=== PATIENT | female | born 1945 | race Caucasian/White ===

== ENCOUNTER → 2024-04-09 07:33 | Outpatient (REF) | payer OTHER, SELFPAY | LOC: PAVMRI 07:33 | PROVIDERS: ATTENDING PHYSICIAN Psychiatry & Neurology Neurology; FAMILY PHYSICIAN Family Medicine | DX: R20.9 Unspecified disturbances of skin sensation (principal); G51.8 Other disorders of facial nerve | CPT/HCPCS: 70553; A9575 ==

== ENCOUNTER → 2024-09-20 11:41 | Outpatient (REF) | payer OTHER, SELFPAY ==
[2024-09-20 13:01] LABS: % Basophils 0.2 % (0-2); % Eosinophils 2.1 % (0-6); % Immature Granulocytes 0.4 % (0-0.5); % Lymphocytes 22.8 % (20.5-51.1); % Monocytes 5.1 % (1.7-9.3); % Neutrophils 69.4 % (42.2-75.2); Absolute Eosinophils 0.1 10^3/uL (0-0.7); Absolute Lymphocytes 1.1 10^3/uL (1.2-3.4); Absolute Monocytes 0.2 10^3/uL (0.1-0.6); Absolute Neutrophils 3.3 10^3/uL (1.4-6.5); Hematocrit 29.9 % (37.0-47.0); Hemoglobin 10.3 g/dL (12.0-16.0); Mean Corp Hgb Conc. 34.4 g/dL (33.0-37.0); Mean Corpuscular Hgb 28.8 pg (27.0-31.0); Mean Corpuscular Volume 83.5 fL (81.0-99.0); Mean Platelet Volume 9.2 fL (7.4-10.4); Nucleated Red Blood Cells % 0 %; Platelet Count 224 10^3/uL (130-400); Red Blood Cell Count 3.58 10^6/uL (4.20-5.40); Red Cell Dist. Width 12.6 % (11.5-14.5); White Blood Cell Count 4.7 10^3/uL (4.8-10.8)
[2024-09-20 13:10] LABS: ALT (SGPT) < 10 U/L (0-35); AST (SGOT) 22 U/L (14-36); Albumin 3.5 g/dl (3.5-5.0); Alkaline Phosphatase 57 U/L (38-126); Blood Urea Nitrogen 23 mg/dl (7-17); Calcium 8.9 mg/dl (8.4-10.2); Carbon Dioxide 30 mmol/L (22-30); Chloride 102 mmol/L (98-107); Creatine Phosphokinase 52 U/L (30-135); Glucose 114 mg/dl (70-99); Potassium 3.7 mmol/L (3.5-5.1); Sodium 141 mmol/L (135-145); Total Bilirubin 0.4 mg/dl (0.2-1.3)
[2024-09-20 13:22] LABS: Erythrocyte Sed Rate 43 mm/hour (0-20)
[2024-09-20 13:26] LABS: Complement C3 154 mg/dl (88-165); IgA 309 mg/dl (70-400); IgG 909 mg/dl (700-1600); IgM 52 mg/dl (40-230)
[2024-09-20 13:33] LABS: Vitamin D, 25-OH*** 51.5 ng/mL (30-80)
[2024-09-20 19:14] LABS: Hepatitis B Surface Antigen Negative (Negative)
[2024-09-20 19:32] LABS: Hepatitis B Core Ab, Total Negative (Negative); Hepatitis B Surface Antibody Negative; Hepatitis C Antibody Negative (Negative)
[2024-09-22 10:31] LABS: Quantiferon Mitogen minus NIL 9.93 IU/mL; Quantiferon NIL 0.07 IU/mL; Quantiferon TB Gold Plus Negative (Negative)
[2024-09-23 06:35] LABS: Histone Antibody, IgG 0.2 Units (0.0-0.9)
[2024-09-23 08:14] LABS: ANA, IgG Reflex to HEp-2 None Detected (None Detected)
[2024-09-23 08:58] LABS: CCP Antibody IgG/IgA 3 Units (0-19)
[2024-09-23 09:16] LABS: Cardiolipin IgA Antibody <10 APL (<=11); Cardiolipin IgM Antibody <10 MPL (<=12); Cardiolipin Igg Antibody <10 GPL (<=14)
[2024-09-23 09:49] LABS: Vitamin D 1,25 Dihydroxy 64.9 pg/mL (19.9-79.3)
== END ==
LOC: REG 11:41
PROVIDERS: ATTENDING PHYSICIAN Student in an Organized Health Care Education/Training Program; FAMILY PHYSICIAN Psychiatry & Neurology Neurology; OTHER PHYSICIAN Family Medicine
DX: K13.79 Other lesions of oral mucosa (principal); R21 Rash and other nonspecific skin eruption; R25.1 Tremor, unspecified; R51.9 Headache, unspecified; R76.8 Other specified abnormal immunological findings in serum
CPT/HCPCS: 36415; 80053; 82164; 82306; 82550; 82595; 82652; 82784; 83516; 85025; 85610; 85613; 85652; 85730; 86038; 86140; 86146; 86147; 86160; 86162; 86200; 86480; 86704; 86706; 86803; 87340

== ENCOUNTER 2024-09-22 21:14 | Emergency (ER) | payer OTHER, SELFPAY ==
[2024-09-22 21:24] VITALS: BP 150/74
--- NOTE | 2024-09-23 01:10 | ED.GENMED ---
History of Present Illness
General
Chief Complaint: Facial Problem
Source: patient, spouse and other (Office notes from reimbursement auditor September 03; office notes from neurologist September 20. Recent laboratory studies September 20)
Exam Limitations: none
Time Seen by Provider: 09/23/24 00:41
Nursing documentation reviewed up to this point in time: agreed with
History of Present Illness
History of Present Illness:
This is an 79-year-old woman who has been suffering with trigeminal neuralgia which initially began 4 years ago after viral illness and initially the left side of her face. She has been following with neurology, Dr. Mark as well as following with
reimbursement auditor, Dr. Dumont due to positive CLAUDIA. Unremarkable MRI of the brain 2021 and again unremarkable January 2024. Apparently had been tried on Trileptal in the past without improvement. She is chronically maintained on Sinemet.
She complains of intermittent severe right sided facial pain that began a few weeks ago, worse over the past week. Right-sided facial pain is sharp, stabbing in nature accompanied with some burning sensation right buccal mucosa.
She was evaluated by Dr. Mark September 20. Extensive laboratory studies on September 20 shows minimally elevated sed rate of 43, mildly elevated CRP of 13.3. Complement factors negative. TB negative.
CBC showing very mild leukopenia at 4.7, hemoglobin 10.3.
Chemistries unremarkable. Vitamin D is normal. Immunoglobulins within normal limits.
Multiple other immunoglobulin studies are pending.
According to records, Dr. Mark plan was to increase Sinemet from twice daily dosing to 3 times daily dosing. Patient states due to facial pain she has been unable to eat, takes her medication with food, thus has not increased her dose as yet.
There is also note of potentially restarting Trileptal but patient states this has not been restarted and reports poor results with previous trial of Trileptal.
There is also consideration for initiating deutetrabenazine but not initiated as yet.
With last visit with reimbursement auditor September 03, and again yesterday she recommended trial of Magic mouthwash and prescription was to be sent to the pharmacy but patient states pharmacist did not receive the prescription.
She presents tonight with her with concerns for continuing severe intermittent right facial pain with inability to sleep.
She is hoping for some pain relief so she can sleep.
She has not been prescribed narcotics.
She is maintained on alprazolam 0.25 mg, once daily.
Past History
Past History
ED Past Medical History: HTN, Hypercholesterolemia, Psychiatric (Anxiety) and Other (Chronic trigeminal neuralgia Since 2019; Irritable bowel syndrome)
ED Past Surgical History: Cholecystectomy and Tonsilectomy
Social History
Tobacco: Non-smoker
Alcohol: None
Personal:
Living: with family
Employment: Retired
Family History
Family History: Other (Noncontributory)
Phy Exam
Physical Exam
Physical Exam:
GENERAL: 79-year-old woman appears her stated age. She is sitting upright on edge of stretcher, occasionally wincing in pain, guarding the right side of her face. is accompanying.
EYE: pupils equal and reactive. anicteric
NECK: Supple, nontender, no meningismus, no significant adenopathy.
ENT: posterior pharynx is clear, oral mucosa is moist. TM clear b/l, nares patent. No definitive palpable tenderness to the right side of the face but palpation of the right side of the face occasionally triggers neuropathic right facial pain.
There is no soft tissue swelling, no erythema, no rash.
CARDIAC: Regular rate and rhythm. no murmur.
LUNGS: Clear breath sounds bilaterally, no acute respiratory distress, no wheezes/rales/rhonchi
ABDOMEN: Soft, nondistended, without focal tenderness
NEUROLOGICAL: Alert and oriented x3, no focal neuro deficits. Gait is steady. No evidence of muscle spasm nor abnormal movements.
SKIN: Warm and dry, normal color, skin intact. No rash.
MUSCULOSKELETAL: No C/C/E. peripheral pulses are full and equal b/l. No palpable tenderness.
PSYCH: Mildly anxious. Easily communicative.
Course
Orders/Labs/Results
Orders:
Orders
09/23/24 01:09
Ketorolac [Toradol] 30 mg IM NOW STA
09/23/24 01:40
Mag&Al/Sim/Diphenhyd/Lidocaine [First-Mouthwash Blm Suspension] 5 ml PO NOW STA
Vital Signs
Initial and Last Documented VS:
Initial Vital Signs
Temp Pulse Resp BP Pulse Ox
98.5 F 67 19 150/74 98
09/22/24 21:24 09/22/24 21:24 09/22/24 21:24 09/22/24 21:24 09/22/24 21:24
Last Documented Vital Signs
Temp Pulse Resp BP Pulse Ox
98.5 F 65 18 151/58 98
09/22/24 21:24 09/23/24 01:20 09/23/24 01:20 09/23/24 01:20 09/23/24 01:20
MDM/Problems Addressed
Differential Diagnosis Includes:
Patient has history of chronic trigeminal neuralgia which initially began 4 years ago, left facial now more recently exacerbated and is right facial.
She has been following with neurology as well as rheumatology with recent visits this month in fact visit with neurologist just September 20.
Extensive laboratory panel thus far unremarkable save for minimally elevated sed rate and CRP. Reportedly positive CLAUDIA in the past, repeat immunologic studies are pending.
She presents with complaints of increasing pain and difficulty sleeping.
No evidence of infectious process and although reports difficulty eating has been drinking fluids well and overall appears euvolemic.
Unremarkable routine labs just 2 days ago.
Will trial an IM dose of Toradol as well as a dose of Magic mouthwash.
Due to advanced age, I am significantly hesitant to initiate opioid or any other significantly sedating medication.
Chronic conditions affecting care: HTN and Other (Chronic facial pain/trigeminal neuralgia)
Acute Exacerbation and/or Progression of Chronic Illness: Other (Trigeminal neuralgia)
*Pulse Oximetry
Patient hypoxic: no
*Critical Care Note
Total Time (mins, 75-104mins- exclusive of procedures): Not Applicable
Update Note
Update Note:
After an IM dose of Toradol and an oral dose of Magic mouthwash patient feeling improved and is eager to be discharged to home.
Recommend prompt follow-up with her neurologist as well as reimbursement auditor.
Discussed importance of remaining well-hydrated on a daily basis.
A prescription for Magic mouthwash has been provided to patient.
ED Attending Note
-
Portions of this chart may have been created with voice recognition software.� Occasional wrong word or��sound alike� substitutions may have occurred due to the inherent limitations of voice recognition software.
Discharge Plan
Departure
Patient Disposition: Home (Routine Discharge)
Date of Disposition: 09/23/24
Time of Disposition: 02:11
Patient with high blood pressure during this ER visit?: No
Condition: Good
Discharge Problem:
exacerbation of trigeminal neuralgia
Instructions: Trigeminal neuralgia
Referrals:
Nisreen Dumont DO [Active] - Keep scheduled appt
Moris Mark MD [Active] - Call in 1-3 days for appt
NONE,* [Family Provider] -
Interventions
Interventions:
*Risk Screen - Suicide Last Done: 09/22/24 21:24
*General Assessment Last Done: 09/23/24 01:17
*Neglect/Abuse Screening Last Done: 09/22/24 21:24
*ED COVID-19 Vaccine History Last Done: 09/23/24 01:20
ED- Neurological Assessment Last Done: 09/23/24 01:17
ED-Skin Assessment Last Done: 09/23/24 01:17
Discharge Date and Time
Print Language: LAO
[2024-09-23] MEDS: TORADOL 30 MG IM (01:14)
[2024-09-23 01:20] VITALS: BP 151/58; BMI 24.3
[2024-09-23] MEDS: FIRST-MOUTHWASH BLM SUSPENSION 5 ML PO (01:49)
== END 2024-09-23 02:24 | disposition home or self-care (01) ==
LOC: EMR 21:14
PROVIDERS: EMERGENCY PHYSICIAN Emergency Medicine
DX: G50.0 Trigeminal neuralgia (principal); E78.00 Pure hypercholesterolemia, unspecified; I10 Essential (primary) hypertension; Z90.49 Acquired absence of other specified parts of digestive tract; Z79.899 Other long term (current) drug therapy
CPT/HCPCS: 96372; 99284

== ENCOUNTER 2024-09-24 17:15 | Inpatient (IN) | payer OTHER, SELFPAY ==
[2024-09-24 13:32] VITALS: BP 140/59
--- NOTE | 2024-09-24 13:49 | ED.GENMED ---
History of Present Illness
General
Chief Complaint: Swelling
Source: patient
Exam Limitations: none
Time Seen by Provider: 09/24/24 13:46
Nursing documentation reviewed up to this point in time: agreed with
History of Present Illness
History of Present Illness:
79-year-old female with past medical history of anxiety, high blood pressure, trigeminal neuralgia presents to the emergency department today with concerns of right sided facial pain as well as swelling of the tongue. Patient states her tongue is
so swollen that she has a lot of difficulty swallowing. Patient denies any shortness of breath. Patient denies any chest pain. Patient denies any rashes. Patient does take losartan but does not take any CAS inhibitor's. She has been following
with Dr. Kelly for the facial symptoms as well as following with rheumatology. Today she feels the facial pain on the right side, describes it as a burning sensation. She also gets intermittent muscle spasms on that same side. Patient denies any
exposure to known allergens. Patient denies any new medications other than Toradol which she recieved last night as well as Magic mouthwash.
Past History
Past History
ED Past Medical History: HTN, Hypercholesterolemia, Psychiatric (Anxiety) and Other (Chronic trigeminal neuralgia Since 2019; Irritable bowel syndrome)
ED Past Surgical History: Cholecystectomy and Tonsilectomy
Social History
Tobacco: Non-smoker
Alcohol: None
Personal:
Living: with family
Employment: Retired
Family History
Family History: Other (Noncontributory)
Review of Systems
Review of Systems
All Other Systems: ROS reviewed and negative except as documented in HPI and ROS
Phy Exam
Physical Exam
Physical Exam:
General: Patient is well appearing and in no acute distress; non-toxic
Skin: Warm and dry, no rashes or lesions
Head: Normocephalic, atraumatic
Eyes: Sclera non-icteric. EOMs intact. PERRLA.
Mouth: Tongue swelling noted, no lip swelling, minimal visualization of posterior pharynx due to swelling
Cardiac: Regular rate and rhythm, no murmurs
Peripheral Vascular: No lower extremity swelling or edema
Pulm: Normal respiratory effort, no wheezes
Neuro: CN II-XII intact, no focal neurologic deficits. No reproduction of neurologic symptoms with palpation of right trigeminal nerve root.
Psychiatric: Appropriate mood and affect.
Scores
Heart Failure Risk
Heart Failure Risk Score: Not Applicable
Course
Orders/Labs/Results
Orders:
Orders
09/24/24 14:02
Diphenhydramine [Benadryl] 25 mg IV NOW STA
Famotidine [Pepcid] 20 mg IV NOW STA
09/24/24 14:09
Complete Blood Count/With Diff Urgent
Comprehensive Metabolic Panel Urgent
09/24/24 14:23
EPINEPHrine PF [Adrenalin] 0.3 mg IM NOW STA
Ketorolac [Toradol] 15 mg IV NOW STA
09/24/24 14:54
Ketorolac [Toradol] 15 mg .ROUTE .STK-MED ONE
09/24/24 14:59
Morphine Sulfate 2 mg IV NOW STA
09/24/24 16:25
diazePAM [Valium Injection] 2 mg IV NOW STA
09/24/24 16:59
Admit/Transfer Patient As Directed
Co-Sign Provider:
Level of Care: Inpatient admission
Assign to:: Telemetry
Physician / Group: Shiva
Diagnosis: Angioedema, HERLINDA
Reason for Telemetry: Arrhythmia
Date to Stop Telemetry: 09/27/24
Time to Stop Telemetry: 11:00
Reason for Hospitalization: IVFs
Expected length of stay greater than two midnights?: Yes
ELOS- Estimated Length of Stay in days: 3
I certify the patient meets the requirements for IP care: Yes
PRN Pain Medication Management As Directed
May give lesser potent ordered pain med per pt: Yes
preference::
Protocol:: Medication orders for pain may be administered in a
manner that supports deferring to patient preference
when the pt is:
- Requesting an ordered lesser potent pain medication.
Least to most potent pain medications are defined
as: acetaminophen < NSAID < tramadol < opioids
(morphine, oxycodone, hydromorphone).
- Requesting a lesser dose of the same medication IF
ORDERED.
- Requesting a less intrusive route of administration
if both routes are prescribed by the provider (PO <
IV).
09/24/24 17:00
Code Status As Directed
Resuscitation Status: Full Code
09/27/24 11:00
DC Protocol for Telemetry ONCE
Abnormal Lab Results
09/24/24
14:09
RBC 3.68 L 10^6/uL
(4.20-5.40)
Hgb 10.5 L g/dL
(12.0-16.0)
Hct 30.4 L %
(37.0-47.0)
Absolute Lymphs (auto) 1.0 L 10^3/uL
(1.2-3.4)
Neutrophils % 75.5 H %
(42.2-75.2)
Lymphocytes % 19.1 L %
(20.5-51.1)
BUN 33 H mg/dl
(7-17)
Creatinine 1.3 H mg/dL
(0.6-1.0)
Total Protein 6.0 L g/dl
(6.3-8.2)
09/24/24 14:09
09/24/24 14:09
Vital Signs
Initial and Last Documented VS:
Initial Vital Signs
Temp Pulse Resp BP Pulse Ox
98.1 F 81 18 140/59 98
09/24/24 13:32 09/24/24 13:32 09/24/24 13:32 09/24/24 13:32 09/24/24 13:32
Last Documented Vital Signs
Temp Pulse Resp BP Pulse Ox
98.1 F 80 18 122/50 98
09/24/24 13:32 09/24/24 16:22 09/24/24 16:22 09/24/24 16:22 09/24/24 16:22
MDM/Problems Addressed
Differential Diagnosis Includes:
Angioedema, anaphylaxis, cellulitis, trigeminal neuralgia, multiple sclerosis,
MDM/Problems Addressed:
79-year-old female with past medical history of trigeminal neuralgia, hypertension, anxiety presents to the emergency department today with concerns of acute angioedema. She has tongue swelling which muscles her voice and makes it difficult for
her to swallow. EMS was called and she was given Decadron and route to the emergency department. Here in the emergency department, she was given intramuscular epinephrine, and antihistamines through the IV. Her pain was treated with morphine.
CBC shows chronic anemia, CMP shows increased BUN to creatinine ratio, patient is receiving some fluids. Will reassess.
On reassessment, patient's speech has improved but she still does have tongue swelling. Her speech is still muffled. Patient states that she can now feel the back of her teeth but does not feel that she can comfortably swallow. This was noted
around 2 hours after receiving her medications and epinephrine. Although no airway involvement, considering patient still has noticeable swelling and is very symptomatic, will admit for observation. Due to patient's neurologic pain, she noted no
improvement with the morphine. Patient states that she is starting to feel anxious and claustrophobic in her hospital room, will give Valium to help with anxiety as well as possible muscle spasm. In terms of patient's ongoing nerve pain and
chronic neurologic symptoms, did advise follow-up with neurology and rheumatology as soon as possible. Patient stable for hospital admission.
Chronic conditions affecting care:
Hypertension on losartan, anxiety, trigeminal neuralgia
*Pulse Oximetry
Patient hypoxic: no
*Critical Care Note
Total Time (30-74mins, 75-104mins- exclusive of procedures): Not Applicable
Data Reviewed
Review of Other/Old Records Reveals: Records (Reviewed previous ER physician documentation from 09/23/2024 patient was seen for exacerbation of trigeminal neuralgia with her right sided facial pain, was given Toradol and Magic mouthwash) and
Discharge Summary (No discharge summary in [facility] to review)
Source: patient and records
Prescriptions/Medications Considered But Not Given:
n/a
Further Testing Considered But Not Given:
n/a
Patient Management
Discussion with other providers: [facility] [employer]
Escalation/DeEscalation of care consider admission/obs:
Patient referred for admission reviewed case with the ER attending
ED Attending Note
-
Portions of this chart may have been created with voice recognition software.� Occasional wrong word or��sound alike� substitutions may have occurred due to the inherent limitations of voice recognition software.
Discharge Plan
Departure
Patient Disposition: Admit
Date of Disposition: 09/24/24
Time of Disposition: 16:30
Admit to: Med/Surg
Presentation/result/management discussed w/ accepting MD/DO: Hospitalist
Patient with high blood pressure during this ER visit?: Yes
Condition: Fair
Discharge Problem:
Angioedema
Interventions
Interventions:
*Risk Screen - Suicide Last Done: 09/24/24 13:38
*General Assessment Last Done: 09/24/24 13:38
*Neglect/Abuse Screening Last Done: 09/24/24 13:38
ED- Fall Risk Assessment Last Done: 09/24/24 18:24
*ED COVID-19 Vaccine History Last Done: 09/24/24 13:38
*Nursing Disposition Last Done: 09/24/24 18:24
ED- Cardiac Assessment Last Done: 09/24/24 13:39
ED- Pulmonary Assessment Last Done: 09/24/24 13:39
ED-Skin Assessment Last Done: 09/24/24 13:39
[2024-09-24] MEDS: PEPCID 20 MG IV (14:11)
[2024-09-24] MEDS: BENADRYL 25 MG IV (14:11)
[2024-09-24 14:21] LABS: % Basophils 0.4 % (0-2); % Immature Granulocytes 0.4 % (0-0.5); % Lymphocytes 19.1 % (20.5-51.1); % Monocytes 3.6 % (1.7-9.3); % Neutrophils 75.5 % (42.2-75.2); Absolute Eosinophils 0.1 10^3/uL (0-0.7); Absolute Monocytes 0.2 10^3/uL (0.1-0.6); Hematocrit 30.4 % (37.0-47.0); Hemoglobin 10.5 g/dL (12.0-16.0); Mean Corp Hgb Conc. 34.5 g/dL (33.0-37.0); Mean Corpuscular Hgb 28.5 pg (27.0-31.0); Mean Corpuscular Volume 82.6 fL (81.0-99.0); Mean Platelet Volume 8.7 fL (7.4-10.4); Nucleated Red Blood Cells % 0 %; Platelet Count 252 10^3/uL (130-400); Red Blood Cell Count 3.68 10^6/uL (4.20-5.40); Red Cell Dist. Width 12.5 % (11.5-14.5); White Blood Cell Count 5.2 10^3/uL (4.8-10.8)
[2024-09-24 14:37] LABS: ALT (SGPT) 18 U/L (0-35); AST (SGOT) 24 U/L (14-36); Albumin 3.6 g/dl (3.5-5.0); Alkaline Phosphatase 59 U/L (38-126); Blood Urea Nitrogen 33 mg/dl (7-17); Calcium 8.5 mg/dl (8.4-10.2); Carbon Dioxide 25 mmol/L (22-30); Chloride 103 mmol/L (98-107); Glucose 87 mg/dl (70-99); Sodium 140 mmol/L (135-145); Total Bilirubin 0.5 mg/dl (0.2-1.3); eGFR 41.31
[2024-09-24] MEDS: ADRENALIN 0.3 MG IM (14:56)
[2024-09-24] MEDS: MORPHINE SULFATE 2 MG IV (15:05)
[2024-09-24 16:22] VITALS: BP 122/50
[2024-09-24] MEDS: VALIUM INJECTION 2 MG IV (16:34)
--- NOTE | 2024-09-24 17:03 | HPS.HSE ---
Family Physician
-
Family Physician: Chris Jackson
Chief Complaint
-
Right Facial Pain and Tongue Swelling
History of Present Illness
Patient is an 79 y/o female past medicla history of hypertension, anxiety and possible trigeminal neuralgia who presents with right sided facial pain and tongue swelling. Patient was seen here at the [facility] Emergency Department two
nights ago with severe right facial pain. During that visit she was given a dose of Toradol and started on Magic Mouthwash for the pain. She has been using Magic Mouthwash at home with last dose this morning. Initially upon presentation her
tongue was so swollen she was having difficulty swallowing. In the ED she was given epinephrine and benadryl with improvement in the tongue swelling. She notes tongue does not feel quite back to baseline, and she reports persistent right sided
facial pain.
Medical History
Past Medical History
Past Medical History: Reports Other
Additional Past Medical History:
Essential Hypertension
Hyperlipidemia
Trigeminal Neuralgia
Anxiety
Irritable Bowel Syndrome
Past Surgical History: Reports Other
Additional Past Surgical History:
Cholecystectomy
Tonsillectomy
Social History
Tobacco: Non-smoker
Alcohol: Occasional
Family History
Family History: Not pertinent
Allergies / Home Medications
Allergies reflects when Allergies were last updated in [facility].
Home Medications with original date entered in [facility]
Allergy/Medication List:
Allergies
Allergy/AdvReac Type Severity Reaction Status Date / Time
No Known Allergies Allergy Unverified 09/22/24 21:24
Home Medications
Magic Mouthwash 5 ml PO QIDPRN PRN mouth pain 09/24/24
alprazolam 0.25 mg tablet 0.25 mg PO HS 09/24/24
carbidopa 25 mg-levodopa 100 mg tablet 1 tab PO TID 09/24/24
cetirizine 10 mg tablet 10 mg PO DAILYPRN PRN allergies 09/24/24
ergocalciferol (vitamin D2) 1,250 mcg (50,000 unit) capsule 1,250 mcg PO HARRELL 09/24/24
escitalopram oxalate 10 mg tablet 10 mg PO DAILY 09/24/24
hydrochlorothiazide 25 mg tablet 25 mg PO DAILY 09/24/24
loperamide 2 mg capsule 2 mg PO BID 09/24/24
losartan 100 mg tablet 100 mg PO DAILY@1500 09/24/24
simvastatin 20 mg tablet 20 mg PO HS 09/24/24
Review of Systems
-
A 12 point ROS was completed and negative except as noted: Yes
Constitutional: Denies Fever or Chills
Respiratory: Denies Cough or Trouble Breathing
Cardiac: Denies Chest Pain or Palpitations
Abdomen/GI: Denies Abdominal Pain, Nausea, Vomiting or Diarrhea
Physical Exam
Vital Signs
Vital Signs
Temp Pulse Resp BP Pulse Ox
98.1 F 80 18 122/50 98
09/24/24 13:32 09/24/24 16:22 09/24/24 16:22 09/24/24 16:22 09/24/24 16:22
Physical Exam
General: Comfortable and Conversant
Respiratory: Clear and Non Labored Respirations
Cardiac: S1/S2 and Regular Rhythm
GI: Soft and Non Tender
Rectal: Deferred by Provider
Musculoskeletal: No Clubbing, No Cyanosis and No Edema
Skin: Warm and Dry
Neuro: Awake, Alert, Oriented and Nonfocal/grossly intact
Psych: Calm
Laboratory Results
-
09/24/24 14:09
09/24/24 14:09
Laboratory Results
Total Bilirubin 0.5 mg/dl (0.2-1.3) 09/24/24 14:09
AST 24 U/L (14-36) 09/24/24 14:09
ALT 18 U/L (0-35) 09/24/24 14:09
Alkaline Phosphatase 59 U/L (38-126) 09/24/24 14:09
Data Reviewed
-
Lab Data: Labs Reviewed by me
Old Records: Reviewed
Impression/Plan
-
Angioedema, possibly trigger by lidocaine in Magic Mouthwash vs Losartan
-Significant improvement following Epinephrine and Benadryl given in ED
-Start Decadron
-Continue Benadryl prn
Acute Kidney Injury, suspect related to NSAIDs given in ED two nights ago
-Hold HCTZ and Losartan
-Give IVFs overnight
-Repeat labs in AM
Right Facial Pain, possible exacerbation of Trigeminal Neuralgia
-Add Gabapentin 300mg HS
-Continue Dilaudid for severe pain
-Continue Sinemet as prior to admission (started by Neurology for facial muscle tremors per Daughter)
-Consider Neurology Consult
Essential Hypertension
-HCTZ and Losartan on hold in setting of HERLINDA
-Monitor BP closely
Hyperlipidemia
-Continue simvastatin
Anxiety
-Continue Lexapro, and alprazolam as prior to admission
DVT proph: SCDs
Code Status: Full Code
--- NOTE | 2024-09-24 18:27 | W.PN.UPDATE ---
Update Note
Progress Note Update
This is an addendum to the H&P written by Brittny Moise on 09/24/2024. Patient seen and examined independently with PA.
79-year-old female past medical history of hypertension, anxiety, possible trigeminal neuralgia presenting with right-sided facial pain and tongue swelling. She came 2 nights ago with severe right facial pain in the jaw for the past week was given
Toradol and Magic mouthwash. Magic mouthwash temporarily helps.
Patient with chronic history of possible trigeminal neuralgia with periodic right-sided facial tingling and right-sided eye droop. She was started on carbidopa-levodopa previously for spasms. She sees neurology. However at this time she has new
onset of tongue swelling likely allergic reaction from Magic mouthwash versus much less likely from losartan.
Labs show HERLINDA. Continue IV fluids. Hold nephrotoxic medications.
Benadryl, epinephrine, famotidine, ketorolac, morphine, diazepam given in ER. Continue Pepcid, as needed Benadryl, add dexamethasone to treat tongue swelling.
Her right-sided jaw pain appears to be secondary to trigeminal neuralgia versus rheumatologic condition. She is undergoing outpatient rheumatology workup. Gabapentin and Dilaudid as needed for pain. No evidence of parotitis.
[2024-09-24 19:04] VITALS: BP 140/58; BMI 23.6
[2024-09-24] MEDS: DILAUDID 0.25 MG IV (20:34)
[2024-09-24] MEDS: NSS 1000 IV (20:45)
[2024-09-24] MEDS: DECADRON 4 MG IV (20:46)
[2024-09-24] MEDS: IMODIUM PO (20:47)
[2024-09-24] MEDS: NEURONTIN 300 MG PO (21:26)
[2024-09-24] MEDS: XANAX 0.25 MG PO (22:58)
[2024-09-24] MEDS: SINEMET 25-100 PO ×2 (22:58→23:02)
[2024-09-24] MEDS: LIPITOR 10 MG PO (22:58)
[2024-09-24 23:15] VITALS: BP 119/46
[2024-09-25] MEDS: DILAUDID 0.25 MG IV ×4 (03:37→13:00)
[2024-09-25 03:53] VITALS: BP 127/50
[2024-09-25 07:11] LABS: Hemoglobin 10.1 g/dL (12.0-16.0); Mean Corp Hgb Conc. 34.8 g/dL (33.0-37.0); Mean Corpuscular Hgb 28.9 pg (27.0-31.0); Mean Corpuscular Volume 82.9 fL (81.0-99.0); Platelet Count 246 10^3/uL (130-400); Red Cell Dist. Width 12.5 % (11.5-14.5); White Blood Cell Count 5.9 10^3/uL (4.8-10.8)
[2024-09-25 07:20] VITALS: BP 137/53
[2024-09-25 07:48] LABS: Blood Urea Nitrogen 37 mg/dl (7-17); Calcium 8.4 mg/dl (8.4-10.2); Carbon Dioxide 24 mmol/L (22-30); Chloride 104 mmol/L (98-107); Estimated Creatinine Clearance 32 ml/min; Glucose 123 mg/dl (70-99); Potassium 4.6 mmol/L (3.5-5.1); Sodium 138 mmol/L (135-145); eGFR 50.48
[2024-09-25] MEDS: DECADRON 4 MG IV ×2 (08:32→20:54)
[2024-09-25] MEDS: NSS (PRESERVATIVE FREE) 8 ML IV (08:32)
[2024-09-25] MEDS: PEPCID 20 MG IV (08:32)
[2024-09-25] MEDS: LEXAPRO PO (08:34)
[2024-09-25] MEDS: IMODIUM PO ×2 (08:34→20:51)
[2024-09-25] MEDS: SINEMET 25-100 PO ×3 (08:34→20:51)
[2024-09-25] MEDS: ROXICODONE 5 MG PO ×2 (10:47→15:56)
[2024-09-25 11:45] VITALS: BP 127/48
--- NOTE | 2024-09-25 12:55 | W.PN.HOSP.TC ---
Today's Communication/Plan
-
Increase Neurontin.
Increase the dose of Dilaudid and add oxycodone as needed for moderate pain.
Consult neurology
Assessment / Plan
Assessment / Plan
Angioedema, possibly trigger by lidocaine in Magic Mouthwash vs Losartan. Doubt Losartan as this was started after going on mouth wash.
-Significant improvement following Epinephrine and Benadryl given in ED
- Continued improvement. Continue with Decadron for now. Switch to oral prednisone in a.m. if continued improvement
-Continue Benadryl prn
Acute Kidney Injury, suspect related to NSAIDs given in ED two nights ago
-Hold HCTZ and Losartan
-Improved Cr
- Cw IV fluids till oral intake is adequate
Right Facial Pain, possible exacerbation of Trigeminal Neuralgia
- Increase gabapentin to 600 mg
-Continue Dilaudid for severe pain
-Continue Sinemet as prior to admission (started by Neurology for facial muscle tremors per Daughter)
- Neurology Consult
Essential Hypertension
-Under goal-hold medications for today.
-HCTZ and Losartan on hold in setting of HERLINDA
-Monitor BP closely
Hyperlipidemia
-Continue simvastatin
Anxiety
-Continue Lexapro, and alprazolam as prior to admission
DVT proph: SCDs
Code Status: Full Code
total time spent on today's encounter was 52 minutes which included time spent in counseling the patient regarding diagnosis and treatment plan as listed above, goals of care, and symptom management. Case was discussed with nursing staff,
specialists . All labs and imaging personally reviewed by me. Remainder the time spent in detailed review of previous records, lab data, imaging, and other medical provider documentation.
Anticipated Discharge: > 48 hours
Subjective/Interval History
-
Date of Service: September 25, 2024
patient still with persistent right facial pain and difficult to talk due to pain. Most of communication was written with me today.
Her tongue swelling has improved much. She is able to swallow.
She is known to have right-sided trigeminal neuralgia and was following with [facility]. Prior to that she had left-sided pain couple of years ago which resolved.
Objective Data
-
Labs:
Laboratory Results
09/25/24
06:43
WBC 5.9
Hgb 10.1 L
Hct 29.0 L
Plt Count 246
Sodium 138
Potassium 4.6
Chloride 104
Carbon Dioxide 24
BUN 37 H
Creatinine 1.1 H
Glucose 123 H
Calcium 8.4
Vital Signs:
Vital Signs
Temp Pulse Resp BP Pulse Ox
97.6 F 60 17 127/48 98
09/25/24 11:45 09/25/24 11:45 09/25/24 11:45 09/25/24 11:45 09/25/24 11:45
I&O
09/24/24 09/25/24 09/26/24
06:59 06:59 05:59
Intake Total 700 / 700
Balance 700 / 700
Review of Systems
-
Constitutional: Denies Fever
Respiratory: Denies Trouble Breathing
Cardiac: Denies Chest Pain
Abdomen/GI: Denies Constipated
Neuro: Denies Dizzy
Physical Exam
-
General: Comfortable
HEENT: Other (Tongue back to normal. No TMJ joint tenderness on right on palpation)
Respiratory: Non Labored Respirations; Negative Accessory Resp Muscle Use
Cardiac: Regular Rhythm and S1/S2
GI: Soft
Neuro: AO x 3 and No Motor Deficits; Negative Slurred Speech or Facial Droop
Psych: Calm; Negative Confused
Data Reviewed
-
Labs: Labs Reviewed by me
--- NOTE | 2024-09-25 13:02 | CON.NEURO ---
Consultation
Order
Date of Consultation: 09/25/24
Requesting Provider: Dannie Caicedo MD
Reason for Consult: Intractable right proximal neuro
CC: facial pain
HPI: This is an 79-year-old woman who presented to [facility] on September with facial pain. According to the patient she has had intermittent right V3 distribution sharp paroxysmal pain over the last several years. The pain
worse with touch, chewing, speaking or brushing your teeth. Ms. Stallings reportedly started Magic mouthwash for symptomatic pain relief before she developed angioedema leading to ER visit on 09/22/2024. Prior therapy included Trileptal that was
reportedly ineffective.
Ms. Stallings was started on gabapentin in the hospital and is currently on 300 mg and reports minimal improvement of the pain. No reports of ear pain, tinnitus, dysphagia, diplopia, fever, ptosis, miosis, lacrimation, conjunctival injection,
rhinorrhea, nasal congestion, rash.
ER VS: unremarkable
PDMP:Alprazolam 0.25 Mg� 60 tabs filled in on 04/02/2024, 06/09/2024, 08/05/2024.
Labs: Sinemet 25-101 tablet 3 times daily
MAR: Hydromorphone 0.25 mg, morphine 2 mg, gabapentin 300 mg, dexamethasone 4 mg IV, diazepam 2 mg
PMH: Trigeminal neuralgia, parkinsonism, HTN, DLP, CKD, osteoporosis, vitamin D deficiency IBS, MDD, KENRICK, positive CLAUDIA
PSH: dental implants, tonsillectomy, cholecystectomy
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
FH: Both parents had stroke and there is 7
All:NKDA
ROS:Constitutional: Negative. Negative for chills, fever and unexpected weight change.
HENT: Negative for ear pain, hearing loss, tinnitus and trouble swallowing.
Eyes: Positive visual disturbance.
Respiratory: Negative for cough, choking and shortness of breath.
Cardiovascular: Negative for chest pain, palpitations and leg swelling.
Gastrointestinal: Negative for abdominal pain and vomiting.
Endocrine: Negative. Negative for cold intolerance.
Genitourinary: Negative for dysuria, flank pain and urgency.
Musculoskeletal: Negative for back pain, gait problem, neck pain and neck stiffness.
Skin: Negative for rash.
Allergic/Immunologic: Negative. Negative for immunocompromised state.
Neurological: Positive for facial pain, intermittent imbalance
Psychiatric/Behavioral: Negative for behavioral problems, confusion and hallucinations.
General: Well developed. In no acute distress.
Cardio: Regular rate and rhythm without murmur. Extremities are without cyanosis or edema.
Neuro:
Mental Status: Alert, oriented to person, place, and date. Normal attention and recall. Good fund of knowledge. Follows complex requests across the midline. Comprehension, naming, and repetition intact. Immediate and delayed recall 3/3.
Cranial Nerves: . Pupils are equally round and reactive to light. EOMs full. Visual schuster full to confrontation. No ptosis. No nystagmus. Allodynia in the right V3 distribution. Face symmetric. Normal hearing AU. The palate elevated well.
SCMs and traps 5/5. Tongue midline. No dysarthria.
Motor: Normal bulk and tone with augmentation. No pronator or arm drift. Strength 5/5 throughout. No clonus.
Reflexes: 2+ throughout the upper extremities and knees. Plantar responses flexor bilaterally.
Sensory: Normal vibration at the toes
Coordination: Resting head tremor. No dysmetria
Gait: deferred
Assessment and Plan:
I. Right V3 neurology
II. Parkinsonism
III. Angioedema, nearly resolved
-Titrate gabapentin to 600 mg twice daily as tolerated
-Start baclofen 5 mg twice daily. titrate cautiously to effect; do not exceed 50 mg/day
-MRI head wo kenrick to rule out neurovascular compression
-Continue Sinemet 25-100 mg 1 tab 3 times daily
-Will consider neurosurgical evaluation if conservative therapy fails to provide relief
I personally reviewed all radiology and labs along with past medical records pertinent to current medical problems. Total time spent in patient care is 60 minutes.
Thank you for allowing us to participate in the care of this patient. We will continue to follow. Please do not hesitate to contact us with any questions or concerns.
Subjective/Objective
Subjective Data
Date of Service: September 25, 2024
Objective Data
Vital Signs
Temp Pulse Resp BP Pulse Ox
36.4 C 60 17 127/48 98
09/25/24 11:45 09/25/24 11:45 09/25/24 11:45 09/25/24 11:45 09/25/24 11:45
Lab Results
09/25/24 06:43
09/25/24 06:43
Sodium 138 mmol/L (135-145) 09/25/24 06:43
Potassium 4.6 mmol/L (3.5-5.1) 09/25/24 06:43
BUN 37 mg/dl (7-17) H 09/25/24 06:43
Glucose 123 mg/dl (70-99) H 09/25/24 06:43
Calcium 8.4 mg/dl (8.4-10.2) 09/25/24 06:43
Patient Allergies
No Known Allergies Allergy (Unverified 09/22/24 21:24)
Medications
-
Active Medications
Generic Name Dose Route Start Last Admin
Trade Name Freq PRN Reason Stop Dose Admin
Acetaminophen 650 mg 09/24/24 18:50
Acetaminophen 325 Mg Tablet PO 10/22/24 18:49
Q4HPRN PRN
mild pain/ fever>100.5F
Alprazolam 0.25 mg 09/24/24 22:00 09/24/24 22:58
Alprazolam 0.25 Mg Tablet PO 10/22/24 21:59 0.25 mg
HS DAVID Administration
Atorvastatin Calcium 10 mg 09/24/24 22:00 09/24/24 22:58
Atorvastatin (Lipitor) 10 Mg Tablet PO 10/22/24 21:59 10 mg
HS DAVID Administration
Carbidopa/Levodopa 1 tablet 09/24/24 22:00 09/25/24 08:34
Carbidopa (25 Mg)/Levodopa (100 Mg) Regular Release Tablet PO 10/22/24 21:59 Not Given
TID DAVID
Dexamethasone Sodium Phosphate 4 mg 09/24/24 20:00 09/25/24 08:32
Dexamethasone 4 Mg/Ml 1 Ml Vial IV 10/22/24 19:59 4 mg
Q12H DAVID Administration
Diphenhydramine HCl 25 mg 09/24/24 18:50
Diphenhydramine 50 Mg/Ml 1 Ml Vial IV 10/22/24 18:49
Q4HPRN PRN
allergic reaction
Docusate Sodium 100 mg 09/25/24 20:00
Docusate Sodium 100 Mg Capsule PO 10/23/24 19:59
BID DAVID
Escitalopram Oxalate 10 mg 09/25/24 08:00 09/25/24 08:34
Escitalopram 10 Mg Tablet PO 10/23/24 07:59 Not Given
DAILY DAVID
Famotidine 20 mg 09/25/24 08:00 09/25/24 08:32
Famotidine 20 Mg/2 Ml Vial IV 10/23/24 07:59 20 mg
DAILY DAVID Administration
Gabapentin 200 mg 09/25/24 16:00
Gabapentin 100 Mg Capsule PO 10/23/24 15:59
TID DAVID
Hydromorphone HCl 0.5 mg 09/25/24 12:54
Hydromorphone 0.5 Mg/0.5 Ml Syringe IV 10/09/24 12:53
Q3HPRN PRN
severe pain
Dextrose/Sodium Chloride 1,000 mls @ 80 mls/hr 09/25/24 14:00
D5/0.45%Nacl IV
.[id number] DAVID
Loperamide HCl 2 mg 09/24/24 20:00 09/25/24 08:34
Loperamide 2 Mg Capsule PO 10/22/24 19:59 Not Given
BID DAVID
Oxycodone HCl 5 mg 09/25/24 10:17 09/25/24 10:47
Oxycodone 5 Mg Regular Release Tablet PO 10/09/24 10:16 5 mg
Q4HPRN PRN Administration
moderate pain
Polyethylene Glycol 17 grams 09/26/24 08:00
Polyethylene Glycol Powder 17 Grams Packet PO 10/24/24 07:59
DAILY DAVID
Sodium Chloride 0 flush 09/24/24 20:00
Sodium Chloride 0.9% (Flush) Syringe IV 10/22/24 19:59
PER PROTOCOL DAVID
Sodium Chloride 8 ml 09/25/24 08:00 09/25/24 08:32
Nss 8 Ml IV 10/23/24 07:59 8 ml
DAILY DAVID Administration
Home Medications
�Medication �Instructions �Recorded
Magic Mouthwash 5 ml PO QIDPRN PRN mouth pain 09/24/24
alprazolam 0.25 mg tablet 0.25 mg PO HS Mental Health/Anxiety 09/24/24
carbidopa 25 mg-levodopa 100 mg 1 tab PO TID PARKINSONS 09/24/24
tablet
cetirizine 10 mg tablet 10 mg PO DAILYPRN PRN allergies 09/24/24
ergocalciferol (vitamin D2) 1,250 1,250 mcg PO HARRELL Supplement 09/24/24
mcg (50,000 unit) capsule
escitalopram oxalate 10 mg tablet 10 mg PO DAILY Mental 09/24/24
Health/Anxiety
hydrochlorothiazide 25 mg tablet 25 mg PO DAILY Fluid 09/24/24
Retention/Swelling
loperamide 2 mg capsule 2 mg PO BID DIARRHEA 09/24/24
losartan 100 mg tablet 100 mg PO DAILY@1500 Blood Pressure 09/24/24
simvastatin 20 mg tablet 20 mg PO HS High Cholesterol 09/24/24
Vital Signs and Labs
-
Vital Signs and Labs:
Vital Signs
Temp Pulse Resp BP Pulse Ox
36.7 C 61 17 138/45 98
09/25/24 15:48 09/25/24 15:48 09/25/24 15:48 09/25/24 15:48 09/25/24 15:48
Lab Results
09/25/24 06:43
09/25/24 06:43
Sodium 138 mmol/L (135-145) 09/25/24 06:43
Potassium 4.6 mmol/L (3.5-5.1) 09/25/24 06:43
BUN 37 mg/dl (7-17) H 09/25/24 06:43
Glucose 123 mg/dl (70-99) H 09/25/24 06:43
Calcium 8.4 mg/dl (8.4-10.2) 09/25/24 06:43
Medications
-
Medications:
Generic Name Dose Route Start Last Admin
Trade Name Freq PRN Reason Stop Dose Admin
Acetaminophen 650 mg 09/24/24 18:50
Acetaminophen 325 Mg Tablet PO 10/22/24 18:49
Q4HPRN PRN
mild pain/ fever>100.5F
Alprazolam 0.25 mg 09/24/24 22:00 09/24/24 22:58
Alprazolam 0.25 Mg Tablet PO 10/22/24 21:59 0.25 mg
HS DAVID Administration
Atorvastatin Calcium 10 mg 09/24/24 22:00 09/24/24 22:58
Atorvastatin (Lipitor) 10 Mg Tablet PO 10/22/24 21:59 10 mg
HS DAVID Administration
Baclofen 5 mg 09/25/24 13:50 09/25/24 14:43
Baclofen 5 Mg Tablet PO 10/23/24 13:49 5 mg
BID DAVID Administration
Carbidopa/Levodopa 1 tablet 09/24/24 22:00 09/25/24 15:59
Carbidopa (25 Mg)/Levodopa (100 Mg) Regular Release Tablet PO 10/22/24 21:59 Not Given
TID ADVID
Dexamethasone Sodium Phosphate 4 mg 09/24/24 20:00 09/25/24 08:32
Dexamethasone 4 Mg/Ml 1 Ml Vial IV 10/22/24 19:59 4 mg
Q12H DAVID Administration
Diphenhydramine HCl 25 mg 09/24/24 18:50
Diphenhydramine 50 Mg/Ml 1 Ml Vial IV 10/22/24 18:49
Q4HPRN PRN
allergic reaction
Docusate Sodium 100 mg 09/25/24 20:00
Docusate Sodium 100 Mg Capsule PO 10/23/24 19:59
BID DAVID
Escitalopram Oxalate 10 mg 09/25/24 08:00 09/25/24 08:34
Escitalopram 10 Mg Tablet PO 10/23/24 07:59 Not Given
DAILY DAVID
Famotidine 20 mg 09/25/24 08:00 09/25/24 08:32
Famotidine 20 Mg/2 Ml Vial IV 10/23/24 07:59 20 mg
DAILY DAVID Administration
Gabapentin 200 mg 09/25/24 16:00 09/25/24 15:56
Gabapentin 100 Mg Capsule PO 10/23/24 15:59 200 mg
TID DAVID Administration
Hydromorphone HCl 0.5 mg 09/25/24 12:54
Hydromorphone 0.5 Mg/0.5 Ml Syringe IV 10/09/24 12:53
Q3HPRN PRN
severe pain
Dextrose/Sodium Chloride 1,000 mls @ 80 mls/hr 09/25/24 14:00 09/25/24 13:42
D5/0.45%Nacl IV 1,000 mls
.[id number] DAVID Administration
Loperamide HCl 2 mg 09/24/24 20:00 09/25/24 08:34
Loperamide 2 Mg Capsule PO 10/22/24 19:59 Not Given
BID DAVID
Oxycodone HCl 5 mg 09/25/24 10:17 09/25/24 15:56
Oxycodone 5 Mg Regular Release Tablet PO 10/09/24 10:16 5 mg
Q4HPRN PRN Administration
moderate pain
Polyethylene Glycol 17 grams 09/26/24 08:00
Polyethylene Glycol Powder 17 Grams Packet PO 10/24/24 07:59
DAILY DAVID
Sodium Chloride 0 flush 09/24/24 20:00
Sodium Chloride 0.9% (Flush) Syringe IV 10/22/24 19:59
PER PROTOCOL DAVID
Sodium Chloride 8 ml 09/25/24 08:00 09/25/24 08:32
Nss 8 Ml IV 10/23/24 07:59 8 ml
DAILY DAVID Administration
Home Medications
-
Home Medications
Magic Mouthwash 5 ml PO QIDPRN PRN mouth pain 09/24/24
alprazolam 0.25 mg tablet 0.25 mg PO HS Mental Health/Anxiety 09/24/24
carbidopa 25 mg-levodopa 100 mg tablet 1 tab PO TID PARKINSONS 09/24/24
cetirizine 10 mg tablet 10 mg PO DAILYPRN PRN allergies 09/24/24
ergocalciferol (vitamin D2) 1,250 mcg (50,000 unit) capsule 1,250 mcg PO HARRELL Supplement 09/24/24
escitalopram oxalate 10 mg tablet 10 mg PO DAILY Mental Health/Anxiety 09/24/24
hydrochlorothiazide 25 mg tablet 25 mg PO DAILY Fluid Retention/Swelling 09/24/24
loperamide 2 mg capsule 2 mg PO BID DIARRHEA 09/24/24
losartan 100 mg tablet 100 mg PO DAILY@1500 Blood Pressure 09/24/24
simvastatin 20 mg tablet 20 mg PO HS High Cholesterol 09/24/24
[2024-09-25] MEDS: D5/0.45%NACL 1000 IV (13:42)
[2024-09-25] MEDS: LIORESAL 5 MG PO ×2 (14:43→20:54)
--- NOTE | 2024-09-25 15:02 | PTCARENOTE ---
patient continues with persistent right face/right jaw area pain especially when trying to open mouth and engage in conversation. she wants to eat but reports it's 'too painful'. At 1005,notified Dr. Caicedo requesting dose increase and or
frequency change as pain level 8/10 after dose of Dilaudid was administered 0834. Roxicodone added to medication regimen and at 1248, patient reports pain 8/10. at 12:51, Dr. Caicedo ordering Dilaudid 0.25mgs IV now dose and increasing Dilaudid to
0.5mgs [id number] PRN severe pain. Currently, patient reports pain level 7/10. will continue to monitor.
--- NOTE | 2024-09-25 15:12 | PTCARENOTE ---
patient with pain level 6/10 at present, will continue to monitor.
[2024-09-25 15:48] VITALS: BP 138/45
[2024-09-25] MEDS: NEURONTIN 200 MG PO ×2 (15:56→21:59)
[2024-09-25] MEDS: DILAUDID 0.5 MG IV (18:50)
[2024-09-25 19:00] VITALS: BP 139/58
[2024-09-25] MEDS: COLACE 100 MG PO (20:54)
[2024-09-25] MEDS: XANAX 0.25 MG PO (21:59)
[2024-09-25] MEDS: LIPITOR 10 MG PO (21:59)
[2024-09-25 23:00] VITALS: BP 133/56
[2024-09-26] MEDS: D5/0.45%NACL 1000 IV (01:53)
[2024-09-26] MEDS: DILAUDID 0.5 MG IV ×3 (02:25→17:57)
[2024-09-26 03:00] VITALS: BP 131/58
[2024-09-26 07:10] VITALS: BP 114/60
[2024-09-26] MEDS: PEPCID 20 MG IV (08:06)
[2024-09-26] MEDS: SINEMET 25-100 1 TABLET PO ×2 (08:06→21:16)
[2024-09-26] MEDS: NEURONTIN 200 MG PO (08:06)
[2024-09-26] MEDS: NSS (PRESERVATIVE FREE) 8 ML IV (08:06)
[2024-09-26] MEDS: LEXAPRO 10 MG PO (08:06)
[2024-09-26] MEDS: LIORESAL 5 MG PO ×2 (08:06→19:55)
[2024-09-26] MEDS: DECADRON 4 MG IV (08:07)
[2024-09-26] MEDS: IMODIUM PO (08:15)
[2024-09-26] MEDS: COLACE PO (08:15)
[2024-09-26] MEDS: MIRALAX PO (08:16)
--- NOTE | 2024-09-26 10:03 | W.PN.NEURO.1 ---
Today's Communication / Plan
-
.
Subjective/Objective
Subjective Data
Date of Service: September 26, 2024
Neurology follow-up note
Ms. Stallings states that gabapentin has been beneficial for pain severity reduction as well as improvement in intervals in between the paroxysm. She continues to have difficulties with chewing.
No reports of new motor, visual or sensory deficits
MAR: Hydromorphone 0.5 mg at 5:33 AM today.
Head MRA is pending.
PMH: R V3 trigeminal neuralgia, parkinsonism, HTN, DLP, CKD, osteoporosis, vitamin D deficiency IBS, MDD, KENRICK, positive CLAUDIA
PSH: dental implants, tonsillectomy, cholecystectomy
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
FH: Both parents had stroke and there is 7
All:NKDA
ROS:Constitutional: Negative. Negative for chills, fever and unexpected weight change.
HENT: Negative for ear pain, hearing loss, tinnitus and trouble swallowing.
Eyes: Positive visual disturbance.
Respiratory: Negative for cough, choking and shortness of breath.
Cardiovascular: Negative for chest pain, palpitations and leg swelling.
Gastrointestinal: Negative for abdominal pain and vomiting.
Endocrine: Negative. Negative for cold intolerance.
Genitourinary: Negative for dysuria, flank pain and urgency.
Musculoskeletal: Negative for back pain, gait problem, neck pain and neck stiffness.
Skin: Negative for rash.
Allergic/Immunologic: Negative. Negative for immunocompromised state.
Neurological: Positive for facial pain, intermittent imbalance
Psychiatric/Behavioral: Negative for behavioral problems, confusion and hallucinations.
General: Well developed. In no acute distress.
Cardio: Regular rate and rhythm without murmur. Extremities are without cyanosis or edema.
Neuro:
Mental Status: Alert, oriented to person, place, and date. Normal attention and recall. Good fund of knowledge. Follows complex requests across the midline. Comprehension, naming, and repetition intact. Immediate and delayed recall 3/3.
Cranial Nerves: . Pupils are equally round and reactive to light. EOMs full. Visual schuster full to confrontation. No ptosis. No nystagmus. Allodynia in the right V3 distribution. Face symmetric. Normal hearing AU. The palate elevated well.
SCMs and traps 5/5. Tongue midline. No dysarthria.
Motor: Normal bulk and tone with augmentation. No pronator or arm drift. Strength 5/5 throughout. No clonus.
Reflexes: 2+ throughout the upper extremities and knees. Plantar responses flexor bilaterally.
Sensory: Normal vibration at the toes
Coordination: Resting head tremor. No dysmetria
Gait: deferred
Assessment and Plan:
I. Right V3 neuralgia
II. Parkinsonism
III. Angioedema, nearly resolved
-Titrate gabapentin to 600 mg twice daily(liquid formulation) as tolerated
-Start baclofen 5 mg twice daily. Titrate cautiously to effect; do not exceed 50 mg/day
-MRA head wo kenrick to rule out neurovascular compression
-Continue Sinemet 25-100 mg 1 tab 3 times daily
-Will consider neurosurgical evaluation if conservative therapy fails to provide relief
I personally reviewed all radiology and labs along with past medical records pertinent to current medical problems. Total time spent in patient care is 35 minutes.
Thank you for allowing us to participate in the care of this patient. We will continue to follow. Please do not hesitate to contact us with any questions or concerns.
Objective Data
Vital Signs
Temp Pulse Resp BP Pulse Ox
36.5 C 67 17 114/60 97
09/26/24 07:10 09/26/24 07:10 09/26/24 07:10 09/26/24 07:10 09/26/24 07:10
Lab Results
09/25/24 06:43
09/25/24 06:43
Sodium 138 mmol/L (135-145) 09/25/24 06:43
Potassium 4.6 mmol/L (3.5-5.1) 09/25/24 06:43
BUN 37 mg/dl (7-17) H 09/25/24 06:43
Glucose 123 mg/dl (70-99) H 09/25/24 06:43
Calcium 8.4 mg/dl (8.4-10.2) 09/25/24 06:43
Patient Allergies
No Known Allergies Allergy (Unverified 09/22/24 21:24)
Vital Signs and Labs
-
Vital Signs and Labs:
Vital Signs
Temp Pulse Resp BP Pulse Ox
36.5 C 67 17 114/60 97
09/26/24 07:10 09/26/24 07:10 09/26/24 07:10 09/26/24 07:10 09/26/24 07:10
Lab Results
09/25/24 06:43
09/25/24 06:43
Sodium 138 mmol/L (135-145) 09/25/24 06:43
Potassium 4.6 mmol/L (3.5-5.1) 09/25/24 06:43
BUN 37 mg/dl (7-17) H 09/25/24 06:43
Glucose 123 mg/dl (70-99) H 09/25/24 06:43
Calcium 8.4 mg/dl (8.4-10.2) 09/25/24 06:43
Medications
-
Medications:
Generic Name Dose Route Start Last Admin
Trade Name Freq PRN Reason Stop Dose Admin
Acetaminophen 650 mg 09/24/24 18:50
Acetaminophen 325 Mg Tablet PO 10/22/24 18:49
Q4HPRN PRN
mild pain/ fever>100.5F
Alprazolam 0.25 mg 09/24/24 22:00 09/25/24 21:59
Alprazolam 0.25 Mg Tablet PO 10/22/24 21:59 0.25 mg
HS DAVID Administration
Atorvastatin Calcium 10 mg 09/24/24 22:00 09/25/24 21:59
Atorvastatin (Lipitor) 10 Mg Tablet PO 10/22/24 21:59 10 mg
HS DAVID Administration
Baclofen 5 mg 09/25/24 13:50 09/26/24 08:06
Baclofen 5 Mg Tablet PO 10/23/24 13:49 5 mg
BID DAVID Administration
Carbidopa/Levodopa 1 tablet 09/24/24 22:00 09/26/24 08:06
Carbidopa (25 Mg)/Levodopa (100 Mg) Regular Release Tablet PO 10/22/24 21:59 1 tablet
TID DAVID Administration
Dexamethasone Sodium Phosphate 4 mg 09/24/24 20:00 09/26/24 08:07
Dexamethasone 4 Mg/Ml 1 Ml Vial IV 10/22/24 19:59 4 mg
Q12H DAVID Administration
Diphenhydramine HCl 25 mg 09/24/24 18:50
Diphenhydramine 50 Mg/Ml 1 Ml Vial IV 10/22/24 18:49
Q4HPRN PRN
allergic reaction
Docusate Sodium 100 mg 09/25/24 20:00 09/26/24 08:15
Docusate Sodium 100 Mg Capsule PO 10/23/24 19:59 Not Given
BID DAVID
Escitalopram Oxalate 10 mg 09/25/24 08:00 09/26/24 08:06
Escitalopram 10 Mg Tablet PO 10/23/24 07:59 10 mg
DAILY DAVID Administration
Famotidine 20 mg 09/25/24 08:00 09/26/24 08:06
Famotidine 20 Mg/2 Ml Vial IV 10/23/24 07:59 20 mg
DAILY DAVID Administration
Gabapentin 300 mg 09/26/24 16:00
Gabapentin 300 Mg Capsule PO 10/24/24 15:59
TID DAVID
Hydromorphone HCl 0.5 mg 09/25/24 12:54 09/26/24 05:33
Hydromorphone 0.5 Mg/0.5 Ml Syringe IV 10/09/24 12:53 0.5 mg
Q3HPRN PRN Administration
severe pain
Dextrose/Sodium Chloride 1,000 mls @ 80 mls/hr 09/25/24 14:00 09/26/24 01:53 EST
D5/0.45%Nacl IV 1,000 mls
.[id number] DAVID Administration
Loperamide HCl 2 mg 09/24/24 20:00 09/26/24 08:15
Loperamide 2 Mg Capsule PO 10/22/24 19:59 Not Given
BID DAVID
Oxycodone HCl 5 mg 09/25/24 10:17 09/25/24 15:56
Oxycodone 5 Mg Regular Release Tablet PO 10/09/24 10:16 5 mg
Q4HPRN PRN Administration
moderate pain
Polyethylene Glycol 17 grams 09/26/24 08:00 09/26/24 08:16
Polyethylene Glycol Powder 17 Grams Packet PO 10/24/24 07:59 Not Given
DAILY DAVID
Sodium Chloride 0 flush 09/24/24 20:00
Sodium Chloride 0.9% (Flush) Syringe IV 10/22/24 19:59
PER PROTOCOL DAVID
Sodium Chloride 8 ml 09/25/24 08:00 09/26/24 08:06
Nss 8 Ml IV 10/23/24 07:59 8 ml
DAILY DAVID Administration
Home Medications
-
Home Medications
Magic Mouthwash 5 ml PO QIDPRN PRN mouth pain 09/24/24
alprazolam 0.25 mg tablet 0.25 mg PO HS Mental Health/Anxiety 09/24/24
carbidopa 25 mg-levodopa 100 mg tablet 1 tab PO TID PARKINSONS 09/24/24
cetirizine 10 mg tablet 10 mg PO DAILYPRN PRN allergies 09/24/24
ergocalciferol (vitamin D2) 1,250 mcg (50,000 unit) capsule 1,250 mcg PO HARRELL Supplement 09/24/24
escitalopram oxalate 10 mg tablet 10 mg PO DAILY Mental Health/Anxiety 09/24/24
hydrochlorothiazide 25 mg tablet 25 mg PO DAILY Fluid Retention/Swelling 09/24/24
loperamide 2 mg capsule 2 mg PO BID DIARRHEA 09/24/24
losartan 100 mg tablet 100 mg PO DAILY@1500 Blood Pressure 09/24/24
simvastatin 20 mg tablet 20 mg PO HS High Cholesterol 09/24/24
[2024-09-26 11:00] VITALS: BP 132/51
[2024-09-26 11:04] VITALS: BMI 23.6
[2024-09-26] MEDS: ROXICODONE 5 MG PO ×2 (12:38→19:55)
[2024-09-26] MEDS: ATIVAN 0.5 MG PO (13:21)
--- NOTE | 2024-09-26 13:56 | W.PN.HOSP.TC ---
Today's Communication/Plan
-
Switch to oral pred
CW Gabapentin, Sinemet,Baclofen
MRA head pending
Assessment / Plan
Assessment / Plan
Angioedema, possibly trigger by lidocaine in Magic Mouthwash vs Losartan. Doubt Losartan as this was started after going on mouth wash.
-Significant improvement following Epinephrine and Benadryl given in ED
-Continued improvement.Tongue back to normal. Switch to oral prednisone .
Acute Kidney Injury, suspect related to NSAIDs given in ED two nights ago
-Hold HCTZ and Losartan; BP under goal
-Improved Cr
- DC further IV fluids
Right Facial Pain, possible exacerbation of Trigeminal Neuralgia
- Increase gabapentin per neuro
-Continue Dilaudid for severe pain
-Continue Sinemet as prior to admission (started by Neurology for facial muscle tremors per Daughter)
- Neurology input noted
- MRA of head to rule out compression of 5th CN
Essential Hypertension
-Under goal-hold medications for today.
-HCTZ and Losartan on hold in setting of HERLINDA
-Monitor BP closely
Hyperlipidemia
-Continue simvastatin
Anxiety
-Continue Lexapro, and alprazolam as prior to admission
DVT proph: SCDs
Code Status: Full Code
Anticipated Discharge: 24 - 48 hours
Subjective/Interval History
-
Date of Service: September 26, 2024
Persistent right facial pain. No new associated symptoms. Improved with tongue swelling. Able to swallow.
Objective Data
-
Vital Signs:
Vital Signs
Temp Pulse Resp BP Pulse Ox
97.8 F 56 16 132/51 96
09/26/24 11:00 09/26/24 11:00 09/26/24 11:00 09/26/24 11:00 09/26/24 11:00
I&O
09/25/24 09/26/24 09/27/24
07:59 06:59 06:59
Intake Total
Balance
Review of Systems
-
Constitutional: Denies Fever
Respiratory: Denies Trouble Breathing
Cardiac: Denies Chest Pain
Abdomen/GI: Denies Abdominal Pain, Nausea or Vomiting
Neuro: Denies Headache
Physical Exam
-
General: No Apparent Distress
HEENT: Moist Mucous Membranes and Other (resolved tongue swelling)
Respiratory: Clear to Auscultation
Cardiac: Regular Rhythm and S1/S2
Neuro: AO x 3 and No Motor Deficits
Psych: Calm
[2024-09-26 15:00] VITALS: BP 141/59
[2024-09-26] MEDS: DELTASONE 30 MG PO (15:06)
[2024-09-26] MEDS: NEURONTIN 300 MG PO ×2 (15:07→21:16)
[2024-09-26] MEDS: SINEMET 25-100 PO ×2 (15:08→15:13)
[2024-09-26] MEDS: COLACE 100 MG PO (19:55)
[2024-09-26] MEDS: IMODIUM 2 MG PO (19:55)
[2024-09-26] MEDS: XANAX 0.25 MG PO (21:16)
[2024-09-26] MEDS: LIPITOR 10 MG PO (21:17)
[2024-09-26 23:59] VITALS: BP 141/56
[2024-09-27 03:28] VITALS: BP 117/54
[2024-09-27] MEDS: ROXICODONE 5 MG PO ×2 (03:41→16:42)
[2024-09-27] MEDS: DILAUDID 0.5 MG IV ×2 (07:10→11:20)
--- NOTE | 2024-09-27 07:26 | W.PN.NEURO.1 ---
Addendum entered and electronically signed by Moris Mark MD 09/27/24 12:13:
Correction, patient was receiving 300 mg 3 times a day, increase to 600 mg 3 times a day.
Original Note:
Today's Communication / Plan
-
-Titrate gabapentin to 600 mg twice daily(liquid formulation) as tolerated
-Started baclofen 5 mg twice daily. Titrate cautiously to effect; do not exceed 50 mg/day
-MRA head wo lala to rule out neurovascular compression
-Continue Sinemet 25-100 mg 1 tab 3 times daily
Neuro Assessment/Plan
Assessment
Assessment and Plan:
I. Right V3 neuralgia
II. Parkinsonism
III. Angioedema, nearly resolved
Plan
-Titrate gabapentin to 600 mg twice daily(liquid formulation) as tolerated
-Started baclofen 5 mg twice daily. Titrate cautiously to effect; do not exceed 50 mg/day
-MRA head wo lala to rule out neurovascular compression
-Continue Sinemet 25-100 mg 1 tab 3 times daily
Will follow as outpatient
Subjective/Objective
Subjective Data
Date of Service: September 27, 2024
Objective Data
Vital Signs
Temp Pulse Resp BP Pulse Ox
36.6 C 55 18 117/54 96
09/27/24 03:28 09/27/24 03:28 09/27/24 03:28 09/27/24 03:28 09/27/24 03:28
Lab Results
09/25/24 06:43
Sodium 138 mmol/L (135-145) 09/25/24 06:43
Potassium 4.6 mmol/L (3.5-5.1) 09/25/24 06:43
BUN 37 mg/dl (7-17) H 09/25/24 06:43
Glucose 123 mg/dl (70-99) H 09/25/24 06:43
Calcium 8.4 mg/dl (8.4-10.2) 09/25/24 06:43
Patient Allergies
No Known Allergies Allergy (Unverified 09/22/24 21:24)
Data Reviewed
-
MRA Head: Report Reviewed
Reviewed with: Physician
Old Records: Summarized
Past History
Past History
ED Past Medical History: HTN, Hypercholesterolemia, Psychiatric (Anxiety) and Other (Chronic trigeminal neuralgia Since 2019; Irritable bowel syndrome)
ED Past Surgical History: Cholecystectomy and Tonsilectomy
Social History
Tobacco: Non-smoker
Alcohol: None
Personal:
Living: with family
Employment: Retired
Family History
Family History: Other (Reviewed and noncontributory)
Medications
-
Medications:
Generic Name Dose Route Start Last Admin
Trade Name Freq PRN Reason Stop Dose Admin
Acetaminophen 650 mg 09/24/24 18:50
Acetaminophen 325 Mg Tablet PO 10/22/24 18:49
Q4HPRN PRN
mild pain/ fever>100.5F
Alprazolam 0.25 mg 09/24/24 22:00 09/26/24 21:16
Alprazolam 0.25 Mg Tablet PO 10/22/24 21:59 0.25 mg
HS DAVID Administration
Atorvastatin Calcium 10 mg 09/24/24 22:00 09/26/24 21:17
Atorvastatin (Lipitor) 10 Mg Tablet PO 10/22/24 21:59 10 mg
HS DAVID Administration
Baclofen 5 mg 09/25/24 13:50 09/26/24 19:55
Baclofen 5 Mg Tablet PO 10/23/24 13:49 5 mg
BID DAVID Administration
Carbidopa/Levodopa 1 tablet 09/24/24 22:00 09/26/24 21:16
Carbidopa (25 Mg)/Levodopa (100 Mg) Regular Release Tablet PO 10/22/24 21:59 1 tablet
TID DAVID Administration
Diphenhydramine HCl 25 mg 09/24/24 18:50
Diphenhydramine 50 Mg/Ml 1 Ml Vial IV 10/22/24 18:49
Q4HPRN PRN
allergic reaction
Docusate Sodium 100 mg 09/25/24 20:00 09/26/24 19:55
Docusate Sodium 100 Mg Capsule PO 10/23/24 19:59 100 mg
BID DAVID Administration
Escitalopram Oxalate 10 mg 09/25/24 08:00 09/26/24 08:06
Escitalopram 10 Mg Tablet PO 10/23/24 07:59 10 mg
DAILY DAVID Administration
Famotidine 20 mg 09/25/24 08:00 09/26/24 08:06
Famotidine 20 Mg/2 Ml Vial IV 10/23/24 07:59 20 mg
DAILY DAVID Administration
Gabapentin 300 mg 09/26/24 22:00 09/26/24 21:16
Gabapentin 300 Mg Capsule PO 10/24/24 21:59 300 mg
TID DAVID Administration
Hydromorphone HCl 0.5 mg 09/25/24 12:54 09/27/24 07:10
Hydromorphone 0.5 Mg/0.5 Ml Syringe IV 10/09/24 12:53 0.5 mg
Q3HPRN PRN Administration
severe pain
Loperamide HCl 2 mg 09/24/24 20:00 09/26/24 19:55
Loperamide 2 Mg Capsule PO 10/22/24 19:59 2 mg
BID DAVID Administration
Oxycodone HCl 5 mg 09/25/24 10:17 09/27/24 03:41
Oxycodone 5 Mg Regular Release Tablet PO 10/09/24 10:16 5 mg
Q4HPRN PRN Administration
moderate pain
Polyethylene Glycol 17 grams 09/26/24 08:00 09/26/24 08:16
Polyethylene Glycol Powder 17 Grams Packet PO 10/24/24 07:59 Not Given
DAILY DAVID
Prednisone 30 mg 09/26/24 15:00 09/26/24 15:06
Prednisone 10 Mg Tablet PO 10/24/24 14:59 30 mg
DAILY DAVID Administration
Sodium Chloride 0 flush 09/24/24 20:00
Sodium Chloride 0.9% (Flush) Syringe IV 10/22/24 19:59
PER PROTOCOL DAVID
Sodium Chloride 8 ml 09/25/24 08:00 09/26/24 08:06
Nss 8 Ml IV 10/23/24 07:59 8 ml
DAILY DAVID Administration
[2024-09-27 07:36] VITALS: BP 148/48
[2024-09-27] MEDS: NSS (PRESERVATIVE FREE) 8 ML IV (07:45)
[2024-09-27] MEDS: NEURONTIN 300 MG PO ×2 (07:47→14:18)
[2024-09-27] MEDS: PEPCID 20 MG IV (07:47)
[2024-09-27] MEDS: LIORESAL 5 MG PO ×3 (07:47→22:06)
[2024-09-27] MEDS: LEXAPRO 10 MG PO (07:48)
[2024-09-27] MEDS: SINEMET 25-100 1 TABLET PO ×2 (07:48→15:46)
[2024-09-27] MEDS: DELTASONE 30 MG PO (07:49)
[2024-09-27] MEDS: COLACE PO ×2 (07:50→22:07)
[2024-09-27] MEDS: IMODIUM PO ×2 (07:50→22:07)
[2024-09-27] MEDS: MIRALAX PO (07:51)
[2024-09-27 10:46] LABS: Blood Urea Nitrogen 25 mg/dl (7-17); Calcium 8.2 mg/dl (8.4-10.2); Carbon Dioxide 28 mmol/L (22-30); Chloride 102 mmol/L (98-107); Estimated Creatinine Clearance 39 ml/min; Glucose 119 mg/dl (70-99); Potassium 4.4 mmol/L (3.5-5.1); Sodium 139 mmol/L (135-145); eGFR > 60.00
--- NOTE | 2024-09-27 10:46 | CM ---
Patient seen bedside.
IA completed.
Patient with sever facial pain and writing answer on paper.
Currently with difficulty talking and eating.
Patient lives with spouse and son in a 3 story home.
Independent prior to admission without assistive devices.
Patient drives.
Patient has not had VN, did go to skilled rehab after knee surgery but cant recall facility name, some where in [place].
Patient denies home care needs at this time.
will transport home.
PCP: Dr Jackson
Pharmacy: [facility] in [place]
Plan: home no needs anticipated.
[2024-09-27 11:07] VITALS: BP 153/55
--- NOTE | 2024-09-27 12:08 | W.PN.HOSP.TC ---
Today's Communication/Plan
-
monitor vitals
see plan
increase gabapentin
cw baclofen
monitor PO intake
Assessment / Plan
Assessment / Plan
Angioedema, possibly trigger by lidocaine in Magic Mouthwash vs Losartan. Doubt Losartan as this was started after going on mouth wash.
-Significant improvement following Epinephrine and Benadryl given in ED
-Continued improvement.Tongue back to normal. Switch to oral prednisone .
Acute Kidney Injury, suspect related to NSAIDs given in ED two nights ago
-Hold HCTZ and Losartan; BP under goal
-Improved Cr
- DC further IV fluids
Right Facial Pain, possible exacerbation of Trigeminal Neuralgia
- Increase gabapentin per neuro
-Continue Dilaudid for severe pain
-Continue Sinemet as prior to admission (started by Neurology for facial muscle tremors per Daughter)
- Neurology input noted
- MRA of head to rule out compression of 5th CN; no compression noted
cw gabapentin, baclofen. Patient will need neurology follow-up outpatient
Essential Hypertension
-Under goal-hold medications for today.
-HCTZ and Losartan on hold in setting of HERLINDA
-Monitor BP closely
Hyperlipidemia
-Continue simvastatin
Anxiety
-Continue Lexapro, and alprazolam as prior to admission
DVT proph: SCDs
Code Status: Full Code
General: No Apparent Distress
HEENT: Moist Mucous Membranes and Other (resolved tongue swelling)
Respiratory: Clear to Auscultation
Cardiac: Regular Rhythm and S1/S2
Neuro: AO x 3 and No Motor Deficits
Psych: Calm
Anticipated Discharge: Within 24 hours
Subjective/Interval History
-
Date of Service: September 27, 2024
still has pain
Objective Data
-
Labs:
Laboratory Results
09/27/24
09:29
Sodium 139
Potassium 4.4
Chloride 102
Carbon Dioxide 28
BUN 25 H
Creatinine 0.9
Glucose 119 H
Calcium 8.2 L
Vital Signs:
Vital Signs
Temp Pulse Resp BP Pulse Ox
97.7 F 52 14 153/55 99
09/27/24 11:07 09/27/24 11:07 09/27/24 11:07 09/27/24 11:07 09/27/24 11:07
I&O
09/26/24 09/27/24 09/28/24
06:59 06:59 06:59
Intake Total 960 / 960
Balance 960 / 960
[2024-09-27 15:20] VITALS: BP 167/68
[2024-09-27 19:25] VITALS: BP 157/57
[2024-09-27] MEDS: ZOFRAN 4 MG IV (20:25)
[2024-09-27] MEDS: NEURONTIN 600 MG PO (22:06)
[2024-09-27] MEDS: LIPITOR 10 MG PO (22:06)
[2024-09-27] MEDS: XANAX PO (22:07)
[2024-09-27] MEDS: SINEMET 25-100 PO (22:07)
[2024-09-27 23:12] VITALS: BP 169/67
--- NOTE | 2024-09-27 23:58 | PTCARENOTE ---
During 1999 med pass pt complained of severe nausea and refused her PO meds. PRN dose of zofran administered with no relief. Pt attempted to take 2200 meds: Gabapentin, Lipitor, and Baclofen (refused all others) and vomited shortly after taking her
meds. Pt continues to complain of nausea, but has stopped vomiting. Will continue to monitor and give zofran PRN.
[2024-09-28] VITALS (7 sets, daily range): BP systolic 114–186; BP diastolic 57–85
[2024-09-28] MEDS: DILAUDID 0.5 MG IV (03:55)
[2024-09-28 08:05] LABS: % Basophils 0.1 % (0-2); % Eosinophils 0.1 % (0-6); % Immature Granulocytes 1.1 % (0-0.5); % Lymphocytes 25.2 % (20.5-51.1); % Monocytes 7.8 % (1.7-9.3); % Neutrophils 65.7 % (42.2-75.2); Absolute Immature Granulocytes 0.1 10^3/uL (0-0.05); Absolute Lymphocytes 1.8 10^3/uL (1.2-3.4); Absolute Monocytes 0.6 10^3/uL (0.1-0.6); Absolute Neutrophils 4.7 10^3/uL (1.4-6.5); Hematocrit 29.5 % (37.0-47.0); Hemoglobin 10.2 g/dL (12.0-16.0); Mean Corp Hgb Conc. 34.6 g/dL (33.0-37.0); Mean Corpuscular Hgb 29.5 pg (27.0-31.0); Mean Corpuscular Volume 85.3 fL (81.0-99.0); Mean Platelet Volume 9.6 fL (7.4-10.4); Nucleated Red Blood Cells % 0 %; Platelet Count 224 10^3/uL (130-400); Red Blood Cell Count 3.46 10^6/uL (4.20-5.40); Red Cell Dist. Width 12.5 % (11.5-14.5); White Blood Cell Count 7.2 10^3/uL (4.8-10.8)
[2024-09-28 08:40] LABS: Blood Urea Nitrogen 26 mg/dl (7-17); Calcium 8.4 mg/dl (8.4-10.2); Carbon Dioxide 28 mmol/L (22-30); Chloride 103 mmol/L (98-107); Estimated Creatinine Clearance 35 ml/min; Glucose 81 mg/dl (70-99); Potassium 3.9 mmol/L (3.5-5.1); Sodium 138 mmol/L (135-145)
[2024-09-28] MEDS: NEURONTIN 600 MG PO (08:41)
[2024-09-28] MEDS: DELTASONE 30 MG PO (08:41)
[2024-09-28] MEDS: LIORESAL 5 MG PO (08:42)
[2024-09-28] MEDS: NSS (PRESERVATIVE FREE) 8 ML IV (08:42)
[2024-09-28] MEDS: PEPCID 20 MG IV (08:42)
[2024-09-28] MEDS: LEXAPRO 10 MG PO (08:42)
[2024-09-28] MEDS: MIRALAX PO (08:59)
[2024-09-28] MEDS: SINEMET 25-100 PO ×2 (08:59→17:46)
[2024-09-28] MEDS: IMODIUM PO (09:00)
[2024-09-28] MEDS: COLACE PO (09:00)
--- NOTE | 2024-09-28 10:37 | W.PN.HOSP.TC ---
Today's Communication/Plan
-
Monitor vital signs see plan
Advance diet to soft and bite-size
Continue with gabapentin, baclofen
Discharge planning
Assessment / Plan
Assessment / Plan
Angioedema, possibly trigger by lidocaine in Magic Mouthwash vs Losartan. Doubt Losartan as this was started after going on mouth wash.
-Significant improvement following Epinephrine and Benadryl given in ED
-Continued improvement.Tongue back to normal. Switch to oral prednisone .
Acute Kidney Injury, suspect related to NSAIDs given in ED two nights ago
-Hold HCTZ and Losartan; BP under goal
-Improved Cr
- DC further IV fluids
Right Facial Pain, possible exacerbation of Trigeminal Neuralgia
- Increase gabapentin per neuro
-Continue Dilaudid for severe pain
-Continue Sinemet as prior to admission (started by Neurology for facial muscle tremors per Daughter)
- Neurology input noted
- MRA of head to rule out compression of 5th CN; no compression noted
cw gabapentin, baclofen. Patient will need neurology follow-up outpatient
Essential Hypertension
-Under goal-hold medications for today.
-HCTZ and Losartan on hold in setting of HERLINDA
-Monitor BP closely
Hyperlipidemia
-Continue simvastatin
Anxiety
-Continue Lexapro, and alprazolam as prior to admission
DVT proph: SCDs
Code Status: Full Code
General: No Apparent Distress
HEENT: Moist Mucous Membranes and Other (resolved tongue swelling)
Respiratory: Clear to Auscultation
Cardiac: Regular Rhythm and S1/S2
Neuro: AO x 3 and No Motor Deficits
Psych: Calm
Anticipated Discharge: Within 24 hours
Subjective/Interval History
-
Date of Service: September 28, 2024
Feeling little better
Objective Data
-
Labs:
Laboratory Results
09/28/24
07:25
WBC 7.2
Hgb 10.2 L
Hct 29.5 L
Plt Count 224
Sodium 138
Potassium 3.9
Chloride 103
Carbon Dioxide 28
BUN 26 H
Creatinine 1.0
Glucose 81
Calcium 8.4
Vital Signs:
Vital Signs
Temp Pulse Resp BP Pulse Ox
98.3 F 57 16 139/62 98
09/28/24 07:00 09/28/24 07:00 09/28/24 07:00 09/28/24 07:00 09/28/24 07:00
I&O
09/27/24 09/28/24 09/29/24
06:59 06:59 06:59
Intake Total 960 / 960 660 / 660
Output Total 350 / 350
Balance 960 / 960 310 / 310
[2024-09-28] MEDS: ZOFRAN 4 MG IV ×4 (11:10→23:27)
--- NOTE | 2024-09-28 12:17 | W.PN.NEURO.1 ---
Today's Communication / Plan
-
Start Lamotrigine 25 mg twice a day, eventual titration upwards for trigeminal neuralgia
Switch Gabapentin to Pregabalin 100 mg TID due to incomplete control over pain
Use Ondansetron for nausea
Discontinue Prednisone
Continue baclofen 5 mg three times per day.
Neuro Assessment/Plan
Assessment
Assessment and Plan:
I. Right V3 neuralgia
II. Parkinsonism
III. Angioedema, resolved
Plan
Start Lamotrigine 25 mg twice a day, eventual titration upwards for trigeminal neuralgia
Switch Gabapentin to Pregabalin 100 mg TID due to incomplete control over pain
Use Ondansetron for nausea
Discontinue Prednisone
Continue baclofen 5 mg three times per day.
Continue Sinemet 25-100 mg 1 tab 3 times daily
Will follow as outpatient
Subjective/Objective
Subjective Data
Date of Service: September 28, 2024
Nausea. Pain in right jaw improved, no change to location. Intensity 4/10, brief, 100x.
Objective Data
Vital Signs
Temp Pulse Resp BP Pulse Ox
36.6 C 55 16 149/63 96
09/28/24 11:40 09/28/24 11:40 09/28/24 11:40 09/28/24 11:40 09/28/24 11:40
Lab Results
09/28/24 07:25
09/28/24 07:25
Sodium 138 mmol/L (135-145) 09/28/24 07:25
Potassium 3.9 mmol/L (3.5-5.1) 09/28/24 07:25
BUN 26 mg/dl (7-17) H 09/28/24 07:25
Glucose 81 mg/dl (70-99) 09/28/24 07:25
Calcium 8.4 mg/dl (8.4-10.2) 09/28/24 07:25
Patient Allergies
No Known Allergies Allergy (Unverified 09/22/24 21:24)
Review of Systems
-
History Source: Patient
All other systems: Reviewed and negative
EENT: Swallowing Difficulty; Negative Decreased Vision
Respiratory: Negative Trouble Breathing
Cardiac: Negative Chest Pain
Neuro: Headache; Negative Dizzy
Physical Exam
-
General: No Apparent Distress and Appears Stated Age
Eyes: Round OU, [place] Conjunctivae and No Ptosis
HEENT: Anicteric and Moist Mucous Membranes
Neck: Full Range of Motion
Respiratory: No Dyspnea
Cardiac: No JVD
GI: Non-distended
Skin: Unremarkable
Extremities: No Clubbing, No Cyanosis and No Edema
Psych: Intact Judgement/Insight
Extended Neurological Exam
Mood & Affect: Mood Unremarkable and Affect Unremarkable
Attention Span & Concentration: Awake, Alert and Interactive
Memory: Unremarkable
Tremor: Hand Tremor Absent and Head Tremor Absent
Speech: Quality Unremarkable and Quantity Unremarkable
Cranial Nerve II: Left Eye: Pupillary Size Unremarkable and Visual [place] Grossly Intact
Cranial Nerve II: Right Eye: Pupillary Size Unremarkable and Visual [place] Grossly Intact
Cranial Nerves III, IV, : Extraocular Movement: Grossly Intact
Cranial Nerve VII: Facial Symmetry: Normal Facial Symmetry
Cranial Nerve VIII: Hearing: Unremarkable Hearing to Normal Conversational Volume
Cranial Nerve XI: Shoulder Shrug: Unremarkable
Muscle Strength, Overall: Full in Upper Extremities
Muscle Bulk & Tone: Bulk Unremarkable and Tone Unremarkable
Pronator Drift: No Drift in Upper Extremities
Touch Sensation: Unremarkable
Coordination: Reaches for Objects without Difficulty
Data Reviewed
-
Labs: Report Reviewed
Reviewed with: Nurse Practioner and Patient
Old Records: Summarized
[2024-09-28] MEDS: LAMICTAL 25 MG PO (14:10)
[2024-09-28] MEDS: LYRICA PO ×2 (17:49→18:42)
[2024-09-28] MEDS: LIORESAL PO (17:50)
[2024-09-28] MEDS: BENADRYL 6.25 MG IV (23:28)
[2024-09-29] MEDS: LIORESAL 5 MG PO ×4 (00:43→21:18)
[2024-09-29] MEDS: LIPITOR 10 MG PO ×2 (00:44→21:18)
[2024-09-29] MEDS: LYRICA 100 MG PO (00:44)
[2024-09-29] MEDS: XANAX 0.25 MG PO ×2 (00:44→21:22)
[2024-09-29] MEDS: COLACE PO ×3 (00:44→19:27)
[2024-09-29] MEDS: LAMICTAL 25 MG PO ×2 (00:44→10:23)
[2024-09-29] MEDS: SINEMET 25-100 1 TABLET PO (00:44)
[2024-09-29] MEDS: IMODIUM PO ×2 (00:45→09:24)
--- NOTE | 2024-09-29 00:53 | PTCARENOTE ---
Pt meds delayed until 0045 due to nausea. Pt refused Colace and Imodium. Pt tolerated other PO meds and took them with applesauce.
[2024-09-29 03:15] VITALS: BP 176/67
[2024-09-29 06:41] LABS: % Basophils 0.1 % (0-2); % Eosinophils 0.6 % (0-6); % Immature Granulocytes 1.2 % (0-0.5); % Lymphocytes 25.7 % (20.5-51.1); % Monocytes 7.3 % (1.7-9.3); % Neutrophils 65.1 % (42.2-75.2); Absolute Immature Granulocytes 0.1 10^3/uL (0-0.05); Absolute Lymphocytes 1.8 10^3/uL (1.2-3.4); Absolute Monocytes 0.5 10^3/uL (0.1-0.6); Absolute Neutrophils 4.5 10^3/uL (1.4-6.5); Hematocrit 30.4 % (37.0-47.0); Hemoglobin 10.6 g/dL (12.0-16.0); Mean Corp Hgb Conc. 34.9 g/dL (33.0-37.0); Mean Corpuscular Hgb 29.4 pg (27.0-31.0); Mean Corpuscular Volume 84.2 fL (81.0-99.0); Mean Platelet Volume 9.5 fL (7.4-10.4); Nucleated Red Blood Cells % 0 %; Platelet Count 183 10^3/uL (130-400); Red Blood Cell Count 3.61 10^6/uL (4.20-5.40); Red Cell Dist. Width 12.4 % (11.5-14.5); White Blood Cell Count 6.8 10^3/uL (4.8-10.8)
[2024-09-29 07:16] LABS: Blood Urea Nitrogen 25 mg/dl (7-17); Calcium 8.3 mg/dl (8.4-10.2); Carbon Dioxide 30 mmol/L (22-30); Chloride 103 mmol/L (98-107); Estimated Creatinine Clearance 35 ml/min; Glucose 75 mg/dl (70-99); Potassium 3.7 mmol/L (3.5-5.1); Sodium 141 mmol/L (135-145)
[2024-09-29 07:36] VITALS: BP 152/59
[2024-09-29] MEDS: MIRALAX PO (09:25)
--- NOTE | 2024-09-29 09:29 | W.PN.NEURO.1 ---
Today's Communication / Plan
-
Increase Lamotrigine from 25 mg to 50 mg twice a day, eventual titration upwards for trigeminal neuralgia
Increase Pregabalin from 100 mg to 150 mg TID due to incomplete control over pain
Discontinue Carbidopa/Levodopa due to nausea
Continue baclofen 5 mg three times per day.
Rizatriptan 10 mg for headache
Neuro Assessment/Plan
Assessment
Assessment and Plan:
I. Right V3 neuralgia
II. Parkinsonism
III. Angioedema, resolved
Plan
Increase Lamotrigine from 25 mg to 50 mg twice a day, eventual titration upwards for trigeminal neuralgia
Increase Pregabalin from 100 mg to 150 mg TID due to incomplete control over pain
Discontinue Carbidopa/Levodopa due to nausea
Continue baclofen 5 mg three times per day.
Rizatriptan 10 mg for headache
Use Ondansetron for nausea
Discontinue Prednisone
Will follow peripherally
Subjective/Objective
Subjective Data
Date of Service: September 29, 2024
Intensity 7 out of 10
Objective Data
Vital Signs
Temp Pulse Resp BP Pulse Ox
36.6 C 54 16 152/59 96
09/29/24 07:36 09/29/24 07:36 09/29/24 07:36 09/29/24 07:36 09/29/24 07:36
Lab Results
09/29/24 06:21
09/29/24 06:21
Sodium 141 mmol/L (135-145) 09/29/24 06:21
Potassium 3.7 mmol/L (3.5-5.1) 09/29/24 06:21
BUN 25 mg/dl (7-17) H 09/29/24 06:21
Glucose 75 mg/dl (70-99) 09/29/24 06:21
Calcium 8.3 mg/dl (8.4-10.2) L 09/29/24 06:21
Patient Allergies
No Known Allergies Allergy (Unverified 09/22/24 21:24)
Physical Exam
-
General: Appears Stated Age; Negative Comfortable
Eyes: Round OU, [place] Conjunctivae and No Ptosis
HEENT: Anicteric and Moist Mucous Membranes
Neck: Full Range of Motion
Respiratory: No Dyspnea
Cardiac: No JVD
GI: Non-distended
Skin: Unremarkable
Extremities: No Clubbing, No Cyanosis and No Edema
Psych: Negative Intact Judgement/Insight
Extended Neurological Exam
Mood & Affect: Mood Unremarkable and Affect Unremarkable
Attention Span & Concentration: Awake, Alert and Interactive
Memory: Unremarkable
Tremor: Hand Tremor Absent and Head Tremor Absent
Speech: Quality Unremarkable and Mildly Reduced Output
Cranial Nerve II: Left Eye: Pupillary Size Unremarkable and Visual [place] Grossly Intact
Cranial Nerve II: Right Eye: Pupillary Size Unremarkable and Visual [place] Grossly Intact
Cranial Nerves III, IV, : Extraocular Movement: Grossly Intact
Cranial Nerve VII: Facial Symmetry: Normal Facial Symmetry
Cranial Nerve VIII: Hearing: Unremarkable Hearing to Normal Conversational Volume
Cranial Nerve XI: Shoulder Shrug: Unremarkable
Muscle Strength, Overall: Spontaneously Moves (All extremities)
Muscle Bulk & Tone: Bulk Unremarkable and Tone Unremarkable
Touch Sensation: Unremarkable
Coordination: Reaches for Objects without Difficulty
Data Reviewed
-
Labs: Report Reviewed
Reviewed with: Nurse Practioner and Patient
Old Records: Summarized
Past History
Past History
ED Past Medical History: HTN, Hypercholesterolemia, Psychiatric (Anxiety) and Other (Chronic trigeminal neuralgia Since 2019; Irritable bowel syndrome)
ED Past Surgical History: Cholecystectomy and Tonsilectomy
Social History
Tobacco: Non-smoker
Alcohol: None
Personal:
Living: with family
Employment: Retired
Family History
Family History: Other (Reviewed and noncontributory)
Medications
-
Medications:
Generic Name Dose Route Start Last Admin
Trade Name Freq PRN Reason Stop Dose Admin
Acetaminophen 650 mg 09/24/24 18:50
Acetaminophen 325 Mg Tablet PO 10/22/24 18:49
Q4HPRN PRN
mild pain/ fever>100.5F
Alprazolam 0.25 mg 09/24/24 22:00 09/29/24 00:44
Alprazolam 0.25 Mg Tablet PO 10/22/24 21:59 0.25 mg
HS DAVID Administration
Atorvastatin Calcium 10 mg 09/24/24 22:00 09/29/24 00:44
Atorvastatin (Lipitor) 10 Mg Tablet PO 10/22/24 21:59 10 mg
HS DAVID Administration
Baclofen 5 mg 09/27/24 16:00 09/29/24 00:43
Baclofen 5 Mg Tablet PO 10/25/24 15:59 5 mg
TID DAVID Administration
Carbidopa/Levodopa 1 tablet 09/24/24 22:00 09/29/24 09:33
Carbidopa (25 Mg)/Levodopa (100 Mg) Regular Release Tablet PO 10/22/24 21:59 Not Given
TID DAVID
Diphenhydramine HCl 25 mg 09/24/24 18:50
Diphenhydramine 50 Mg/Ml 1 Ml Vial IV 10/22/24 18:49
Q4HPRN PRN
allergic reaction
Docusate Sodium 100 mg 09/25/24 20:00 09/29/24 09:24
Docusate Sodium 100 Mg Capsule PO 10/23/24 19:59 Not Given
BID DAVID
Escitalopram Oxalate 10 mg 09/25/24 08:00 09/28/24 08:42
Escitalopram 10 Mg Tablet PO 10/23/24 07:59 10 mg
DAILY DAVID Administration
Famotidine 20 mg 09/29/24 08:00
Famotidine 20 Mg Tablet PO 10/27/24 07:59
DAILY DAVID
Lamotrigine 50 mg 09/29/24 20:00
Lamotrigine 25 Mg Chewable Tablet PO 10/27/24 19:59
BID DAVID
Loperamide HCl 2 mg 09/24/24 20:00 09/29/24 09:24
Loperamide 2 Mg Capsule PO 10/22/24 19:59 Not Given
BID DAVID
Ondansetron HCl 4 mg 09/27/24 14:31 09/29/24 09:30
Ondansetron 4 Mg/2 Ml Vial IV 10/25/24 14:30 4 mg
Q6HPRN PRN Administration
NAUSEA/VOMITING
Oxycodone HCl 5 mg 09/25/24 10:17 09/27/24 16:42
Oxycodone 5 Mg Regular Release Tablet PO 10/09/24 10:16 5 mg
Q4HPRN PRN Administration
moderate pain
Polyethylene Glycol 17 grams 09/26/24 08:00 09/29/24 09:25
Polyethylene Glycol Powder 17 Grams Packet PO 10/24/24 07:59 Not Given
DAILY DAVID
Pregabalin 150 mg 09/29/24 10:00
Pregabalin 50 Mg Capsule PO 10/26/24 09:59
TID DAVID
Sodium Chloride 0 flush 09/24/24 20:00
Sodium Chloride 0.9% (Flush) Syringe IV 10/22/24 19:59
PER PROTOCOL DAVID
[2024-09-29] MEDS: ZOFRAN 4 MG IV (09:30)
[2024-09-29] MEDS: SINEMET 25-100 PO (09:33)
[2024-09-29] MEDS: PEPCID 20 MG PO (10:18)
[2024-09-29] MEDS: LEXAPRO 10 MG PO (10:19)
[2024-09-29] MEDS: MAXALT MLT (ORALLY DISINTEGRATING) 10 MG PO (10:22)
[2024-09-29] MEDS: LYRICA 150 MG PO ×3 (10:23→21:22)
[2024-09-29] MEDS: LYRICA PO (10:34)
[2024-09-29] MEDS: IMODIUM 2 MG PO ×2 (11:38→21:17)
--- NOTE | 2024-09-29 11:51 | W.PN.HOSP.TC ---
Today's Communication/Plan
-
Monitor vital signs see plan
Still symptoms not controlled, neurology stopped Sinemet
Lamictal and Lyrica titrated
Assessment / Plan
Assessment / Plan
Angioedema, possibly trigger by lidocaine in Magic Mouthwash vs Losartan. Doubt Losartan as this was started after going on mouth wash.
-Significant improvement following Epinephrine and Benadryl given in ED
-Continued improvement.Tongue back to normal. Switch to oral prednisone .
Acute Kidney Injury, suspect related to NSAIDs given in ED two nights ago
-Hold HCTZ and Losartan; BP under goal
-Improved Cr
- DC further IV fluids
Right Facial Pain, possible exacerbation of Trigeminal Neuralgia
-Continue Dilaudid for severe pain
Sinemet now stopped due to nausea, patient is currently on Lamictal and Lyrica
- Neurology input noted
- MRA of head to rule out compression of 5th CN; no compression noted
cw gabapentin, baclofen. Patient will need neurology follow-up outpatient
Essential Hypertension
Blood pressure now starting to increase, restart losartan
-HCTZ on hold in setting of HERLINDA
Hyperlipidemia
-Continue simvastatin
Anxiety
-Continue Lexapro, and alprazolam as prior to admission
DVT proph: SCDs
Code Status: Full Code
General: No Apparent Distress
HEENT: Moist Mucous Membranes and Other (resolved tongue swelling)
Respiratory: Clear to Auscultation
Cardiac: Regular Rhythm and S1/S2
Neuro: AO x 3 and No Motor Deficits
Psych: Calm
Anticipated Discharge: 24 - 48 hours
Subjective/Interval History
-
Date of Service: September 29, 2024
has some nausea
Objective Data
-
Labs:
Laboratory Results
09/29/24
06:21
WBC 6.8
Hgb 10.6 L
Hct 30.4 L
Plt Count 183
Sodium 141
Potassium 3.7
Chloride 103
Carbon Dioxide 30
BUN 25 H
Creatinine 1.0
Glucose 75
Calcium 8.3 L
Vital Signs:
Vital Signs
Temp Pulse Resp BP Pulse Ox
97.8 F 54 16 152/59 96
09/29/24 07:36 09/29/24 07:36 09/29/24 07:36 09/29/24 07:36 09/29/24 07:36
I&O
09/28/24 09/29/24 09/30/24
06:59 06:59 06:59
Intake Total 660 / 660 240 / 480 240 / 240
Output Total 350 / 350
Balance 310 / 310 240 / 480 240 / 240
[2024-09-29] MEDS: COZAAR 100 MG PO (15:37)
[2024-09-29 15:39] VITALS: BP 159/59
[2024-09-29] MEDS: ROXICODONE 5 MG PO (19:21)
[2024-09-29] MEDS: LAMICTAL 50 MG PO (20:32)
[2024-09-29 23:40] VITALS: BP 108/53
[2024-09-30] MEDS: ROXICODONE 5 MG PO ×2 (02:32→07:54)
[2024-09-30 07:01] LABS: % Basophils 0.3 % (0-2); % Eosinophils 1.6 % (0-6); % Immature Granulocytes 1.5 % (0-0.5); % Lymphocytes 24.6 % (20.5-51.1); % Monocytes 7.6 % (1.7-9.3); % Neutrophils 64.4 % (42.2-75.2); Absolute Eosinophils 0.1 10^3/uL (0-0.7); Absolute Immature Granulocytes 0.1 10^3/uL (0-0.05); Absolute Monocytes 0.6 10^3/uL (0.1-0.6); Absolute Neutrophils 5.1 10^3/uL (1.4-6.5); Hematocrit 30.3 % (37.0-47.0); Hemoglobin 10.5 g/dL (12.0-16.0); Mean Corp Hgb Conc. 34.7 g/dL (33.0-37.0); Mean Corpuscular Hgb 29.7 pg (27.0-31.0); Mean Corpuscular Volume 85.6 fL (81.0-99.0); Mean Platelet Volume 9.7 fL (7.4-10.4); Nucleated Red Blood Cells % 0 %; Platelet Count 198 10^3/uL (130-400); Red Blood Cell Count 3.54 10^6/uL (4.20-5.40); Red Cell Dist. Width 12.7 % (11.5-14.5); White Blood Cell Count 7.9 10^3/uL (4.8-10.8)
[2024-09-30 07:27] VITALS: BP 104/49
[2024-09-30 07:29] LABS: Blood Urea Nitrogen 27 mg/dl (7-17); Calcium 8.2 mg/dl (8.4-10.2); Carbon Dioxide 31 mmol/L (22-30); Chloride 102 mmol/L (98-107); Estimated Creatinine Clearance 29 ml/min; Glucose 86 mg/dl (70-99); Potassium 3.7 mmol/L (3.5-5.1); Sodium 141 mmol/L (135-145); eGFR 45.48
[2024-09-30] MEDS: COLACE PO ×2 (07:41→19:58)
[2024-09-30] MEDS: MIRALAX PO (07:41)
[2024-09-30] MEDS: LYRICA 150 MG PO ×3 (07:41→21:37)
[2024-09-30] MEDS: LEXAPRO 10 MG PO (07:41)
[2024-09-30] MEDS: LAMICTAL 50 MG PO (07:41)
[2024-09-30] MEDS: IMODIUM 2 MG PO ×2 (07:41→19:58)
[2024-09-30] MEDS: PEPCID 20 MG PO (07:41)
[2024-09-30] MEDS: LIORESAL 5 MG PO ×2 (07:41→19:58)
--- NOTE | 2024-09-30 08:06 | W.PN.NEURO.1 ---
Today's Communication / Plan
-
Increase Lamotrigine from 50 mg to 75 mg twice a day, consider eventual titration upwards for trigeminal neuralgia
Decrease baclofen 5 mg from three times per day to BID
Rizatriptan 10 mg for headache PRN
Continue Pregabalin 150 mg TID
Neuro Assessment/Plan
Assessment
Assessment and Plan:
I. Right V3 neuralgia
II. Parkinsonism
III. Angioedema, resolved
Plan
Increase Lamotrigine from 50 mg to 75 mg twice a day, consider eventual titration upwards for trigeminal neuralgia
Decrease baclofen 5 mg from three times per day to BID
Rizatriptan 10 mg for headache PRN
Continue Pregabalin 150 mg TID
Discontinued Carbidopa/Levodopa due to nausea
Use Ondansetron for nausea
Discontinued Prednisone
Will follow as outpatient
Subjective/Objective
Subjective Data
Date of Service: September 30, 2024
Pain 09/02 today. Milder pain yesterday.
No nausea. Tremors in hands.
Objective Data
Vital Signs
Temp Pulse Resp BP Pulse Ox
36.9 C 58 17 104/49 94
09/30/24 07:27 09/30/24 07:27 09/30/24 07:27 09/30/24 07:27 09/30/24 07:27
Lab Results
09/30/24 06:47
09/30/24 06:47
Sodium 141 mmol/L (135-145) 09/30/24 06:47
Potassium 3.7 mmol/L (3.5-5.1) 09/30/24 06:47
BUN 27 mg/dl (7-17) H 09/30/24 06:47
Glucose 86 mg/dl (70-99) 09/30/24 06:47
Calcium 8.2 mg/dl (8.4-10.2) L 09/30/24 06:47
Patient Allergies
No Known Allergies Allergy (Unverified 09/22/24 21:24)
Review of Systems
-
History Source: Patient
All other systems: Reviewed and negative
Neuro: Negative Dizzy or Headache
Physical Exam
-
General: Appears Stated Age; Negative Comfortable
Eyes: Round OU, [place] Conjunctivae and No Ptosis
HEENT: Anicteric and Moist Mucous Membranes
Neck: Full Range of Motion
Respiratory: No Dyspnea
Cardiac: No JVD
GI: Non-distended
Skin: Unremarkable
Extremities: No Clubbing, No Cyanosis and No Edema
Psych: Negative Intact Judgement/Insight
Extended Neurological Exam
Mood & Affect: Mood Unremarkable and Affect Unremarkable
Attention Span & Concentration: Awake, Alert and Interactive
Memory: Unremarkable
Tremor: Hand Tremor Absent and Head Tremor Absent
Speech: Quality Unremarkable and Quantity Unremarkable
Cranial Nerve II: Left Eye: Pupillary Size Unremarkable and Visual [place] Grossly Intact
Cranial Nerve II: Right Eye: Pupillary Size Unremarkable and Visual [place] Grossly Intact
Cranial Nerves III, IV, : Extraocular Movement: Grossly Intact
Cranial Nerve VII: Facial Symmetry: Normal Facial Symmetry
Cranial Nerve VIII: Hearing: Unremarkable Hearing to Normal Conversational Volume
Cranial Nerve XI: Shoulder Shrug: Unremarkable
Muscle Strength, Overall: Spontaneously Moves (All extremities)
Muscle Bulk & Tone: Bulk Unremarkable and Tone Unremarkable
Touch Sensation: Unremarkable
Coordination: Reaches for Objects without Difficulty
Data Reviewed
-
Labs: Report Reviewed
Reviewed with: Nurse Practioner and Patient
Old Records: Summarized
Past History
Past History
ED Past Medical History: HTN, Hypercholesterolemia, Psychiatric (Anxiety) and Other (Chronic trigeminal neuralgia Since 2019; Irritable bowel syndrome)
ED Past Surgical History: Cholecystectomy and Tonsilectomy
Social History
Tobacco: Non-smoker
Alcohol: None
Personal:
Living: with family
Employment: Retired
Family History
Family History: Other (Reviewed and noncontributory)
Medications
-
Medications:
Generic Name Dose Route Start Last Admin
Trade Name Freq PRN Reason Stop Dose Admin
Acetaminophen 650 mg 09/24/24 18:50
Acetaminophen 325 Mg Tablet PO 10/22/24 18:49
Q4HPRN PRN
mild pain/ fever>100.5F
Alprazolam 0.25 mg 09/24/24 22:00 09/29/24 21:22
Alprazolam 0.25 Mg Tablet PO 10/22/24 21:59 0.25 mg
HS DAVID Administration
Atorvastatin Calcium 10 mg 09/24/24 22:00 09/29/24 21:18
Atorvastatin (Lipitor) 10 Mg Tablet PO 10/22/24 21:59 10 mg
HS DAVID Administration
Baclofen 5 mg 09/27/24 16:00 09/30/24 07:41
Baclofen 5 Mg Tablet PO 10/25/24 15:59 5 mg
TID DAVID Administration
Carbidopa/Levodopa 1 tablet 09/24/24 22:00 09/29/24 09:33
Carbidopa (25 Mg)/Levodopa (100 Mg) Regular Release Tablet PO 10/22/24 21:59 Not Given
TID DAVID
Diphenhydramine HCl 25 mg 09/24/24 18:50
Diphenhydramine 50 Mg/Ml 1 Ml Vial IV 10/22/24 18:49
Q4HPRN PRN
allergic reaction
Docusate Sodium 100 mg 09/25/24 20:00 09/30/24 07:41
Docusate Sodium 100 Mg Capsule PO 10/23/24 19:59 Not Given
BID DAVID
Escitalopram Oxalate 10 mg 09/25/24 08:00 09/30/24 07:41
Escitalopram 10 Mg Tablet PO 10/23/24 07:59 10 mg
DAILY DAVID Administration
Famotidine 20 mg 09/29/24 08:00 09/30/24 07:41
Famotidine 20 Mg Tablet PO 10/27/24 07:59 20 mg
DAILY DAVID Administration
Hydralazine HCl 5 mg 09/29/24 11:53
Hydralazine 20 Mg/Ml Vial IV 10/27/24 11:52
Q6HPRN PRN
SBP>160
Lamotrigine 50 mg 09/29/24 20:00 09/30/24 07:41
Lamotrigine 25 Mg Chewable Tablet PO 10/27/24 19:59 50 mg
BID DAVID Administration
Loperamide HCl 2 mg 09/24/24 20:00 09/30/24 07:41
Loperamide 2 Mg Capsule PO 10/22/24 19:59 2 mg
BID DAVID Administration
Losartan Potassium 100 mg 09/29/24 15:00 09/29/24 15:37
Losartan 100 Mg Tablet PO 10/27/24 14:59 100 mg
DAILY@1500 DAVID Administration
Ondansetron HCl 4 mg 09/27/24 14:31 09/29/24 09:30
Ondansetron 4 Mg/2 Ml Vial IV 10/25/24 14:30 4 mg
Q6HPRN PRN Administration
NAUSEA/VOMITING
Oxycodone HCl 5 mg 09/25/24 10:17 09/30/24 07:54
Oxycodone 5 Mg Regular Release Tablet PO 10/09/24 10:16 5 mg
Q4HPRN PRN Administration
moderate pain
Polyethylene Glycol 17 grams 09/26/24 08:00 09/30/24 07:41
Polyethylene Glycol Powder 17 Grams Packet PO 10/24/24 07:59 Not Given
DAILY DAVID
Pregabalin 150 mg 09/29/24 10:00 09/30/24 07:41
Pregabalin 50 Mg Capsule PO 10/26/24 09:59 150 mg
TID DAVID Administration
Sodium Chloride 0 flush 09/24/24 20:00
Sodium Chloride 0.9% (Flush) Syringe IV 10/22/24 19:59
PER PROTOCOL DAVID
--- NOTE | 2024-09-30 12:20 | PTCARENOTE ---
Patient experiencing shaking when attempting to move
--- NOTE | 2024-09-30 12:23 | W.PN.HOSP.TC ---
Today's Communication/Plan
-
Monitor vital signs
see plan
Continue with Lyrica, baclofen, lamotrigine
Assessment / Plan
Assessment / Plan
Angioedema, possibly trigger by lidocaine in Magic Mouthwash vs Losartan. Doubt Losartan as this was started after going on mouth wash.
-Significant improvement following Epinephrine and Benadryl given in ED
-Continued improvement.Tongue back to normal.prednisone stopped
Acute Kidney Injury, suspect related to NSAIDs given in ED two nights ago
-Hold HCTZ and Losartan; BP under goal
monitor
- DC further IV fluids
Right Facial Pain, possible exacerbation of Trigeminal Neuralgia
-Continue Dilaudid for severe pain
Sinemet now stopped due to nausea, patient is currently on Lamictal and Lyrica
- Neurology input noted
- MRA of head to rule out compression of 5th CN; no compression noted
cw baclofen. Patient will need neurology follow-up outpatient
Essential Hypertension
dc losartan
-HCTZ on hold in setting of HERLINDA
Hyperlipidemia
-Continue simvastatin
Anxiety
-Continue Lexapro, and alprazolam as prior to admission
DVT proph: SCDs
Code Status: Full Code
General: No Apparent Distress
HEENT: Moist Mucous Membranes and Other (resolved tongue swelling)
Respiratory: Clear to Auscultation
Cardiac: Regular Rhythm and S1/S2
Neuro: AO x 3 and No Motor Deficits
Psych: Calm
Anticipated Discharge: Within 24 hours
Subjective/Interval History
-
Date of Service: September 30, 2024
Denies nausea
Objective Data
-
Labs:
Laboratory Results
09/30/24
06:47
WBC 7.9
Hgb 10.5 L
Hct 30.3 L
Plt Count 198
Sodium 141
Potassium 3.7
Chloride 102
Carbon Dioxide 31 H
BUN 27 H
Creatinine 1.2 H
Glucose 86
Calcium 8.2 L
Vital Signs:
Vital Signs
Temp Pulse Resp BP Pulse Ox
98.5 F 58 17 104/49 94
09/30/24 07:27 09/30/24 07:27 09/30/24 07:27 09/30/24 07:27 09/30/24 07:27
I&O
09/29/24 09/30/24 10/01/24
06:59 06:59 06:59
Intake Total 240 / 480 660 / 660
Balance 240 / 480 660 / 660
[2024-09-30 15:37] VITALS: BP 120/58
[2024-09-30] MEDS: SYMMETREL 200 MG PO (19:57)
[2024-09-30] MEDS: LAMICTAL 75 MG PO (19:57)
[2024-09-30] MEDS: XANAX 0.25 MG PO (21:37)
[2024-09-30] MEDS: LIPITOR 10 MG PO (21:37)
[2024-09-30 23:10] VITALS: BP 119/54
[2024-10-01 06:39] LABS: % Basophils 0.2 % (0-2); % Eosinophils 1.2 % (0-6); % Immature Granulocytes 1.6 % (0-0.5); % Lymphocytes 9.7 % (20.5-51.1); % Monocytes 7.9 % (1.7-9.3); % Neutrophils 79.4 % (42.2-75.2); Absolute Eosinophils 0.1 10^3/uL (0-0.7); Absolute Immature Granulocytes 0.1 10^3/uL (0-0.05); Absolute Lymphocytes 0.6 10^3/uL (1.2-3.4); Absolute Monocytes 0.5 10^3/uL (0.1-0.6); Absolute Neutrophils 4.6 10^3/uL (1.4-6.5); Hematocrit 30.9 % (37.0-47.0); Hemoglobin 10.3 g/dL (12.0-16.0); Mean Corp Hgb Conc. 33.3 g/dL (33.0-37.0); Mean Corpuscular Hgb 29.1 pg (27.0-31.0); Mean Corpuscular Volume 87.3 fL (81.0-99.0); Mean Platelet Volume 10.1 fL (7.4-10.4); Nucleated Red Blood Cells % 0 %; Platelet Count 147 10^3/uL (130-400); Red Blood Cell Count 3.54 10^6/uL (4.20-5.40); Red Cell Dist. Width 13.2 % (11.5-14.5); White Blood Cell Count 5.8 10^3/uL (4.8-10.8)
[2024-10-01] MEDS: LEXAPRO 10 MG PO (07:13)
[2024-10-01] MEDS: LYRICA 150 MG PO (07:13)
[2024-10-01] MEDS: LAMICTAL 75 MG PO (07:13)
[2024-10-01] MEDS: IMODIUM 2 MG PO ×2 (07:13→19:44)
[2024-10-01] MEDS: LIORESAL 5 MG PO (07:13)
[2024-10-01] MEDS: PEPCID 20 MG PO (07:13)
[2024-10-01] MEDS: COLACE PO ×2 (07:13→19:44)
[2024-10-01] MEDS: MIRALAX PO (07:13)
[2024-10-01 07:24] VITALS: BP 103/59
[2024-10-01 07:30] LABS: Blood Urea Nitrogen 39 mg/dl (7-17); Calcium 7.8 mg/dl (8.4-10.2); Carbon Dioxide 28 mmol/L (22-30); Chloride 103 mmol/L (98-107); Estimated Creatinine Clearance 23 ml/min; Glucose 141 mg/dl (70-99); Potassium 3.8 mmol/L (3.5-5.1); Sodium 142 mmol/L (135-145); eGFR 34.79
--- NOTE | 2024-10-01 08:26 | W.PN.NEURO.1 ---
Today's Communication / Plan
-
Check LFTs and ammonia level due to the patient's irregular movements
Due to newly discovered asterixis, decrease lamotrigine from 75 mg to 50 mg twice a day
Discontinue baclofen 5 mg due to involuntary movements
Decrease pregabalin from 150 mg 3 times a day to dosing of 100 mg 3 times a day which may be producing the patient's irregular movements
Rizatriptan 10 mg for headache PRN
Discontinued Carbidopa/Levodopa due to nausea
Neuro Assessment/Plan
Assessment
Assessment and Plan:
I. Right V3 neuralgia
II. Parkinsonism
III. Angioedema, resolved
Involuntary movements of bilateral hands suggestive of asterixis
Plan
Check LFTs and ammonia level due to the patient's irregular movements
Due to newly discovered asterixis, decrease lamotrigine from 75 mg to 50 mg twice a day
Discontinue baclofen 5 mg due to involuntary movements
Decrease pregabalin from 150 mg 3 times a day to dosing of 100 mg 3 times a day which may be producing the patient's irregular movements
Rizatriptan 10 mg for headache PRN
Discontinued Carbidopa/Levodopa due to nausea
Use Ondansetron for nausea
Discontinued Prednisone
Will follow
Subjective/Objective
Subjective Data
Date of Service: October 01, 2024
Patient now experiencing no pain since yesterday morning. Is experiencing increasing irregular movements in the last 12 hours.
Objective Data
Vital Signs
Temp Pulse Resp BP Pulse Ox
36.8 C 89 16 103/59 95
10/01/24 07:24 10/01/24 07:24 10/01/24 07:24 10/01/24 07:24 10/01/24 07:24
Lab Results
10/01/24 06:18
10/01/24 06:18
Sodium 142 mmol/L (135-145) 10/01/24 06:18
Potassium 3.8 mmol/L (3.5-5.1) 10/01/24 06:18
BUN 39 mg/dl (7-17) H 10/01/24 06:18
Glucose 141 mg/dl (70-99) H 10/01/24 06:18
Calcium 7.8 mg/dl (8.4-10.2) L 10/01/24 06:18
Patient Allergies
No Known Allergies Allergy (Unverified 09/22/24 21:24)
Review of Systems
-
History Source: Patient
All other systems: Reviewed and negative
Neuro: Negative Dizzy or Headache
Physical Exam
-
General: Appears Stated Age; Negative Comfortable
Eyes: Round OU, [place] Conjunctivae and No Ptosis
HEENT: Anicteric and Moist Mucous Membranes
Neck: Full Range of Motion
Respiratory: No Dyspnea
Cardiac: No JVD
GI: Non-distended
Skin: Unremarkable
Extremities: No Clubbing, No Cyanosis and No Edema
Psych: Negative Intact Judgement/Insight
Extended Neurological Exam
Mood & Affect: Mood Unremarkable and Affect Unremarkable
Attention Span & Concentration: Awake, Alert and Interactive
Memory: Unremarkable
Tremor: Hand Tremor Absent and Head Tremor Absent
Involuntary Movement: Asterixis (Prominent in bilateral hands)
Speech: Quality Unremarkable and Quantity Unremarkable
Cranial Nerve II: Left Eye: Pupillary Size Unremarkable and Visual [place] Grossly Intact
Cranial Nerve II: Right Eye: Pupillary Size Unremarkable and Visual [place] Grossly Intact
Cranial Nerves III, IV, : Extraocular Movement: Extraocular Movement Full in all Directions
Cranial Nerve VII: Facial Symmetry: Normal Facial Symmetry
Cranial Nerve VIII: Hearing: Unremarkable Hearing to Normal Conversational Volume
Cranial Nerve XI: Shoulder Shrug: Unremarkable
Muscle Strength, Overall: Spontaneously Moves (All extremities)
Muscle Bulk & Tone: Bulk Unremarkable and Tone Unremarkable
Pronator Drift: No Drift in Upper Extremities
Touch Sensation: Unremarkable
Coordination: [id number] Testing Unremarkable
Data Reviewed
-
Labs: Ordered and Pending
Reviewed with: Nurse Practioner, Patient and Family (Via phone last evening)
Old Records: Summarized
Past History
Past History
ED Past Medical History: HTN, Hypercholesterolemia, Psychiatric (Anxiety) and Other (Chronic trigeminal neuralgia Since 2019; Irritable bowel syndrome)
ED Past Surgical History: Cholecystectomy and Tonsilectomy
Social History
Tobacco: Non-smoker
Alcohol: None
Personal:
Living: with family
Employment: Retired
Family History
Family History: Other (Reviewed and noncontributory)
Medications
-
Medications:
Generic Name Dose Route Start Last Admin
Trade Name Freq PRN Reason Stop Dose Admin
Acetaminophen 650 mg 09/24/24 18:50
Acetaminophen 325 Mg Tablet PO 10/22/24 18:49
Q4HPRN PRN
mild pain/ fever>100.5F
Alprazolam 0.25 mg 09/24/24 22:00 09/30/24 21:37
Alprazolam 0.25 Mg Tablet PO 10/22/24 21:59 0.25 mg
HS DAVID Administration
Amantadine HCl 100 mg 10/02/24 18:00
Amantadine 100 Mg Capsule PO 10/30/24 17:59
Q48H DAVID
Atorvastatin Calcium 10 mg 09/24/24 22:00 09/30/24 21:37
Atorvastatin (Lipitor) 10 Mg Tablet PO 10/22/24 21:59 10 mg
HS DAVID Administration
Baclofen 5 mg 09/30/24 20:00 10/01/24 07:13
Baclofen 5 Mg Tablet PO 10/28/24 19:59 5 mg
BID DAVID Administration
Carbidopa/Levodopa 1 tablet 09/24/24 22:00 09/29/24 09:33
Carbidopa (25 Mg)/Levodopa (100 Mg) Regular Release Tablet PO 10/22/24 21:59 Not Given
TID DAVID
Diphenhydramine HCl 25 mg 09/24/24 18:50
Diphenhydramine 50 Mg/Ml 1 Ml Vial IV 10/22/24 18:49
Q4HPRN PRN
allergic reaction
Docusate Sodium 100 mg 09/25/24 20:00 10/01/24 07:13
Docusate Sodium 100 Mg Capsule PO 10/23/24 19:59 Not Given
BID DAVID
Escitalopram Oxalate 10 mg 09/25/24 08:00 10/01/24 07:13
Escitalopram 10 Mg Tablet PO 10/23/24 07:59 10 mg
DAILY DAVID Administration
Famotidine 20 mg 09/29/24 08:00 10/01/24 07:13
Famotidine 20 Mg Tablet PO 10/27/24 07:59 20 mg
DAILY DAVID Administration
Hydralazine HCl 5 mg 09/29/24 11:53
Hydralazine 20 Mg/Ml Vial IV 10/27/24 11:52
Q6HPRN PRN
SBP>160
Lamotrigine 75 mg 09/30/24 20:00 10/01/24 07:13
Lamotrigine 25 Mg Chewable Tablet PO 10/27/24 19:59 75 mg
BID DAVID Administration
Loperamide HCl 2 mg 09/24/24 20:00 10/01/24 07:13
Loperamide 2 Mg Capsule PO 10/22/24 19:59 2 mg
BID DAVID Administration
Ondansetron HCl 4 mg 09/27/24 14:31 09/29/24 09:30
Ondansetron 4 Mg/2 Ml Vial IV 10/25/24 14:30 4 mg
Q6HPRN PRN Administration
NAUSEA/VOMITING
Oxycodone HCl 5 mg 09/25/24 10:17 09/30/24 07:54
Oxycodone 5 Mg Regular Release Tablet PO 10/09/24 10:16 5 mg
Q4HPRN PRN Administration
moderate pain
Polyethylene Glycol 17 grams 09/26/24 08:00 10/01/24 07:13
Polyethylene Glycol Powder 17 Grams Packet PO 10/24/24 07:59 Not Given
DAILY DAVID
Pregabalin 150 mg 09/29/24 10:00 10/01/24 07:13
Pregabalin 50 Mg Capsule PO 10/26/24 09:59 150 mg
TID DAVID Administration
Sodium Chloride 0 flush 09/24/24 20:00
Sodium Chloride 0.9% (Flush) Syringe IV 10/22/24 19:59
PER PROTOCOL DAVID
[2024-10-01 09:47] VITALS: BP 83/57; BP 84/44; PULSE 91; O2SAT 95
[2024-10-01 09:50] VITALS: BP 83/57; BP 84/49; PULSE 92
[2024-10-01 10:26] LABS: ALT (SGPT) 22 U/L (0-35); AST (SGOT) 19 U/L (14-36); Albumin 2.8 g/dl (3.5-5.0); Alkaline Phosphatase 42 U/L (38-126); Total Bilirubin 0.3 mg/dl (0.2-1.3)
[2024-10-01 10:30] LABS: Ammonia < 9 umol/L (9-30)
--- NOTE | 2024-10-01 12:43 | W.PN.HOSP.TC ---
Today's Communication/Plan
-
Monitor vital signs see plan
Check UA, urine lites
Check bladder scan
Consider titrating Lyrica and Lamictal
Assessment / Plan
Assessment / Plan
Angioedema, possibly trigger by lidocaine in Magic Mouthwash vs Losartan. Doubt Losartan as this was started after going on mouth wash.
-Significant improvement following Epinephrine and Benadryl given in ED
-Continued improvement.Tongue back to normal.prednisone stopped
Acute Kidney Injury, suspect related to NSAIDs given in ED two nights ago
-Hold HCTZ and Losartan; BP under goal
monitor
- DC further IV fluids
Right Facial Pain, possible exacerbation of Trigeminal Neuralgia
-Continue Dilaudid for severe pain
Sinemet now stopped due to nausea, patient is currently on Lamictal and Lyrica
- Neurology input noted
- MRA of head to rule out compression of 5th CN; no compression noted
cw baclofen. Patient will need neurology follow-up outpatient
jerky movements
could be medication related
On Lyrica Lamictal, neurology managing
HERLINDA
Check bladder scan
UA, urine lites
Essential Hypertension
dc losartan
-HCTZ on hold in setting of HERLINDA
Hyperlipidemia
-Continue simvastatin
Anxiety
-Continue Lexapro, and alprazolam as prior to admission
DVT proph: SCDs
Code Status: Full Code
General: No Apparent Distress
HEENT: Moist Mucous Membranes and Other (resolved tongue swelling)
Respiratory: Clear to Auscultation
Cardiac: Regular Rhythm and S1/S2
Neuro: AO x 3 and No Motor Deficits
Psych: Calm
I spent a total of 52 minutes with the patient or on the floor. More than 50% of this time involved counseling and coordination of care.
Anticipated Discharge: 24 - 48 hours
Subjective/Interval History
-
Date of Service: October 01, 2024
denies pain
Objective Data
-
Labs:
Laboratory Results
10/01/24 10/01/24
06:18 09:52
WBC 5.8
Hgb 10.3 L
Hct 30.9 L
Plt Count 147 D
Sodium 142 Cancelled
Potassium 3.8 Cancelled
Chloride 103 Cancelled
Carbon Dioxide 28 Cancelled
BUN 39 H Cancelled
Creatinine 1.5 H Cancelled
Glucose 141 H Cancelled
Calcium 7.8 L Cancelled
Total Bilirubin 0.3 Cancelled
AST 19 Cancelled
ALT 22 Cancelled
Alkaline Phosphatase 42 Cancelled
Vital Signs:
Vital Signs
Temp Pulse Resp BP Pulse Ox
98.2 F 89 16 103/59 95
10/01/24 07:24 10/01/24 07:24 10/01/24 07:24 10/01/24 07:24 10/01/24 07:24
I&O
09/30/24 10/01/24 10/02/24
06:59 06:59 06:59
Intake Total 660 / 660 240 / 240
Balance 660 / 660 240 / 240
--- NOTE | 2024-10-01 14:14 | CM ---
Addendum entered by PRESLEY Woodson 10/01/24 14:56:
Referrals sent to: [facility], [facility] and [facility].
Original Note:
Reviewed chart, met with patient to discuss discharge planning as patient is not near her reported baseline. Patient admitted that she has had difficulty with transferring and ambulation which is new since this admission. Patient was advised that
there is a possibility that if medically cleared for discharge she will not be able to go straight home. She stated that was hoping to be able to return home but admitted that no one would be able to support her at her current level of functioning.
Patient was agreeable to referrals being made, locally to [facility] in the event that she does not improve.
Will send referrals.
Spoke with PT and RN.
Plan: Case management will continue to follow and assist with discharge planning. SNF vrs. home. If home, her functional status will have to greatly improve.
[2024-10-01 15:45] VITALS: BP 107/51
[2024-10-01] MEDS: LYRICA 100 MG PO ×2 (17:08→21:29)
[2024-10-01] MEDS: LIPITOR 10 MG PO (19:45)
[2024-10-01] MEDS: LAMICTAL 50 MG PO (19:47)
[2024-10-01 21:01] LABS: Urine Albumin Trace (Neg - Trace); Urine Bilirubin Negative (Negative); Urine Character Slightly Cloudy (Clear); Urine Color Yellow; Urine Glucose Negative (Negative); Urine Ketone Negative (Negative); Urine Leukocyte 2+ (Negative); Urine Nitrite Negative (Negative); Urine Occult Blood Negative (Negative); Urine Urobilinogen Negative (Neg - 1+)
[2024-10-01 21:10] LABS: Urine Bacteria Moderate (Negative); Urine Red Blood Cell 0-2 /HPF (0-2); Urine White Cell 30-40 /HPF (0-5)
[2024-10-01 21:23] LABS: Urine Sodium 37 mmol/L (30-90)
[2024-10-01] MEDS: XANAX 0.25 MG PO (21:29)
[2024-10-01 21:49] LABS: Body Fluid for Eosinophils No Eosinophils seen
[2024-10-01 23:22] VITALS: BP 114/52
[2024-10-02 07:00] VITALS: BP 105/68
[2024-10-02 07:32] LABS: Blood Urea Nitrogen 31 mg/dl (7-17); Calcium 7.9 mg/dl (8.4-10.2); Carbon Dioxide 33 mmol/L (22-30); Chloride 102 mmol/L (98-107); Estimated Creatinine Clearance 32 ml/min; Glucose 98 mg/dl (70-99); Potassium 3.9 mmol/L (3.5-5.1); Sodium 141 mmol/L (135-145); eGFR 50.48
[2024-10-02 07:33] LABS: % Basophils 0.2 % (0-2); % Eosinophils 2.9 % (0-6); % Immature Granulocytes 1.3 % (0-0.5); % Lymphocytes 23.8 % (20.5-51.1); % Monocytes 14.3 % (1.7-9.3); % Neutrophils 57.5 % (42.2-75.2); Absolute Eosinophils 0.2 10^3/uL (0-0.7); Absolute Immature Granulocytes 0.1 10^3/uL (0-0.05); Absolute Lymphocytes 1.5 10^3/uL (1.2-3.4); Absolute Monocytes 0.9 10^3/uL (0.1-0.6); Absolute Neutrophils 3.6 10^3/uL (1.4-6.5); Hematocrit 29.2 % (37.0-47.0); Hemoglobin 9.8 g/dL (12.0-16.0); Mean Corp Hgb Conc. 33.6 g/dL (33.0-37.0); Mean Corpuscular Hgb 29.6 pg (27.0-31.0); Mean Corpuscular Volume 88.2 fL (81.0-99.0); Mean Platelet Volume 10.4 fL (7.4-10.4); Nucleated Red Blood Cells % 0 %; Platelet Count 132 10^3/uL (130-400); Red Blood Cell Count 3.31 10^6/uL (4.20-5.40); Red Cell Dist. Width 13.1 % (11.5-14.5); White Blood Cell Count 6.2 10^3/uL (4.8-10.8)
[2024-10-02] MEDS: COLACE PO ×2 (07:42→19:53)
[2024-10-02] MEDS: MIRALAX PO (07:42)
[2024-10-02] MEDS: PEPCID 20 MG PO (07:43)
[2024-10-02] MEDS: LYRICA 100 MG PO (07:43)
[2024-10-02] MEDS: LAMICTAL 50 MG PO ×2 (07:43→19:54)
[2024-10-02] MEDS: IMODIUM 2 MG PO ×2 (07:43→19:54)
[2024-10-02] MEDS: LEXAPRO 10 MG PO (07:43)
--- NOTE | 2024-10-02 09:01 | W.PN.NEURO.1 ---
Today's Communication / Plan
-
Continue lamotrigine 50 mg twice a day
Decrease pregabalin from 100 mg 3 times a day to dosing of 50 mg HS which may be producing the patient's irregular movements
Neuro Assessment/Plan
Assessment
Assessment and Plan:
I. Right V3 neuralgia
II. Parkinsonism
III. Angioedema, resolved
Involuntary movements of bilateral hands suggestive of asterixis
Plan
Continue lamotrigine 50 mg twice a day
Decrease pregabalin from 100 mg 3 times a day to dosing of 50 mg HS which may be producing the patient's irregular movements
Rizatriptan 10 mg for headache PRN
Discontinued Carbidopa/Levodopa due to nausea
Use Ondansetron for nausea
Discontinued Prednisone
Will follow
Subjective/Objective
Subjective Data
Date of Service: October 02, 2024
Continued involuntary movements. No facial pain. Visual change yesterday with difficulty with small sized objects.
Objective Data
Vital Signs
Temp Pulse Resp BP Pulse Ox
36.5 C 75 16 114/52 96
10/01/24 23:22 10/01/24 23:22 10/01/24 23:22 10/01/24 23:22 10/01/24 23:22
Lab Results
10/02/24 06:53
10/02/24 06:53
Sodium 141 mmol/L (135-145) 10/02/24 06:53
Potassium 3.9 mmol/L (3.5-5.1) 10/02/24 06:53
BUN 31 mg/dl (7-17) H 10/02/24 06:53
Glucose 98 mg/dl (70-99) 10/02/24 06:53
Calcium 7.9 mg/dl (8.4-10.2) L 10/02/24 06:53
Patient Allergies
No Known Allergies Allergy (Unverified 09/22/24 21:24)
Review of Systems
-
History Source: Patient
All other systems: Reviewed and negative
Neuro: Ataxia; Negative Dizzy or Headache
Physical Exam
-
General: No Apparent Distress and Appears Stated Age
Eyes: Round OU, [place] Conjunctivae and No Ptosis
HEENT: Anicteric and Moist Mucous Membranes
Neck: Full Range of Motion
Respiratory: No Dyspnea
Cardiac: No JVD
GI: Non-distended
Skin: Unremarkable
Extremities: No Clubbing, No Cyanosis and No Edema
Psych: Negative Intact Judgement/Insight
Extended Neurological Exam
Mood & Affect: Mood Unremarkable and Affect Unremarkable
Attention Span & Concentration: Awake, Alert and Interactive
Memory: Unremarkable
Tremor: Hand Tremor Absent and Head Tremor Absent
Involuntary Movement: Asterixis (Prominent in bilateral hands)
Speech: Quality Unremarkable and Quantity Unremarkable
Cranial Nerve II: Left Eye: Pupillary Size Unremarkable and Visual [place] Grossly Intact
Cranial Nerve II: Right Eye: Pupillary Size Unremarkable and Visual [place] Grossly Intact
Cranial Nerve VII: Facial Symmetry: Normal Facial Symmetry
Cranial Nerve VIII: Hearing: Unremarkable Hearing to Normal Conversational Volume
Cranial Nerve XI: Shoulder Shrug: Unremarkable
Muscle Strength, Overall: Spontaneously Moves (All extremities)
Muscle Bulk & Tone: Bulk Unremarkable and Tone Unremarkable
Pronator Drift: No Drift in Upper Extremities
Touch Sensation: Unremarkable
Coordination: Reaches for Objects without Difficulty
Past History
Past History
ED Past Medical History: HTN, Hypercholesterolemia, Psychiatric (Anxiety) and Other (Chronic trigeminal neuralgia Since 2019; Irritable bowel syndrome)
ED Past Surgical History: Cholecystectomy and Tonsilectomy
Social History
Tobacco: Non-smoker
Alcohol: None
Personal:
Living: with family
Employment: Retired
Family History
Family History: Other (Reviewed and noncontributory)
Medications
-
Medications:
Generic Name Dose Route Start Last Admin
Trade Name Freq PRN Reason Stop Dose Admin
Acetaminophen 650 mg 09/24/24 18:50
Acetaminophen 325 Mg Tablet PO 10/22/24 18:49
Q4HPRN PRN
mild pain/ fever>100.5F
Alprazolam 0.25 mg 09/24/24 22:00 10/01/24 21:29
Alprazolam 0.25 Mg Tablet PO 10/22/24 21:59 0.25 mg
HS DAVID Administration
Atorvastatin Calcium 10 mg 09/24/24 22:00 10/01/24 19:45
Atorvastatin (Lipitor) 10 Mg Tablet PO 10/22/24 21:59 10 mg
HS DAVID Administration
Carbidopa/Levodopa 1 tablet 09/24/24 22:00 09/29/24 09:33
Carbidopa (25 Mg)/Levodopa (100 Mg) Regular Release Tablet PO 10/22/24 21:59 Not Given
TID DAVID
Ceftriaxone Sodium 1,000 mg 10/02/24 10:00
Ceftriaxone 1000 Mg / 10 Ml Vial IV
Q24H DAVID
Diphenhydramine HCl 25 mg 09/24/24 18:50
Diphenhydramine 50 Mg/Ml 1 Ml Vial IV 10/22/24 18:49
Q4HPRN PRN
allergic reaction
Docusate Sodium 100 mg 09/25/24 20:00 10/02/24 07:42
Docusate Sodium 100 Mg Capsule PO 10/23/24 19:59 Not Given
BID DAVID
Escitalopram Oxalate 10 mg 09/25/24 08:00 10/02/24 07:43
Escitalopram 10 Mg Tablet PO 10/23/24 07:59 10 mg
DAILY DAVID Administration
Famotidine 20 mg 09/29/24 08:00 10/02/24 07:43
Famotidine 20 Mg Tablet PO 10/27/24 07:59 20 mg
DAILY DAVID Administration
Hydralazine HCl 5 mg 09/29/24 11:53
Hydralazine 20 Mg/Ml Vial IV 10/27/24 11:52
Q6HPRN PRN
SBP>160
Lamotrigine 50 mg 10/01/24 20:00 10/02/24 07:43
Lamotrigine 25 Mg Chewable Tablet PO 10/27/24 19:59 50 mg
BID DAVID Administration
Loperamide HCl 2 mg 09/24/24 20:00 10/02/24 07:43
Loperamide 2 Mg Capsule PO 10/22/24 19:59 2 mg
BID DAVID Administration
Ondansetron HCl 4 mg 09/27/24 14:31 09/29/24 09:30
Ondansetron 4 Mg/2 Ml Vial IV 10/25/24 14:30 4 mg
Q6HPRN PRN Administration
NAUSEA/VOMITING
Oxycodone HCl 5 mg 09/25/24 10:17 09/30/24 07:54
Oxycodone 5 Mg Regular Release Tablet PO 10/09/24 10:16 5 mg
Q4HPRN PRN Administration
moderate pain
Polyethylene Glycol 17 grams 09/26/24 08:00 10/02/24 07:42
Polyethylene Glycol Powder 17 Grams Packet PO 10/24/24 07:59 Not Given
DAILY DAVID
Pregabalin 50 mg 10/02/24 09:00
Pregabalin 100 Mg Capsule PO 10/29/24 15:59
TID DAVID
Sodium Chloride 0 flush 09/24/24 20:00
Sodium Chloride 0.9% (Flush) Syringe IV 10/22/24 19:59
PER PROTOCOL DAVID
Sterile Water 10 ml 10/02/24 10:00
Sterile Water For Injection 10 Ml Vial IV 10/30/24 09:59
Q24H DAVID
[2024-10-02] MEDS: ROCEPHIN 1000 MG IV (09:31)
[2024-10-02] MEDS: STERILE WATER FOR INJECTION 10 ML IV (09:31)
[2024-10-02] MEDS: FLUSH (NSS) 2 FLUSH IV (09:38)
--- NOTE | 2024-10-02 10:32 | W.PN.HOSP.TC ---
Today's Communication/Plan
-
Monitor vital signs see plan
On Lyrica, Lamictal
Start ceftriaxone
PT/OT
Monitor creatinine
Assessment / Plan
Assessment / Plan
Angioedema, possibly trigger by lidocaine in Magic Mouthwash vs Losartan. Doubt Losartan as this was started after going on mouth wash.
-Significant improvement following Epinephrine and Benadryl given in ED
-Continued improvement.Tongue back to normal.prednisone stopped
Acute Kidney Injury, suspect related to NSAIDs given in ED two nights ago
-Hold HCTZ and Losartan; BP under goal
monitor
Right Facial Pain, possible exacerbation of Trigeminal Neuralgia
-Continue Dilaudid for severe pain; pain now has improved
Sinemet now stopped due to nausea, patient is currently on Lamictal and Lyrica
- Neurology input noted
- MRA of head to rule out compression of 5th CN; no compression noted
Patient will need neurology follow-up outpatient
jerky movements
could be medication related
On Lyrica Lamictal, neurology managing; reduced lamicatal and lyrica
HERLINDA
bladder scan
UTI; started ceftriaxone, follow urine culture
Essential Hypertension
dc losartan
-HCTZ on hold in setting of HERLINDA
Hyperlipidemia
-Continue simvastatin
Anxiety
-Continue Lexapro, and alprazolam as prior to admission
DVT proph: SCDs
Code Status: Full Code
PT/OT now rec SNF
General: No Apparent Distress
HEENT: Moist Mucous Membranes,PEERLA
Respiratory: Clear to Auscultation
Cardiac: Regular Rhythm and S1/S2
Neuro: AO x 3 and No Motor Deficits
EXT: b/l UE tremors
Psych: Calm
Anticipated Discharge: 24 - 48 hours
Subjective/Interval History
-
Date of Service: October 02, 2024
denies pain
Objective Data
-
Labs:
Laboratory Results
10/02/24
06:53
WBC 6.2
Hgb 9.8 L
Hct 29.2 L
Plt Count 132
Sodium 141
Potassium 3.9
Chloride 102
Carbon Dioxide 33 H
BUN 31 H
Creatinine 1.1 H
Glucose 98
Calcium 7.9 L
Vital Signs:
Vital Signs
Temp Pulse Resp BP Pulse Ox
98.4 F 73 16 105/68 97
10/02/24 07:00 10/02/24 07:00 10/01/24 23:22 10/02/24 07:00 10/02/24 07:00
I&O
10/01/24 10/02/24 10/03/24
06:59 06:59 06:59
Intake Total 240 / 240 240 / 240
Output Total 50 / 50
Balance 240 / 240 190 / 190
[2024-10-02 15:24] VITALS: BP 122/58
[2024-10-02] MEDS: LIPITOR 10 MG PO (21:09)
[2024-10-02] MEDS: XANAX 0.25 MG PO (21:09)
[2024-10-02] MEDS: LYRICA 50 MG PO (21:09)
[2024-10-02 23:00] VITALS: BP 114/50
[2024-10-03 06:34] LABS: % Basophils 0.4 % (0-2); % Eosinophils 2.1 % (0-6); % Immature Granulocytes 2.3 % (0-0.5); % Lymphocytes 20.7 % (20.5-51.1); % Monocytes 12.4 % (1.7-9.3); % Neutrophils 62.1 % (42.2-75.2); Absolute Eosinophils 0.2 10^3/uL (0-0.7); Absolute Immature Granulocytes 0.2 10^3/uL (0-0.05); Absolute Lymphocytes 1.6 10^3/uL (1.2-3.4); Absolute Monocytes 0.9 10^3/uL (0.1-0.6); Absolute Neutrophils 4.7 10^3/uL (1.4-6.5); Hematocrit 29.3 % (37.0-47.0); Hemoglobin 9.7 g/dL (12.0-16.0); Mean Corp Hgb Conc. 33.1 g/dL (33.0-37.0); Mean Corpuscular Hgb 29.2 pg (27.0-31.0); Mean Corpuscular Volume 88.3 fL (81.0-99.0); Mean Platelet Volume 10.7 fL (7.4-10.4); Nucleated Red Blood Cells % 0 %; Platelet Count 123 10^3/uL (130-400); Red Blood Cell Count 3.32 10^6/uL (4.20-5.40); Red Cell Dist. Width 13.1 % (11.5-14.5); White Blood Cell Count 7.5 10^3/uL (4.8-10.8)
[2024-10-03 06:44] LABS: Blood Urea Nitrogen 24 mg/dl (7-17); Calcium 7.9 mg/dl (8.4-10.2); Carbon Dioxide 33 mmol/L (22-30); Chloride 102 mmol/L (98-107); Estimated Creatinine Clearance 35 ml/min; Glucose 102 mg/dl (70-99); Potassium 4.1 mmol/L (3.5-5.1); Sodium 142 mmol/L (135-145)
[2024-10-03 07:00] VITALS: BP 114/86
[2024-10-03] MEDS: LAMICTAL 50 MG PO ×2 (08:54→20:14)
[2024-10-03] MEDS: IMODIUM 2 MG PO ×2 (08:54→20:14)
[2024-10-03] MEDS: LEXAPRO 10 MG PO (08:55)
[2024-10-03] MEDS: PEPCID 20 MG PO (08:55)
[2024-10-03] MEDS: MIRALAX 17 GRAMS PO (08:55)
[2024-10-03] MEDS: COLACE 100 MG PO (08:56)
[2024-10-03] MEDS: ROCEPHIN 1000 MG IV (10:09)
[2024-10-03] MEDS: STERILE WATER FOR INJECTION 10 ML IV (10:09)
[2024-10-03] MEDS: LYRICA 50 MG PO ×2 (10:40→20:14)
--- NOTE | 2024-10-03 10:48 | W.PN.HOSP.TC ---
Addendum entered and electronically signed by Paul Segal MD 10/03/24 15:07:
Spoke with patient's daughter and patient again. Patient does not feel comfortable getting discharged today especially since still titrating her meds. Will see how this current regimen controls her pain and then potentially discharge tomorrow if
does well with physical therapy.
Original Note:
Today's Communication/Plan
-
Monitor vital signs see plan
PT/OT to reevaluate
Continue with Lamictal, Lyrica
Tremors now appear to be improving
Spoke with microbiology lab and appears urine culture with mixed bebe, transition to p.o. antibiotics
Can potentially be discharged today if does well with PT/OT
Assessment / Plan
Assessment / Plan
Angioedema, possibly trigger by lidocaine in Magic Mouthwash vs Losartan. Doubt Losartan as this was started after going on mouth wash.
-Significant improvement following Epinephrine and Benadryl given in ED
-Continued improvement.Tongue back to normal.prednisone stopped
Acute Kidney Injury, suspect related to NSAIDs given in ED two nights ago
-Hold HCTZ and Losartan; BP under goal
monitor
Right Facial Pain, possible exacerbation of Trigeminal Neuralgia
-Continue Dilaudid for severe pain; pain now has improved
Sinemet now stopped due to nausea, patient is currently on Lamictal and Lyrica. seems to be improving her pain
- Neurology input noted
- MRA of head to rule out compression of 5th CN; no compression noted
Patient will need neurology follow-up outpatient
jerky movements
could be medication related; now improving
On Lyrica Lamictal, neurology managing; reduced lamicatal and lyrica
HERLINDA
resolved
bladder scan
UTI; started ceftriaxone, follow urine culture pending, spoke with micro lab and it appears mixed bebe. Will transition to p.o. cefdinir to complete course
Essential Hypertension
dc losartan
-HCTZ on hold in setting of HERLINDA; doesnt appear she would need HCTZ on discharge given her BP readings
Hyperlipidemia
-Continue simvastatin
Anxiety
-Continue Lexapro, and alprazolam as prior to admission
DVT proph: SCDs
Code Status: Full Code
PT/OT now rec SNF
General: No Apparent Distress
HEENT: Moist Mucous Membranes,PEERLA
Respiratory: Clear to Auscultation
Cardiac: Regular Rhythm and S1/S2
Neuro: AO x 3 and No Motor Deficits
EXT: b/l UE tremors (improved)
Psych: Calm
Anticipated Discharge: Today
Subjective/Interval History
-
Date of Service: October 03, 2024
still has some pain
Objective Data
-
Labs:
Laboratory Results
10/03/24
05:55
WBC 7.5
Hgb 9.7 L
Hct 29.3 L
Plt Count 123 L
Sodium 142
Potassium 4.1
Chloride 102
Carbon Dioxide 33 H
BUN 24 H
Creatinine 1.0
Glucose 102 H
Calcium 7.9 L
Vital Signs:
Vital Signs
Temp Pulse Resp BP Pulse Ox
99.6 F 68 14 114/86 98
10/03/24 07:00 10/03/24 07:00 10/03/24 07:00 10/03/24 07:00 10/03/24 07:00
I&O
10/02/24 10/03/24 10/04/24
06:59 06:59 06:59
Intake Total 240 / 240 300 / 300 120 / 120
Output Total 50 / 50
Balance 190 / 190 300 / 300 120 / 120
[2024-10-03 14:41] VITALS: BP 112/32
[2024-10-03 15:09] VITALS: BP 106/41
[2024-10-03 15:15] VITALS: BP 106/41; PULSE 70; O2SAT 96
[2024-10-03] MEDS: COLACE PO (20:14)
[2024-10-03] MEDS: XANAX 0.25 MG PO (21:17)
[2024-10-03] MEDS: LIPITOR 10 MG PO (21:17)
[2024-10-03 23:00] VITALS: BP 121/53
[2024-10-04 07:26] VITALS: BP 145/72
[2024-10-04 07:47] LABS: % Basophils 0.5 % (0-2); % Eosinophils 1.9 % (0-6); % Immature Granulocytes 0.7 % (0-0.5); % Monocytes 10.7 % (1.7-9.3); % Neutrophils 66.2 % (42.2-75.2); Absolute Eosinophils 0.2 10^3/uL (0-0.7); Absolute Immature Granulocytes 0.1 10^3/uL (0-0.05); Absolute Lymphocytes 1.6 10^3/uL (1.2-3.4); Absolute Monocytes 0.9 10^3/uL (0.1-0.6); Absolute Neutrophils 5.4 10^3/uL (1.4-6.5); Hematocrit 28.5 % (37.0-47.0); Hemoglobin 9.3 g/dL (12.0-16.0); Mean Corp Hgb Conc. 32.6 g/dL (33.0-37.0); Mean Corpuscular Hgb 29.3 pg (27.0-31.0); Mean Corpuscular Volume 89.9 fL (81.0-99.0); Mean Platelet Volume 10.8 fL (7.4-10.4); Nucleated Red Blood Cells % 0 %; Platelet Count 130 10^3/uL (130-400); Red Blood Cell Count 3.17 10^6/uL (4.20-5.40); White Blood Cell Count 8.1 10^3/uL (4.8-10.8)
[2024-10-04 08:28] LABS: Blood Urea Nitrogen 21 mg/dl (7-17); Calcium 7.5 mg/dl (8.4-10.2); Carbon Dioxide 32 mmol/L (22-30); Chloride 102 mmol/L (98-107); Estimated Creatinine Clearance 35 ml/min; Glucose 84 mg/dl (70-99); Sodium 142 mmol/L (135-145)
[2024-10-04] MEDS: OMNICEF 300 MG PO (08:56)
[2024-10-04] MEDS: LYRICA 50 MG PO ×2 (08:56→10:09)
[2024-10-04] MEDS: LAMICTAL 50 MG PO (08:56)
--- NOTE | 2024-10-04 08:56 | W.PN.NEURO.1 ---
Addendum entered and electronically signed by Moris Mark MD 10/04/24 10:40:
Studies reviewed.
I have personally examined the patient. I reviewed and agree with the PRINTS AND DRAWINGS CURATOR's Note.
My addenda:
Awake, alert, interactive. No acute distress.
Speech intact.
Follows 2-step requests w/o difficulty. No tremor.
Extra-ocular movements grossly intact.
Facial movements full and symmetric. Hearing intact to normal conversational volume.
Normal UE movements bilaterally.
Neck: full ROM.
Chest: no dyspnea
Heart: no JVD
Ext: (-) Clubbing, (-) Cyanosis, (-) Edema
IMPRESSIONS/RECOMMENDATIONS:
Abrupt worsening of trigeminal neuralgia
Adjust pregabalin from dosing of 50 mg twice a day to dosing of 50 mg twice a day and 100 mg at bedtime; provide additional 50 mg this morning due to breakthrough pain
Increase lamotrigine from 50 mg to 75 mg twice daily
D/W patient / family / nursing
All questions answered.
Will continue to follow as outpatient.
Original Note:
Today's Communication / Plan
-
.
Neuro Assessment/Plan
Assessment
Assessment and Plan:
I. Right V3 neuralgia
II. Parkinsonism, head tremor
III. Angioedema, resolved
IV. Involuntary movements of bilateral hands suggestive of asterixis, now resolved.
Plan
-Increase lamotrigine from 50 mg to 75mg twice a day.
-Increase pregabalin from 50mg BID to 50mg AM, 50mg PM, and 100mg HS due to recurrent pain
-Rizatriptan 10 mg for headache PRN
-Discontinued Carbidopa/Levodopa due to nausea. Outpatient UMER scan.
-Bowel regimen.
-Discontinued Prednisone.
-Reviewed plan of care with patient and her daughter. Follow-up outpatient Neurology in about 3 weeks, may see the PRINTS AND DRAWINGS CURATOR or Dr. Mark.
Subjective/Objective
Subjective Data
Date of Service: October 04, 2024
No acute events overnight. Reports a sore throat this morning, improved with throat lozenges. She reports still having intermittent facial pains, about 6 episodes yesterday lasting a few seconds each. The pain is more frequent in the morning. She
rates the pain a 7/10. This morning she has had two instances of pain. Her head tremor has returned but the tremors have resolved in her hands/legs. She denies any headache, dizziness, vision changes, speech/swallow difficulty, numbness, and
weakness.
Objective Data
Vital Signs
Temp Pulse Resp BP Pulse Ox
99.1 F 88 18 145/72 96
10/04/24 07:26 10/04/24 07:26 10/04/24 07:26 10/04/24 07:26 10/04/24 07:26
Lab Results
10/04/24 06:06
10/04/24 06:06
Sodium 142 mmol/L (135-145) 10/04/24 06:06
Potassium 4.0 mmol/L (3.5-5.1) 10/04/24 06:06
BUN 21 mg/dl (7-17) H 10/04/24 06:06
Glucose 84 mg/dl (70-99) 10/04/24 06:06
Calcium 7.5 mg/dl (8.4-10.2) L 10/04/24 06:06
Patient Allergies
No Known Allergies Allergy (Unverified 09/22/24 21:24)
Review of Systems
-
History Source: Patient
EENT: Negative Blurry Vision, Decreased Vision or Swallowing Difficulty
Respiratory: Negative Cough or Trouble Breathing
Cardiac: Negative Chest Pain or Palpitations
Abdomen/GI: Constipated; Negative Nausea
Neuro: Tremors; Negative Dizzy, Headache, Weakness, Numbness, Ataxia or Speech Problem
Physical Exam
-
General: No Apparent Distress
Eyes: No Ptosis and PERRLA
HEENT: Normocephalic and Atraumatic
Neck: Full Range of Motion
Respiratory: No Dyspnea
GI: Non-distended
Extremities: No Clubbing, No Cyanosis and No Edema
Psych: Unremarkable
Extended Neurological Exam
Mood & Affect: Mood Unremarkable and Affect Unremarkable
Attention Span & Concentration: Awake, Alert and Interactive
Memory: Unremarkable (AAOx3) and Able to Recall
Tremor: Hand Tremor Absent and Variable; Negative Head Tremor Absent
Speech: Quality Unremarkable, Quantity Unremarkable and Rate of Production Unremarkable
Cranial Nerve VII: Facial Symmetry: Normal Facial Symmetry
Cranial Nerve VIII: Hearing: Unremarkable Hearing to Normal Conversational Volume
Muscle Strength, Overall: Full Throughout
Pronator Drift: No Drift in Upper Extremities and No Drift in Lower Extremities
Data Reviewed
-
MRA Head: Report Reviewed and Image Reviewed
Labs: Report Reviewed
Reviewed with: Physician, Patient and Family
Medications
-
Active Medications
Generic Name Dose Route Start Last Admin
Trade Name Freq PRN Reason Stop Dose Admin
Acetaminophen 650 mg 09/24/24 18:50
Acetaminophen 325 Mg Tablet PO 10/22/24 18:49
Q4HPRN PRN
mild pain/ fever>100.5F
Alprazolam 0.25 mg 09/24/24 22:00 10/03/24 21:17
Alprazolam 0.25 Mg Tablet PO 10/22/24 21:59 0.25 mg
HS DAVID Administration
Atorvastatin Calcium 10 mg 09/24/24 22:00 10/03/24 21:17
Atorvastatin (Lipitor) 10 Mg Tablet PO 10/22/24 21:59 10 mg
HS DAVID Administration
Benzocaine/Menthol 1 lozenge 10/04/24 09:29
Benzocaine/Menthol Lozenge PO 11/01/24 09:28
Q4HPRN PRN
sore throat
Cefdinir 300 mg 10/04/24 08:00 10/04/24 08:56
Cefdinir 300 Mg Capsule PO 10/04/24 20:01 300 mg
Q12 DAVID Administration
Diphenhydramine HCl 25 mg 09/24/24 18:50
Diphenhydramine 50 Mg/Ml 1 Ml Vial IV 10/22/24 18:49
Q4HPRN PRN
allergic reaction
Docusate Sodium 100 mg 09/25/24 20:00 10/04/24 09:11
Docusate Sodium 100 Mg Capsule PO 10/23/24 19:59 Not Given
BID DAVID
Escitalopram Oxalate 10 mg 09/25/24 08:00 10/04/24 08:57
Escitalopram 10 Mg Tablet PO 10/23/24 07:59 10 mg
DAILY DAVID Administration
Famotidine 20 mg 09/29/24 08:00 10/04/24 08:57
Famotidine 20 Mg Tablet PO 10/27/24 07:59 20 mg
DAILY DAVID Administration
Hydralazine HCl 5 mg 09/29/24 11:53
Hydralazine 20 Mg/Ml Vial IV 10/27/24 11:52
Q6HPRN PRN
SBP>160
Lamotrigine 75 mg 10/04/24 20:00
Lamotrigine 25 Mg Chewable Tablet PO 10/27/24 19:59
BID DAVID
Loperamide HCl 2 mg 09/24/24 20:00 10/04/24 09:09
Loperamide 2 Mg Capsule PO 10/22/24 19:59 Not Given
BID DAVID
Ondansetron HCl 4 mg 09/27/24 14:31 09/29/24 09:30
Ondansetron 4 Mg/2 Ml Vial IV 10/25/24 14:30 4 mg
Q6HPRN PRN Administration
NAUSEA/VOMITING
Oxycodone HCl 5 mg 09/25/24 10:17 09/30/24 07:54
Oxycodone 5 Mg Regular Release Tablet PO 10/09/24 10:16 5 mg
Q4HPRN PRN Administration
moderate pain
Polyethylene Glycol 17 grams 09/26/24 08:00 10/04/24 09:11
Polyethylene Glycol Powder 17 Grams Packet PO 10/24/24 07:59 Not Given
DAILY DAVID
Pregabalin 50 mg 10/04/24 16:00
Pregabalin 50 Mg Capsule PO 11/01/24 15:59
0700,1600 DAVID
Pregabalin 100 mg 10/04/24 22:00
Pregabalin 50 Mg Capsule PO 11/01/24 21:59
HS DAVID
Pregabalin 50 mg 10/04/24 10:00
Pregabalin 50 Mg Capsule PO 10/04/24 10:01
NOW ONE
Sodium Chloride 0 flush 09/24/24 20:00 10/02/24 09:38
Sodium Chloride 0.9% (Flush) Syringe IV 10/22/24 19:59 2 flush
PER PROTOCOL DAVID Administration
Home Medications
�Medication �Instructions �Recorded
Magic Mouthwash 5 ml PO QIDPRN PRN mouth pain 09/24/24
alprazolam 0.25 mg tablet 0.25 mg PO HS Mental Health/Anxiety 09/24/24
carbidopa 25 mg-levodopa 100 mg 1 tab PO TID PARKINSONS 09/24/24
tablet
cetirizine 10 mg tablet 10 mg PO DAILYPRN PRN allergies 09/24/24
ergocalciferol (vitamin D2) 1,250 1,250 mcg PO HARRELL Supplement 09/24/24
mcg (50,000 unit) capsule
escitalopram oxalate 10 mg tablet 10 mg PO DAILY Mental 09/24/24
Health/Anxiety
hydrochlorothiazide 25 mg tablet 25 mg PO DAILY Fluid 09/24/24
Retention/Swelling
loperamide 2 mg capsule 2 mg PO BID DIARRHEA 09/24/24
losartan 100 mg tablet 100 mg PO DAILY@1500 Blood Pressure 09/24/24
simvastatin 20 mg tablet 20 mg PO HS High Cholesterol 09/24/24
[2024-10-04] MEDS: LEXAPRO 10 MG PO (08:57)
[2024-10-04] MEDS: PEPCID 20 MG PO (08:57)
[2024-10-04] MEDS: IMODIUM PO (09:09)
[2024-10-04] MEDS: COLACE PO (09:11)
[2024-10-04] MEDS: MIRALAX PO (09:11)
[2024-10-04 09:27] VITALS: BP 135/59; BP 139/64; PULSE 72; O2SAT 96
--- NOTE | 2024-10-04 09:40 | PTCARENOTE ---
Pt found sitting on bathroom floor on buttocks by PCT. Pt stated, 'I felt wobbly so I sat down'. VSS. Skin assessed, intact. MD, nursing lead burner supervisor, floor charge nurse and housecleaner floor made aware. No complaints of pain. Bed alarm placed and plugged
in. Fall risk band placed. Pt informed to ring call rudolph for assistance when OOB. Pt verbalized understanding of call rudolph. Call rudolph within close reach. Will continue to monitor.
--- NOTE | 2024-10-04 09:40 | PTCARENOTE ---
Pt found sitting on bathroom floor on buttocks by PCT. Pt stated, 'I felt wobbly so I sat down'. VSS. Skin assessed, intact. MD, nursing maintenance supervisor mechanical and flooring sales manager made aware.
[2024-10-04 09:44] VITALS: BP 156/63
[2024-10-04] MEDS: ANESTHETIC LOZENGE 1 LOZENGE PO (10:09)
[2024-10-04 11:00] VITALS: BP 156/63
--- NOTE | 2024-10-04 11:08 | W.PN.HOSP.TC ---
Today's Communication/Plan
-
Discharge
Assessment / Plan
Assessment / Plan
Gen-AAOx3, NAD
HEENT-NC, AT, anicteric, clear oral mm
Neck-supple
CV-reg, no M, +S1/S2
Lungs-clear B/L
Abd-soft, NT, ND
Ext-no edema
Musculoskeletal-no cyanosis, clubbing
Skin-warm and dry
Neuro-grossly non-focal
Psych-calm, cooperative
Angioedema, possibly trigger by lidocaine in Magic Mouthwash vs Losartan. Doubt Losartan as this was started after going on mouth wash.
-Significant improvement following Epinephrine and Benadryl given in ED
-Continued improvement.Tongue back to normal.prednisone stopped
Acute Kidney Injury, suspect related to NSAIDs given in ED two nights ago
-Hold HCTZ and Losartan; BP under goal
monitor
Right Facial Pain, possible exacerbation of Trigeminal Neuralgia
-Continue Dilaudid for severe pain; pain now has improved
Sinemet now stopped due to nausea, patient is currently on Lamictal and Lyrica. seems to be improving her pain
- Neurology input noted
- MRA of head to rule out compression of 5th CN; no compression noted
Patient will need neurology follow-up outpatient
jerky movements
could be medication related; now improving
On Lyrica Lamictal, neurology managing; reduced lamicatal and lyrica
HERLINDA
resolved
bladder scan
UTI; started ceftriaxone, follow urine culture pending, spoke with micro lab and it appears mixed bebe. Last day of oral antibiotics today.
Essential Hypertension
dc losartan
-HCTZ on hold in setting of HERLINDA; doesnt appear she would need HCTZ on discharge given her BP readings
Hyperlipidemia
-Continue simvastatin
Anxiety
-Continue Lexapro, and alprazolam as prior to admission
DVT proph: SCDs
Code Status: Full Code
Dispo -medically stable for discharge home today. Outpatient follow-up.
32 minutes spent in discharge process.
Anticipated Discharge: Today
Subjective/Interval History
-
Date of Service: October 04, 2024
Patient seen and examined. Feeling better. No complaints.
Objective Data
-
Labs:
Laboratory Results
10/04/24
06:06
WBC 8.1
Hgb 9.3 L
Hct 28.5 L
Plt Count 130
Sodium 142
Potassium 4.0
Chloride 102
Carbon Dioxide 32 H
BUN 21 H
Creatinine 1.0
Glucose 84
Calcium 7.5 L
Vital Signs:
Vital Signs
Temp Pulse Resp BP Pulse Ox
98.4 F 74 18 156/63 98
10/04/24 09:44 10/04/24 09:44 10/04/24 09:44 10/04/24 09:44 10/04/24 09:44
I&O
10/03/24 10/04/24 10/05/24
06:59 06:59 06:59
Intake Total 300 / 300 840 / 840
Balance 300 / 300 840 / 840
Review of Systems
-
History Source: Patient
All other systems: Reviewed and negative
--- NOTE | 2024-10-04 11:14 | W.DS.TRANS ---
DC Summary - Instructor Product Inspection
-
Discharge Instructions:
Discharge Diagnosis/Procedures Angioedema
Acute kidney injury
Exacerbation of trigeminal neuralgia
Diet As tolerated
Activity As tolerated
Driving Restrictions As prior to admission
Bathing Restrictions None
Instructions:
Stand-Alone Forms:
Changes to Home Medications: No
Discharge Medications:
DC Medications w/original date entered in [facility]
alprazolam 0.25 mg tablet 0.25 mg PO HS Mental Health/Anxiety 09/24/24
carbidopa 25 mg-levodopa 100 mg tablet 1 tab PO TID PARKINSONS 09/24/24
cetirizine 10 mg tablet 10 mg PO DAILYPRN PRN allergies 09/24/24
ergocalciferol (vitamin D2) 1,250 mcg (50,000 unit) capsule 1,250 mcg PO HARRELL Supplement 09/24/24
escitalopram oxalate 10 mg tablet 10 mg PO DAILY Mental Health/Anxiety 09/24/24
hydrochlorothiazide 25 mg tablet 25 mg PO DAILY Fluid Retention/Swelling 09/24/24
loperamide 2 mg capsule 2 mg PO BID DIARRHEA 09/24/24
simvastatin 20 mg tablet 20 mg PO HS High Cholesterol 09/24/24
cefdinir 300 mg capsule 300 mg PO Q12 #1 cap 10/04/24
famotidine 20 mg tablet 20 mg PO DAILY #30 tabs 10/04/24
lamotrigine 25 mg chewable dispersible tablet 75 mg (3 x 25 mg) PO BID #60 ea 10/04/24
pregabalin 100 mg capsule 100 mg PO HS #30 caps 10/04/24
pregabalin 50 mg capsule 50 mg PO 0700,1600 #60 caps 10/04/24
Home Medication Changes
Pending Results: No
--- NOTE | 2024-10-04 12:35 | CM ---
Reviewed chart, placed a call to patient's daughter as patient was in the bathroom. Indication from PT/OT is home as she has vastly improved. Daughter requested VN, she was agreeable to . Referral made. Daughter stated that she will be in at 1:30
to transport patient home. RN updated. IMM reviewed with daughter on phone.
Plan: Case management will continue to follow and assist with discharge planning. Home.
--- NOTE | 2024-10-04 12:46 | VNURNOTE ---
Home Health Liaison spoke with patient to discuss [facility] nurse/therapy, visits, schedule and homebound status. Patient is agreeable and understands that visits at home will be 2-3 x per week to assess and teach medical management. Patient is aware
that [facility] will contact them for start of care in 1-2 days after discharge from .
[facility] referral completed in [facility].
== END 2024-10-04 14:25 | disposition home health service (06) | DRG 74 ==
LOC: 3 WEST ACU 17:15
PROVIDERS: Internal Medicine; Physician Assistant; Physician Assistant Medical; Psychiatry & Neurology Neurology; ADMITTING PHYSICIAN Hospitalist; ATTENDING PHYSICIAN Hospitalist; CONSULT PHYSICIAN Psychiatry & Neurology Neurology; EMERGENCY PHYSICIAN Emergency Medicine; FAMILY PHYSICIAN Family Medicine
DX: G50.0 Trigeminal neuralgia (principal); N17.9 Acute kidney failure, unspecified; T78.3XXA Angioneurotic edema, initial encounter; T50.915A Adverse effect of multiple unspecified drugs, medicaments and biological substances, initial encounter; I10 Essential (primary) hypertension; F41.9 Anxiety disorder, unspecified; K58.9 Irritable bowel syndrome, unspecified; E78.00 Pure hypercholesterolemia, unspecified; T41.3X5A Adverse effect of local anesthetics, initial encounter; G25.1 Drug-induced tremor; Z79.899 Other long term (current) drug therapy
CPT/HCPCS: 70544; 80048; 80053; 81003; 81015; 81099; 82140; 82570; 84300; 85025; 85027; 87086; 93005; 96372; 96374; 96375; 97116; 97163; 97167; 97530; 97535; 99284

== ENCOUNTER → 2024-10-27 11:30 | Outpatient (REF) | payer OTHER, SELFPAY | LOC: CLAB 11:30 | PROVIDERS: ATTENDING PHYSICIAN Family Medicine | DX: R30.0 Dysuria (principal) | CPT/HCPCS: 87086 ==

== ENCOUNTER → 2024-12-22 07:57 | Outpatient (REF) | payer OTHER, SELFPAY ==
[2024-12-22 09:51] LABS: Urine Albumin 1+ (Neg - Trace); Urine Bilirubin Negative (Negative); Urine Character Clear (Clear); Urine Color Yellow; Urine Glucose Negative (Negative); Urine Ketone Negative (Negative); Urine Leukocyte 3+ (Negative); Urine Nitrite Negative (Negative); Urine Occult Blood Negative (Negative); Urine Specific Gravity 1.015 (<1.030); Urine Urobilinogen Negative (Neg - 1+)
[2024-12-22 09:57] LABS: % Basophils 0.8 % (0-2); % Immature Granulocytes 0.2 % (0-0.5); % Lymphocytes 32.6 % (20.5-51.1); % Monocytes 6.4 % (1.7-9.3); Absolute Lymphocytes 1.6 10^3/uL (1.2-3.4); Absolute Monocytes 0.3 10^3/uL (0.1-0.6); Absolute Neutrophils 2.9 10^3/uL (1.4-6.5); Hematocrit 34.5 % (37.0-47.0); Hemoglobin 10.9 g/dL (12.0-16.0); Mean Corp Hgb Conc. 31.6 g/dL (33.0-37.0); Mean Corpuscular Hgb 28.1 pg (27.0-31.0); Mean Corpuscular Volume 88.9 fL (81.0-99.0); Mean Platelet Volume 9.6 fL (7.4-10.4); Nucleated Red Blood Cells % 0 %; Platelet Count 234 10^3/uL (130-400); Red Blood Cell Count 3.88 10^6/uL (4.20-5.40); Red Cell Dist. Width 13.1 % (11.5-14.5); White Blood Cell Count 4.8 10^3/uL (4.8-10.8)
[2024-12-22 10:02] LABS: Urine Red Blood Cell 0-2 /HPF (0-2)
[2024-12-22 10:04] LABS: Urine Bacteria Few (Negative)
[2024-12-22 10:26] LABS: ALT (SGPT) < 10 U/L (0-35); AST (SGOT) 22 U/L (14-36); Albumin 3.6 g/dl (3.5-5.0); Alkaline Phosphatase 66 U/L (38-126); Blood Urea Nitrogen 25 mg/dl (7-17); Calcium 8.6 mg/dl (8.4-10.2); Carbon Dioxide 38 mmol/L (22-30); Chloride 98 mmol/L (98-107); Glucose 81 mg/dl (70-99); Sodium 141 mmol/L (135-145); Total Bilirubin 0.2 mg/dl (0.2-1.3); Total Protein 6.4 g/dl (6.3-8.2); eGFR 50.48
[2024-12-22 10:32] LABS: Erythrocyte Sed Rate 24 mm/hour (0-20)
[2024-12-22 14:19] LABS: Creatine Phosphokinase 48 U/L (30-135)
[2024-12-22 16:26] LABS: CKMB 0.5 ng/ml (0.0-3.4)
[2024-12-23 00:13] LABS: Complement C3 130 mg/dl (88-165); IgA 349 mg/dl (70-400); IgG 947 mg/dl (700-1600); IgM 63 mg/dl (40-230)
[2024-12-23 21:34] LABS: Lamotrigine (Lamictal) 6.8 ug/mL (3.0-15.0)
[2024-12-23 22:20] LABS: ANA, IgG Reflex to HEp-2 None Detected (None Detected)
[2024-12-24 00:14] LABS: ds-DNA Ab, IgG Reflex To Titer 2 IU (0-24)
[2024-12-25 01:41] LABS: SSA 52 (Ro)(ENA) Ab, IgG 1 AU/mL (0-40); SSA 60 (Ro)(ENA) Ab, IgG 0 AU/mL (0-40); SSB (La)(ENA) Ab, IgG 0 AU/mL (0-40)
== END ==
LOC: HWLAB 07:57
PROVIDERS: ATTENDING PHYSICIAN Student in an Organized Health Care Education/Training Program; FAMILY PHYSICIAN Family Medicine; REFERRING PHYSICIAN Nurse Practitioner Adult Health
DX: K13.79 Other lesions of oral mucosa (principal); M85.89 Other specified disorders of bone density and structure, multiple sites; R21 Rash and other nonspecific skin eruption; R25.1 Tremor, unspecified; R51.9 Headache, unspecified; R63.4 Abnormal weight loss; R76.8 Other specified abnormal immunological findings in serum; R20.9 Unspecified disturbances of skin sensation; G51.8 Other disorders of facial nerve
CPT/HCPCS: 36415; 80053; 80175; 81003; 81015; 82550; 82553; 82784; 84155; 84165; 85025; 85652; 86038; 86140; 86160; 86225; 86235

== ENCOUNTER → 2024-12-24 08:30 | Outpatient (REF) | payer OTHER, SELFPAY ==
[2024-12-26 21:44] LABS: 24 Hour Urine Total Volume Random mL; Urine Collection Length Random hr; Urine Free Kappa Light Chains 5.98 mg/L (0.00-32.90); Urine Free Lambda Light Chains <0.74 mg/L (0.00-3.79)
== END ==
LOC: HWLAB 08:30
PROVIDERS: ATTENDING PHYSICIAN Student in an Organized Health Care Education/Training Program; FAMILY PHYSICIAN Family Medicine; REFERRING PHYSICIAN Psychiatry & Neurology Neurology
DX: K13.79 Other lesions of oral mucosa (principal); M85.89 Other specified disorders of bone density and structure, multiple sites; R21 Rash and other nonspecific skin eruption; R25.1 Tremor, unspecified; R51.9 Headache, unspecified; R63.4 Abnormal weight loss; R76.8 Other specified abnormal immunological findings in serum
CPT/HCPCS: 83521; 84156; 86335

== ENCOUNTER 2025-03-07 11:51 | Inpatient (IN) | payer OTHER, SELFPAY ==
[2025-03-06] VITALS (14 sets, daily range): BP systolic 122–192; BP diastolic 63–87; BMI 26.8; BMI 26.4
--- NOTE | 2025-03-06 03:07 | ED.GENMED ---
History of Present Illness
<Jf Gilliland MD, Resident - Last Filed: 03/06/25 05:49>
General
Chief Complaint: Facial Problem
Time Seen by Provider: 03/06/25 02:32
History of Present Illness
History of Present Illness:
This is an 79-year-old female with history of trigeminal neuralgia who presents to the ED complaining of right facial pain. Patient was recently diagnosed with trigeminal neuralgia with previous hospitalization September of this year for
exacerbation, follows neurology Dr. Mark as an outpatient. Patient reports facial pain is chronic due to her trigeminal neuralgia diagnosis. Symptom worsened 2 weeks ago although she does not know what triggered this. She is maintained on
oxcarbazepine, lamotrigine, pregabalin and Xanax, although her daughter states neurologist has been titrating down on her Lyrica dosage. She denies any recent use of Magic mouthwash, which is thought to have been related to sx of angioedema at the
last hospitalization. She has had no fever, no chills. She is prescribed oxycodone 5 mg for pain control, although states medication does not work. Patient states she has not had increased pain and difficulty swallowing. Denies any choking
episode, denies cough. In addition she reports numbness of her tongue due to the pain, and feels her tongue is swollen.
Past History
<Jf Gilliland MD, Resident - Last Filed: 03/06/25 05:49>
Past History
ED Past Medical History: HTN, Hypercholesterolemia, Psychiatric (Anxiety) and Other (Chronic trigeminal neuralgia Since 2019; Irritable bowel syndrome)
ED Past Surgical History: Cholecystectomy and Tonsilectomy
Social History
Tobacco: Non-smoker
Alcohol: None
Personal:
Living: with family
Employment: Retired
Family History
Family History: Other (Reviewed and noncontributory)
Phy Exam
<Jf Gilliland MD, Resident - Last Filed: 03/06/25 05:49>
General Physical Exam
General Presentation: moderate distress
ENT Exam
ENT Exam: pharynx normal and other (Tenderness to palpation of right side of face, tongue edema,)
Eye Exam
Eye Exam: PERRL
Course
<Jf Gilliland MD, Resident - Last Filed: 03/06/25 05:49>
Orders/Labs/Results
Orders:
Orders
03/06/25 02:56
HYDROmorphone [Dilaudid] 0.25 mg IV NOW STA
Lorazepam [Ativan] 0.5 mg IV NOW STA
03/06/25 03:05
0.9% Sodium Chloride 250 ml [Nss] 250 ml IV BOLUS
03/06/25 03:20
Dexamethasone Sod Phosphate [Decadron] 10 mg IV NOW STA
Diphenhydramine [Benadryl] 25 mg IV NOW STA
Famotidine [Pepcid] 20 mg IV NOW STA
03/06/25 03:28
0.9% Sodium Chloride 500 ml [Nss] 500 ml IV BOLUS
03/06/25 03:44
Complete Blood Count/With Diff Urgent
Comprehensive Metabolic Panel Urgent
Abnormal Lab Results
03/06/25
03:44
Absolute Neuts (auto) 7.0 H 10^3/uL
(1.4-6.5)
Neutrophils % 77.7 H %
(42.2-75.2)
Lymphocytes % 16.0 L %
(20.5-51.1)
BUN 29 H mg/dl
(7-17)
03/06/25 03:44
03/06/25 03:44
Vital Signs
Initial and Last Documented VS:
Initial Vital Signs
Pulse Resp BP Pulse Ox
86 22 192/86 97
03/06/25 02:25 03/06/25 02:25 03/06/25 02:25 03/06/25 02:25
Last Documented Vital Signs
Pulse Resp BP Pulse Ox
69 12 160/69 100
03/06/25 05:15 03/06/25 05:15 03/06/25 05:00 03/06/25 05:15
<Alicja Wilder, DO - Last Filed: 03/06/25 05:46>
Orders/Labs/Results
Orders:
Orders
03/06/25 02:56
HYDROmorphone [Dilaudid] 0.25 mg IV NOW STA
Lorazepam [Ativan] 0.5 mg IV NOW STA
03/06/25 03:05
0.9% Sodium Chloride 250 ml [Nss] 250 ml IV BOLUS
03/06/25 03:20
Dexamethasone Sod Phosphate [Decadron] 10 mg IV NOW STA
Diphenhydramine [Benadryl] 25 mg IV NOW STA
Famotidine [Pepcid] 20 mg IV NOW STA
03/06/25 03:28
0.9% Sodium Chloride 500 ml [Nss] 500 ml IV BOLUS
03/06/25 03:44
Complete Blood Count/With Diff Urgent
Comprehensive Metabolic Panel Urgent
Abnormal Lab Results
03/06/25
03:44
Absolute Neuts (auto) 7.0 H 10^3/uL
(1.4-6.5)
Neutrophils % 77.7 H %
(42.2-75.2)
Lymphocytes % 16.0 L %
(20.5-51.1)
BUN 29 H mg/dl
(7-17)
03/06/25 03:44
03/06/25 03:44
Vital Signs
Initial and Last Documented VS:
Initial Vital Signs
Pulse Resp BP Pulse Ox
86 22 192/86 97
04/13/25 02:25 03/06/25 02:25 03/06/25 02:25 03/06/25 02:25
Last Documented Vital Signs
Pulse Resp BP Pulse Ox
69 12 160/69 100
03/06/25 05:15 03/06/25 05:15 03/06/25 05:00 03/06/25 05:15
<Jf Gilliland MD, Resident - Last Filed: 03/06/25 05:49>
MDM/Problems Addressed
MDM/Problems Addressed:
79-year-old female with history of trigeminal neuralgia presents with right-sided facial pain and difficulty swallowing. Patient moderately distressed. No choking episode, no cough. Lungs clear to auscultation. Tongue is swollen. Will start on
a Dilaudid for pain control. Decadron, Pepcid, Benadryl given episode of tongue swelling. Started on IV fluids as patient has had poor oral intake due to pain.
<Jf Gilliland MD, Resident - Last Filed: 03/06/25 05:49>
*Critical Care Note
Total Time (30-74mins, 75-104mins- exclusive of procedures): Not Applicable
ED Attending Note
<Jf Gilliland MD, Resident - Last Filed: 03/06/25 05:49>
-
Portions of this chart may have been created with voice recognition software.� Occasional wrong word or��sound alike� substitutions may have occurred due to the inherent limitations of voice recognition software.
<Alicja Wilder DO - Last Filed: 03/06/25 05:46>
ED Attending Note
Patient seen and examined by attending physician: Yes
I performed a history and physical exam of patient and discussed management with resident, I reviewed resident's note and agree with documented findings and plan of care.: Yes
ED Attending Note:
79-year-old woman with longstanding history of trigeminal neuralgia, follows with Dr. Mark and more recently has been following with a neurologist at [facility]. Previous hospitalization September of this year for exacerbation of
trigeminal neuralgia accompanied with acute angioedema/swelling of her tongue. Angioedema thought to be related to Magic mouthwash versus IV Toradol.
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
Since doing so patient complains of at least 1-1/2-week history of increased right facial pain and since yesterday feels that her tongue is swollen. She has had increased pain and difficulty swallowing but denies choking, no coughing or shortness
of breath.
She is prescribed oxycodone 5 mg on rare occasions and takes this very rarely. She has had 3 doses throughout the day today without improvement in pain.
79-year-old woman appears her stated age, awake and alert, appears moderately uncomfortable, mildly garbled speech related to moderate global tongue edema but handling her secretions well. Posterior pharynx is clear.
Concern for acute exacerbation of trigeminal neuralgia, concern for recurrent angioedema.
Will medicate for pain as well is given IV dose of Benadryl, Decadron, Pepcid for tongue swelling.
Due to poor oral intake over the past few days concern for dehydration, electrolyte abnormality. Will check labs. Will initiate IV fluids as well.
05:43
Patient resting comfortably after IV pain medication.
Mild improvement in tongue swelling but continues with moderate global tongue fullness.
Due to angioedema of tongue, poor oral intake, exacerbation of trigeminal neuralgia with intractable pain, patient will require acute hospitalization for continued pain control, adjustment of medications and continued treatment of angioedema of
tongue.
Discharge Plan
Departure
Prescriptions:
No Action
loperamide 2 mg capsule
2 mg PO BID
cetirizine 10 mg tablet
10 mg PO DAILYPRN PRN (Reason: allergies)
alprazolam 0.25 mg tablet
0.25 mg PO HS
Patient Comments:
09/24/2024: last filled 08/05/24, 60 tabs for 30 days from [facility]
simvastatin 20 mg tablet
20 mg PO HS
ergocalciferol (vitamin D2) 1,250 mcg (50,000 unit) capsule
1,250 mcg PO HARRELL
carbidopa-levodopa 25-100 mg tablet
1 tab PO TID
escitalopram oxalate 10 mg tablet
10 mg PO DAILY
lamotrigine 25 mg Tablet, Chewable Dispersible
75 mg PO BID Qty: 60 0RF
famotidine 20 mg Tablet
20 mg PO DAILY Qty: 30 0RF
cefdinir 300 mg Capsule
300 mg PO Q12 Qty: 1 0RF
pregabalin 50 mg Capsule
50 mg PO 0700,1600 Qty: 60 0RF
pregabalin 100 mg capsule
100 mg PO HS Qty: 30 0RF
hydrochlorothiazide 25 mg tablet
25 mg PO DAILY Qty: 30 0RF
Referrals:
Chris Jackson, [Family Provider] -
Interventions
Interventions:
*Risk Screen - Suicide Last Done: 03/06/25 03:10
*General Assessment Last Done: 03/06/25 03:59
*Neglect/Abuse Screening Last Done: 03/06/25 03:10
ED- Neurological Assessment Last Done: 03/06/25 02:57
ED-Skin Assessment Last Done: 03/06/25 02:57
Discharge Date and Time
Print Language: ANGUILLAN
[2025-03-06] MEDS: ATIVAN 0.5 MG IV (03:09)
[2025-03-06] MEDS: NSS 250 IV (03:16)
[2025-03-06] MEDS: DILAUDID 0.25 MG IV (03:17)
[2025-03-06] MEDS: BENADRYL 25 MG IV ×4 (03:31→21:23)
[2025-03-06] MEDS: PEPCID 20 MG IV (03:33)
[2025-03-06] MEDS: DECADRON 10 MG IV (03:35)
[2025-03-06] MEDS: NSS 500 IV (03:39)
[2025-03-06 03:54] LABS: % Basophils 0.3 % (0-2); % Eosinophils 0.4 % (0-6); % Immature Granulocytes 0.3 % (0-0.5); % Monocytes 5.3 % (1.7-9.3); % Neutrophils 77.7 % (42.2-75.2); Absolute Lymphocytes 1.4 10^3/uL (1.2-3.4); Absolute Monocytes 0.5 10^3/uL (0.1-0.6); Hematocrit 37.8 % (37.0-47.0); Hemoglobin 12.8 g/dL (12.0-16.0); Mean Corp Hgb Conc. 33.9 g/dL (33.0-37.0); Mean Corpuscular Volume 82.7 fL (81.0-99.0); Mean Platelet Volume 8.7 fL (7.4-10.4); Nucleated Red Blood Cells % 0 %; Platelet Count 271 10^3/uL (130-400); Red Blood Cell Count 4.57 10^6/uL (4.20-5.40); Red Cell Dist. Width 13.4 % (11.5-14.5)
[2025-03-06 04:05] LABS: ALT (SGPT) 14 U/L (0-35); AST (SGOT) 27 U/L (14-36); Albumin 4.2 g/dl (3.5-5.0); Alkaline Phosphatase 82 U/L (38-126); Blood Urea Nitrogen 29 mg/dl (7-17); Calcium 9.7 mg/dl (8.4-10.2); Carbon Dioxide 28 mmol/L (22-30); Chloride 105 mmol/L (98-107); Estimated Creatinine Clearance 39 ml/min; Glucose 86 mg/dl (70-99); Potassium 3.9 mmol/L (3.5-5.1); Sodium 144 mmol/L (135-145); Total Bilirubin 0.7 mg/dl (0.2-1.3); Total Protein 6.9 g/dl (6.3-8.2)
--- NOTE | 2025-03-06 06:02 | HPS.HSE ---
Family Physician
-
Family Physician: Chris Jackson
Chief Complaint
-
Facial pain and tongue swelling
History of Present Illness
This is an 79-year-old female with past medical history of trigeminal neuralgia, anxiety, hypertension and hyperlipidemia who presents to the emergency department after 5 days of right-sided facial pain consistent with exacerbation of her trigeminal
neuralgia in the setting of weaning and titration of neuropathic medications and association with some tongue swelling.
Patient was originally diagnosed with trigeminal neuralgia in September when she came to the hospital with right-sided facial pain. At that time she had taken some Magic mouthwash and developed tongue and lip swelling thought to be angioedema which
was treated with epinephrine, Benadryl and steroids. She was titrated up on Lyrica, lamotrigine and left neurological workup and evaluation was ultimately discharged on these medications with good control of pain. According to the daughter the
patient has been pain-free with regards to the trigeminal neuralgia for around 5 weeks. Due to the side effects of the pregabalin and the plan was to titrate it off. She was titrated down to 50 mg 3 times a day about 2 weeks ago. About 10 days
ago she started having recurrent right-sided facial pain. It went from once a day to 2 times a day to 3 times a day and now she is having it almost constantly throughout the day. She had to use breakthrough oxycodone at home and it did not provide
much benefit so she came to the emergency department today.
In the emergency department she was afebrile, blood pressure was 160/70 with a pulse of 69 she was satting 100% on room air. CBC was unremarkable stop electrolytes BUN/creatinine were all normal.
Patient also has symptoms swelling, in the ED she was given Decadron and Benadryl. She was given a dose of Dilaudid. By the time I saw the patient she was pain-free for the first time in several days.
Medical History
Past Medical History
Past Medical History: Reports Other
Additional Past Medical History:
Essential Hypertension
Hyperlipidemia
Trigeminal Neuralgia
Anxiety
Irritable Bowel Syndrome
Past Surgical History: Reports Other
Additional Past Surgical History:
Cholecystectomy
Tonsillectomy
Social History
Tobacco: Non-smoker
Alcohol: Occasional
Family History
Family History: Not pertinent
Allergies / Home Medications
Allergies reflects when Allergies were last updated in [employer].
Home Medications with original date entered in [employer]
Allergy/Medication List:
Allergies
Allergy/AdvReac Type Severity Reaction Status Date / Time
No Known Allergies Allergy Unverified 09/22/24 21:24
Home Medications
alprazolam 0.25 mg tablet 0.25 mg PO HS Mental Health/Anxiety 09/24/24
escitalopram oxalate 10 mg tablet 10 mg PO DAILY Mental Health/Anxiety 09/24/24
simvastatin 20 mg tablet 20 mg PO HS High Cholesterol 09/24/24
hydrochlorothiazide 25 mg tablet 25 mg PO DAILY Fluid Retention/Swelling #30 tabs 10/04/24
pregabalin 50 mg capsule 50 mg PO 0700,1600 #60 caps 10/04/24
lamotrigine 100 mg PO DAILY 03/06/25
lamotrigine 100 mg PO HS 03/06/25
oxcarbazepine 150 mg PO DAILY 03/06/25
oxcarbazepine 300 mg PO HS 03/06/25
pregabalin 100 mg capsule 50 mg PO HS 03/06/25
Review of Systems
-
History Source: Patient and Family
Constitutional: Reports No Symptoms
EENT: Reports Other (tongue swelling)
Respiratory: Reports No Symptoms
Cardiac: Reports No Symptoms
Abdomen/GI: Reports No Symptoms
: Reports No Symptoms
Musculoskeletal: Reports No Symptoms
Skin: Reports No Symptoms
Neurological: Reports Headache (Right sided facial pain)
Endocrine: Reports No Symptoms
Hematologic/Lymphatic: Reports No Symptoms
Psych: Reports No Symptoms
Physical Exam
Vital Signs
Vital Signs
Pulse Resp BP Pulse Ox
69 12 160/69 100
03/06/25 05:15 03/06/25 05:15 03/06/25 05:00 03/06/25 05:15
Physical Exam
General: Well Developed, Well Nourished and Comfortable
HEENT: NormoCephalic, Anicteric, Moist mucous membranes, Atraumatic, PERRLA, Ears Appear Normal, Oxygen and Other (mild glossal edema ); No Pharyngeal Erythema or Neck Nontender
Respiratory: Clear
Cardiac: S1/S2 and Regular Rhythm
Breast: Deferred by me
GI: Soft, Non Tender, Non Distended and Normal Bowel Sounds
Rectal: Deferred by Provider
Genito-urinary: Deferred by me
Musculoskeletal: No Clubbing, No Cyanosis and No Edema
Skin: Warm
Neuro: AO x 3 and Nonfocal/grossly intact
Hematologic/Lymphatic: No Lymphadenopathy
Psych: Calm
Laboratory Results
-
03/06/25 03:44
03/06/25 03:44
Laboratory Results
Total Bilirubin 0.7 mg/dl (0.2-1.3) 03/06/25 03:44
AST 27 U/L (14-36) 03/06/25 03:44
ALT 14 U/L (0-35) 03/06/25 03:44
Alkaline Phosphatase 82 U/L (38-126) 03/06/25 03:44
Data Reviewed
-
Lab Data: Labs Reviewed by me
Old Records: Reviewed
Impression/Plan
-
IMPRESSION:
79 y.o female coming in with breakthrough facial pain from her trigeminal neuralgia. The symptom began during weaning of lyrica due to side-effects and has been on going for about 10 days. Improved with dilaudid in ED similar to prior
presentation. She had done well on lyrica with respect to the trigeminal neuralgia prior to down-titration. She currently is resting comfortably and has no focal neurological deficits. There is mild tongue swelling on exam as noticed by the
crowding of the tongue in the mouth with slightly muffled speech. She stated she had trouble swallowing earlier but has improved. During her last admission the tongue swelling was worse and thought possible secondary to lidocaine exposure in magic
mouthwash. She has not recieved any such this time. Given benadryl and decadron in ED.
PLAN:
Trigeminal neuralgia - flare/breakthrough headache
- admit to med/surg observation
- continue pregabalin 50 tid per home regimen for now
- continue oxcarbazepine 150 and 300
- lamotrigine 100 bid
- diludid for breakthrough pain
- neurology consult
Tongue swelling - No obvious new exposure. Angio edema? Improving.
- continue benadryl RTC with hold parameters for sedation
- serial examinations
DVT PPX - lovenox sq
Code status - Full code
[2025-03-06] MEDS: DILAUDID 0.5 MG IV ×3 (08:40→21:50)
[2025-03-06] MEDS: LEXAPRO 10 MG PO (09:39)
[2025-03-06] MEDS: LYRICA 50 MG PO ×2 (09:39→16:04)
[2025-03-06] MEDS: ORETIC 25 MG PO (09:39)
[2025-03-06] MEDS: TRILEPTAL 150 MG PO (09:39)
[2025-03-06] MEDS: LAMICTAL 100 MG PO ×2 (09:39→22:40)
--- NOTE | 2025-03-06 10:41 | PTCARENOTE ---
Rec'd pt from ER with daughter at bedside. Pt with complaint of right jaw pain, pharmacy was called to verify Dilaudid so pt could receive it. Pt with difficulty swallowing pills, crushed meds in water. Daughter was able to get pt to eat some
scrambled eggs after she rec'd her pain medication. Pt was unsteady when walking from stretcher to bed so bed alarm was placed on bed. Pt given call rudolph and was instructed on how to use it.
--- NOTE | 2025-03-06 12:18 | W.PN.UPDATE ---
Update Note
Progress Note Update
Patient seen and examined at bedside. Nonbillable note.
79-year-old female with past medical history of anxiety, hypertension, hyperlipidemia, trigeminal neuralgia being managed by neurology outpatient came to the hospital with trigeminal neuralgia flareup. Spoke with daughter at bedside. Her
outpatient neurology has been weaning patient off pregabalin and increasing oxcarbazepine. Neurology to see today. Continue Dilaudid as needed. Benadryl for possibility of tongue swelling. Denies any shortness of breath. Add Decadron 4 every
8hrs
General: Well Developed, Well Nourished and Comfortable
HEENT: NormoCephalic, Anicteric, Moist mucous membranes, Atraumatic,Oxygen and Other (mild glossal edema )
Respiratory: Clear
Cardiac: S1/S2 and Regular Rhythm
Breast: Deferred by me
GI: Soft, Non Tender, Non Distended and Normal Bowel Sounds
Musculoskeletal:No Edema
Neuro: AO x 3 and Nonfocal/grossly intact
Psych: Calm
[2025-03-06] MEDS: DECADRON 4 MG IV (13:06)
--- NOTE | 2025-03-06 15:23 | CM ---
Initial assessment completed with pt at bedside.
Pt is an 79yr old female admitted with Trigeminal neuralgia. It is painful for her to speak and does have a note pad she prefers to communicate with.
At baseline, pt lives with her and son in a 3 story home that is [address] Her bedroom is on the main floor.
Pt is indep at home and drives.
Pt has used [facility] in the past and has no recent hx of SNF placement.
Pt has a RW and shower chair, but does not actively use them.
PCP; Chris Jackson
Pharm; [facility]
PLAN; TBD, but anticipates home with no needs
--- NOTE | 2025-03-06 16:48 | CON.NEURO ---
Neuro Assessment/Plan
Assessment
Trigeminal neuralgia, did well ~5 weeks but with recurring pain causing trouble eating in the setting of tapering down from Lyrica 100 TID
Parkinsonism - didn't tolerate Sinemet (nausea)
Plan
increase Lyrica back to previous dose 50/50/100
Increase Trileptal 300 BID
continue Lamictal 100 BID
check Lamictal level in am
I will perform trigeminal nerve block this evening
Consultation
Order
Date of Consultation: 03/06/25
Requesting Provider: Paul Segal
Reason for Consult: trigeminal neuralgia
Subjective/Objective
Subjective Data
Date of Service: March 06, 2025
from h&p:
This is an 79-year-old female with past medical history of trigeminal neuralgia, anxiety, hypertension and hyperlipidemia who presents to the emergency department after 5 days of right-sided facial pain consistent with exacerbation of her trigeminal
neuralgia in the setting of weaning and titration of neuropathic medications and association with some tongue swelling.
Patient was originally diagnosed with trigeminal neuralgia in September when she came to the hospital with right-sided facial pain. At that time she had taken some Magic mouthwash and developed tongue and lip swelling thought to be angioedema which
was treated with epinephrine, Benadryl and steroids. She was titrated up on Lyrica, lamotrigine and left neurological workup and evaluation was ultimately discharged on these medications with good control of pain. According to the daughter the
patient has been pain-free with regards to the trigeminal neuralgia for around 5 weeks. Due to the side effects of the pregabalin and the plan was to titrate it off. She was titrated down to 50 mg 3 times a day about 2 weeks ago. About 10 days
ago she started having recurrent right-sided facial pain. It went from once a day to 2 times a day to 3 times a day and now she is having it almost constantly throughout the day. She had to use breakthrough oxycodone at home and it did not provide
much benefit so she came to the emergency department today.
seen this afternoon, patient reports pain 5/10, intolerable
Objective Data
Vital Signs
Temp Pulse Resp BP Pulse Ox
36.6 C 70 18 168/69 98
03/06/25 15:00 03/06/25 15:00 03/06/25 15:00 03/06/25 15:00 03/06/25 15:00
Lab Results
03/06/25 03:44
03/06/25 03:44
Sodium 144 mmol/L (135-145) 03/06/25 03:44
Potassium 3.9 mmol/L (3.5-5.1) 03/06/25 03:44
BUN 29 mg/dl (7-17) H 03/06/25 03:44
Glucose 86 mg/dl (70-99) 03/06/25 03:44
Calcium 9.7 mg/dl (8.4-10.2) 03/06/25 03:44
Patient Allergies
No Known Allergies Allergy (Unverified 09/22/24 21:24)
Physical Exam
-
Elderly, frail
AAOx3, speech clear
grossly full strength
Medications
-
Active Medications
Generic Name Dose Route Start Last Admin
Trade Name Freq PRN Reason Stop Dose Admin
Acetaminophen 650 mg 03/06/25 07:48
Acetaminophen 325 Mg Tablet PO 04/03/25 07:47
Q4HPRN PRN
mild pain/ECHAVARRIA/temp> 100.4F
Alprazolam 0.25 mg 03/06/25 22:00
Alprazolam 0.25 Mg Tablet PO 04/03/25 21:59
HS DAVID
Atorvastatin Calcium 10 mg 03/06/25 18:00
Atorvastatin (Lipitor) 10 Mg Tablet PO 04/03/25 17:59
QPM DAVID
Bisacodyl 10 mg 03/06/25 07:48
Bisacodyl 10 Mg Rectal Suppository RECTAL 04/03/25 07:47
[id number] PRN
constipation
Bupivacaine HCl 30 ml 03/06/25 16:44
Bupivacaine 0.5% (Pf) 30 Ml Single Dose Vial INJ 03/06/25 16:45
OR ONE
Dexamethasone Sodium Phosphate 4 mg 03/06/25 14:00 03/06/25 13:06
Dexamethasone 4 Mg/Ml 1 Ml Vial IV 04/03/25 13:59 4 mg
Q8H DAVID Administration
Diphenhydramine HCl 25 mg 03/06/25 10:00 03/06/25 16:04
Diphenhydramine 50 Mg/Ml 1 Ml Vial IV 03/07/25 04:01 25 mg
Q6H DAVID Administration
Enoxaparin Sodium 40 mg 03/06/25 18:00
Enoxaparin Sodium 40 Mg/0.4 Ml Syringe SC 04/03/25 17:59
QPM DAVID
Escitalopram Oxalate 10 mg 03/06/25 08:00 03/06/25 09:39
Escitalopram 10 Mg Tablet PO 04/03/25 07:59 10 mg
DAILY DAVID Administration
Hydrochlorothiazide 25 mg 03/06/25 08:00 03/06/25 09:39
Hydrochlorothiazide 25 Mg Tablet PO 04/03/25 07:59 25 mg
DAILY DAVID Administration
Hydromorphone HCl 0.5 mg 03/06/25 07:48 03/06/25 13:06
Hydromorphone 0.5 Mg/0.5 Ml Syringe IV 03/20/25 07:47 0.5 mg
Q4HPRN PRN Administration
severe pain
Lamotrigine 100 mg 03/06/25 22:00
Lamotrigine 100 Mg Tablet PO 04/03/25 21:59
HS DAVID
Lamotrigine 100 mg 03/06/25 10:00 03/06/25 09:39
Lamotrigine 100 Mg Tablet PO 04/03/25 09:59 100 mg
DAILY DAVID Administration
Ondansetron HCl 4 mg 03/06/25 07:48
Ondansetron 4 Mg/2 Ml Vial IV 04/03/25 07:47
Q6HPRN PRN
nausea and vomiting
Oxcarbazepine 150 mg 03/06/25 10:00 03/06/25 09:39
Oxcarbazepine 150 Mg Tablet PO 04/03/25 09:59 150 mg
DAILY DAVID Administration
Oxcarbazepine 300 mg 03/06/25 22:00
Oxcarbazepine 150 Mg Tablet PO 04/03/25 21:59
HS DAVID
Polyethylene Glycol 17 grams 03/06/25 07:48
Polyethylene Glycol Powder 17 Grams Packet PO 04/03/25 07:47
DAILYPRN PRN
constipation
Pregabalin 50 mg 03/06/25 10:00 03/06/25 16:04
Pregabalin 50 Mg Capsule PO 04/03/25 09:59 50 mg
DAILY@0700,1600 DAVID Administration
Senna/Docusate Sodium 1 tablet 03/06/25 07:48
Docusate W/Senna (Izabella-Colace) Tablet PO 04/03/25 07:47
BIDPRN PRN
constipation
Sodium Chloride 0 flush 03/06/25 09:00
Sodium Chloride 0.9% (Flush) Syringe IV 04/03/25 08:59
PER PROTOCOL DAVID
Triamcinolone Acetonide 40 mg 03/06/25 16:46
Triamcinolone 40 Mg/Ml (Kenalog-40) 1 Ml Vial IM 03/06/25 16:47
NOW ONE
Home Medications
�Medication �Instructions �Recorded
alprazolam 0.25 mg tablet 0.25 mg PO HS Mental Health/Anxiety 09/24/24
escitalopram oxalate 10 mg tablet 10 mg PO DAILY Mental 09/24/24
Health/Anxiety
simvastatin 20 mg tablet 20 mg PO HS High Cholesterol 09/24/24
hydrochlorothiazide 25 mg tablet 25 mg PO DAILY Fluid 10/04/24
Retention/Swelling #30 tabs
pregabalin 50 mg capsule 50 mg PO 0700,1600 #60 caps 10/04/24
lamotrigine 100 mg PO DAILY 03/06/25
lamotrigine 100 mg PO HS 03/06/25
oxcarbazepine 150 mg PO DAILY 03/06/25
oxcarbazepine 300 mg PO HS 03/06/25
pregabalin 100 mg capsule 50 mg PO HS 03/06/25
[2025-03-06] MEDS: SENSORCAINE 0.5% SINGLE DOSE 30 ML INJ (17:23)
[2025-03-06] MEDS: KENALOG-40 40 MG IM (17:25)
[2025-03-06] MEDS: LIPITOR PO (17:39)
[2025-03-06] MEDS: LOVENOX 40 MG SC (17:39)
--- NOTE | 2025-03-06 18:02 | W.PN.UPDATE ---
Update Note
Progress Note Update
procedure: 68090 right trigeminal nerve block
diagnosis: G50.0 right trigeminal neuralgia
10 cc syringe, 23g x 1 inch needle, 4 cc bupivacaine 0.5%, 40 mg of Kenalog-40
trigeminal nerve block percutaneous through TMJ entire contents injected
[2025-03-06] MEDS: LAMICTAL PO ×2 (21:23→21:47)
[2025-03-06] MEDS: XANAX PO ×2 (21:23→21:47)
[2025-03-06] MEDS: TRILEPTAL PO ×2 (21:23→21:47)
[2025-03-06] MEDS: LYRICA PO ×2 (21:23→21:47)
[2025-03-06] MEDS: TRILEPTAL 300 MG PO (22:40)
[2025-03-06] MEDS: LYRICA 100 MG PO (22:40)
[2025-03-06] MEDS: XANAX 0.25 MG PO (22:41)
[2025-03-07] MEDS: BENADRYL 25 MG IV (03:23)
[2025-03-07] MEDS: DILAUDID 0.5 MG IV ×4 (03:50→21:31)
[2025-03-07 06:00] VITALS: BMI 26.1
[2025-03-07 06:47] LABS: Hematocrit 36.6 % (37.0-47.0); Hemoglobin 12.6 g/dL (12.0-16.0); Mean Corp Hgb Conc. 34.4 g/dL (33.0-37.0); Mean Corpuscular Hgb 28.8 pg (27.0-31.0); Mean Corpuscular Volume 83.8 fL (81.0-99.0); Mean Platelet Volume 8.5 fL (7.4-10.4); Platelet Count 295 10^3/uL (130-400); Red Blood Cell Count 4.37 10^6/uL (4.20-5.40); Red Cell Dist. Width 13.6 % (11.5-14.5); White Blood Cell Count 8.6 10^3/uL (4.8-10.8)
[2025-03-07 07:21] LABS: Blood Urea Nitrogen 36 mg/dl (7-17); Calcium 9.3 mg/dl (8.4-10.2); Carbon Dioxide 27 mmol/L (22-30); Chloride 103 mmol/L (98-107); Estimated Creatinine Clearance 32 ml/min; Glucose 95 mg/dl (70-99); Potassium 3.9 mmol/L (3.5-5.1); Sodium 145 mmol/L (135-145); eGFR 50.48
[2025-03-07 07:30] VITALS: BP 157/73
[2025-03-07] MEDS: LYRICA 50 MG PO ×2 (08:14→15:36)
[2025-03-07] MEDS: TRILEPTAL 300 MG PO ×2 (08:14→22:23)
[2025-03-07] MEDS: ORETIC 25 MG PO (08:14)
[2025-03-07] MEDS: LEXAPRO 10 MG PO (08:14)
[2025-03-07] MEDS: LAMICTAL 100 MG PO ×2 (08:15→22:23)
[2025-03-07] MEDS: LIORESAL 5 MG PO ×3 (13:17→22:23)
--- NOTE | 2025-03-07 13:57 | W.PN.HOSP.TC ---
Today's Communication/Plan
-
increase iv dilauid freq
added baclofen
await neuro re-eval
Assessment / Plan
Assessment / Plan
Trigeminal neuralgia - flare/breakthrough headache
-Patient underwent right trigeminal nerve block with bupivacaine/Kenalog by neurology on 03/06
-Dose of Lyrica/Trileptal has been increased. Continue home dose of Lamictal 100 mg twice daily
-Patient getting IV Dilaudid for pain control
-Continue to have pain in the right side which is tolerable although still persist and comes with bouts of significant discomfort at times. Increasing Dilaudid to half a milligram every 2 hr for pain control
-Discussed with neurology who recommended baclofen 5mg TID
-Speech evaluation ordered
Tongue swelling
-No obvious new exposure. Angio edema? Improving.
-continue benadryl RTC with hold parameters for sedation
-serial examinations
DVT PPX - lovenox sq
Code status - Full code
Patient at increased risk of sedation with multiple medication requiring for trigeminal neuralgia. As needed Narcan ordered.
Total time spent : 52 mins
Anticipated Discharge: 24 - 48 hours
Subjective/Interval History
-
Date of Service: March 07, 2025
Patient continued to have pain on the right side of the face
Speech is altered due to nerve block
Objective Data
-
Labs:
Laboratory Results
03/07/25
06:07
WBC 8.6
Hgb 12.6
Hct 36.6 L
Plt Count 295
Sodium 145
Potassium 3.9
Chloride 103
Carbon Dioxide 27
BUN 36 H
Creatinine 1.1 H
Glucose 95
Calcium 9.3
Vital Signs:
Vital Signs
Temp Pulse Resp BP Pulse Ox
97.5 F 76 20 157/73 94
03/07/25 07:30 03/07/25 07:30 03/07/25 07:30 03/07/25 07:30 03/07/25 08:00
I&O
03/06/25 03/07/25 03/08/25
06:59 06:59 06:59
Intake Total 540 / 540
Balance 540 / 540
Review of Systems
-
Respiratory: Reports No Symptoms
Cardiac: Reports No Symptoms
Abdomen/GI: Reports No Symptoms
Physical Exam
-
General: Negative Appears in Distress
HEENT: Negative Oxygen
Neuro: Awake and Alert
[2025-03-07 15:30] VITALS: BP 134/50
--- NOTE | 2025-03-07 15:32 | PTOTSP ---
Speech Therapy Evaluation:
Pt presents with oral dysphagia secondary to trigeminal neuralgia, characterized by prolonged mastication 2/2 ongoing facial pain, specifically on R. Level of pain has also resulted in decreased oral intake. During evaluation, pt did not demonstrate
any overt s/sx of aspiration, however intake limited secondary to pain. Pt was able to independently implement compensatory strategies including tilting head to the L, placing straw on L, and masticating on the L. Swallowing impairment appears
consistent with the sensory and motor impact of trigeminal neuralgia and improvement is anticipated with ongoing medical management. Pt declined diet downgrade at this time and daughter agreed to assist with softer selections to support intake and
minimize discomfort.
Recommend:
1. Continue IDDSI Level 7 (regular) solids and thin liquids with softer selections
2. Medications crushed in room temperature puree versus crushed in water and administered via syringe
3. Strategies: Upright all oral intake; small bites/sips; place straw/bolus on L; masticate on L; softer selections of foods
4. close assistance and supervision with all PO intake
5. COMPONENT ASSEMBLER SUPERVISOR to follow to monitor tolerance of diet, provide education, and make further recommendations as appropriate.
[2025-03-07] MEDS: LOVENOX 40 MG SC (17:10)
[2025-03-07] MEDS: LIPITOR 10 MG PO (17:10)
[2025-03-07] MEDS: LYRICA 100 MG PO (22:23)
[2025-03-07] MEDS: XANAX 0.25 MG PO (22:23)
[2025-03-07 23:36] VITALS: BP 142/65
[2025-03-08] MEDS: LYRICA 50 MG PO ×2 (06:11→15:36)
[2025-03-08] MEDS: DILAUDID 0.5 MG IV ×2 (06:12→08:45)
[2025-03-08 07:46] VITALS: BP 124/53
[2025-03-08] MEDS: TRILEPTAL 300 MG PO ×2 (08:37→21:58)
[2025-03-08] MEDS: ORETIC 25 MG PO (08:37)
[2025-03-08] MEDS: LAMICTAL 100 MG PO (08:37)
[2025-03-08] MEDS: LEXAPRO 10 MG PO (08:37)
[2025-03-08] MEDS: LIORESAL 5 MG PO (08:37)
[2025-03-08] MEDS: ROXICODONE 5 MG PO ×3 (11:17→21:57)
--- NOTE | 2025-03-08 12:14 | W.PN.NEURO.1 ---
Today's Communication / Plan
-
.
Neuro Assessment/Plan
Assessment
Trigeminal neuralgia, did well ~5 weeks but with recurring pain causing trouble eating in the setting of tapering down from Lyrica 100 TID
Parkinsonism - didn't tolerate Sinemet (nausea)
Plan
increase Lyrica back to previous dose 50/50/100
Increase Trileptal 300 BID
continue Lamictal 100 BID
check Lamictal level in am
I will perform trigeminal nerve block this evening
Subjective/Objective
Subjective Data
Date of Service: March 08, 2025
Neurology follow-up note.
HPI: This is an 79-year-old woman who presented to [facility] on March 06, 2024 with right lower facial pain.
According to patient's daughter Danya's facial pain worsened about 2 weeks ago, coinciding with a reduction in her pregabalin dose to from 200 mg to 150 mg/day.
On Friday, the patient received R trigeminal nerve block which did improve her symptoms temporarily. She started baclofen yesterday, which she has tolerated well and her daughter believes it has been beneficial. Recently, she was also started on
Percocet after gabapentin proved ineffective for pain management. The patient reports difficulty swallowing and pain, as well as some difficulty opening and closing her hands. She mentions that she shuffles a little bit when walking.
The patient's symptoms have significantly impacted her daily functioning. She has not been driving since September due to her imbalance, although she does not use a cane.
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
PSH: Trigeminal nerve block () dental implants, tonsillectomy, cholecystectomy
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
FH: Both parents had stroke and there is 7
All: Sinemet�nausea, Neurontin�ineffective, higher doses of Lyrica�imbalance, myoclonus
ROS: Positive for facial pain, confusion, negative for neck pain, chest pain, dysphagia, vertigo, change in vision
General: Well developed. In no acute distress.
Cardio: Regular rate and rhythm without murmur. Extremities are without cyanosis or edema.
Neuro:
Mental Status: Somnolent, oriented to self, place, person. Impaired attention. Follows simple requests. No hemineglect.
Cranial Nerves: Pupils are equally round and reactive to light. EOMs full. Visual schuster full to confrontation. No ptosis. No nystagmus. Allodynia in the right V3 distribution. Face symmetric. Normal hearing AU. The palate elevated well.
SCMs and traps 5/5. Tongue midline. No dysarthria. Moderate dysphonia
Motor: Normal bulk and tone with augmentation. No pronator or arm drift. Strength 5/5 throughout. No clonus.
Coordination: Resting head tremor. No dysmetria
Reflexes: Bilateral grasp
Gait: deferred
Assessment and Plan:
I. Refractory right V3 trigeminal neuralgia.
II. Parkinsonism
III. Encephalopathy (toxic, neurodegenerative?)
- Wean off opioids
- Continue Trileptal 300 mg twice daily
- Increase Lamictal to 150 mg twice daily. Follow-up Lamictal level
- Increase baclofen to 10 mg BID
- Neurosurgery follow-up for, medical therapy
I personally reviewed all radiology and labs along with past medical records pertinent to current medical problems. Total time spent in patient care is 35 minutes.
Thank you for allowing us to participate in the care of this patient. We will continue to follow. Please do not hesitate to contact us with any questions or concerns.
Objective Data
Vital Signs
Temp Pulse Resp BP Pulse Ox
36.7 C 66 18 124/53 93
03/08/25 07:46 03/08/25 07:46 03/08/25 07:46 03/08/25 07:46 03/08/25 08:00
Lab Results
03/07/25 06:07
03/07/25 06:07
Sodium 145 mmol/L (135-145) 03/07/25 06:07
Potassium 3.9 mmol/L (3.5-5.1) 03/07/25 06:07
BUN 36 mg/dl (7-17) H 03/07/25 06:07
Glucose 95 mg/dl (70-99) 03/07/25 06:07
Calcium 9.3 mg/dl (8.4-10.2) 03/07/25 06:07
Patient Allergies
No Known Allergies Allergy (Unverified 09/22/24 21:24)
--- NOTE | 2025-03-08 13:17 | CM ---
Addendum entered by Ailyn Rincon 03/08/25 13:19:
Patient switched to inpatient, IMM provided to patient at 1pm, 03/08/25
Original Note:
Chart reviewed and patient to return to home when stable with spouse no needs, patient declined the need for visiting nurses.
Plan; Home when stable, no needs.
--- NOTE | 2025-03-08 14:12 | W.PN.HOSP.TC ---
Today's Communication/Plan
-
adjust regimen as per note
f/u response
encourage oral intake
short prednisone course
Assessment / Plan
Assessment / Plan
Trigeminal neuralgia - flare/breakthrough headache
-Patient underwent right trigeminal nerve block with bupivacaine/Kenalog by neurology on 03/06
-Patient getting IV Dilaudid for pain control
-Dose of Trileptal/Lyrica was increased on Friday.
-Neurology reevaluated patient today -dose of Lamictal has increased to 150 mg twice daily, adding oxycodone 5 mg every 6 hours with as needed Dilaudid for breakthrough.
-Monitor for any signs of sedation/side effects
Tongue swelling
-No obvious new exposure. Angio edema? Improving.
-Got Benadryl
-Adding prednisone 20 mg daily 3 doses
DVT PPX - lovenox sq
Code status - Full code
Patient at increased risk of sedation with multiple medication requiring for trigeminal neuralgia. As needed Narcan ordered.
Patient daughter at bedside and care plan discussed
Case discussed with neurology
Total time spent : 51 mins
Anticipated Discharge: Within 24 hours
Subjective/Interval History
-
Date of Service: March 08, 2025
Continues to have pain discomfort on the right side of the face
Speech has been improved
Objective Data
-
Vital Signs:
Vital Signs
Temp Pulse Resp BP Pulse Ox
98.1 F 66 18 124/53 93
03/08/25 07:46 03/08/25 07:46 03/08/25 07:46 03/08/25 07:46 03/08/25 08:00
I&O
03/07/25 03/08/25 03/09/25
06:59 06:59 06:59
Intake Total 540 / 540 720 / 720
Balance 540 / 540 720 / 720
Review of Systems
-
Respiratory: Reports No Symptoms
Cardiac: Reports No Symptoms
Abdomen/GI: Reports No Symptoms
Physical Exam
-
General: Comfortable
HEENT: Negative Oxygen
Neuro: Awake, Alert, Oriented, No Motor Deficits and Slurred Speech
[2025-03-08 14:51] VITALS: BP 108/75
[2025-03-08] MEDS: DELTASONE 20 MG PO (15:36)
[2025-03-08] MEDS: LIPITOR 10 MG PO (17:04)
[2025-03-08] MEDS: LOVENOX 40 MG SC (17:04)
[2025-03-08] MEDS: LAMICTAL 150 MG PO (19:31)
[2025-03-08] MEDS: LIORESAL 10 MG PO (19:32)
[2025-03-08 20:17] LABS: Lamotrigine (Lamictal) 3.3 ug/mL (3.0-15.0)
[2025-03-08] MEDS: XANAX 0.25 MG PO (21:57)
[2025-03-08] MEDS: LYRICA 100 MG PO (21:57)
[2025-03-08 23:27] VITALS: BP 146/53
[2025-03-09] MEDS: ROXICODONE 5 MG PO (04:14)
[2025-03-09] MEDS: LYRICA 50 MG PO (06:06)
[2025-03-09 07:00] VITALS: BP 116/72
[2025-03-09] MEDS: LEXAPRO 10 MG PO (08:18)
[2025-03-09] MEDS: ORETIC 25 MG PO (08:18)
[2025-03-09] MEDS: LAMICTAL 150 MG PO ×2 (08:18→20:45)
[2025-03-09] MEDS: TRILEPTAL 300 MG PO ×2 (08:20→20:45)
[2025-03-09] MEDS: LIORESAL 10 MG PO (08:20)
[2025-03-09] MEDS: DELTASONE 20 MG PO (08:20)
--- NOTE | 2025-03-09 09:19 | W.PN.HOSP.TC ---
Today's Communication/Plan
-
see note
Assessment / Plan
Assessment / Plan
Trigeminal neuralgia - flare/breakthrough headache
-Patient underwent right trigeminal nerve block with bupivacaine/Kenalog by neurology on 03/06
-Medications have adjusted for last 3 days, finally feeling improved today
-Need to continue on increased dose of Lamictal/oxcarbazepine.
-Did not require IV Dilaudid overnight, getting oral oxycodone only, maintain short script at discharge
-Patient will need to f/u with neurology post discharge
Tongue swelling - Improved
-No obvious new exposure. Angio edema? Improving.
-Got Benadryl
-Finish short course of prednisone 30mg/d
Acute TME
-some confusion from need of multiple medications
-unfortunately at risk of worsening pain symptoms if rapidly weaned off
-oxycodone prescribed PRN and should be cut back first
-baclofen should be taken off next
DVT PPX - lovenox sq
Code status - Full code
More than 30 minutes spent in discharge including
Final examination of the patient
Summarizing hospital stay
Instructions for continuing care to all relevant caregivers
Preparation of discharge records, prescriptions, and referral forms
Total time spent (in minutes): 38 mins
Anticipated Discharge: Today
Subjective/Interval History
-
Date of Service: March 09, 2025
patient feeling better, pain is improved
speech is improved
remains minimally disoriented
feeling tremor/shaky, not anxious
Objective Data
-
Vital Signs:
Vital Signs
Temp Pulse Resp BP Pulse Ox
98.0 F 77 18 116/72 93
03/09/25 07:00 03/09/25 08:18 03/09/25 07:00 03/09/25 08:18 03/09/25 07:00
I&O
03/08/25 03/09/2525
06:59 06:59 06:59
Intake Total 720 / 720 1360 / 1360
Balance 720 / 720 1360 / 1360
Review of Systems
-
Respiratory: Reports No Symptoms
Cardiac: Reports No Symptoms
Abdomen/GI: Reports No Symptoms
Physical Exam
-
General: Comfortable
HEENT: Negative Oxygen
Neuro: Awake, Alert, Oriented and No Motor Deficits; Negative Slurred Speech
--- NOTE | 2025-03-09 10:02 | CM ---
Addendum entered by Ailyn Rincon 03/09/25 10:51:
Patient's daughter came in to pick patient up and is requesting PT evaluation and is also requesting home care, lead case manager reached out to physician who ordered home care for patient, per patient's daughter patient had [facility] in past and would like
them again.
Plan; Home with [facility]
Original Note:
Chart reviewed and patient has been cleared for discharge today, home no needs. IMM given
Plan; Home today.
[2025-03-09 11:16] VITALS: BP 142/116
[2025-03-09] MEDS: ROXICODONE PO ×2 (11:32→16:51)
--- NOTE | 2025-03-09 12:31 | VNURNOTE ---
Home Health Liaison met with patient and daughter Sebastian at bedside to discuss [facility] nurse/therapy, visits, schedule and homebound status. Both are agreeable and understand that visits at home will be 2-3 x per week to assess and teach medical
management. Both are aware that [facility] will contact them for start of care in 1-2 days after discharge from .
[facility] referral completed in [facility].
--- NOTE | 2025-03-09 14:03 | W.PN.NEURO.1 ---
Today's Communication / Plan
-
.
Neuro Assessment/Plan
Assessment
Trigeminal neuralgia, did well ~5 weeks but with recurring pain causing trouble eating in the setting of tapering down from Lyrica 100 TID
Parkinsonism - didn't tolerate Sinemet (nausea)
Plan
increase Lyrica back to previous dose 50/50/100
Increase Trileptal 300 BID
continue Lamictal 100 BID
check Lamictal level in am
I will perform trigeminal nerve block this evening
Subjective/Objective
Subjective Data
Date of Service: March 09, 2025
Neurology follow-up note.
[place] states that her facial pain is no longer present. She was able to eat breakfast and did not perform oral hygiene with no pain.
According to patient's daughter the patient has noted to be more confused.
The patient was started on prednisone 20 mg yesterday
She has been normotensive and afebrile.
Labs: Normal WBCs, platelets, sodium�145, GFR 39-32, normal Lamictal level.
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
PSH: Trigeminal nerve block () dental implants, tonsillectomy, cholecystectomy
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
FH: Both parents had stroke and there is 7
All: Sinemet�nausea, Neurontin�ineffective, higher doses of Lyrica�imbalance, myoclonus
ROS: Positive for facial pain, confusion, negative for neck pain, chest pain, dysphagia, vertigo, change in vision
General: Well developed. In no acute distress.
Cardio: Regular rate and rhythm without murmur. Extremities are without cyanosis or edema.
Neuro:
Mental Status: Somnolent, oriented to self, place, person. Impaired attention. Intermittent perseverations. Follows simple requests. No hemineglect.
Cranial Nerves: Pupils are equally round and reactive to light. EOMs full. Visual schuster full to confrontation. No ptosis. No nystagmus. Allodynia in the right V3 distribution. Face symmetric. Normal hearing AU. The palate elevated well.
SCMs and traps 5/5. Tongue midline. No dysarthria. Moderate dysphonia
Motor: Normal bulk and tone with augmentation. No pronator or arm drift. Strength 5/5 throughout. No clonus.
Coordination: Intermittent generalized myoclonus.
Reflexes: Bilateral grasp
Gait: deferred
Assessment and Plan:
I. Refractory right V3 trigeminal neuralgia, clinically improved
II. Generalized myoclonus, likely metabolic.
III. Encephalopathy (toxic, neurodegenerative?)
- Wean off opioids
- Continue Trileptal 300 mg twice daily
-Continue Lamictal to 150 mg twice daily.
-Please hold baclofen
-No indications for prednisone from neurology perspective
-Reduce Lyrica to 75 mg twice daily based on GFR
- May consider brain MRI if encephalopathy continues
I personally reviewed all radiology and labs along with past medical records pertinent to current medical problems. Total time spent in patient care is 35 minutes.
Thank you for allowing us to participate in the care of this patient. We will continue to follow. Please do not hesitate to contact us with any questions or concerns.
Objective Data
Vital Signs
Temp Pulse Resp BP Pulse Ox
36.7 C 77 18 116/72 93
03/09/25 07:00 03/09/25 08:18 03/09/25 07:00 03/09/25 08:18 03/09/25 07:00
Lab Results
03/07/25 06:07
03/07/25 06:07
Sodium 145 mmol/L (135-145) 03/07/25 06:07
Potassium 3.9 mmol/L (3.5-5.1) 03/07/25 06:07
BUN 36 mg/dl (7-17) H 03/07/25 06:07
Glucose 95 mg/dl (70-99) 03/07/25 06:07
Calcium 9.3 mg/dl (8.4-10.2) 03/07/25 06:07
Patient Allergies
No Known Allergies Allergy (Unverified 09/22/24 21:24)
Vital Signs and Labs
-
Vital Signs and Labs:
Vital Signs
Temp Pulse Resp BP Pulse Ox
36.7 C 77 18 116/72 93
03/09/25 07:00 03/09/25 08:18 03/09/25 07:00 03/09/25 08:18 03/09/25 07:00
Lab Results
03/07/25 06:07
03/07/25 06:07
Sodium 145 mmol/L (135-145) 03/07/25 06:07
Potassium 3.9 mmol/L (3.5-5.1) 03/07/25 06:07
BUN 36 mg/dl (7-17) H 03/07/25 06:07
Glucose 95 mg/dl (70-99) 03/07/25 06:07
Calcium 9.3 mg/dl (8.4-10.2) 03/07/25 06:07
Medications
-
Medications:
Generic Name Dose Route Start Last Admin
Trade Name Freq PRN Reason Stop Dose Admin
Acetaminophen 650 mg 03/06/25 07:48
Acetaminophen 325 Mg Tablet PO 04/03/25 07:47
Q4HPRN PRN
mild pain/ECHAVARRIA/temp> 100.4F
Alprazolam 0.25 mg 03/06/25 22:00 03/08/25 21:57
Alprazolam 0.25 Mg Tablet PO 04/03/25 21:59 0.25 mg
HS DAVID Administration
Atorvastatin Calcium 10 mg 03/06/25 18:00 03/08/25 17:04
Atorvastatin (Lipitor) 10 Mg Tablet PO 04/03/25 17:59 10 mg
QPM DAVID Administration
Bisacodyl 10 mg 03/06/25 07:48
Bisacodyl 10 Mg Rectal Suppository RECTAL 04/03/25 07:47
U03IGMG PRN
constipation
Enoxaparin Sodium 40 mg 03/06/25 18:00 03/08/25 17:04
Enoxaparin Sodium 40 Mg/0.4 Ml Syringe SC 04/03/25 17:59 40 mg
QPM DAVID Administration
Escitalopram Oxalate 10 mg 03/06/25 08:00 03/09/25 08:18
Escitalopram 10 Mg Tablet PO 04/03/25 07:59 10 mg
DAILY DAVID Administration
Hydrochlorothiazide 25 mg 03/06/25 08:00 03/09/25 08:18
Hydrochlorothiazide 25 Mg Tablet PO 04/03/25 07:59 25 mg
DAILY DAVID Administration
Hydromorphone HCl 0.5 mg 03/07/25 12:00 03/08/25 08:45
Hydromorphone 0.5 Mg/0.5 Ml Syringe IV 03/21/25 11:59 0.5 mg
Q2HPRN PRN Administration
severe pain
Lamotrigine 150 mg 03/08/25 20:00 03/09/25 08:18
Lamotrigine 100 Mg Tablet PO 04/05/25 19:59 150 mg
BID DAVID Administration
Naloxone HCl 0.04 mg 03/07/25 14:02
Naloxone (0.4 Mg/Ml) 1 Ml Injection IV 04/04/25 14:01
Q2MPRN PRN
for RR < 6 or unarousable
Ondansetron HCl 4 mg 03/06/25 07:48
Ondansetron 4 Mg/2 Ml Vial IV 04/03/25 07:47
Q6HPRN PRN
nausea and vomiting
Oxcarbazepine 300 mg 03/06/25 22:00 03/08/25 21:58
Oxcarbazepine 150 Mg Tablet PO 04/03/25 21:59 300 mg
HS DAVID Administration
Oxcarbazepine 300 mg 03/07/25 08:00 03/09/25 08:20
Oxcarbazepine 150 Mg Tablet PO 04/04/25 07:59 300 mg
DAILY DAVID Administration
Oxycodone HCl 5 mg 03/08/25 10:30 03/09/25 11:32
Oxycodone 10 Mg Regular Release Tablet PO 03/22/25 10:29 Not Given
Q6H DAVID
Polyethylene Glycol 17 grams 03/06/25 07:48
Polyethylene Glycol Powder 17 Grams Packet PO 04/03/25 07:47
DAILYPRN PRN
constipation
Prednisone 20 mg 03/08/25 15:00 03/09/25 08:20
Prednisone 20 Mg Tablet PO 03/10/25 08:01 20 mg
DAILY DAVID Administration
Pregabalin 75 mg 03/09/25 20:00
Pregabalin 75 Mg Capsule PO 04/06/25 19:59
BID DAVID
Senna/Docusate Sodium 1 tablet 03/06/25 07:48
Docusate W/Senna (Izabella-Colace) Tablet PO 04/03/25 07:47
BIDPRN PRN
constipation
Sodium Chloride 0 flush 03/06/25 09:00
Sodium Chloride 0.9% (Flush) Syringe IV 04/03/25 08:59
PER PROTOCOL DAVID
Home Medications
-
Home Medications
alprazolam 0.25 mg tablet 0.25 mg PO HS Mental Health/Anxiety 09/24/24
escitalopram oxalate 10 mg tablet 10 mg PO DAILY Mental Health/Anxiety 09/24/24
simvastatin 20 mg tablet 20 mg PO HS High Cholesterol 09/24/24
hydrochlorothiazide 25 mg tablet 25 mg PO DAILY Fluid Retention/Swelling #30 tabs 10/04/24
pregabalin 50 mg capsule 50 mg PO 0700,1600 #60 caps 10/04/24
oxcarbazepine 300 mg PO HS Antiseizure Agent 03/06/25
pregabalin 100 mg capsule 50 mg PO HS Neurological Condition 03/06/25
baclofen 10 mg tablet 10 mg PO BID #60 tabs 03/09/25
lamotrigine 100 mg tablet 150 mg (1.5 x 100 mg) PO BID #6 tabs 03/09/25
oxcarbazepine 300 mg tablet 300 mg PO DAILY #30 tabs 03/09/25
oxycodone 5 mg tablet 5 mg PO Q8H PRN Mod sev pain #15 tabs 03/09/25
prednisone 20 mg tablet 20 mg PO DAILY #3 tabs 03/09/25
[2025-03-09 15:00] VITALS: BP 178/75
[2025-03-09] MEDS: LIPITOR 10 MG PO (17:28)
[2025-03-09] MEDS: LOVENOX 40 MG SC (17:28)
[2025-03-09 18:30] VITALS: BP 158/70
[2025-03-09] MEDS: LYRICA 75 MG PO (20:46)
[2025-03-09] MEDS: XANAX 0.25 MG PO (20:46)
--- NOTE | 2025-03-09 22:22 | PTCARENOTE ---
bed alarm in place- pt weak and unsteady while ambulating with walker
[2025-03-09 22:55] VITALS: BP 174/68
[2025-03-10 03:48] VITALS: BP 138/62
[2025-03-10 07:32] VITALS: BP 176/88
[2025-03-10 08:09] LABS: Hematocrit 33.4 % (37.0-47.0); Hemoglobin 11.5 g/dL (12.0-16.0); Mean Corp Hgb Conc. 34.4 g/dL (33.0-37.0); Mean Corpuscular Hgb 28.1 pg (27.0-31.0); Mean Corpuscular Volume 81.7 fL (81.0-99.0); Mean Platelet Volume 9.2 fL (7.4-10.4); Platelet Count 196 10^3/uL (130-400); Red Blood Cell Count 4.09 10^6/uL (4.20-5.40); Red Cell Dist. Width 13.2 % (11.5-14.5); White Blood Cell Count 7.3 10^3/uL (4.8-10.8)
[2025-03-10] MEDS: COZAAR 25 MG PO (08:12)
[2025-03-10] MEDS: ORETIC 25 MG PO (08:13)
[2025-03-10] MEDS: DELTASONE 20 MG PO (08:13)
[2025-03-10] MEDS: LYRICA 75 MG PO (08:13)
[2025-03-10] MEDS: LAMICTAL 150 MG PO (08:13)
[2025-03-10] MEDS: LEXAPRO 10 MG PO (08:13)
[2025-03-10] MEDS: TRILEPTAL 300 MG PO (08:16)
[2025-03-10] MEDS: TYLENOL 650 MG PO (08:26)
[2025-03-10 08:40] LABS: Blood Urea Nitrogen 22 mg/dl (7-17); Calcium 8.8 mg/dl (8.4-10.2); Carbon Dioxide 32 mmol/L (22-30); Chloride 100 mmol/L (98-107); Estimated Creatinine Clearance 44 ml/min; Glucose 102 mg/dl (70-99); Potassium 3.8 mmol/L (3.5-5.1); Sodium 138 mmol/L (135-145); eGFR > 60.00
--- NOTE | 2025-03-10 10:18 | W.PN.NEURO.1 ---
Today's Communication / Plan
-
.
Subjective/Objective
Subjective Data
Date of Service: March 10, 2025
Neurology follow-up note.
24-hour events: Hypertensive in the morning. Afebrile. Off opioids
Labs: Normal sodium, WBCs, GFR�32-44
Ms. Stallings endorses a mild left V3 distribution pain. She was able to have breakfast with no limitations.
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
PSH: Trigeminal nerve block () dental implants, tonsillectomy, cholecystectomy
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
FH: Both parents had stroke and there is 7
All: Sinemet�nausea, Neurontin�ineffective, higher doses of Lyrica�imbalance, myoclonus
ROS: Positive for facial pain, negative for confusion, chest pain, shortness of breath or change in vision
General: Well developed. In no acute distress.
Cardio: Regular rate and rhythm without murmur. Extremities are without cyanosis or edema.
Neuro:
Mental Status: Awake, fully oriented, normal attention and comprehension. Follows complex requests. No aphasia or neglect
Cranial Nerves: Pupils are equally round and reactive to light. EOMs full. Visual schuster full to confrontation. No ptosis. No nystagmus. Allodynia in the right V3 distribution. Face symmetric. Normal hearing AU. The palate elevated well.
SCMs and traps 5/5. Tongue midline. No dysarthria. Minimal dysphonia.
Motor: Normal bulk and tone with augmentation. No pronator or arm drift. Strength 5/5 throughout. No clonus.
Coordination: Resting chin tremor, mild action hand tremor. No dysmetria or myoclonus.
Reflexes: Bilateral grasp
Gait: deferred
Assessment and Plan:
I. Refractory right V3 trigeminal neuralgia, clinically improved
II. Generalized myoclonus, likely metabolic.
III. Encephalopathy (toxic, neurodegenerative?)
- Continue Trileptal 300 mg twice daily
- Continue Lamictal to 150 mg twice daily.
- DC baclofen
- Continue Lyrica to 75 mg twice daily
- Outpatient neurology follow-up
I personally reviewed all radiology and labs along with past medical records pertinent to current medical problems. Total time spent in patient care is 35 minutes.
Thank you for allowing us to participate in the care of this patient. Please do not hesitate to contact us with any questions or concerns.
Objective Data
Vital Signs
Temp Pulse Resp BP Pulse Ox
36.5 C 63 18 176/88 95
03/10/25 07:32 03/10/25 08:12 03/10/25 07:32 03/10/25 08:12 03/10/25 07:32
Lab Results
03/10/25 07:35
03/10/25 07:35
Sodium 138 mmol/L (135-145) 03/10/25 07:35
Potassium 3.8 mmol/L (3.5-5.1) 03/10/25 07:35
BUN 22 mg/dl (7-17) H 03/10/25 07:35
Glucose 102 mg/dl (70-99) H 03/10/25 07:35
Calcium 8.8 mg/dl (8.4-10.2) 03/10/25 07:35
Patient Allergies
No Known Allergies Allergy (Unverified 09/22/24 21:24)
--- NOTE | 2025-03-10 11:38 | CM ---
Chart reviewed and patient was seen again by physical therapy and patient did well, and plan is to home with [facility] and physical therapy they have issued a walker to patient.
Plan; Home with [facility].
--- NOTE | 2025-03-10 15:14 | W.PN.HOSP.TC ---
Today's Communication/Plan
-
d/c home
Assessment / Plan
Assessment / Plan
Trigeminal neuralgia - flare/breakthrough headache
-Patient underwent right trigeminal nerve block with bupivacaine/Kenalog by neurology on 03/06
-Medications have adjusted for last 3 days, finally feeling improved in last 2 days
-Need to continue on increased dose of Lamictal/oxcarbazepine.
-Patient will need to f/u with neurology post discharge
Tongue swelling - Improved
-No obvious new exposure. Angio edema? Improving.
-Got Benadryl
-Finish short course of prednisone 30mg/d
Acute TME - Improved
-some confusion from need of multiple medications
-unfortunately at risk of worsening pain symptoms if rapidly weaned off
-oxycodone prescribed PRN and should be cut back first
-baclofen should be taken off next
DVT PPX - lovenox sq
Code status - Full code
More than 30 minutes spent in discharge including
Final examination of the patient
Summarizing hospital stay
Instructions for continuing care to all relevant caregivers
Preparation of discharge records, prescriptions, and referral forms
Total time spent (in minutes): 39mins
Anticipated Discharge: Today
Subjective/Interval History
-
Date of Service: March 10, 2025
Patient feeling much better
No signs of tremor/involuntary muscle movements
Objective Data
-
Labs:
Laboratory Results
03/10/25
07:35
WBC 7.3
Hgb 11.5 L
Hct 33.4 L
Plt Count 196 D
Sodium 138
Potassium 3.8
Chloride 100
Carbon Dioxide 32 H
BUN 22 H
Creatinine 0.8
Glucose 102 H
Calcium 8.8
Vital Signs:
Vital Signs
Temp Pulse Resp BP Pulse Ox
97.7 F 63 18 176/88 95
03/10/25 07:32 03/10/25 08:12 03/10/25 07:32 03/10/25 08:12 03/10/25 07:32
I&O
03/09/25 03/10/25 03/11/25
06:59 06:59 06:59
Intake Total 1360 / 1360 960 / 960
Balance 1360 / 1360 960 / 960
Review of Systems
-
Respiratory: Reports No Symptoms
Cardiac: Reports No Symptoms
Abdomen/GI: Reports No Symptoms
Physical Exam
-
General: No Apparent Distress and Comfortable
HEENT: Negative Oxygen
Respiratory: Clear to Auscultation
Cardiac: Regular Rhythm and S1/S2; Negative Murmur or Rub
GI: Soft, Nontender and Nondistended
Musculoskeletal: No Edema
Neuro: Awake, Alert, Oriented, No Motor Deficits and Nonfocal/Grossly Intact
Psych: Calm
--- NOTE | 2025-03-10 16:45 | W.DCSUMMARY ---
Discharge Summary
Discharge Data
Date of Admission: 03/07/25
Date of Discharge: 03/10/25
-
Pending Results: No
Hospital Course
Discharging Physician : Dr Tyrone To
Disposition : To home
Primary care physician : Dr Chris Jackson
Principal Discharge diagnosis :
Trigeminal neuralgia flareup
Tongue swelling, possible allergic reaction
Acute toxic encephalopathy from polypharmacy
Chronic Discharge diagnosis :
Essential hypertension
Hospital Course :
Patient is 79-year-old female with no mentioned past medical history came to ER with new onset of right-sided pain/neuralgia for 5 days. Patient has history of trigeminal neuralgia on the same side, was identical to previous episodes. Patient has
been following with neurology and in process of being weaned off of medication. Patient was admitted to hospital for pain control and further treatment of trigeminal neuralgia flareup. Neurology was involved in care, who did right trigeminal nerve
block with bupivacaine and kenalog. Patient dose of Lamictal was increased. Patient was admitted to hospital for further monitoring. Over next 3 days patient require significant dose adjustment of multiple medication and had improvement of
symptoms slowly. Of note patient was also complaining some tongue swelling at presentation and it was unclear which medication may have initiated the reaction. Patient was given empiric steroid for 3 days as well. After improvement in symptoms
patient was discharged home with follow-up with primary neurology in office.
Important imaging findings :
None
Procedure findings :
None
Discharge Plan
-
Patient Disposition: Home (Routine Discharge)
Discharge Diagnosis/Procedures: Trigeminal neuralgia flare up
Condition: Fair
Diet: Regular
Activity: As tolerated
Driving Restrictions: As prior to admission
Bathing Restrictions: OK to Shower
Referrals:
Chris Jackson DO [Family Provider] - in one week
Jimmy Mills MD [Active] - in one week
Prescriptions:
New
lamotrigine 100 mg Tablet
150 mg PO BID Qty: 6 1RF
oxycodone 5 mg tablet
5 mg PO Q8H PRN (Reason: Mod sev pain) Qty: 15 0RF
oxcarbazepine 300 mg tablet
300 mg PO DAILY Qty: 30 2RF
losartan 25 mg Tablet
25 mg PO DAILY Qty: 30 0RF
pregabalin 75 mg Capsule
75 mg PO BID Qty: 60 2RF
baclofen 5 mg tablet
5 mg PO TID PRN (Reason: trigeminal neuralgia/jaw pain) Qty: 60 1RF
Continued
alprazolam 0.25 mg tablet
0.25 mg PO HS
Patient Comments:
09/24/2024: last filled 08/05/24, 60 tabs for 30 days from [facility]
simvastatin 20 mg tablet
20 mg PO HS
escitalopram oxalate 10 mg tablet
10 mg PO DAILY
hydrochlorothiazide 25 mg tablet
25 mg PO DAILY Qty: 30 0RF
oxcarbazepine 300 mg
300 mg PO HS
Discontinued
pregabalin 50 mg Capsule
50 mg PO 0700,1600 Qty: 60 0RF
pregabalin 100 mg capsule
50 mg PO HS
oxcarbazepine 150 mg tablet
150 mg PO DAILY
lamotrigine 100 mg tablet
100 mg PO HS
Rx Instructions:
100 mg orally
lamotrigine 100 mg tablet
100 mg PO DAILY
Discharge Orders:
Discharge Patient (As Directed); Ordered 03/10/25
Ordered By: Tyrone To
Discharge Date and Time
Discharge Date/Time: 03/10/25 14:23
Print Language: KHMER
== END 2025-03-10 14:23 | disposition home health service (06) | DRG 73 ==
LOC: 4 WEST ACU 11:51
PROVIDERS: Internal Medicine; Student in an Organized Health Care Education/Training Program; ADMITTING PHYSICIAN Internal Medicine; ATTENDING PHYSICIAN Hospitalist; CONSULT PHYSICIAN Psychiatry & Neurology Clinical Neurophysiology; EMERGENCY PHYSICIAN Emergency Medicine; FAMILY PHYSICIAN Family Medicine
DX: G50.0 Trigeminal neuralgia (principal); G92.8 Other toxic encephalopathy; G20.C Parkinsonism, unspecified; G25.3 Myoclonus; I10 Essential (primary) hypertension
CPT/HCPCS: 80048; 80053; 80175; 85025; 85027; 92526; 92610; 96361; 96374; 96375; 97163; 97530; 99285

== ENCOUNTER 2025-03-16 07:59 | Inpatient (IN) | payer OTHER, SELFPAY ==
[2025-03-11 09:36] VITALS: BP 166/77
--- NOTE | 2025-03-11 09:57 | ED.GENMED ---
History of Present Illness
General
Chief Complaint: Facial Problem
Source: patient and family (Daughter)
Time Seen by Provider: 03/11/25 09:42
History of Present Illness
History of Present Illness:
79-year-old female presents to the emergency room due to nausea, vomiting and right sided facial pain due to trigeminal neuralgia. Patient was discharged from this hospital yesterday after a several day admission for exacerbation of trigeminal
neuralgia pain. During her hospitalization she was treated multiple medications. Ultimately she was feeling better and was discharged. Yesterday morning prior to discharge she began feeling a bit nauseous. However she was not having pain and
overall better than when she was admitted so she was discharged home. After getting home she continued to have nausea and has vomited several times. Last night and this morning she was unable to get her medication down due to nausea vomiting which
has resulted in the return of her severe right sided facial pain. Patient denies any fever chills or abdominal pain
Past History
Past History
ED Past Medical History: HTN, Hypercholesterolemia, Psychiatric (Anxiety) and Other (Chronic trigeminal neuralgia Since 2019; Irritable bowel syndrome)
ED Past Surgical History: Cholecystectomy and Tonsilectomy
Social History
Tobacco: Non-smoker
Alcohol: None
Personal:
Living: with family
Employment: Retired
Family History
Family History: Other (Reviewed and noncontributory)
Phy Exam
Physical Exam
Physical Exam:
General: Awake, Alert, Oriented X3. Appears chronically ill
Vitals: unremarkable
Head: Atraumatic
Eyes: Pupils equal, EOMI
Throat: Airway intact, no exudates, dry mucosa
Neck: Trachea midline
Lungs: Clear and equal b/l
Heart: Regular rate, no murmurs
Abd: Soft, Nontender, No pulsatile mass
Neuro: No focal weakness, mouth tremor
Skin: Warm, dry, no rash
Extremities: pulses equal b/l, no edema
Course
Orders/Labs/Results
Orders:
Orders
03/11/25 09:55
0.9% Sodium Chloride 500 ml [Nss] 500 ml IV BOLUS
Ondansetron Injectable [Zofran] 4 mg IV NOW STA
03/11/25 09:56
HYDROmorphone [Dilaudid] 0.5 mg IV NOW STA
03/11/25 09:57
Electrocardiogram (*1) Urgent
Reason for Study: QTc Monitoring
EKG- Treatment ONCE
03/11/25 10:10
Complete Blood Count/With Diff Urgent
Comprehensive Metabolic Panel Urgent
03/11/25 10:47
HYDROmorphone [Dilaudid] 0.5 mg IV NOW STA
03/11/25 10:50
Diphenhydramine [Benadryl] 25 mg IV NOW STA
Metoclopramide [Reglan] 10 mg IV NOW STA
03/11/25 11:58
Lamotrigine [Lamictal] 150 mg PO NOW STA
Pregabalin [Lyrica] 75 mg PO NOW STA
03/11/25 12:19
Oxcarbazepine [Trileptal] 300 mg PO NOW STA
03/11/25 13:52
Baclofen [Lioresal] 5 mg PO NOW STA
Abnormal Lab Results
03/11/25
10:10
MCV 80.8 L fL
(81.0-99.0)
Abs Immat Gran (auto) 0.1 H 10^3/uL
(0-0.05)
Absolute Neuts (auto) 7.4 H 10^3/uL
(1.4-6.5)
Absolute Lymphs (auto) 1.1 L 10^3/uL
(1.2-3.4)
Immature Gran % 0.7 H %
(0-0.5)
Neutrophils % 81.2 H %
(42.2-75.2)
Lymphocytes % 11.5 L %
(20.5-51.1)
BUN 25 H mg/dl
(7-17)
Glucose 129 H mg/dl
(70-99)
AST 38 H U/L
(14-36)
03/11/25 10:10
03/11/25 10:10
Vital Signs
Initial and Last Documented VS:
Initial Vital Signs
Temp Pulse Resp BP Pulse Ox
97.5 F 66 16 166/77 96
03/11/25 09:36 03/11/25 09:36 03/11/25 09:36 03/11/25 09:36 03/11/25 09:36
Last Documented Vital Signs
Temp Pulse Resp BP Pulse Ox
97.5 F 71 16 174/76 98
03/11/25 09:36 03/11/25 17:30 03/11/25 17:30 03/11/25 17:30 03/11/25 17:30
MDM/Problems Addressed
Differential Diagnosis Includes:
Refractory pain from trigeminal neuralgia, nausea from pain nausea pain medications, electrode abnormality
MDM/Problems Addressed:
Patient presents with nausea vomiting right-sided facial pain. Labs are unchanged. She was given Zofran without much relief. Next given Reglan and Benadryl which did help her nausea vomiting. We attempted to control her pain with IV analgesia as
well as getting her oral medications on board which helped some but not adequately. Will hospitalize for further pain management of her trigeminal neuralgia
*Pulse Oximetry
Patient hypoxic: no
*Critical Care Note
Total Time (30-74mins, 75-104mins- exclusive of procedures): Not Applicable
ED Attending Note
-
Portions of this chart may have been created with voice recognition software.� Occasional wrong word or��sound alike� substitutions may have occurred due to the inherent limitations of voice recognition software.
Discharge Plan
Departure
Patient Disposition: Admit
Date of Disposition: 03/11/25
Time of Disposition: 16:04
Presentation/result/management discussed w/ accepting MD/DO: Hospitalist
Condition: Fair
Discharge Problem:
Idiopathic trigeminal neuralgia, refractory facial pain
Prescriptions:
No Action
alprazolam 0.25 mg tablet
0.25 mg PO HS
Patient Comments:
09/24/2024: last filled 08/05/24, 60 tabs for 30 days from [facility]
simvastatin 20 mg tablet
20 mg PO HS
escitalopram oxalate 10 mg tablet
10 mg PO DAILY
hydrochlorothiazide 25 mg tablet
25 mg PO DAILY Qty: 30 0RF
lamotrigine 100 mg Tablet
150 mg PO BID Qty: 6 1RF
losartan 25 mg Tablet
25 mg PO DAILY Qty: 30 0RF
pregabalin 75 mg Capsule
75 mg PO BID Qty: 60 2RF
oxcarbazepine 300 mg tablet
300 mg PO BID
oxycodone 5 mg tablet
5 mg PO Q8HPRN PRN (Reason: severe pain)
baclofen 5 mg tablet
5 mg PO TIDPRN PRN (Reason: trigeminal neuralgia/jaw pain)
Referrals:
Chris Jackson DO [Family Provider] -
Interventions
Interventions:
*Risk Screen - Suicide Last Done: 03/11/25 09:58
*General Assessment Last Done: 03/11/25 09:58
*Neglect/Abuse Screening Last Done: 03/11/25 09:58
*ED- Fall Risk Assessment Last Done: 03/11/25 09:58
*ED COVID-19 Vaccine History Last Done: 03/11/25 10:13
WZ-Fbejrz-Rwfiyztxrp Assessment Last Done: 03/11/25 10:56
ED- Neurological Assessment Last Done: 03/11/25 10:56
ED-Skin Assessment Last Done: 03/11/25 10:56
Discharge Date and Time
Print Language: CONGOLESE
[2025-03-11] MEDS: DILAUDID 0.5 MG IV ×2 (10:08→11:01)
[2025-03-11] MEDS: NSS 500 IV (10:09)
[2025-03-11] MEDS: ZOFRAN 4 MG IV (10:09)
[2025-03-11 10:21] LABS: % Basophils 0.1 % (0-2); % Eosinophils 0.1 % (0-6); % Immature Granulocytes 0.7 % (0-0.5); % Lymphocytes 11.5 % (20.5-51.1); % Monocytes 6.4 % (1.7-9.3); % Neutrophils 81.2 % (42.2-75.2); Absolute Immature Granulocytes 0.1 10^3/uL (0-0.05); Absolute Lymphocytes 1.1 10^3/uL (1.2-3.4); Absolute Monocytes 0.6 10^3/uL (0.1-0.6); Absolute Neutrophils 7.4 10^3/uL (1.4-6.5); Hematocrit 38.8 % (37.0-47.0); Hemoglobin 13.5 g/dL (12.0-16.0); Mean Corp Hgb Conc. 34.8 g/dL (33.0-37.0); Mean Corpuscular Hgb 28.1 pg (27.0-31.0); Mean Corpuscular Volume 80.8 fL (81.0-99.0); Nucleated Red Blood Cells % 0 %; Platelet Count 251 10^3/uL (130-400); Red Cell Dist. Width 13.1 % (11.5-14.5); White Blood Cell Count 9.2 10^3/uL (4.8-10.8)
[2025-03-11 10:39] LABS: ALT (SGPT) 35 U/L (0-35); AST (SGOT) 38 U/L (14-36); Albumin 4.2 g/dl (3.5-5.0); Alkaline Phosphatase 81 U/L (38-126); Blood Urea Nitrogen 25 mg/dl (7-17); Calcium 9.6 mg/dl (8.4-10.2); Carbon Dioxide 28 mmol/L (22-30); Chloride 98 mmol/L (98-107); Glucose 129 mg/dl (70-99); Potassium 3.6 mmol/L (3.5-5.1); Sodium 137 mmol/L (135-145); Total Bilirubin 0.7 mg/dl (0.2-1.3); eGFR > 60.00
[2025-03-11] MEDS: REGLAN 10 MG IV ×2 (11:01→20:38)
[2025-03-11] MEDS: BENADRYL 25 MG IV (11:01)
[2025-03-11] MEDS: LYRICA 75 MG PO (12:11)
[2025-03-11] MEDS: LAMICTAL 150 MG PO (12:12)
[2025-03-11] MEDS: TRILEPTAL 300 MG PO (12:38)
[2025-03-11 13:28] VITALS: BP 158/74
[2025-03-11 14:00] VITALS: BP 156/73
[2025-03-11] MEDS: LIORESAL 5 MG PO (14:01)
--- NOTE | 2025-03-11 17:14 | HPS.HSE ---
Family Physician
-
Family Physician: Chris Jackson
Chief Complaint
-
nausea, vomiting and right sided facial pain
History of Present Illness
Patient is a 79-year-old female with past medical history significant for essential hypertension, hyperlipidemia, trigeminal neuralgia, anxiety and IBS who presented to [facility] ED for evaluation of nausea, vomiting and right sided facial pain. Patient
with recent hospitalization trigeminal neuralgia pain, multiple medication adjustments were made and patient discharged home yesterday feeling better. She reports starting to feel nauseous prior to discharge yesterday morning and increased
throughout day and ultimately started vomiting yesterday evening. Nausea and vomiting ultimately prevented patient from keeping medications down last night and this morning resulting in increased right sided facial pain. Patient denies any abdominal
pain, has had a bowel movement this morning. Denies any fever, chills, shortness of breath, cough, constipation or urinary symptoms.
Medical History
Past Medical History
Past Medical History: Reports Other
Additional Past Medical History:
Essential Hypertension
Hyperlipidemia
Trigeminal Neuralgia
Anxiety
Irritable Bowel Syndrome
Past Surgical History: Reports Other
Additional Past Surgical History:
Cholecystectomy
Tonsillectomy
Social History
Tobacco: Non-smoker
Alcohol: Occasional
Family History
Family History: Not pertinent
Allergies / Home Medications
Allergies reflects when Allergies were last updated in [facility].
Home Medications with original date entered in [facility]
Allergy/Medication List:
Allergies
Allergy/AdvReac Type Severity Reaction Status Date / Time
No Known Allergies Allergy Unverified 03/11/25 09:36
Home Medications
alprazolam 0.25 mg tablet 0.25 mg PO HS Mental Health/Anxiety 09/24/24
escitalopram oxalate 10 mg tablet 10 mg PO DAILY Mental Health/Anxiety 09/24/24
simvastatin 20 mg tablet 20 mg PO HS High Cholesterol 09/24/24
hydrochlorothiazide 25 mg tablet 25 mg PO DAILY Fluid Retention/Swelling #30 tabs 10/04/24
lamotrigine 100 mg tablet 150 mg (1.5 x 100 mg) PO BID #6 tabs 03/09/25
losartan 25 mg tablet 25 mg PO DAILY #30 tabs 03/10/25
pregabalin 75 mg capsule 75 mg PO BID #60 caps 03/10/25
baclofen 5 mg tablet 5 mg PO TIDPRN PRN trigeminal neuralgia/jaw pain 03/11/25
oxcarbazepine 300 mg tablet 300 mg PO BID 03/11/25
oxycodone 5 mg tablet 5 mg PO Q8HPRN PRN severe pain 03/11/25
Review of Systems
-
History Source: Patient
Constitutional: Reports No Symptoms
EENT: Reports Other (right sided facial pain )
Respiratory: Reports No Symptoms
Cardiac: Reports No Symptoms
Abdomen/GI: Reports Nausea and Vomiting
: Reports No Symptoms
Musculoskeletal: Reports No Symptoms
Skin: Reports No Symptoms
Neurological: Reports No Symptoms
Endocrine: Reports No Symptoms
Hematologic/Lymphatic: Reports No Symptoms
Psych: Reports No Symptoms
Physical Exam
Vital Signs
Vital Signs
Temp Pulse Resp BP Pulse Ox
97.5 F 70 16 156/73 98
03/11/25 09:36 03/11/25 14:00 03/11/25 14:00 03/11/25 14:00 03/11/25 14:00
Physical Exam
General: Well Developed, Well Nourished, No Apparent Distress and Conversant
HEENT: NormoCephalic, Moist mucous membranes, Atraumatic, [place] Conjunctivae, Nose Appears Normal and Ears Appear Normal
Respiratory: Clear
Cardiac: S1/S2 and Regular Rhythm; No Murmur or Rub
Breast: Deferred by me
GI: Soft, Non Tender, Non Distended and Normal Bowel Sounds
Rectal: Deferred by Provider
Genito-urinary: Deferred by me
Musculoskeletal: No Clubbing, No Cyanosis and No Edema
Skin: Warm and IV/Catheter Site; No Rash
Neuro: Awake, Alert, AO x 3 and Nonfocal/grossly intact
Psych: Calm
Laboratory Results
-
03/11/25 10:10
03/11/25 10:10
Laboratory Results
Total Bilirubin 0.7 mg/dl (0.2-1.3) 03/11/25 10:10
AST 38 U/L (14-36) H 03/11/25 10:10
ALT 35 U/L (0-35) 03/11/25 10:10
Alkaline Phosphatase 81 U/L (38-126) 03/11/25 10:10
Data Reviewed
-
Medical Tests (Nuc Med, Echo, EKG etc): Report Reviewed by me (EKG: NORMAL SINUS RHYTHM CANNOT RULE OUT ANTERIOR INFARCT , AGE UNDETERMINED)
Lab Data: Labs Reviewed by me
Impression/Plan
-
IMPRESSION/PLAN:
#nausea, vomiting, right sided facial pain
#Trigeminal Neuralgia
likely from medication regimen, recent hospitalization with titrated medications up (oxcarbazepine, pregabalin and lamotrigine)
no likely GI related
- Admit to med/surg
- IV antiemetics
- pain management
- continue baclofen, oxcarbazepine, pregabalin and oxycodone
- consider Neurology Consult if severe pain continues
#Essential Hypertension
- continue HCTZ and losartan
#Hyperlipidemia
- continue simvastatin
#Anxiety/depression
- continue alprazolam and escitalopram
#Irritable Bowel Syndrome
- continue lamotrigine
Code status: full code
DVT prophylaxis: Lovenox Sq
[2025-03-11 17:30] VITALS: BP 174/76
--- NOTE | 2025-03-11 17:58 | W.PN.UPDATE ---
Update Note
Progress Note Update
This is an addendum to H&P written by Michelle Darby on 03/11/2025. Patient seen examined independently with DEVELOPMENT ADVISOR.
79-year-old female past medical history of trigeminal neuralgia,, anxiety, hypertension, hyperlipidemia presenting with nausea and vomiting, worsening right sided facial pain due to trigeminal neuralgia. She was discharged yesterday for
exacerbation of trigeminal neuralgia pain. Doses of Lamictal, oxcarbazepine and pregabalin were increased. As needed oxycodone was given. Pain was better on discharge.
Vital signs normal.
Labs unremarkable.
Likely that nausea and vomiting is secondary to increased doses of oxcarbazepine, Lamictal which she should adjust to. Doubt GI illness.
Pain is improved with IV Dilaudid. She has been able to take her oral medications with improved nausea currently.
As needed Reglan for nausea. Continue new home regimen of pain medications.. Consider neurology in the morning if pain not improved or continues to not tolerate medications.
[2025-03-11 20:15] VITALS: BP 186/86; BMI 26.4
[2025-03-11] MEDS: LOVENOX SC (22:35)
[2025-03-11] MEDS: LIPITOR PO ×2 (22:36→23:39)
[2025-03-11] MEDS: LYRICA PO ×2 (22:36→23:39)
[2025-03-11] MEDS: TRILEPTAL PO ×2 (22:36→23:39)
[2025-03-11] MEDS: XANAX PO ×2 (22:36→23:39)
[2025-03-11] MEDS: LIORESAL PO (22:36)
[2025-03-11] MEDS: LAMICTAL PO ×2 (22:37→23:39)
[2025-03-11 23:04] VITALS: BP 151/70
[2025-03-11] MEDS: NSS (PRESERVATIVE FREE) 0.125 ML IV (23:52)
[2025-03-11] MEDS: ATIVAN 0.25 MG IV (23:53)
--- NOTE | 2025-03-12 | PTCARENOTE ---
pt complained of severe nausea and refused her PO meds. PRN IV dose Reglan administered with no relief. Pt continues to complain of nausea, but has not vomited. Pt appears to be very anxious and have excessive oral secretions. Notified [employer]- IV
Ativan given with positive results. Suction and a Ainsley at the bedside to help with secretions.
[2025-03-12 07:24] VITALS: BP 171/76
[2025-03-12] MEDS: LYRICA 75 MG PO ×2 (08:24→20:20)
[2025-03-12] MEDS: REGLAN 10 MG IV (08:40)
[2025-03-12 11:20] LABS: Blood Urea Nitrogen 26 mg/dl (7-17); Calcium 9.1 mg/dl (8.4-10.2); Carbon Dioxide 30 mmol/L (22-30); Chloride 100 mmol/L (98-107); Estimated Creatinine Clearance 43 ml/min; Glucose 103 mg/dl (70-99); Potassium 3.9 mmol/L (3.5-5.1); Sodium 140 mmol/L (135-145); eGFR > 60.00
[2025-03-12 11:30] LABS: COVID-19 Antigen Negative (Negative)
[2025-03-12] MEDS: TRILEPTAL 300 MG PO (12:38)
[2025-03-12] MEDS: LAMICTAL 150 MG PO (12:39)
--- NOTE | 2025-03-12 13:36 | W.PN.HOSP.TC ---
Today's Communication/Plan
-
see note
Assessment / Plan
Assessment / Plan
1. Nausea/vomiting
- No reported nausea vomiting episode after hospitalization
- Norovirus check negative
- BMP reviewed and no major electrolyte imbalance
- Continue diet as tolerated
- Continue symptomatic care
- Will do further abdominal imaging if patient develops repeat episodes
- Question of medication also causing nausea vomiting although patient was getting same regimen for for 5 days in the hospital last admission without any problems.
2. Trigeminal neuralgia flare up
- Will continue patient preadmission regimen of baclofen/lamotrigine/oxcarbazepine/Lyrica
- Continue oxycodone for pain control
- Neurology evaluation requested as patient have some confusion
3. Acute toxic metabolic encephalopathy
- Check COVID/flu. No pulmonary complaints
- Questioning if related to polypharmacy, neurology recommendation requested for possible weaning of medication as possible
4. Essential hypertension -uncontrolled
- Patient was declining medication in the morning, continue hydrochlorothiazide/losartan
5. Generalized anxiety
- Patient is on Xanax 0.25 mg at evening time, will hold for today
6. Dysphagia
- Patient was evaluated by speech therapy last admission for subjective feeling of dysphagia, was cleared to be on regular
- If any objective concerns of dysphagia arises, will require repeat speech therapy evaluation
DVT PPX - lovenox
Full code
Total time spent : 52 mins
Anticipated Discharge: 24 - 48 hours
Subjective/Interval History
-
Date of Service: March 12, 2025
Complaining some discomfort on the right face
No nausea or vomiting
Objective Data
-
Labs:
Laboratory Results
03/12/25
10:54
Sodium 140
Potassium 3.9
Chloride 100
Carbon Dioxide 30
BUN 26 H
Creatinine 0.9
Glucose 103 H
Calcium 9.1
Vital Signs:
Vital Signs
Temp Pulse Resp BP Pulse Ox
98.3 F 75 16 171/76 92
03/12/25 07:24 03/12/25 07:24 03/12/25 07:24 03/12/25 07:24 03/12/25 07:24
Review of Systems
-
Respiratory: Reports No Symptoms
Cardiac: Reports No Symptoms
Abdomen/GI: Reports No Symptoms
Physical Exam
-
General: No Apparent Distress and Comfortable
HEENT: Negative Oxygen
Respiratory: Clear to Auscultation
Cardiac: Regular Rhythm and S1/S2; Negative Murmur or Rub
GI: Soft, Nontender and Nondistended
Musculoskeletal: No Edema
Neuro: Awake, Alert, Oriented, No Motor Deficits and Nonfocal/Grossly Intact
Psych: Calm
--- NOTE | 2025-03-12 14:10 | CON.NEURO ---
Consultation
Order
Date of Consultation: 03/12/25
Requesting Provider: Tyrone To MD
Reason for Consult: Encephalopathy, trigeminal neuralgia
Neurology Consultation Note.
HPI: This is an 79-year-old woman who presented to [facility] on March 12, 2025 with nausea and emesis. The patient is unable to provide a history. She denies having a facial pain at this time.
Mr. Chambers was discharged from [facility] on 03/10/2025 after hospitalization for management of refractory facial pain. Her Lamictal was increased to 150 mg twice daily and Lyrica was reduced due to reported lethargy, encephalopathy.
ER VS: 166/77-186/86, afebrile
EKG: NST, QTc Int : 442 ms.
MAR: Lorazepam 0.25 mg given at �23:53, hydromorphone�0.5 mg given at 22:08, 23:01 on 03/11/2025.
MAR: Oxycodone Hcl 5 mg 15 tablets filled in on.
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
PSH: Trigeminal nerve block () dental implants, tonsillectomy, cholecystectomy
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
FH: Both parents had stroke
All: Sinemet�nausea, Neurontin�ineffective, higher doses of Lyrica�imbalance, myoclonus
ROS: Positive for intermittent right V3 pain, confusion, negative for chest pain, dyspnea, change in vision or dysphagia.
General: Well developed. In no acute distress.
Cardio: Regular rate and rhythm without murmur. Extremities are without cyanosis or edema.
Neuro:
Mental Status: Awake, oriented to self, place, month, year, date. Impaired attention and preserved comprehension. Unable to cross midline. Unable to state how many quarters in $2. Nonfluent. No hemineglect.
Cranial Nerves: Pupils are equally round and reactive to light. EOMs full. Visual schuster full to confrontation. No ptosis. No nystagmus. Face symmetric. Normal hearing AU. The palate elevated well. SCMs and traps 5/5. Tongue midline. No
dysarthria.
Motor: Normal bulk and tone with augmentation. No pronator or arm drift. Strength 5/5 throughout. No clonus.
Coordination: Resting chin tremor, mild action hand tremor. No dysmetria or myoclonus.
Reflexes: Bilateral grasp
Gait: deferred
Assessment and Plan:
I. Refractory right V3 trigeminal neuralgia, clinically improved
II. Encephalopathy (toxic, likely neurodegenerative given frontal release signs)
III. Parkinsonism.
-Delirium precautions
- Continue Trileptal 300 mg twice daily, Lamictal 150 mg twice daily, Lyrica to 75 mg twice daily
- Avoid SURFACE WATER MANAGER suppressants.
- Brain MRI without kenrick
- Please follow-up vitamin B12, TFTs, Lamictal level.
- Outpatient neuropsychological evaluation
- Case was discussed with patient's son.
I personally reviewed all radiology and labs along with past medical records pertinent to current medical problems. Total time spent in patient care is 60 minutes.
Thank you for allowing us to participate in the care of this patient. We will continue to follow. Please do not hesitate to contact us with any questions or concerns.
Subjective/Objective
Subjective Data
Date of Service: March 12, 2025
Objective Data
Vital Signs
Temp Pulse Resp BP Pulse Ox
36.8 C 75 16 171/76 92
03/12/25 07:24 03/12/25 07:24 03/12/25 07:24 03/12/25 07:24 03/12/25 07:24
Lab Results
03/11/25 10:10
03/12/25 10:54
Sodium 140 mmol/L (135-145) 03/12/25 10:54
Potassium 3.9 mmol/L (3.5-5.1) 03/12/25 10:54
BUN 26 mg/dl (7-17) H 03/12/25 10:54
Glucose 103 mg/dl (70-99) H 03/12/25 10:54
Calcium 9.1 mg/dl (8.4-10.2) 03/12/25 10:54
Patient Allergies
No Known Allergies Allergy (Unverified 03/11/25 09:36)
Medications
-
Active Medications
Generic Name Dose Route Start Last Admin
Trade Name Freq PRN Reason Stop Dose Admin
Alprazolam 0.25 mg 03/11/25 22:00 03/11/25 23:39
Alprazolam 0.25 Mg Tablet PO 04/08/25 21:59 Not Given
HS DAVID
Atorvastatin Calcium 10 mg 03/11/25 22:00 03/11/25 23:39
Atorvastatin (Lipitor) 10 Mg Tablet PO 04/08/25 21:59 Not Given
HS DAVID
Baclofen 5 mg 03/11/25 19:56
Baclofen 5 Mg Tablet PO 04/08/25 19:55
TIDPRN PRN
trigeminal neuralgia/jaw pain
Enoxaparin Sodium 40 mg 03/11/25 19:56 03/11/25 22:35
Enoxaparin Sodium 40 Mg/0.4 Ml Syringe SC 04/08/25 19:55 Not Given
QPM DAVID
Escitalopram Oxalate 10 mg 03/12/25 08:00
Escitalopram 10 Mg Tablet PO 04/09/25 07:59
DAILY DAVID
Hydrochlorothiazide 25 mg 03/12/25 08:00
Hydrochlorothiazide 25 Mg Tablet PO 04/09/25 07:59
DAILY DAVID
Lamotrigine 150 mg 03/11/25 20:00 03/12/25 12:39
Lamotrigine 100 Mg Tablet PO 04/08/25 19:59 150 mg
BID DAVID Administration
Losartan Potassium 25 mg 03/12/25 08:00
Losartan 25 Mg Tablet PO 04/09/25 07:59
DAILY DAVID
Ondansetron HCl 4 mg 03/12/25 13:41
Ondansetron 4 Mg/2 Ml Vial IV 04/09/25 13:40
Q6HPRN PRN
NAUSEA/VOMITING
Oxcarbazepine 300 mg 03/11/25 20:00 03/12/25 12:38
Oxcarbazepine 300 Mg Tablet PO 04/08/25 19:59 300 mg
BID DAVID Administration
Oxycodone HCl 5 mg 03/11/25 19:56
Oxycodone 5 Mg Regular Release Tablet PO 03/25/25 19:55
Q8HPRN PRN
severe pain
Pregabalin 75 mg 03/11/25 20:00 03/12/25 08:24
Pregabalin 75 Mg Capsule PO 04/08/25 19:59 75 mg
BID DAVID Administration
Sodium Chloride 0 flush 03/11/25 21:00
Sodium Chloride 0.9% (Flush) Syringe IV 04/08/25 20:59
PER PROTOCOL DAVID
Home Medications
�Medication �Instructions �Recorded
alprazolam 0.25 mg tablet 0.25 mg PO HS Mental Health/Anxiety 09/24/24
escitalopram oxalate 10 mg tablet 10 mg PO DAILY Mental 09/24/24
Health/Anxiety
simvastatin 20 mg tablet 20 mg PO HS High Cholesterol 09/24/24
hydrochlorothiazide 25 mg tablet 25 mg PO DAILY Fluid 10/04/24
Retention/Swelling #30 tabs
lamotrigine 100 mg tablet 150 mg (1.5 x 100 mg) PO BID #6 03/09/25
tabs
losartan 25 mg tablet 25 mg PO DAILY #30 tabs 03/10/25
pregabalin 75 mg capsule 75 mg PO BID #60 caps 03/10/25
baclofen 5 mg tablet 5 mg PO TIDPRN PRN trigeminal 03/11/25
neuralgia/jaw pain
oxcarbazepine 300 mg tablet 300 mg PO BID 03/11/25
oxycodone 5 mg tablet 5 mg PO Q8HPRN PRN severe pain 03/11/25
Vital Signs and Labs
-
Vital Signs and Labs:
Vital Signs
Temp Pulse Resp BP Pulse Ox
36.8 C 75 16 171/76 92
03/12/25 07:24 03/12/25 07:24 03/12/25 07:24 03/12/25 07:24 03/12/25 07:24
Lab Results
03/11/25 10:10
03/12/25 10:54
Sodium 140 mmol/L (135-145) 03/12/25 10:54
Potassium 3.9 mmol/L (3.5-5.1) 03/12/25 10:54
BUN 26 mg/dl (7-17) H 03/12/25 10:54
Glucose 103 mg/dl (70-99) H 03/12/25 10:54
Calcium 9.1 mg/dl (8.4-10.2) 03/12/25 10:54
Medications
-
Medications:
Generic Name Dose Route Start Last Admin
Trade Name Freq PRN Reason Stop Dose Admin
Alprazolam 0.25 mg 03/11/25 22:00 03/11/25 23:39
Alprazolam 0.25 Mg Tablet PO 04/08/25 21:59 Not Given
HS DAVID
Atorvastatin Calcium 10 mg 03/11/25 22:00 03/11/25 23:39
Atorvastatin (Lipitor) 10 Mg Tablet PO 04/08/25 21:59 Not Given
HS DAVID
Baclofen 5 mg 03/11/25 19:56
Baclofen 5 Mg Tablet PO 04/08/25 19:55
TIDPRN PRN
trigeminal neuralgia/jaw pain
Enoxaparin Sodium 40 mg 03/11/25 19:56 03/11/25 22:35
Enoxaparin Sodium 40 Mg/0.4 Ml Syringe SC 04/08/25 19:55 Not Given
QPM DAVID
Escitalopram Oxalate 10 mg 03/12/25 08:00 03/12/25 14:54
Escitalopram 10 Mg Tablet PO 04/09/25 07:59 Not Given
DAILY DAVID
Hydrochlorothiazide 25 mg 03/12/25 08:00 03/12/25 14:54
Hydrochlorothiazide 25 Mg Tablet PO 04/09/25 07:59 Not Given
DAILY DAVID
Lamotrigine 150 mg 03/11/25 20:00 03/12/25 12:39
Lamotrigine 100 Mg Tablet PO 04/08/25 19:59 150 mg
BID DAVID Administration
Losartan Potassium 25 mg 03/12/25 08:00 03/12/25 14:54
Losartan 25 Mg Tablet PO 04/09/25 07:59 Not Given
DAILY DAVID
Ondansetron HCl 4 mg 03/12/25 13:41
Ondansetron 4 Mg/2 Ml Vial IV 04/09/25 13:40
Q6HPRN PRN
NAUSEA/VOMITING
Oxcarbazepine 300 mg 03/11/25 20:00 03/12/25 12:38
Oxcarbazepine 300 Mg Tablet PO 04/08/25 19:59 300 mg
BID DAVID Administration
Oxycodone HCl 5 mg 03/11/25 19:56
Oxycodone 5 Mg Regular Release Tablet PO 03/25/25 19:55
Q8HPRN PRN
severe pain
Pregabalin 75 mg 03/11/25 20:00 03/12/25 08:24
Pregabalin 75 Mg Capsule PO 04/08/25 19:59 75 mg
BID DAVID Administration
Sodium Chloride 0 flush 03/11/25 21:00
Sodium Chloride 0.9% (Flush) Syringe IV 04/08/25 20:59
PER PROTOCOL DAVID
Home Medications
-
Home Medications
alprazolam 0.25 mg tablet 0.25 mg PO HS Mental Health/Anxiety 09/24/24
escitalopram oxalate 10 mg tablet 10 mg PO DAILY Mental Health/Anxiety 09/24/24
simvastatin 20 mg tablet 20 mg PO HS High Cholesterol 09/24/24
hydrochlorothiazide 25 mg tablet 25 mg PO DAILY Fluid Retention/Swelling #30 tabs 10/04/24
lamotrigine 100 mg tablet 150 mg (1.5 x 100 mg) PO BID #6 tabs 03/09/25
losartan 25 mg tablet 25 mg PO DAILY #30 tabs 03/10/25
pregabalin 75 mg capsule 75 mg PO BID #60 caps 03/10/25
baclofen 5 mg tablet 5 mg PO TIDPRN PRN trigeminal neuralgia/jaw pain 03/11/25
oxcarbazepine 300 mg tablet 300 mg PO BID 03/11/25
oxycodone 5 mg tablet 5 mg PO Q8HPRN PRN severe pain 03/11/25
--- NOTE | 2025-03-12 14:20 | CM ---
CM following re: discharge planning.
reviewed pt's chart, met with pt and pt's son Buck at bedside.
Pt is an 79 year old female admitted with OBS status and primary dx of nausea, vomiting, right sided facial pain. Trigeminal Neuralgia. PMH includes: essential hypertension, hyperlipidemia, trigeminal neuralgia, anxiety and IBS.
Pt reports she lives with in a 2SH, 2 steps to enter, has 4 supportive children. Pt reports she ambulates with a walker, current with [facility]. Pt expressed her desire to return back home at discharge with resumptions of DHVN.
PT and OT will evaluate the pt to determine a level of carte at discharge.
PCP: Chris Jackson
Pharmacy: [facility]
D/C plan: most likely home with resumptions of [facility]VN and family support.
CM will follow with discharge plan updates as hospitalization progresses
[2025-03-12] MEDS: COZAAR PO (14:54)
[2025-03-12] MEDS: ORETIC PO (14:54)
[2025-03-12] MEDS: LEXAPRO PO (14:54)
[2025-03-12 15:10] VITALS: BP 183/97
[2025-03-12] MEDS: COZAAR 25 MG PO (16:20)
[2025-03-12] MEDS: LOVENOX 40 MG SC (16:20)
[2025-03-12] MEDS: LEXAPRO 10 MG PO (20:17)
[2025-03-12 22:00] VITALS: BP 179/96
--- NOTE | 2025-03-12 22:00 | PTCARENOTE ---
0330: BP 189/92 pt now due for IV hydralazine. Given
0233: Pts tongue less swollen, able to understand speech. Pt now hallucinating- stating we are 'playing boardgames'. Bed alarm in place. Rechecked BP 181/88 HR 82. WOOD FINISHER APPRENTICE aware.
0043: Pt stating she feels like her 'tongue is swelling up', difficulty understanding pt due to swollen tongue, states she is able to swallow. Pt very anxious, attempted to recheck BP 190/98. [place] WOOD FINISHER APPRENTICE aware, IV decadron and IV benadryl given.
2200:
Pt noted with excessive oral secretions, bringing up moderate amount of white/clear mucous/saliva. Pt with wet gurgly quality to voice. Pt refusing PO medications. [place] WOOD FINISHER APPRENTICE notified order to keep NPO with speech eval.
BP high 179/96 HR 94 pulse ox 96%. [place] WOOD FINISHER APPRENTICE notified order for 5 mg IV hydralazine.
[2025-03-12] MEDS: TRILEPTAL PO (22:10)
[2025-03-12] MEDS: LIPITOR PO (22:10)
[2025-03-12] MEDS: LAMICTAL PO (22:10)
[2025-03-12] MEDS: APRESOLINE 5 MG IV (23:30)
[2025-03-12 23:35] LABS: TSH Reflex To Free T4 1.68 uIU/ml (0.47-4.68)
[2025-03-12 23:47] VITALS: BP 175/102
[2025-03-13] VITALS (8 sets, daily range): BP systolic 107–190; BP diastolic 49–99
[2025-03-13] MEDS: DECADRON 4 MG IV (01:18)
[2025-03-13] MEDS: BENADRYL 25 MG IV (01:22)
--- NOTE | 2025-03-13 02:02 | W.PN.UPDATE ---
Update Note
Progress Note Update
0230 post benadryl /decadron tongue swelling improved greatly but unfortunately afterward pt did become confused with hallucinations. Will watch closely.
0000 RN reports pt c/o tongue swelling. Reviewing chart pt has had this happen in previous 2 admits. Previously thought to be angio edema from lidocaine from magic mouth wash. PT has not received any this admit. Will give dose of benadryl and
decadron.
[2025-03-13 02:05] LABS: Vitamin B12 865 pg/ml (239-931)
[2025-03-13] MEDS: APRESOLINE 5 MG IV (03:30)
[2025-03-13] MEDS: ROXICODONE 5 MG PO (05:13)
[2025-03-13 06:47] LABS: Blood Urea Nitrogen 24 mg/dl (7-17); Calcium 9.7 mg/dl (8.4-10.2); Carbon Dioxide 24 mmol/L (22-30); Chloride 102 mmol/L (98-107); Estimated Creatinine Clearance 43 ml/min; Glucose 121 mg/dl (70-99); Potassium 3.9 mmol/L (3.5-5.1); Sodium 141 mmol/L (135-145); eGFR > 60.00
[2025-03-13] MEDS: COZAAR 25 MG PO ×2 (08:02→11:48)
[2025-03-13] MEDS: TRILEPTAL 300 MG PO ×2 (08:02→20:11)
[2025-03-13] MEDS: ORETIC 25 MG PO (08:02)
[2025-03-13] MEDS: LEXAPRO 10 MG PO (08:02)
[2025-03-13] MEDS: LYRICA 75 MG PO ×2 (08:02→20:05)
[2025-03-13] MEDS: LAMICTAL 150 MG PO ×2 (08:13→20:13)
[2025-03-13] MEDS: LIORESAL 5 MG PO (08:14)
--- NOTE | 2025-03-13 10:05 | W.PN.NEURO.1 ---
Today's Communication / Plan
-
.
Subjective/Objective
Subjective Data
Date of Service: March 13, 2025
Neurology follow-up note.
Ms. Stallings endorses intermittent excessive salivation. She is not sure when the bowels started. She has been using suction. No reports of dysarthria or dysphagia. Right facial pain has been intermittent and infrequent.
Labs: Normal TSH, vitamin B12,
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
PSH: trigeminal nerve block (03/06/2025), dental implants, tonsillectomy, cholecystectomy
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
FH: Both parents had stroke
All: Sinemet�nausea, Neurontin�ineffective, higher doses of Lyrica�imbalance, myoclonus
ROS: Positive for intermittent right V3 pain, confusion, negative for chest pain, dyspnea, change in vision or dysphagia.
General: Well developed. In no acute distress.
Cardio: Regular rate and rhythm without murmur. Extremities are without cyanosis or edema.
Neuro:
Mental Status: Awake, oriented to self, place, month, year, date. Impaired attention and preserved comprehension. Follows simple requests consistently.
Cranial Nerves: Pupils are equally round and reactive to light. EOMs full. Visual schuster full to confrontation. No ptosis. No nystagmus. Face symmetric. Normal hearing AU. The palate elevated well. SCMs and traps 5/5. Tongue midline. No
dysarthria.
Motor: Normal bulk and tone with augmentation. No pronator or arm drift. Strength 5/5 throughout. No clonus.
Coordination: Resting chin tremor, mild action hand tremor. No dysmetria or myoclonus.
Reflexes: Bilateral grasp
Gait: deferred
Assessment and Plan:
I. Refractory right V3 trigeminal neuralgia, clinically improved
II. Hypersalivation. S/p R trigeminal nerve block (03/06/2025). Mandibular nerve carries parasympathetic fibers that innervate the salivary glands.�Damage or dysfunction of the trigeminal nerve, including nerve blocks, can disrupt this
innervation, leading to altered salivary gland function and potentially increased saliva production.
III. Encephalopathy (toxic, likely neurodegenerative given frontal release signs)
IV. Parkinsonism.
- Aspiration precautions
- Continue Trileptal 300 mg twice daily, Lamictal 150 mg twice daily, Lyrica to 75 mg twice daily
- Start glycopyrrolate 1 mg BID
- Brain MRI without kenrick
- Please follow-up Lamictal level
- Outpatient neuropsychological evaluation
- Case was discussed with patient's son.
I personally reviewed all radiology and labs along with past medical records pertinent to current medical problems. Total time spent in patient care is 35 minutes.
Thank you for allowing us to participate in the care of this patient. We will continue to follow. Please do not hesitate to contact us with any questions or concerns.
Objective Data
Vital Signs
Temp Pulse Resp BP Pulse Ox
36.7 C 103 18 160/99 97
03/13/25 07:50 03/13/25 07:50 03/13/25 07:50 03/13/25 07:50 03/13/25 07:50
Lab Results
03/11/25 10:10
03/13/25 06:05
Sodium 141 mmol/L (135-145) 03/13/25 06:05
Potassium 3.9 mmol/L (3.5-5.1) 03/13/25 06:05
BUN 24 mg/dl (7-17) H 03/13/25 06:05
Glucose 121 mg/dl (70-99) H 03/13/25 06:05
Calcium 9.7 mg/dl (8.4-10.2) 03/13/25 06:05
Vitamin B12 865 pg/ml (407-931) 03/12/25 10:54
Patient Allergies
lidocaine Allergy (Intermediate, Verified 03/13/25 02:04)
Tongue Swelling
Vital Signs and Labs
-
Vital Signs and Labs:
Vital Signs
Temp Pulse Resp BP Pulse Ox
36.7 C 103 18 160/99 97
03/13/25 07:50 03/13/25 07:50 03/13/25 07:50 03/13/25 07:50 03/13/25 07:50
Lab Results
03/11/25 10:10
03/13/25 06:05
Sodium 141 mmol/L (135-145) 03/13/25 06:05
Potassium 3.9 mmol/L (3.5-5.1) 03/13/25 06:05
BUN 24 mg/dl (7-17) H 03/13/25 06:05
Glucose 121 mg/dl (70-99) H 03/13/25 06:05
Calcium 9.7 mg/dl (8.4-10.2) 03/13/25 06:05
Vitamin B12 865 pg/ml (307-931) 03/12/25 10:54
Medications
-
Medications:
Generic Name Dose Route Start Last Admin
Trade Name Freq PRN Reason Stop Dose Admin
Alprazolam 0.25 mg 03/11/25 22:00 03/11/25 23:39
Alprazolam 0.25 Mg Tablet PO 04/08/25 21:59 Not Given
HS DAVID
Atorvastatin Calcium 10 mg 03/11/25 22:00 03/12/25 22:10
Atorvastatin (Lipitor) 10 Mg Tablet PO 04/08/25 21:59 Not Given
HS DAVID
Baclofen 5 mg 03/11/25 19:56 03/13/25 08:14
Baclofen 5 Mg Tablet PO 04/08/25 19:55 5 mg
TIDPRN PRN Administration
trigeminal neuralgia/jaw pain
Enoxaparin Sodium 40 mg 03/11/25 19:56 03/12/25 16:20
Enoxaparin Sodium 40 Mg/0.4 Ml Syringe SC 04/08/25 19:55 40 mg
QPM DAVID Administration
Escitalopram Oxalate 10 mg 03/12/25 08:00 03/13/25 08:02
Escitalopram 10 Mg Tablet PO 04/09/25 07:59 10 mg
DAILY DAVID Administration
Hydralazine HCl 10 mg 03/13/25 04:49
Hydralazine 20 Mg/Ml Vial IV 04/09/25 22:51
Q4HPRN PRN
sbp>170
Hydrochlorothiazide 25 mg 03/12/25 08:00 03/13/25 08:02
Hydrochlorothiazide 25 Mg Tablet PO 04/09/25 07:59 25 mg
DAILY DAVID Administration
Lamotrigine 150 mg 03/11/25 20:00 03/13/25 08:13
Lamotrigine 100 Mg Tablet PO 04/08/25 19:59 150 mg
BID DAVID Administration
Losartan Potassium 25 mg 03/12/25 08:00 03/13/25 08:02
Losartan 25 Mg Tablet PO 04/09/25 07:59 25 mg
DAILY DAVID Administration
Ondansetron HCl 4 mg 03/12/25 13:41
Ondansetron 4 Mg/2 Ml Vial IV 04/09/25 13:40
Q6HPRN PRN
NAUSEA/VOMITING
Oxcarbazepine 300 mg 03/11/25 20:00 03/13/25 08:02
Oxcarbazepine 300 Mg Tablet PO 04/08/25 19:59 300 mg
BID DAVID Administration
Oxycodone HCl 5 mg 03/11/25 19:56 03/13/25 05:13
Oxycodone 5 Mg Regular Release Tablet PO 03/25/25 19:55 5 mg
Q8HPRN PRN Administration
severe pain
Pregabalin 75 mg 03/11/25 20:00 03/13/25 08:02
Pregabalin 75 Mg Capsule PO 04/08/25 19:59 75 mg
BID DAVID Administration
Sodium Chloride 0 flush 03/11/25 21:00
Sodium Chloride 0.9% (Flush) Syringe IV 04/08/25 20:59
PER PROTOCOL DAVID
Home Medications
-
Home Medications
alprazolam 0.25 mg tablet 0.25 mg PO HS Mental Health/Anxiety 09/24/24
escitalopram oxalate 10 mg tablet 10 mg PO DAILY Mental Health/Anxiety 09/24/24
simvastatin 20 mg tablet 20 mg PO HS High Cholesterol 09/24/24
hydrochlorothiazide 25 mg tablet 25 mg PO DAILY Fluid Retention/Swelling #30 tabs 10/04/24
lamotrigine 100 mg tablet 150 mg (1.5 x 100 mg) PO BID #6 tabs 03/09/25
losartan 25 mg tablet 25 mg PO DAILY #30 tabs 03/10/25
pregabalin 75 mg capsule 75 mg PO BID #60 caps 03/10/25
baclofen 5 mg tablet 5 mg PO TIDPRN PRN trigeminal neuralgia/jaw pain 03/11/25
oxcarbazepine 300 mg tablet 300 mg PO BID Neurological Condition 03/11/25
oxycodone 5 mg tablet 5 mg PO Q8HPRN PRN severe pain 03/11/25
--- NOTE | 2025-03-13 12:41 | PTOTSP ---
Speech Pathology Evaluation
79F with admission for nausea, vomiting, and right sided facial pain. Recent hospitalization for trigeminal neuralgia pain, was d/c on 03/10. C/o excessive secretions, wet vocal quality, and tongue swelling.
Impression:
Oral dysphagia 2/2 trigemial neuralgia (rt side), characterized by prolonged mastication of regular solids. No overt s/s of aspiration observed this date. Concern for aspiration given decreased secretion management per pt report with use of oral
suctioning, video swallow study orders placed by Dr. To to further assess.
Recommend:
1. IDDSI Level 7 (regular) solids and thin liquids; opt for softer textures as needed
2. Medications crushed puree
3. Strategies: Upright all oral intake; small bites/sips; place straw/bolus on L; masticate on L; opt for soft selections of foods as needed
4. TRANSMISSION ASSEMBLER to follow re: VSE to determine safest and least restrictive diet level
--- NOTE | 2025-03-13 13:04 | W.PN.HOSP.TC ---
Today's Communication/Plan
-
see note
Assessment / Plan
Assessment / Plan
1. Nausea/vomiting - improved
- No reported nausea vomiting episode after hospitalization
- Norovirus check negative
- BMP reviewed and no major electrolyte imbalance
- Continue diet as tolerated
- Continue symptomatic care with zofran, Reglan/Phenergan will be too sedative
- Will do further abdominal imaging if patient develops repeat episodes
- Question of medication also causing nausea vomiting although patient was getting same regimen for for 5 days in the hospital last admission without any problems.
2. Trigeminal neuralgia flare up
- Will continue patient preadmission regimen of baclofen/lamotrigine/oxcarbazepine/Lyrica
- Continue oxycodone for pain control
- Neurology evaluation requested as patient have some confusion
3. Acute toxic metabolic encephalopathy
- COVID neg. UA pending. No pulmonary complaints
- Questioning if related to polypharmacy, neurology recommendation requested for possible weaning of medication as possible
- resuming xanax better, improved.
4. Essential hypertension - uncontrolled
- Dose of losartan increased to 50 mg daily. Continue hydrochlorothiazide
5. Generalized anxiety
- Resume back xanax today
6. Dysphagia
- Repeat episode of dysphagia last night, speech evaluated on morning today and cleared for regular diet
- VSE ordered for tomorrow
- MRI brain ordered as well, providing Ativan before MRI as claustrophobic
7. Tongue swelling
- Patient had episode of tongue swelling last visit and was felt to be related to Magic mouthwash
- Last night repeat concern of same issue although no new medication provided
- Patient got IV Decadron and Benadryl, Benadryl made patient lived more confused
- Patient has been on losartan for a long while, any repeat episode and will have to be switched to different blood pressure medication
- Discussed with daughter that patient would benefit with follow-up with transportation maintenance specialist
DVT PPX - lovenox
Full code
Care discussed with patient daughter at bedside
Discussed with neurology
Total time spent : 54 mins
Anticipated Discharge: 24 - 48 hours
Subjective/Interval History
-
Date of Service: March 13, 2025
episode of dysphagia? tongue swelling last night
bettger in the morning
Objective Data
-
Labs:
Laboratory Results
03/13/25
06:05
Sodium 141
Potassium 3.9
Chloride 102
Carbon Dioxide 24
BUN 24 H
Creatinine 0.9
Glucose 121 H
Calcium 9.7
Vital Signs:
Vital Signs
Temp Pulse Resp BP Pulse Ox
98.0 F 80 18 107/71 97
03/13/25 07:50 03/13/25 11:44 03/13/25 07:50 03/13/25 11:44 03/13/25 07:50
I&O
03/12/25 03/13/25 03/14/25
06:59 06:59 06:59
Intake Total 480 / 480
Balance 480 / 480
Review of Systems
-
Respiratory: Reports No Symptoms
Cardiac: Reports No Symptoms
Abdomen/GI: Reports No Symptoms
Physical Exam
-
General: No Apparent Distress and Comfortable
HEENT: Other (no significant tongue swelling ); Negative Oxygen
Musculoskeletal: No Edema
Neuro: Awake, Alert, Oriented, No Motor Deficits and Nonfocal/Grossly Intact
Psych: Calm
[2025-03-13] MEDS: ATIVAN 0.5 MG IV (13:21)
[2025-03-13] MEDS: NSS (PRESERVATIVE FREE) 0.25 ML IV (13:22)
[2025-03-13] MEDS: PLAVIX 75 MG PO (17:32)
[2025-03-13] MEDS: ASPIR LOW (ENTERIC COATED) 81 MG PO (17:32)
[2025-03-13] MEDS: LOVENOX 40 MG SC (17:33)
[2025-03-13] MEDS: ROBINUL 1 MG PO (20:10)
[2025-03-13] MEDS: XANAX PO (21:44)
[2025-03-13] MEDS: LIPITOR PO (21:44)
--- NOTE | 2025-03-14 03:00 | PTCARENOTE ---
Addendum entered by Estee Martin 03/14/25 06:12:
0300: NIH completed- scored 2, for confusion and aphasia. Unknown if aphasia due to confusion.
Original Note:
Pt drowsy, awoke around 0300. [address]/time, inappropriate answers to questions. House RESPIRATORY CARE TECHNICIAN to floor to evaluate.
--- NOTE | 2025-03-14 03:59 | W.PN.UPDATE ---
Update Note
Progress Note Update
0300 pt woke up confused again tonight. Speech clear, but does not remember how she got here. Conf[place] to [place]. [place] Couldn't remember her address-kept saying [facility]. Confusion likely due to polypharmacy.
Brain MRI done 03/13 was negative for acute infarct but did show mod to advanced atrophy.
[2025-03-14 05:26] VITALS: BP 114/91
--- NOTE | 2025-03-14 05:35 | PTCARENOTE ---
Pt with no void for shift, bladder scanned for 21 mls, house MACHINE FINISHER aware.
[2025-03-14 07:18] LABS: % Basophils 0.5 % (0-2); % Eosinophils 0.1 % (0-6); % Immature Granulocytes 0.9 % (0-0.5); % Lymphocytes 16.8 % (20.5-51.1); % Monocytes 7.2 % (1.7-9.3); % Neutrophils 74.5 % (42.2-75.2); Absolute Basophils 0.1 10^3/uL (0-0.2); Absolute Immature Granulocytes 0.1 10^3/uL (0-0.05); Absolute Lymphocytes 1.6 10^3/uL (1.2-3.4); Absolute Monocytes 0.7 10^3/uL (0.1-0.6); Absolute Neutrophils 7.2 10^3/uL (1.4-6.5); Hemoglobin 12.6 g/dL (12.0-16.0); Mean Corp Hgb Conc. 34.1 g/dL (33.0-37.0); Mean Corpuscular Hgb 28.3 pg (27.0-31.0); Mean Corpuscular Volume 83.1 fL (81.0-99.0); Mean Platelet Volume 9.8 fL (7.4-10.4); Nucleated Red Blood Cells % 0 %; Platelet Count 245 10^3/uL (130-400); Red Blood Cell Count 4.45 10^6/uL (4.20-5.40); Red Cell Dist. Width 14.1 % (11.5-14.5); White Blood Cell Count 9.6 10^3/uL (4.8-10.8)
[2025-03-14 07:33] VITALS: BP 123/56
[2025-03-14 07:38] LABS: Blood Urea Nitrogen 42 mg/dl (7-17); Calcium 9.3 mg/dl (8.4-10.2); Carbon Dioxide 26 mmol/L (22-30); Chloride 103 mmol/L (98-107); Estimated Creatinine Clearance 16 ml/min; Glucose 109 mg/dl (70-99); Potassium 3.7 mmol/L (3.5-5.1); Sodium 142 mmol/L (135-145); eGFR 18.85
[2025-03-14 09:57] LABS: Urine Albumin 3+ (Neg - Trace); Urine Bilirubin 2+ (Negative); Urine Character Cloudy (Clear); Urine Color Yellow; Urine Glucose Negative (Negative); Urine Ketone 1+ (Negative); Urine Leukocyte 3+ (Negative); Urine Nitrite Negative (Negative); Urine Occult Blood 2+ (Negative); Urine Specific Gravity 1.025 (<1.030); Urine Urobilinogen 2+ (Neg - 1+)
[2025-03-14 10:20] LABS: Amphetamines Negative (Negative); Barbiturates Negative (Negative); Benzodiazepines Positive (Negative); Buprenorphine Negative (Negative); Cocaine Negative (Negative); Marijuana Negative (Negative); Methadone Negative (Negative); Methamphetamines Negative (Negative); Opiates Negative (Negative); Phencyclidine Negative (Negative); Tricyclic Antidepressants Negative (Negative)
[2025-03-14 10:38] LABS: Fentanyl, Urine Negative (Negative)
[2025-03-14] MEDS: LAMICTAL 150 MG PO ×2 (10:40→20:18)
[2025-03-14] MEDS: ASPIR LOW (ENTERIC COATED) 81 MG PO (10:40)
[2025-03-14] MEDS: LR 1000 IV ×2 (10:41→20:18)
[2025-03-14] MEDS: TRILEPTAL 300 MG PO ×2 (10:41→20:18)
[2025-03-14] MEDS: LEXAPRO 10 MG PO (10:41)
[2025-03-14] MEDS: ROBINUL 1 MG PO ×2 (10:41→20:17)
[2025-03-14] MEDS: FLUSH (NSS) 1 FLUSH IV ×3 (10:42→18:18)
[2025-03-14] MEDS: LYRICA 75 MG PO ×2 (10:44→20:18)
[2025-03-14] MEDS: PLAVIX PO (10:45)
[2025-03-14] MEDS: ORETIC PO (10:45)
[2025-03-14 12:09] LABS: Urine Mucus Many
[2025-03-14 12:13] LABS: Urine Amorphous Seen; Urine Squamous Cell 21-25 /LPF (Few); Urine Urothelial Cell 16-20 /LPF (FEW)
[2025-03-14 12:18] LABS: Urine White Cell 80-90 /HPF (0-5)
[2025-03-14 12:21] LABS: Urine Red Blood Cell 16-20 /HPF (0-2)
[2025-03-14 12:22] LABS: Urine Bacteria Many (Negative)
--- NOTE | 2025-03-14 12:47 | W.PN.NEURO.1 ---
Today's Communication / Plan
-
.
Subjective/Objective
Subjective Data
Date of Service: March 14, 2025
Neurology follow-up note.
Ms. Stallings reports not feeling well. Facial pain has been under control. Continues to have sialorrhea. No reports of headaches or change in vision.
24-hour events, transiently hypertensive up to 190/98, afebrile.
Brain MRI wo lala(03/13/2025) showed confluent subcortical white matter hyperintensity in the right posterior occipital lobe and right superior lateral frontal lobe.
Dysphagia evaluation showed no evidence of aspiration.
PMH: Refractory R V2-V3 trigeminal neuralgia, parkinsonism, HTN, DLP, CKD, osteoporosis, vitamin D deficiency IBS, MDD, LALA, positive CLAUDIA
PSH: trigeminal nerve block (03/06/2025), dental implants, tonsillectomy, cholecystectomy
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
FH: Both parents had stroke
All: Sinemet�nausea, Neurontin�ineffective, higher doses of Lyrica�imbalance, myoclonus
ROS: Positive for intermittent right V3 pain, confusion, negative for chest pain, dyspnea, change in vision or dysphagia.
General: Well developed. In no acute distress.
Cardio: Regular rate and rhythm without murmur. Extremities are without cyanosis or edema.
Neuro:
Mental Status: Awake, oriented to self, place, month, year, date. Impaired attention and preserved comprehension. Follows simple requests consistently. Labile mood.
Cranial Nerves: Pupils are equally round and reactive to light. EOMs full. Visual schuster full to confrontation. No ptosis. No nystagmus. Face symmetric. Normal hearing AU. The palate elevated well. SCMs and traps 5/5. Tongue midline. No
dysarthria.
Motor: Normal bulk and tone with augmentation. No pronator or arm drift. Strength 5/5 throughout. No clonus.
Coordination: Resting chin tremor, mild action hand tremor. No dysmetria or myoclonus.
Reflexes: Bilateral grasp
Gait: deferred
Assessment and Plan:
I. 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
II. Refractory right V3 trigeminal neuralgia, clinically stable.
III. Hypersalivation. S/p R trigeminal nerve block (03/06/2025). Mandibular nerve carries parasympathetic fibers that innervate the salivary glands.�Damage or dysfunction of the trigeminal nerve, including nerve blocks, can disrupt this
innervation, leading to altered salivary gland function and potentially increased saliva production.
IV. Encephalopathy (vascular, likely neurodegenerative)
V. Parkinsonism.
- Aspiration precautions
- Strict BP control
- Continue Trileptal 300 mg twice daily, Lamictal 150 mg twice daily, Lyrica to 75 mg twice daily
- Brain MRI with lala, MRA head
- D/C glycopyrrolate given encephalopathy. Will consider Botox as OP
- Case was discussed with patient's son.
I personally reviewed all radiology and labs along with past medical records pertinent to current medical problems. Total time spent in patient care is 45 minutes.
Thank you for allowing us to participate in the care of this patient. We will continue to follow. Please do not hesitate to contact us with any questions or concerns.
Objective Data
Vital Signs
Temp Pulse Resp BP Pulse Ox
36.9 C 79 18 123/56 96
03/14/25 07:33 03/14/25 07:33 03/14/25 07:33 03/14/25 07:33 03/14/25 07:33
Lab Results
03/14/25 06:55
03/14/25 06:55
Sodium 142 mmol/L (135-145) 03/14/25 06:55
Potassium 3.7 mmol/L (3.5-5.1) 03/14/25 06:55
BUN 42 mg/dl (7-17) H 03/14/25 06:55
Glucose 109 mg/dl (70-99) H 03/14/25 06:55
Calcium 9.3 mg/dl (8.4-10.2) 03/14/25 06:55
Vitamin B12 865 pg/ml (129-931) 03/12/25 10:54
Ur Buprenorphine Negative (Negative) 03/14/25 09:40
Patient Allergies
lidocaine Allergy (Intermediate, Verified 03/13/25 02:04)
Tongue Swelling
Vital Signs and Labs
-
Vital Signs and Labs:
Vital Signs
Temp Pulse Resp BP Pulse Ox
36.7 C 72 18 123/52 98
03/14/25 15:27 03/14/25 15:27 03/14/25 15:27 03/14/25 15:27 03/14/25 15:27
Lab Results
03/14/25 06:55
03/14/25 06:55
Sodium 142 mmol/L (135-145) 03/14/25 06:55
Potassium 3.7 mmol/L (3.5-5.1) 03/14/25 06:55
BUN 42 mg/dl (7-17) H 03/14/25 06:55
Glucose 109 mg/dl (70-99) H 03/14/25 06:55
Calcium 9.3 mg/dl (8.4-10.2) 03/14/25 06:55
Vitamin B12 865 pg/ml (267-931) 03/12/25 10:54
Ur Buprenorphine Negative (Negative) 03/14/25 09:40
Medications
-
Medications:
Generic Name Dose Route Start Last Admin
Trade Name Freq PRN Reason Stop Dose Admin
Alprazolam 0.25 mg 03/11/25 22:00 03/13/25 21:44
Alprazolam 0.25 Mg Tablet PO 04/08/25 21:59 Not Given
HS DAVID
Aspirin 81 mg 03/13/25 15:00 03/14/25 10:40
Aspirin 81 Mg (Enteric Coated) Tablet PO 04/10/25 14:59 81 mg
DAILY DAVID Administration
Atorvastatin Calcium 10 mg 03/11/25 22:00 03/13/25 21:44
Atorvastatin (Lipitor) 10 Mg Tablet PO 04/08/25 21:59 Not Given
HS DAVID
Baclofen 5 mg 03/11/25 19:56 03/13/25 08:14
Baclofen 5 Mg Tablet PO 04/08/25 19:55 5 mg
TIDPRN PRN Administration
trigeminal neuralgia/jaw pain
Ceftriaxone Sodium 1,000 mg 03/14/25 18:00
Ceftriaxone 1000 Mg / 10 Ml Vial IV
Q24H DAVID
Enoxaparin Sodium 30 mg 03/14/25 18:00
Enoxaparin Sodium 30 Mg/0.3 Ml Syringe SC 04/11/25 17:59
QPM DAVID
Escitalopram Oxalate 10 mg 03/12/25 08:00 03/14/25 10:41
Escitalopram 10 Mg Tablet PO 04/09/25 07:59 10 mg
DAILY DAVID Administration
Glycopyrrolate 1 mg 03/13/25 20:00 03/14/25 10:41
Glycopyrrolate 1 Mg Tablet PO 04/10/25 19:59 1 mg
BID DAVID Administration
Hydralazine HCl 10 mg 03/13/25 04:49
Hydralazine 20 Mg/Ml Vial IV 04/09/25 22:51
Q4HPRN PRN
sbp>170
Lactated Ringer's 1,000 mls @ 100 mls/hr 03/14/25 11:00 03/14/25 10:41
Lr IV 1,000 mls
.Q10H DAVID Administration
Lamotrigine 150 mg 03/11/25 20:00 03/14/25 10:40
Lamotrigine 100 Mg Tablet PO 04/08/25 19:59 150 mg
BID DAVID Administration
Ondansetron HCl 4 mg 03/12/25 13:41
Ondansetron 4 Mg/2 Ml Vial IV 04/09/25 13:40
Q6HPRN PRN
NAUSEA/VOMITING
Oxcarbazepine 300 mg 03/11/25 20:00 03/14/25 10:41
Oxcarbazepine 300 Mg Tablet PO 04/08/25 19:59 300 mg
BID DAVID Administration
Oxycodone HCl 5 mg 03/11/25 19:56 03/13/25 05:13
Oxycodone 5 Mg Regular Release Tablet PO 03/25/25 19:55 5 mg
Q8HPRN PRN Administration
severe pain
Pregabalin 75 mg 03/11/25 20:00 03/14/25 10:44
Pregabalin 75 Mg Capsule PO 04/08/25 19:59 75 mg
BID DAVID Administration
Sodium Chloride 0 flush 03/11/25 21:00 03/14/25 10:42
Sodium Chloride 0.9% (Flush) Syringe IV 04/08/25 20:59 1 flush
PER PROTOCOL DAVID Administration
Sodium Chloride 0 flush 03/14/25 17:55
0.9% Nacl Flush If Lactated Ringers Ivf Ordered IV 04/11/25 17:54
BID@1755,1805 DAVID
Sterile Water 10 ml 03/14/25 18:00
Sterile Water For Injection 10 Ml Vial IV 04/11/25 17:59
Q24H DAVID
Home Medications
-
Home Medications
alprazolam 0.25 mg tablet 0.25 mg PO HS Mental Health/Anxiety 09/24/24
escitalopram oxalate 10 mg tablet 10 mg PO DAILY Mental Health/Anxiety 09/24/24
simvastatin 20 mg tablet 20 mg PO HS High Cholesterol 09/24/24
hydrochlorothiazide 25 mg tablet 25 mg PO DAILY Fluid Retention/Swelling #30 tabs 10/04/24
lamotrigine 100 mg tablet 150 mg (1.5 x 100 mg) PO BID #6 tabs 03/09/25
losartan 25 mg tablet 25 mg PO DAILY #30 tabs 03/10/25
pregabalin 75 mg capsule 75 mg PO BID #60 caps 03/10/25
baclofen 5 mg tablet 5 mg PO TIDPRN PRN trigeminal neuralgia/jaw pain 03/11/25
oxcarbazepine 300 mg tablet 300 mg PO BID Neurological Condition 03/11/25
oxycodone 5 mg tablet 5 mg PO Q8HPRN PRN severe pain 03/11/25
--- NOTE | 2025-03-14 13:46 | PTOTSP ---
Videofluoroscopic swallow study
Mild-moderate oral, WFL-mild pharyngeal dysphagia. See patient care note for details.
Recommend:
1. IDDSI Level 6 Soft/Bite Sized, Thin Liquids
2. Medications crushed puree
3. Strategies: Full supervision/assist, upright all oral intake, small bites/sips, place straw/bolus on L; masticate on L, opt for soft selections of foods as needed
4. Oral care 3-5x daily
5. Dysphagia tx at the acute care level to determine if/when solid advancement appropriate as mentation improves and to education re: swallowing compensations
[2025-03-14 15:27] VITALS: BP 123/52
--- NOTE | 2025-03-14 15:27 | CM ---
Chart reviewed. Care ongoing at this time.
VSE today
Current w/ [facility]
Plan: Home; [facility] w/ [facility]
--- NOTE | 2025-03-14 16:33 | W.PN.HOSP.TC ---
Today's Communication/Plan
-
see note
Assessment / Plan
Assessment / Plan
1. Nausea/vomiting - improved
- No reported nausea vomiting episode after hospitalization
- Norovirus check negative
- BMP reviewed and no major electrolyte imbalance
- Continue diet as tolerated
- Continue symptomatic care with zofran, Reglan/Phenergan will be too sedative
- Will do further abdominal imaging if patient develops repeat episodes
- Question of medication also causing nausea vomiting although patient was getting same regimen for for 5 days in the hospital last admission without any problems.
2. Trigeminal neuralgia flare up
- Will continue patient preadmission regimen of baclofen/lamotrigine/oxcarbazepine/Lyrica
- Limit oxycodone with ongoing encephalopathy
- Neurology evaluation requested as patient have some confusion
3. Acute toxic metabolic encephalopathy
Possible UTI
- COVID neg. No pulmonary complaints
- Questioning if related to polypharmacy, neurology recommendation requested for possible weaning of medication as possible
- Urinalysis showing pyuria and bacteria, not voicing any dysuria. Started on empiric Rocephin
- Urine culture ordered
4. Abnormal MRI
- MRI brain showing increased signal intensity in occipital lobe region
- Question of possible subacute CVA versus PRES
- repeat brain MR w/wo contrast ordered by neurology
5. Acute kidney injury
- Ruled out urinary retention
- Creatinine jumped from 0.9 yesterday to 2.5
- Stop hydrochlorothiazide/losartan
- Maintain on IV fluid for today
5. Generalized anxiety
- Resume back xanax today
6. Dysphagia
- Repeat episode of dysphagia last night, speech evaluated on morning today and cleared for regular diet
- VSE cleared for IDDSI 6 diet
7. Tongue swelling
- Patient had episode of tongue swelling last visit and was felt to be related to Magic mouthwash
- Last night repeat concern of same issue although no new medication provided
- Patient got IV Decadron and Benadryl, Benadryl made patient lived more confused
- Patient has been on losartan for a long while, any repeat episode and will have to be switched to different blood pressure medication
- Discussed with daughter that patient would benefit with follow-up with credit balance specialist
DVT PPX - lovenox
Full code
Total time spent : 54 mins
I personally saw and examined the patient.
I have reviewed all diagnostic interpretations and treatment plans as written.
Time includes patient management by me, time spent at the patients bedside, time to review lab and imaging results, discussing patient care, documentation in the medical record, and time spent with the family or caregiver and discussing care plan
with RN/Consultants.
Anticipated Discharge: > 48 hours
Subjective/Interval History
-
Date of Service: March 14, 2025
Patient remains confused in the night
Remains disoriented
Objective Data
-
Labs:
Laboratory Results
03/14/25
06:55
WBC 9.6
Hgb 12.6
Hct 37.0
Plt Count 245
Sodium 142
Potassium 3.7
Chloride 103
Carbon Dioxide 26
BUN 42 H
Creatinine 2.5 H
Glucose 109 H
Calcium 9.3
Vital Signs:
Vital Signs
Temp Pulse Resp BP Pulse Ox
98.1 F 72 18 123/52 98
03/14/25 15:27 03/14/25 15:27 03/14/25 15:27 03/14/25 15:27 03/14/25 15:27
I&O
03/13/25 03/14/25 03/15/25
06:59 06:59 06:59
Intake Total 480 / 480 0 / 0
Output Total 250 / 250
Balance 480 / 480 -250 / -250
Review of Systems
-
Unable to obtain full review of systems at this time due to: Acuity
Physical Exam
-
General: No Apparent Distress and Comfortable
HEENT: Other (no significant tongue swelling ); Negative Oxygen
Musculoskeletal: No Edema
Neuro: Awake and Nonfocal/Grossly Intact; Negative Alert or Oriented
Psych: Calm
--- NOTE | 2025-03-14 16:52 | W.CON.NEPH ---
Consultation
-
Date/Time Consultation Requested: 03/14/25 0847
Date/Time Consultation Performed: 03/14/25 1715
Requesting Provider: Tyrone Patiño
Performing Provider: Trisha Oleary
Reason for Consultation: HERLINDA
Medical History
-
Chief Complaint: nausea, vomiting and right sided facial pain
History of Present Illness:
79-year-old female with past medical history significant for essential hypertension on losartan, HCTZ, hyperlipidemia on statin, trigeminal neuralgia on baclofen, lamotrigine, lyrica, oxcarbazepine , anxiety on xanax and IBS who presented to ED
on 03/11 for evaluation of nausea, vomiting and right sided facial pain. Patient with recent hospitalization trigeminal neuralgia pain, multiple medication adjustments were made and patient discharged home 03/10 feeling better, medications were
adjusted and also had steroid for tongue swelling. She reports starting to feel nauseous prior to discharge and symptoms increased and had vomiting. DUe to this she was unable to take medications and this morning resulting in increased right sided
facial pain.
Her cr increased from 0.9 to 2.5 in 24hrs hence nephrology consulted. Pt is forgetful and not good historian, most of the history obtained through chart and family at bedside. Patient denies any n/v, abdominal pain. Denies any fever, chills,
shortness of breath, cough, constipation or diarrhea or urinary symptoms. no swallowing difficulties since tongue swelling is better.
Past Medical History
Essential Hypertension
Hyperlipidemia
Trigeminal Neuralgia
Anxiety
Irritable Bowel Syndrome
Past Surgical History: Other (Cholecystectomy Tonsillectomy)
Social History
Tobacco: Non-Smoker
Alcohol: Occasional
Family History
Family History: Not Pertinent
Allergies / Home Medications
Allergy/AdvReac Type Severity Reaction Status Date / Time
lidocaine Allergy Intermediate Tongue Verified 03/13/25 02:04
Swelling
�Medication �Instructions �Recorded �Confirmed �Type
alprazolam 0.25 mg tablet 0.25 mg PO HS Mental Health/Anxiety 09/24/24 03/11/25 History
escitalopram oxalate 10 mg tablet 10 mg PO DAILY Mental 09/24/24 03/11/25 History
Health/Anxiety
simvastatin 20 mg tablet 20 mg PO HS High Cholesterol 09/24/24 03/11/25 History
hydrochlorothiazide 25 mg tablet 25 mg PO DAILY Fluid 10/04/24 03/11/25 Rx
Retention/Swelling #30 tabs
lamotrigine 100 mg tablet 150 mg (1.5 x 100 mg) PO BID #6 03/09/25 03/11/25 Rx
tabs
losartan 25 mg tablet 25 mg PO DAILY #30 tabs 03/10/25 03/11/25 Rx
pregabalin 75 mg capsule 75 mg PO BID #60 caps 03/10/25 03/11/25 Rx
baclofen 5 mg tablet 5 mg PO TIDPRN PRN trigeminal 03/11/25 03/11/25 History
neuralgia/jaw pain
oxcarbazepine 300 mg tablet 300 mg PO BID Neurological 03/11/25 03/11/25 History
Condition
oxycodone 5 mg tablet 5 mg PO Q8HPRN PRN severe pain 03/11/25 03/11/25 History
Review of Systems
-
pt is forgetful, unable to provide history
Physical Exam
Vital Signs
Vital Signs
Temp Pulse Resp BP Pulse Ox
98.1 F 72 18 123/52 98
03/14/25 15:27 03/14/25 15:27 03/14/25 15:27 03/14/25 15:27 03/14/25 15:27
Lab Results
WBC 9.6 10^3/uL (4.8-10.8) 03/14/25 06:55
RBC 4.45 10^6/uL (4.20-5.40) 03/14/25 06:55
Hgb 12.6 g/dL (12.0-16.0) 03/14/25 06:55
Hct 37.0 % (37.0-47.0) 03/14/25 06:55
Plt Count 245 10^3/uL (130-400) 03/14/25 06:55
Sodium 142 mmol/L (135-145) 03/14/25 06:55
Potassium 3.7 mmol/L (3.5-5.1) 03/14/25 06:55
Chloride 103 mmol/L (98-107) 03/14/25 06:55
Carbon Dioxide 26 mmol/L (22-30) 03/14/25 06:55
BUN 42 mg/dl (7-17) H 03/14/25 06:55
Creatinine 2.5 mg/dL (0.6-1.0) H 03/14/25 06:55
eGFR 18.85 03/14/25 06:55
Glucose 109 mg/dl (70-99) H 03/14/25 06:55
Calcium 9.3 mg/dl (8.4-10.2) 03/14/25 06:55
Albumin 4.2 g/dl (3.5-5.0) 03/11/25 10:10
Physical Exam
General: Awake, Alert, Oriented, No Distress and Nontoxic
HEENT: EOMI, Anicteric and Facial Symmetry
Respiratory: Clear, Normal Excursion and Nonlabored Respirations
Cardiac: S1/S2 and Regular Rate/Rhythm
Breast: Deferred by me
Abdomen: Soft, Nontender and Nondistended
Musculoskeletal: No Cyanosis and No Edema
Skin: No Rash
Neuro: Nonfocal/Grossly Intact
Psych: Appropriate
Data Reviewed
-
Radiology: Report Reviewed by me, Discussed with Patient and Discussed with Family
Labs: Labs Reviewed by me, Discussed with Patient and Discussed with Family
Assessment/Plan
-
IMP:
HERLINDA
Nausea/vomiting
Trigeminal neuralgia flare up
Acute toxic metabolic encephalopathy
Possible UTI
MRI brain showing increased signal intensity in occipital lobe region
Generalized anxiety
Dysphagia
Tongue swelling
Plan:
A/w TN flare up
HERLINDA-UA with UTI sample, check U fena and U PCR, eosinophils
bladder scan 21cc, suspect prerenal with relative hypotension
check renal US
avoid nephrotoxins and hold ARB and HCTZ
cont isotonic IVF
adjust meds renally
abx per primary for UTI
labs in am
d/w family
[2025-03-14 17:52] LABS: Urine Protein 54 mg/dl (0-12); Urine Sodium 24 mmol/L (30-90)
[2025-03-14] MEDS: STERILE WATER FOR INJECTION 10 ML IV (18:18)
[2025-03-14] MEDS: ROCEPHIN 1000 MG IV (18:18)
[2025-03-14] MEDS: LOVENOX 30 MG SC (18:18)
[2025-03-14 19:49] VITALS: BP 111/54
[2025-03-14] MEDS: XANAX 0.25 MG PO (22:00)
[2025-03-14] MEDS: LIPITOR 10 MG PO (22:00)
[2025-03-14 23:45] VITALS: BP 123/64
[2025-03-15 01:43] LABS: Lamotrigine (Lamictal) 3.2 ug/mL (3.0-15.0)
[2025-03-15 03:03] VITALS: BP 144/61
--- NOTE | 2025-03-15 07:46 | W.PN.NEURO.1 ---
Today's Communication / Plan
-
.
Subjective/Objective
Subjective Data
Date of Service: March 15, 2025
Neurology follow-up note.
Ms. Stallings reports not feeling well. Facial pain has been under control. Continues to have sialorrhea. No reports of headaches or change in vision.
24-hour event: Normotensive, afebrile.
Mr. Stallings reports no facial pain. No reports of headaches, seizures, change in vision.
Brain MRI wo lala(03/13/2025) confluent subcortical white matter hyperintensity in the right posterior occipital lobe and right superior lateral frontal lobe.
PMH: Refractory R V2-V3 trigeminal neuralgia, parkinsonism, HTN, DLP, CKD, osteoporosis, vitamin D deficiency IBS, MDD, LALA, positive CLAUDIA
PSH: trigeminal nerve block (03/06/2025), dental implants, tonsillectomy, cholecystectomy
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
FH: Both parents had stroke
All: Sinemet�nausea, Neurontin�ineffective, higher doses of Lyrica�imbalance, myoclonus
ROS: Positive for intermittent right V3 pain, confusion, negative for chest pain, dyspnea, change in vision or dysphagia.
General: Well developed. In no acute distress.
Cardio: Regular rate and rhythm without murmur. Extremities are without cyanosis or edema.
Neuro:
Mental Status: Awake, oriented to self, place, month, year, date. Impaired attention and preserved comprehension. Follows simple requests consistently.
Cranial Nerves: Pupils are equally round and reactive to light. EOMs full. Visual schuster full to confrontation. No ptosis. No nystagmus. Face symmetric. Normal hearing AU. The palate elevated well. SCMs and traps 5/5. Tongue midline. No
dysarthria.
Motor: Normal bulk and tone with augmentation. No pronator or arm drift. Strength 5/5 throughout. No clonus.
Coordination: Resting chin tremor, mild action hand tremor. No dysmetria
Gait: deferred
Assessment and Plan:
I. 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
II. Refractory right V3 trigeminal neuralgia, clinically stable.
III. Hypersalivation. S/p R trigeminal nerve block (03/06/2025). Mandibular nerve carries parasympathetic fibers that innervate the salivary glands.�Damage or dysfunction of the trigeminal nerve, including nerve blocks, can disrupt this
innervation, leading to altered salivary gland function and potentially increased saliva production.
IV. Encephalopathy (vascular, likely neurodegenerative), improved
V. Parkinsonism.
- Aspiration precautions
- Continue Trileptal 300 mg twice daily, Lamictal 150 mg twice daily, Lyrica to 75 mg twice daily
- Brain MRI with lala, MRA head wo lala
-Repeat brain MRI without lala in 8 weeks.
- Case was discussed with patient's son.
I personally reviewed all radiology and labs along with past medical records pertinent to current medical problems. Total time spent in patient care is 35 minutes.
Thank you for allowing us to participate in the care of this patient. We will continue to follow. Please do not hesitate to contact us with any questions or concerns.
Objective Data
Vital Signs
Temp Pulse Resp BP Pulse Ox
36.6 C 64 18 144/61 98
03/15/25 03:03 03/15/25 03:03 03/15/25 03:03 03/15/25 03:03 03/15/25 03:03
Lab Results
03/14/25 06:55
Sodium 142 mmol/L (135-145) 03/14/25 06:55
Potassium 3.7 mmol/L (3.5-5.1) 03/14/25 06:55
BUN 42 mg/dl (7-17) H 03/14/25 06:55
Glucose 109 mg/dl (70-99) H 03/14/25 06:55
Calcium 9.3 mg/dl (8.4-10.2) 03/14/25 06:55
Vitamin B12 865 pg/ml (239-931) 03/12/25 10:54
Ur Buprenorphine Negative (Negative) 03/14/25 09:40
Patient Allergies
lidocaine Allergy (Intermediate, Verified 03/13/25 02:04)
Tongue Swelling
[2025-03-15 08:15] VITALS: BP 152/73
[2025-03-15] MEDS: LR 1000 IV ×2 (08:55→22:02)
[2025-03-15] MEDS: ROBINUL 1 MG PO ×2 (09:02→20:15)
[2025-03-15] MEDS: LYRICA 75 MG PO ×2 (09:02→20:14)
[2025-03-15] MEDS: LEXAPRO 10 MG PO (09:02)
[2025-03-15] MEDS: ASPIR LOW (ENTERIC COATED) 81 MG PO (09:02)
[2025-03-15] MEDS: LAMICTAL 150 MG PO ×2 (09:03→20:14)
[2025-03-15] MEDS: TRILEPTAL 300 MG PO ×2 (09:03→20:15)
[2025-03-15 09:11] LABS: Blood Urea Nitrogen 45 mg/dl (7-17); Calcium 8.7 mg/dl (8.4-10.2); Carbon Dioxide 28 mmol/L (22-30); Chloride 104 mmol/L (98-107); Estimated Creatinine Clearance 23 ml/min; Glucose 99 mg/dl (70-99); Potassium 3.4 mmol/L (3.5-5.1); Sodium 141 mmol/L (135-145); eGFR 29.94
--- NOTE | 2025-03-15 11:10 | W.PN.HOSP.TC ---
Today's Communication/Plan
-
clinically better today
continue current rx
get urine cs
f/u labs
Assessment / Plan
Assessment / Plan
1. Nausea/vomiting - improved
- No reported nausea vomiting episode after hospitalization
- Norovirus check negative
- BMP reviewed and no major electrolyte imbalance
- Continue diet as tolerated
- Continue symptomatic care with zofran, Reglan/Phenergan will be too sedative
- Will do further abdominal imaging if patient develops repeat episodes
- Question of medication also causing nausea vomiting although patient was getting same regimen for for 5 days in the hospital last admission without any problems.
2. Trigeminal neuralgia flare up
- Will continue patient preadmission regimen of baclofen/lamotrigine/oxcarbazepine/Lyrica
- Limit oxycodone with ongoing encephalopathy
- Neurology evaluation requested as patient have some confusion
3. Acute toxic metabolic encephalopathy - Improving
UTI
- COVID neg. No pulmonary complaints
- Questioning if related to polypharmacy, neurology recommendation requested for possible weaning of medication as possible
- Urinalysis showing pyuria and bacteria, not voicing any dysuria.
- Continue empiric rocephin,
- Urine culture pending
4. Abnormal MRI
- MRI brain showing increased signal intensity in occipital lobe region
- Question of possible subacute CVA versus PRES
- repeat brain MR w/wo contrast and MRA ordered by neurology, pending.
5. Acute kidney injury -improving
- Ruled out urinary retention
- Creatinine jumped from 0.9 > 2.5 > 1.8 today
- Stop hydrochlorothiazide/losartan
- Maintain on IV fluid for today
5. Generalized anxiety
- Resume back xanax today
6. Dysphagia
- Repeat episode of dysphagia last night, speech evaluated on morning today and cleared for regular diet
- VSE cleared for IDDSI 6 diet
7. Tongue swelling
- Patient had episode of tongue swelling last visit and was felt to be related to Magic mouthwash
- Last night repeat concern of same issue although no new medication provided
- Patient got IV Decadron and Benadryl, Benadryl made patient lived more confused
- Patient has been on losartan for a long while, any repeat episode and will have to be switched to different blood pressure medication
- Discussed with daughter that patient would benefit with follow-up with habilitation specialist
DVT PPX - lovenox
Full code
Anticipated Discharge: 24 - 48 hours
Subjective/Interval History
-
Date of Service: March 15, 2025
Patient mentation better today
Not voicing any major complaints
Objective Data
-
Labs:
Laboratory Results
03/15/25
07:59
Sodium 141
Potassium 3.4 L
Chloride 104
Carbon Dioxide 28
BUN 45 H
Creatinine 1.7 H
Glucose 99
Calcium 8.7
Vital Signs:
Vital Signs
Temp Pulse Resp BP Pulse Ox
98.6 F 73 18 152/73 98
03/15/25 08:15 03/15/25 08:15 03/15/25 08:15 03/15/25 08:15 03/15/25 08:15
I&O
03/14/25 03/15/25 03/16/25
06:59 06:59 06:59
Intake Total 0 / 0 1640 / 1640
Output Total 250 / 250 290 / 290
Balance -250 / -250 1350 / 1350
Review of Systems
-
Respiratory: Reports No Symptoms
Cardiac: Reports No Symptoms
Abdomen/GI: Reports No Symptoms
Physical Exam
-
General: No Apparent Distress and Comfortable
HEENT: Other (no significant tongue swelling ); Negative Oxygen
Musculoskeletal: No Edema
Neuro: Awake, Oriented and Nonfocal/Grossly Intact; Negative Alert
Psych: Calm
[2025-03-15 11:43] VITALS: BP 131/51
[2025-03-15] MEDS: ATIVAN 0.5 MG IV (12:26)
--- NOTE | 2025-03-15 15:16 | VNURNOTE ---
chart reviewed. [employer]PER[employer] patient had 1 VN visit but was not admitted d/t going back to ER. New referral for VN placed in [facility]. Will continue to follow hospital course.
[2025-03-15 15:55] VITALS: BP 95/62
--- NOTE | 2025-03-15 16:58 | W.PN.NEPH.PH ---
Today's Communication / Plan
-
Maintain IV fluids with additional potassium
Assessment/Plan
-
IMP:
HERLINDA
Nausea/vomiting
Trigeminal neuralgia flare up
Acute toxic metabolic encephalopathy
Possible UTI
MRI brain showing increased signal intensity in occipital lobe region
Generalized anxiety
Dysphagia
Tongue swelling
Plan:
A/w TN flare up
HERLINDA-UA with UTI sample, check U fena and U PCR, eosinophils
Creatinine with significant improvement now down from 2.5-1.7
bladder scan 21cc, suspected prerenal with relative hypotension
checked renal US which was unremarkable with the exception of 2 simple bilateral cyst
avoid nephrotoxins and hold ARB and HCTZ
continue isotonic IVF
adjust meds renally
abx per primary for UTI
labs in am
-
-
Date of Service: March 15, 2025
CC / HPI / ROS
-
Chief Complaint:
Acute kidney injury
HPI:
creatinine down to 1.7
Blood pressure remains labile
Review of Systems:
Urine output only recorded at 290 but doubt accuracy of complete urine measurement
No fevers
Patient now eating without nausea or vomit
Labs
-
Labs:
WBC 9.6 10^3/uL (4.8-10.8) 03/14/25 06:55
RBC 4.45 10^6/uL (4.20-5.40) 03/14/25 06:55
Hgb 12.6 g/dL (12.0-16.0) 03/14/25 06:55
Hct 37.0 % (37.0-47.0) 03/14/25 06:55
Plt Count 245 10^3/uL (130-400) 03/14/25 06:55
Sodium 141 mmol/L (135-145) 03/15/25 07:59
Potassium 3.4 mmol/L (3.5-5.1) L 03/15/25 07:59
Chloride 104 mmol/L (98-107) 03/15/25 07:59
Carbon Dioxide 28 mmol/L (22-30) 03/15/25 07:59
BUN 45 mg/dl (7-17) H 03/15/25 07:59
Creatinine 1.7 mg/dL (0.6-1.0) H 03/15/25 07:59
eGFR 29.94 03/15/25 07:59
Glucose 99 mg/dl (70-99) 03/15/25 07:59
Calcium 8.7 mg/dl (8.4-10.2) 03/15/25 07:59
Albumin 4.2 g/dl (3.5-5.0) 03/11/25 10:10
Physical Exam
-
Vital Signs:
Vital Signs
Temp Pulse Resp BP Pulse Ox
98.2 F 73 18 95/62 98
03/15/25 15:55 03/15/25 15:55 03/15/25 15:55 03/15/25 15:55 03/15/25 15:55
Cardiovascular:: Regular rate and rhythm
Respiratory:: Bilateral: CTA
Lung Excursion:: Normal
Abdomen:: Nontender
Extremity Edema:: None: Bilateral:
Payan Catheter: No
[2025-03-15] MEDS: ROCEPHIN 1000 MG IV (17:13)
[2025-03-15] MEDS: LOVENOX 30 MG SC (17:13)
[2025-03-15] MEDS: STERILE WATER FOR INJECTION 10 ML IV (17:13)
[2025-03-15] MEDS: FLUSH (NSS) 1 FLUSH IV ×2 (17:22→17:28)
[2025-03-15 19:42] VITALS: BP 135/57
--- NOTE | 2025-03-15 21:26 | PTCARENOTE ---
Pt much more alert and responsive this evening than last night. NIH 0. Assessment as charted.
[2025-03-15] MEDS: LIPITOR 10 MG PO (22:02)
[2025-03-15] MEDS: XANAX 0.25 MG PO (22:02)
[2025-03-15 23:11] VITALS: BP 154/80
[2025-03-16] VITALS (8 sets, daily range): BP systolic 126–165; BP diastolic 54–78; PULSE 65–69; O2SAT 95–97
[2025-03-16 07:45] LABS: Hematocrit 31.5 % (37.0-47.0); Hemoglobin 10.9 g/dL (12.0-16.0); Mean Corp Hgb Conc. 34.6 g/dL (33.0-37.0); Mean Corpuscular Hgb 28.6 pg (27.0-31.0); Mean Corpuscular Volume 82.7 fL (81.0-99.0); Mean Platelet Volume 9.9 fL (7.4-10.4); Platelet Count 174 10^3/uL (130-400); Red Blood Cell Count 3.81 10^6/uL (4.20-5.40); Red Cell Dist. Width 13.8 % (11.5-14.5); White Blood Cell Count 8.3 10^3/uL (4.8-10.8)
[2025-03-16 08:37] LABS: Blood Urea Nitrogen 31 mg/dl (7-17); Calcium 8.5 mg/dl (8.4-10.2); Carbon Dioxide 26 mmol/L (22-30); Chloride 102 mmol/L (98-107); Estimated Creatinine Clearance 36 ml/min; Glucose 94 mg/dl (70-99); Potassium 3.8 mmol/L (3.5-5.1); Sodium 138 mmol/L (135-145); eGFR 50.48
[2025-03-16] MEDS: LR 1000 IV (08:49)
[2025-03-16] MEDS: LAMICTAL 150 MG PO ×2 (08:49→21:06)
[2025-03-16] MEDS: TRILEPTAL 300 MG PO ×2 (08:50→21:06)
[2025-03-16] MEDS: LEXAPRO 10 MG PO (08:50)
[2025-03-16] MEDS: ASPIR LOW (ENTERIC COATED) 81 MG PO (08:50)
[2025-03-16] MEDS: ROBINUL 1 MG PO ×2 (08:50→21:06)
[2025-03-16] MEDS: LYRICA 75 MG PO ×2 (08:53→21:07)
--- NOTE | 2025-03-16 10:13 | W.PN.NEURO.1 ---
Addendum entered and electronically signed by Faiza Molina MD 03/16/25 13:41:
MRI with and without gadolinium (03/15/2025) showed new areas of restricted diffusion involving the bilateral parietal occipital lobes as well as the posterior right frontal lobe. While restricted diffusion is slightly atypical for PRES the overall
extent is less than the FLAIR signal abnormality and still favored to represent PRES.
Plan: start Aspirin 81 mg QD
-TTE
-the plan was discussed with patient's daughter.
Mary.
Original Note:
Today's Communication / Plan
-
.
Subjective/Objective
Subjective Data
Date of Service: March 16, 2025
Neurology follow-up note.
Ms. Stallings reports no facial pain. Sialorrhea has significantly improved. The patient tolerates glycopyrrolate well.
MRA head- no focal hemodynamically significant stenosis, aneurysm or occlusion.
Brain MRI wo kenrick(03/13/2025) confluent subcortical white matter hyperintensity in the right posterior occipital lobe and right superior lateral frontal lobe.
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
PSH: trigeminal nerve block (03/06/2025), dental implants, tonsillectomy, cholecystectomy
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
FH: Both parents had stroke
All: Sinemet�nausea, Neurontin�ineffective, higher doses of Lyrica�imbalance, myoclonus
ROS: Positive for intermittent right V3 pain, confusion, negative for chest pain, dyspnea, change in vision or dysphagia.
General: Well developed. In no acute distress.
Cardio: Regular rate and rhythm without murmur. Extremities are without cyanosis or edema.
Neuro:
Mental Status: Awake, oriented to self, place, month, year, date. Preserved attention and comprehension. Follows simple requests consistently. Fluent.
Cranial Nerves: Pupils are equally round and reactive to light. EOMs full. Visual schuster full to confrontation. No ptosis. No nystagmus. Face symmetric. Normal hearing AU. The palate elevated well. SCMs and traps 5/5. Tongue midline. No
dysarthria.
Motor: Normal bulk and tone with augmentation. No pronator or arm drift. Strength 5/5 throughout. No clonus.
Coordination: Resting chin tremor, mild action hand tremor. No dysmetria
Gait: deferred
Assessment and Plan:
I. 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
II. Refractory right V3 trigeminal neuralgia, clinically improved.
III. Parkinsonism.
- Aspiration precautions
- Continue Trileptal 300 mg twice daily, Lamictal 150 mg twice daily, Lyrica to 75 mg twice daily
- Repeat brain MRI without kenrick in 8 weeks.
- Please recall neurology services any questions or concerns
I personally reviewed all radiology and labs along with past medical records pertinent to current medical problems. Total time spent in patient care is 40 minutes.
Thank you for allowing us to participate in the care of this patient. Please do not hesitate to contact us with any questions or concerns.
Objective Data
Vital Signs
Temp Pulse Resp BP Pulse Ox
36.3 C 78 18 165/78 97
03/16/25 08:18 03/16/25 08:18 03/16/25 08:18 03/16/25 08:18 03/16/25 08:18
Lab Results
03/16/25 07:15
03/16/25 07:15
Sodium 138 mmol/L (135-145) 03/16/25 07:15
Potassium 3.8 mmol/L (3.5-5.1) 03/16/25 07:15
BUN 31 mg/dl (7-17) H 03/16/25 07:15
Glucose 94 mg/dl (70-99) 03/16/25 07:15
Calcium 8.5 mg/dl (8.4-10.2) 03/16/25 07:15
Vitamin B12 865 pg/ml (632-931) 03/12/25 10:54
Ur Buprenorphine Negative (Negative) 03/14/25 09:40
Patient Allergies
lidocaine Allergy (Intermediate, Verified 03/13/25 02:04)
Tongue Swelling
Vital Signs and Labs
-
Vital Signs and Labs:
Vital Signs
Temp Pulse Resp BP Pulse Ox
36.3 C 78 18 165/78 97
03/16/25 08:18 03/16/25 08:18 03/16/25 08:18 03/16/25 08:18 03/16/25 08:18
Lab Results
03/16/25 07:15
03/16/25 07:15
Sodium 138 mmol/L (135-145) 03/16/25 07:15
Potassium 3.8 mmol/L (3.5-5.1) 03/16/25 07:15
BUN 31 mg/dl (7-17) H 03/16/25 07:15
Glucose 94 mg/dl (70-99) 03/16/25 07:15
Calcium 8.5 mg/dl (8.4-10.2) 03/16/25 07:15
Vitamin B12 865 pg/ml (964-931) 03/12/25 10:54
Ur Buprenorphine Negative (Negative) 03/14/25 09:40
Medications
-
Medications:
Generic Name Dose Route Start Last Admin
Trade Name Freq PRN Reason Stop Dose Admin
Alprazolam 0.25 mg 03/11/25 22:00 03/15/25 22:02
Alprazolam 0.25 Mg Tablet PO 04/08/25 21:59 0.25 mg
HS DAVID Administration
Aspirin 81 mg 03/13/25 15:00 03/16/25 08:50
Aspirin 81 Mg (Enteric Coated) Tablet PO 04/10/25 14:59 81 mg
DAILY DAVID Administration
Atorvastatin Calcium 10 mg 03/11/25 22:00 03/15/25 22:02
Atorvastatin (Lipitor) 10 Mg Tablet PO 04/08/25 21:59 10 mg
HS DAVID Administration
Baclofen 5 mg 03/11/25 19:56 03/13/25 08:14
Baclofen 5 Mg Tablet PO 04/08/25 19:55 5 mg
TIDPRN PRN Administration
trigeminal neuralgia/jaw pain
Ceftriaxone Sodium 1,000 mg 03/14/25 18:00 03/15/25 17:13
Ceftriaxone 1000 Mg / 10 Ml Vial IV 1,000 mg
Q24H DAVID Administration
Enoxaparin Sodium 30 mg 03/14/25 18:00 03/15/25 17:13
Enoxaparin Sodium 30 Mg/0.3 Ml Syringe SC 04/11/25 17:59 30 mg
QPM DAVID Administration
Escitalopram Oxalate 10 mg 03/12/25 08:00 03/16/25 08:50
Escitalopram 10 Mg Tablet PO 04/09/25 07:59 10 mg
DAILY DAVID Administration
Glycopyrrolate 1 mg 03/13/25 20:00 03/16/25 08:50
Glycopyrrolate 1 Mg Tablet PO 04/10/25 19:59 1 mg
BID DAVID Administration
Hydralazine HCl 10 mg 03/13/25 04:49
Hydralazine 20 Mg/Ml Vial IV 04/09/25 22:51
Q4HPRN PRN
sbp>170
Lactated Ringer's 1,000 mls @ 100 mls/hr 03/14/25 11:00 03/16/25 08:49
Lr IV 1,000 mls
.Q10H DAVID Administration
Lamotrigine 150 mg 03/11/25 20:00 03/16/25 08:49
Lamotrigine 100 Mg Tablet PO 04/08/25 19:59 150 mg
BID DAVID Administration
Ondansetron HCl 4 mg 03/12/25 13:41
Ondansetron 4 Mg/2 Ml Vial IV 04/09/25 13:40
Q6HPRN PRN
NAUSEA/VOMITING
Oxcarbazepine 300 mg 03/11/25 20:00 03/16/25 08:50
Oxcarbazepine 300 Mg Tablet PO 04/08/25 19:59 300 mg
BID DAVID Administration
Oxycodone HCl 5 mg 03/11/25 19:56 03/13/25 05:13
Oxycodone 5 Mg Regular Release Tablet PO 03/25/25 19:55 5 mg
Q8HPRN PRN Administration
severe pain
Pregabalin 75 mg 03/11/25 20:00 03/16/25 08:53
Pregabalin 75 Mg Capsule PO 04/08/25 19:59 75 mg
BID DAVID Administration
Sodium Chloride 0 flush 03/11/25 21:00 03/14/25 10:42
Sodium Chloride 0.9% (Flush) Syringe IV 04/08/25 20:59 1 flush
PER PROTOCOL DAVID Administration
Sodium Chloride 0 flush 03/14/25 17:55 03/15/25 17:28
0.9% Nacl Flush If Lactated Ringers Ivf Ordered IV 04/11/25 17:54 1 flush
BID@1755,1805 DAVID Administration
Sterile Water 10 ml 03/14/25 18:00 03/15/25 17:13
Sterile Water For Injection 10 Ml Vial IV 04/11/25 17:59 10 ml
Q24H DAVID Administration
Home Medications
-
Home Medications
alprazolam 0.25 mg tablet 0.25 mg PO HS Mental Health/Anxiety 09/24/24
escitalopram oxalate 10 mg tablet 10 mg PO DAILY Mental Health/Anxiety 09/24/24
simvastatin 20 mg tablet 20 mg PO HS High Cholesterol 09/24/24
hydrochlorothiazide 25 mg tablet 25 mg PO DAILY Fluid Retention/Swelling #30 tabs 10/04/24
lamotrigine 100 mg tablet 150 mg (1.5 x 100 mg) PO BID #6 tabs 03/09/25
losartan 25 mg tablet 25 mg PO DAILY #30 tabs 03/10/25
pregabalin 75 mg capsule 75 mg PO BID #60 caps 03/10/25
baclofen 5 mg tablet 5 mg PO TIDPRN PRN trigeminal neuralgia/jaw pain 03/11/25
oxcarbazepine 300 mg tablet 300 mg PO BID Neurological Condition 03/11/25
oxycodone 5 mg tablet 5 mg PO Q8HPRN PRN severe pain 03/11/25
[2025-03-16] MEDS: INDERAL 10 MG PO ×2 (11:57→21:07)
[2025-03-16] MEDS: PROCARDIA XL (EXTENDED RELEASE) 30 MG PO (11:57)
--- NOTE | 2025-03-16 14:51 | W.PN.HOSP.TC ---
Today's Communication/Plan
-
see note
Assessment / Plan
Assessment / Plan
1. Nausea/vomiting - improved
- No reported nausea vomiting episode after hospitalization
- Norovirus check negative
- BMP reviewed and no major electrolyte imbalance
- Will do further abdominal imaging if patient develops repeat episodes
- Question of medication also causing nausea vomiting although patient was getting same regimen for for 5 days in the hospital last admission without any problems.
2. Trigeminal neuralgia flare up - resolved
- Will continue patient preadmission regimen of baclofen/lamotrigine/oxcarbazepine/Lyrica
- Limit oxycodone with ongoing encephalopathy
- Neurology evaluation requested as patient have some confusion
3. Acute toxic metabolic encephalopathy - Improved
UTI
- COVID neg. No pulmonary complaints
- Questioning if related to polypharmacy, neurology recommendation requested for possible weaning of medication as possible
- Urinalysis showing pyuria and bacteria, not voicing any dysuria.
- Maintain on empiric rocephin
- Urine culture neg.
4. Possible PRES
- MRI brain showing increased signal intensity in occipital lobe region
- Question of possible subacute CVA versus PRES
- Repeat MRI brain with contrast continue to suggest possible press as an etiology. MRA head and neck did not show any acute abnormality
- Neurology after evaluation starting patient on dual antiplatelet therapy
- TTE recommended as well, see neuro note from today.
5. Acute kidney injury -improving
- Ruled out urinary retention
- Creatinine jumped from 0.9 > 2.5 > 1.8 today
- Stop hydrochlorothiazide/losartan
- Maintain on IV fluid for today
5. Generalized anxiety
- Resume back xanax today
6. Dysphagia
- Repeat episode of dysphagia this admit
- VSE done and ST cleared for IDDSI 6 diet
7. Tongue swelling - resolved
- Patient had episode of tongue swelling last visit and was felt to be related to Magic mouthwash
- Last night repeat concern of same issue although no new medication provided
- Patient got IV Decadron and Benadryl, Benadryl made patient lived more confused
- Patient has been on losartan for a long while, any repeat episode and will have to be switched to different blood pressure medication
- Discussed with daughter that patient would benefit with follow-up with support specialist
DVT PPX - lovenox
Full code
Anticipated Discharge: Within 24 hours
Subjective/Interval History
-
Date of Service: March 16, 2025
no issues overnight
confusion better
afebrile overnight
Objective Data
-
Labs:
Laboratory Results
03/16/25
07:15
WBC 8.3
Hgb 10.9 L
Hct 31.5 L
Plt Count 174 D
Sodium 138
Potassium 3.8
Chloride 102
Carbon Dioxide 26
BUN 31 H
Creatinine 1.1 H
Glucose 94
Calcium 8.5
Vital Signs:
Vital Signs
Temp Pulse Resp BP Pulse Ox
97.6 F 75 18 143/54 96
03/16/25 12:00 03/16/25 12:00 03/16/25 12:00 03/16/25 12:00 03/16/25 12:00
I&O
03/15/25 03/16/25 03/17/25
06:59 06:59 06:59
Intake Total 1640 / 1640 1920 / 1920 240 / 240
Output Total 290 / 290 650 / 650
Balance 1350 / 1350 1270 / 1270 240 / 240
Review of Systems
-
Respiratory: Reports No Symptoms
Cardiac: Reports No Symptoms
Abdomen/GI: Reports No Symptoms
Physical Exam
-
General: No Apparent Distress and Comfortable
HEENT: Other (no significant tongue swelling ); Negative Oxygen
Musculoskeletal: No Edema
Neuro: Awake, Alert, Oriented and Nonfocal/Grossly Intact
Psych: Calm
--- NOTE | 2025-03-16 14:57 | CM ---
Chart reviewed. Care ongoing
Plan: Home; [facility] w/ [facility]
--- NOTE | 2025-03-16 15:17 | W.PN.NEPH.PH ---
Today's Communication / Plan
-
Signed off
Assessment/Plan
-
IMP:
HERLINDA
Nausea/vomiting
Trigeminal neuralgia flare up
Acute toxic metabolic encephalopathy
Possible UTI
MRI brain showing increased signal intensity in occipital lobe region
Generalized anxiety
Dysphagia
Tongue swelling
Plan:
A/w TN flare up
HERLINDA-UA with UTI sample, check U fena and U PCR, eosinophils
Creatinine with significant improvement now down from 2.5-1.7�1.1
bladder scan 21cc, suspected prerenal with relative hypotension
checked renal US which was unremarkable with the exception of 2 simple bilateral cyst
avoid nephrotoxins and hold ARB and HCTZ
I will sign off please call if needed
-
-
Date of Service: March 16, 2025
CC / HPI / ROS
-
Chief Complaint:
Acute kidney injury
HPI:
creatinine down to 1.1
Blood pressure remains labile
Review of Systems:
No shortness of breath
No fevers
Patient now eating without nausea or vomit
Labs
-
Labs:
WBC 8.3 10^3/uL (4.8-10.8) 03/16/25 07:15
RBC 3.81 10^6/uL (4.20-5.40) L 03/16/25 07:15
Hgb 10.9 g/dL (12.0-16.0) L 03/16/25 07:15
Hct 31.5 % (37.0-47.0) L 03/16/25 07:15
Plt Count 174 10^3/uL (130-400) D 03/16/25 07:15
Sodium 138 mmol/L (135-145) 03/16/25 07:15
Potassium 3.8 mmol/L (3.5-5.1) 03/16/25 07:15
Chloride 102 mmol/L (98-107) 03/16/25 07:15
Carbon Dioxide 26 mmol/L (22-30) 03/16/25 07:15
BUN 31 mg/dl (7-17) H 03/16/25 07:15
Creatinine 1.1 mg/dL (0.6-1.0) H 03/16/25 07:15
eGFR 50.48 03/16/25 07:15
Glucose 94 mg/dl (70-99) 03/16/25 07:15
Calcium 8.5 mg/dl (8.4-10.2) 03/16/25 07:15
Albumin 4.2 g/dl (3.5-5.0) 03/11/25 10:10
Physical Exam
-
Vital Signs:
Vital Signs
Temp Pulse Resp BP Pulse Ox
98.8 F 67 16 126/62 97
03/16/25 15:07 03/16/25 15:07 03/16/25 15:07 03/16/25 15:07 03/16/25 15:07
Cardiovascular:: Regular rate and rhythm
Respiratory:: Bilateral: CTA
Lung Excursion:: Normal
Abdomen:: Nontender
Extremity Edema:: None: Bilateral:
Payan Catheter: No
[2025-03-16] MEDS: STERILE WATER FOR INJECTION 10 ML IV (17:21)
[2025-03-16] MEDS: ROCEPHIN 1000 MG IV (17:21)
[2025-03-16] MEDS: FLUSH (NSS) 1 FLUSH IV ×2 (17:21→17:22)
[2025-03-16] MEDS: LOVENOX 30 MG SC (17:22)
[2025-03-16] MEDS: XANAX 0.25 MG PO (22:04)
[2025-03-16] MEDS: LIPITOR 10 MG PO (22:04)
[2025-03-17 03:55] VITALS: BP 152/63
--- NOTE | 2025-03-17 06:28 | DOWNTIME ---
There was a [employer] Downtime on 03/17/2025 from 0200 to 03/17/2024 at 0318 . Downtime documentation of patient's care, including medication administrations, has been reconciled in the electronic record per guidelines. Refer to the
patient's paper chart under the miscellaneous tab to see printed paper medication records and downtime forms.
[2025-03-17 07:34] VITALS: BP 167/61
[2025-03-17] MEDS: LYRICA 75 MG PO ×2 (08:50→21:09)
[2025-03-17] MEDS: LEXAPRO 10 MG PO (08:50)
[2025-03-17] MEDS: PROCARDIA XL (EXTENDED RELEASE) 30 MG PO (08:50)
[2025-03-17] MEDS: INDERAL 10 MG PO ×2 (08:50→21:15)
[2025-03-17] MEDS: TRILEPTAL 300 MG PO ×2 (08:50→21:09)
[2025-03-17] MEDS: ROBINUL 1 MG PO ×2 (08:50→21:09)
[2025-03-17] MEDS: ASPIR LOW (ENTERIC COATED) 81 MG PO (08:50)
[2025-03-17 08:51] LABS: Hematocrit 30.2 % (37.0-47.0); Hemoglobin 10.5 g/dL (12.0-16.0); Mean Corp Hgb Conc. 34.8 g/dL (33.0-37.0); Mean Corpuscular Hgb 28.5 pg (27.0-31.0); Mean Corpuscular Volume 81.8 fL (81.0-99.0); Mean Platelet Volume 9.9 fL (7.4-10.4); Platelet Count 172 10^3/uL (130-400); Red Blood Cell Count 3.69 10^6/uL (4.20-5.40); Red Cell Dist. Width 13.7 % (11.5-14.5); White Blood Cell Count 6.7 10^3/uL (4.8-10.8)
[2025-03-17] MEDS: LAMICTAL 150 MG PO ×2 (08:51→21:09)
[2025-03-17 10:00] LABS: Blood Urea Nitrogen 24 mg/dl (7-17); Calcium 8.2 mg/dl (8.4-10.2); Carbon Dioxide 29 mmol/L (22-30); Chloride 99 mmol/L (98-107); Estimated Creatinine Clearance 39 ml/min; Glucose 88 mg/dl (70-99); Sodium 135 mmol/L (135-145)
--- NOTE | 2025-03-17 11:24 | W.PN.HOSP.TC ---
Today's Communication/Plan
-
Discharge to SNF today
Assessment / Plan
Assessment / Plan
1. Nausea/vomiting - improved
- No reported nausea vomiting episode after hospitalization
- Norovirus check negative
- BMP reviewed and no major electrolyte imbalance
- Will do further abdominal imaging if patient develops repeat episodes
- Question of medication also causing nausea vomiting although patient was getting same regimen for for 5 days in the hospital last admission without any problems.
2. Trigeminal neuralgia flare up - resolved
- Will continue patient preadmission regimen of baclofen/lamotrigine/oxcarbazepine/Lyrica
- Limit oxycodone with ongoing encephalopathy
- Neurology evaluation requested as patient have some confusion
3. Acute toxic metabolic encephalopathy - Improved
UTI
- COVID neg. No pulmonary complaints
- Questioning if related to polypharmacy, neurology recommendation requested for possible weaning of medication as possible
- Urinalysis showing pyuria and bacteria, not voicing any dysuria.
- Maintain on empiric rocephin
- Urine culture neg.
4. Possible PRES
- MRI brain showing increased signal intensity in occipital lobe region
- Question of possible subacute CVA versus PRES
- Repeat MRI brain with contrast continue to suggest possible press as an etiology. MRA head and neck did not show any acute abnormality
- Neurology after evaluation starting patient on dual antiplatelet therapy
- TTE done came back showed:
Normal left ventricular size and function. Normal regional wall motion. Mild
concentric left ventricular hypertrophy. LV ejection fraction is 60% by
volumetric assessment. Normal diastolic function.
Mitral valve opens normally. Thickened mitral valve leaflets. Mitral annular
calcification. Mild mitral regurgitation.
Mildly dilated left atrium.
Moderate to severe descending aorta calcified plaque.
There is no cardiac embolic source seen other than descending aorta calcified
plaque. If clinically indicated consider UMA.
5. Acute kidney injury -improving
- Ruled out urinary retention
- Creatinine jumped from 0.9 > 2.5 > 1.8 today
- Stop hydrochlorothiazide/losartan
- Maintain on IV fluid for today
5. Generalized anxiety
- Resume back xanax today
6. Dysphagia
- Repeat episode of dysphagia this admit
- VSE done and ST cleared for IDDSI 6 diet
7. Tongue swelling - resolved
- Patient had episode of tongue swelling last visit and was felt to be related to Magic mouthwash
- Last night repeat concern of same issue although no new medication provided
- Patient got IV Decadron and Benadryl, Benadryl made patient lived more confused
- Patient has been on losartan for a long while, any repeat episode and will have to be switched to different blood pressure medication
- Discussed with daughter that patient would benefit with follow-up with trade show specialist
DVT PPX - lovenox
Full code
Total time spent on today's encounter was 65 minutes which included time spent in counseling the patient/family regarding diagnosis and treatment plan as listed above, goals of care, and symptom management. Case was discussed with nursing staff,
specialists, and care coordinators/case management. All labs and imaging personally reviewed by me. Remainder the time spent in detailed review of previous records, lab data, imaging, and other medical provider documentation.
Anticipated Discharge: Today
Subjective/Interval History
-
Date of Service: March 17, 2025
Patient seen and examined at bedside, denies any chest pain or shortness of breath, no abdominal pain, no nausea, no vomiting, no diarrhea or constipation.
Objective Data
-
Labs:
Laboratory Results
03/17/25
07:38
WBC 6.7
Hgb 10.5 L
Hct 30.2 L
Plt Count 172
Sodium 135
Potassium 4.0
Chloride 99
Carbon Dioxide 29
BUN 24 H
Creatinine 1.0
Glucose 88
Calcium 8.2 L
Vital Signs:
Vital Signs
Temp Pulse Resp BP Pulse Ox
98.1 F 62 16 167/61 97
03/17/25 07:34 03/17/25 08:50 03/17/25 07:34 03/17/25 08:50 03/17/25 07:34
I&O
03/16/25 03/17/25 03/18/25
06:59 06:59 06:59
Intake Total 1920 / 1920 360 / 360
Output Total 650 / 650 150 / 150
Balance 1270 / 1270 210 / 210
Physical Exam
-
General: Well Developed, Well Nourished, No Apparent Distress and Comfortable
HEENT: Normocephalic, Atraumatic, Moist Mucous Membranes, No Ptosis, PERRLA and Nose Appears Normal
Respiratory: Clear to Auscultation and Non Labored Respirations
Cardiac: Regular Rhythm and S1/S2
Breast: Deferred by me
GI: Soft, Nontender, Nondistended and Normal Bowel Sounds
Genito-urinary: No Costovertebral Tender
Musculoskeletal: No Clubbing, No Cyanosis and No Edema
Skin: Warm
Neuro: Awake, Alert, Oriented, AO x 3 and No Motor Deficits
Psych: Calm
Data Reviewed
-
Diagnostic Radiology: Image personally visualized and interpreted and Report Reviewed by me
CT Scan: Image personally visualized and interpreted and Report Reviewed by me
Ultrasound: Image personally visualized and interpreted and Report Reviewed by me
MRI: Image personally visualized and interpreted and Report Reviewed by me
Medical Tests (Nuc Med, Echo etc): Image personally visualized and interpreted and Report Reviewed by me
Labs: Labs Reviewed by me
Old Records: Reviewed
[2025-03-17 11:46] VITALS: BP 177/86
[2025-03-17 11:55] VITALS: BP 165/78
[2025-03-17 15:07] VITALS: BP 138/53
[2025-03-17] MEDS: FLUSH (NSS) 1 FLUSH IV ×3 (17:20→17:24)
[2025-03-17] MEDS: STERILE WATER FOR INJECTION 10 ML IV (17:20)
[2025-03-17] MEDS: ROCEPHIN 1000 MG IV (17:20)
[2025-03-17] MEDS: LOVENOX 30 MG SC (17:21)
[2025-03-17] MEDS: LIPITOR 10 MG PO (21:09)
[2025-03-17] MEDS: XANAX 0.25 MG PO (23:07)
[2025-03-17 23:34] VITALS: BP 138/69
[2025-03-18 08:26] VITALS: BP 133/74
[2025-03-18 08:46] LABS: Hematocrit 31.6 % (37.0-47.0); Mean Corp Hgb Conc. 34.8 g/dL (33.0-37.0); Mean Corpuscular Hgb 28.8 pg (27.0-31.0); Mean Corpuscular Volume 82.7 fL (81.0-99.0); Mean Platelet Volume 9.8 fL (7.4-10.4); Platelet Count 188 10^3/uL (130-400); Red Blood Cell Count 3.82 10^6/uL (4.20-5.40); Red Cell Dist. Width 13.3 % (11.5-14.5); White Blood Cell Count 6.6 10^3/uL (4.8-10.8)
[2025-03-18] MEDS: LEXAPRO 10 MG PO (09:03)
[2025-03-18] MEDS: TRILEPTAL 300 MG PO ×2 (09:03→20:49)
[2025-03-18] MEDS: LYRICA 75 MG PO ×2 (09:03→20:50)
[2025-03-18] MEDS: ROBINUL 1 MG PO ×2 (09:04→20:49)
[2025-03-18] MEDS: LAMICTAL 150 MG PO ×2 (09:04→20:49)
[2025-03-18] MEDS: INDERAL 10 MG PO ×2 (09:04→20:50)
[2025-03-18] MEDS: PROCARDIA XL (EXTENDED RELEASE) 30 MG PO (09:04)
[2025-03-18] MEDS: ASPIR LOW (ENTERIC COATED) 81 MG PO (09:04)
[2025-03-18 09:19] LABS: Blood Urea Nitrogen 22 mg/dl (7-17); Calcium 8.4 mg/dl (8.4-10.2); Carbon Dioxide 30 mmol/L (22-30); Chloride 97 mmol/L (98-107); Estimated Creatinine Clearance 43 ml/min; Glucose 86 mg/dl (70-99); Potassium 4.4 mmol/L (3.5-5.1); Sodium 131 mmol/L (135-145); eGFR > 60.00
--- NOTE | 2025-03-18 10:14 | CM ---
Addendum entered by Lester Velez 03/18/25 15:19:
CM received call from Zachary Prell. CM made aware that fax number is incorrect and provided correct number
CM re faxed clinicals to [phone]. CM was told determination would be within an hour
Addendum entered by Lester Velez 03/18/25 11:22:
CM called provider services, spoke w/ Sarita who transferred call to utilization management to request auth
No live labor service representative to initiate auth with, directed to fax assisted auth request
CM faxed clinicals to [phone]
Post acute phone number: [phone]
Original Note:
Patient stable for d/c today. Met w/ patient bedside to review rehab facilities. [facility] and [facility] can accept, patient prefers [facility] but is okay w/ [facility] if [facility] has no beds.
CM spoke w/ Ailyn/[facility] admissions, confirmed bed availability today and over the weekend
Patient requires insurance auth, need updated therapy notes, PT subwarehouse supervisor notified. Will initiate auth once therapy notes are available
Spoke w/ daughter, Marjorie, shared that patient identified [facility], however, Marjorie stated she specifically asked CM yesterday not to refer to [facility]. Marjorie stated [facility] or [facility] is preferred. [facility] has no beds, [facility] can
accept today and over the weekend.
[facility]
Report: [phone]

Plan: [facility]; pending auth
[2025-03-18 10:39] VITALS: BP 175/80; PULSE 57; O2SAT 97
[2025-03-18 10:40] VITALS: BP 175/80
--- NOTE | 2025-03-18 13:07 | W.PN.HOSP.TC ---
Today's Communication/Plan
-
cleared for Dc
Assessment / Plan
Assessment / Plan
Impression:
Patient is a 79-year-old female with past medical history significant for essential hypertension, hyperlipidemia, trigeminal neuralgia, anxiety and IBS who presented to [facility] ED for evaluation of nausea, vomiting and right sided facial pain. Patient
with recent hospitalization for trigeminal neuralgia pain, multiple medication adjustments were made and patient discharged. Doses of Lamictal, oxcarbazepine and pregabalin were increased. As needed oxycodone was given. Pain was better on
discharge.
Likely that nausea and vomiting is secondary to increased doses of oxcarbazepine, Lamictal.
Assessment/plan:
Nausea/vomiting - improved
- No reported nausea vomiting episode after hospitalization
- Norovirus check negative
- BMP reviewed and no major electrolyte imbalance
- Will do further abdominal imaging if patient develops repeat episodes
- Question of medication also causing nausea vomiting although patient was getting same regimen for for 5 days in the hospital last admission without any problems.
Trigeminal neuralgia flare up - resolved
- Will continue patient preadmission regimen of baclofen/lamotrigine/oxcarbazepine/Lyrica
- Limit oxycodone with ongoing encephalopathy
- Neurology evaluation requested as patient have some confusion
Acute toxic metabolic encephalopathy - Improved
UTI
- COVID neg. No pulmonary complaints
- Questioning if related to polypharmacy, neurology recommendation requested for possible weaning of medication as possible
- Urinalysis showing pyuria and bacteria, not voicing any dysuria.
- Maintain on empiric rocephin
- Urine culture neg.
Possible PRES
- MRI brain showing increased signal intensity in occipital lobe region
- Question of possible subacute CVA versus PRES
- Repeat MRI brain with contrast continue to suggest possible press as an etiology. MRA head and neck did not show any acute abnormality
- Neurology after evaluation starting patient on dual antiplatelet therapy
- TTE done came back showed:
Normal left ventricular size and function. Normal regional wall motion. Mild
concentric left ventricular hypertrophy. LV ejection fraction is 60% by
volumetric assessment. Normal diastolic function.
Mitral valve opens normally. Thickened mitral valve leaflets. Mitral annular
calcification. Mild mitral regurgitation.
Mildly dilated left atrium.
Moderate to severe descending aorta calcified plaque.
There is no cardiac embolic source seen other than descending aorta calcified
plaque. If clinically indicated consider UMA.
Acute kidney injury -improving
- Ruled out urinary retention
- Creatinine jumped from 0.9 > 2.5 > 1.8 today
- Stop hydrochlorothiazide/losartan
- Maintain on IV fluid for today
Generalized anxiety
- Resume back xanax today
Dysphagia
- Repeat episode of dysphagia this admit
- VSE done and ST cleared for IDDSI 6 diet
Tongue swelling - resolved
- Patient had episode of tongue swelling last visit and was felt to be related to Magic mouthwash
- Last night repeat concern of same issue although no new medication provided
- Patient got IV Decadron and Benadryl, Benadryl made patient lived more confused
- Patient has been on losartan for a long while, any repeat episode and will have to be switched to different blood pressure medication
- Discussed with daughter that patient would benefit with follow-up with medical transport specialist.
CODE STATUS: Full code
DVT prophylaxis: Lovenox
Diet: Soft diet
Total time spent on today's encounter was 65 minutes which included time spent in counseling the patient/family regarding diagnosis and treatment plan as listed above, goals of care, and symptom management. Case was discussed with nursing staff,
specialists, and care coordinators/case management. All labs and imaging personally reviewed by me. Remainder the time spent in detailed review of previous records, lab data, imaging, and other medical provider documentation.
Anticipated Discharge: Today
Subjective/Interval History
-
Date of Service: March 18, 2025
Patient seen and examined at bedside, denies any chest pain or shortness of breath, no abdominal pain, no nausea, no vomiting, no diarrhea or constipation.
Waiting for insurance authorization for discharge to [facility].
Objective Data
-
Labs:
Laboratory Results
03/18/25
07:41
WBC 6.6
Hgb 11.0 L
Hct 31.6 L
Plt Count 188
Sodium 131 L
Potassium 4.4
Chloride 97 L
Carbon Dioxide 30
BUN 22 H
Creatinine 0.9
Glucose 86
Calcium 8.4
Vital Signs:
Vital Signs
Temp Pulse Resp BP Pulse Ox
97.9 F 60 18 133/74 97
03/18/25 08:26 03/18/25 09:04 03/18/25 08:26 03/18/25 09:04 03/18/25 08:26
I&O
03/17/25 03/18/25 03/19/25
06:59 06:59 06:59
Intake Total 360 / 360 960 / 960
Output Total 150 / 150
Balance 210 / 210 960 / 960
Physical Exam
-
General: Well Developed, Well Nourished, No Apparent Distress and Comfortable
HEENT: Normocephalic, Atraumatic, Moist Mucous Membranes, No Ptosis, PERRLA and Nose Appears Normal
Respiratory: Clear to Auscultation and Non Labored Respirations
Cardiac: Regular Rhythm and S1/S2
Breast: Deferred by me
GI: Soft, Nontender, Nondistended and Normal Bowel Sounds
Genito-urinary: No Costovertebral Tender
Musculoskeletal: No Clubbing, No Cyanosis and No Edema
Skin: Warm
Neuro: Awake, Alert, Oriented, AO x 3 and No Motor Deficits
Psych: Calm
Data Reviewed
-
Diagnostic Radiology: Image personally visualized and interpreted and Report Reviewed by me
CT Scan: Image personally visualized and interpreted and Report Reviewed by me
Ultrasound: Image personally visualized and interpreted and Report Reviewed by me
MRI: Image personally visualized and interpreted and Report Reviewed by me
Medical Tests (Nuc Med, Echo etc): Image personally visualized and interpreted and Report Reviewed by me
Labs: Labs Reviewed by me
Old Records: Reviewed
[2025-03-18 16:16] VITALS: BP 138/77
[2025-03-18] MEDS: LOVENOX 30 MG SC (17:00)
[2025-03-18] MEDS: FLUSH (NSS) IV ×2 (17:01→17:02)
[2025-03-18] MEDS: STERILE WATER FOR INJECTION IV (17:01)
[2025-03-18] MEDS: LIPITOR 10 MG PO (21:00)
[2025-03-18] MEDS: XANAX 0.25 MG PO (22:21)
[2025-03-18 23:05] VITALS: BP 141/57
[2025-03-19 07:08] LABS: Hematocrit 30.2 % (37.0-47.0); Hemoglobin 10.8 g/dL (12.0-16.0); Mean Corp Hgb Conc. 35.8 g/dL (33.0-37.0); Mean Corpuscular Hgb 28.6 pg (27.0-31.0); Mean Corpuscular Volume 80.1 fL (81.0-99.0); Mean Platelet Volume 9.9 fL (7.4-10.4); Platelet Count 195 10^3/uL (130-400); Red Blood Cell Count 3.77 10^6/uL (4.20-5.40); Red Cell Dist. Width 13.1 % (11.5-14.5); White Blood Cell Count 6.7 10^3/uL (4.8-10.8)
[2025-03-19 07:28] LABS: Blood Urea Nitrogen 18 mg/dl (7-17); Calcium 8.3 mg/dl (8.4-10.2); Carbon Dioxide 28 mmol/L (22-30); Chloride 95 mmol/L (98-107); Estimated Creatinine Clearance 43 ml/min; Glucose 95 mg/dl (70-99); Potassium 4.7 mmol/L (3.5-5.1); Sodium 129 mmol/L (135-145); eGFR > 60.00
[2025-03-19 07:55] VITALS: BP 165/71
--- NOTE | 2025-03-19 08:31 | CM ---
Auth approved beginning 03/18. Nurse is Keisha: ext. [phone].. Auth: [id number]
CM spoke w/ [facility] admissions, agreeable for patient to admit today. Provided auth info. Requested 2 pm transport time
Spoke w/ daughter, Marjorie, agreeable to d/c to [facility]. Marjorie stated she will transport patient since she does not qualify for an ambulance. Advised that SNF is asking for 2 pm transport time.
Updated hospitalist
IMM verbally reviewed, patient given copy, copy on chart
[facility]
Report: [phone]

Plan: D/c today to [facility]. Daughter will transport
[2025-03-19] MEDS: PROCARDIA XL (EXTENDED RELEASE) 30 MG PO (09:01)
[2025-03-19] MEDS: LEXAPRO 10 MG PO (09:02)
[2025-03-19] MEDS: TRILEPTAL 300 MG PO (09:02)
[2025-03-19] MEDS: LAMICTAL 150 MG PO (09:02)
[2025-03-19] MEDS: ROBINUL 1 MG PO (09:02)
[2025-03-19] MEDS: ASPIR LOW (ENTERIC COATED) 81 MG PO (09:03)
[2025-03-19] MEDS: LYRICA 75 MG PO (09:03)
[2025-03-19] MEDS: INDERAL 10 MG PO (09:03)
--- NOTE | 2025-03-19 13:04 | W.PN.HOSP.TC ---
Today's Communication/Plan
-
Discharge to SNF today
Assessment / Plan
Assessment / Plan
Impression:
Patient is a 79-year-old female with past medical history significant for essential hypertension, hyperlipidemia, trigeminal neuralgia, anxiety and IBS who presented to [facility] ED for evaluation of nausea, vomiting and right sided facial pain. Patient
with recent hospitalization for trigeminal neuralgia pain, multiple medication adjustments were made and patient discharged. Doses of Lamictal, oxcarbazepine and pregabalin were increased. As needed oxycodone was given. Pain was better on
discharge.
Likely that nausea and vomiting is secondary to increased doses of oxcarbazepine, Lamictal.
Assessment/plan:
Nausea/vomiting - improved
- No reported nausea vomiting episode after hospitalization
- Norovirus check negative
- BMP reviewed and no major electrolyte imbalance
- Will do further abdominal imaging if patient develops repeat episodes
- Question of medication also causing nausea vomiting although patient was getting same regimen for for 5 days in the hospital last admission without any problems.
Trigeminal neuralgia flare up - resolved
- Will continue patient preadmission regimen of baclofen/lamotrigine/oxcarbazepine/Lyrica
- Limit oxycodone with ongoing encephalopathy
- Neurology evaluation requested as patient have some confusion
Acute toxic metabolic encephalopathy - Improved
UTI
- COVID neg. No pulmonary complaints
- Questioning if related to polypharmacy, neurology recommendation requested for possible weaning of medication as possible
- Urinalysis showing pyuria and bacteria, not voicing any dysuria.
- Maintain on empiric rocephin
- Urine culture neg.
Possible PRES
- MRI brain showing increased signal intensity in occipital lobe region
- Question of possible subacute CVA versus PRES
- Repeat MRI brain with contrast continue to suggest possible press as an etiology. MRA head and neck did not show any acute abnormality
- Neurology after evaluation starting patient on dual antiplatelet therapy
- TTE done came back showed:
Normal left ventricular size and function. Normal regional wall motion. Mild
concentric left ventricular hypertrophy. LV ejection fraction is 60% by
volumetric assessment. Normal diastolic function.
Mitral valve opens normally. Thickened mitral valve leaflets. Mitral annular
calcification. Mild mitral regurgitation.
Mildly dilated left atrium.
Moderate to severe descending aorta calcified plaque.
There is no cardiac embolic source seen other than descending aorta calcified
plaque. If clinically indicated consider UMA.
Acute kidney injury -improving
- Ruled out urinary retention
- Creatinine jumped from 0.9 > 2.5 > 1.8 today
- Stop hydrochlorothiazide/losartan
- Maintain on IV fluid for today
Generalized anxiety
- Resume back xanax today
Dysphagia
- Repeat episode of dysphagia this admit
- VSE done and ST cleared for IDDSI 6 diet
Tongue swelling - resolved
- Patient had episode of tongue swelling last visit and was felt to be related to Magic mouthwash
- Last night repeat concern of same issue although no new medication provided
- Patient got IV Decadron and Benadryl, Benadryl made patient lived more confused
- Patient has been on losartan for a long while, any repeat episode and will have to be switched to different blood pressure medication
- Discussed with daughter that patient would benefit with follow-up with outcomes specialist.
CODE STATUS: Full code
DVT prophylaxis: Lovenox
Diet: Soft diet
Total time spent on today's encounter was 65 minutes which included time spent in counseling the patient/family regarding diagnosis and treatment plan as listed above, goals of care, and symptom management. Case was discussed with nursing staff,
specialists, and care coordinators/case management. All labs and imaging personally reviewed by me. Remainder the time spent in detailed review of previous records, lab data, imaging, and other medical provider documentation.
Anticipated Discharge: Today
Subjective/Interval History
-
Date of Service: March 19, 2025
Patient seen and examined at bedside, denies any chest pain or shortness of breath, no abdominal pain, no nausea, no vomiting, no diarrhea or constipation.
Objective Data
-
Labs:
Laboratory Results
03/19/25
06:50
WBC 6.7
Hgb 10.8 L
Hct 30.2 L
Plt Count 195
Sodium 129 L
Potassium 4.7
Chloride 95 L
Carbon Dioxide 28
BUN 18 H
Creatinine 0.9
Glucose 95
Calcium 8.3 L
Vital Signs:
Vital Signs
Temp Pulse Resp BP Pulse Ox
98.1 F 63 18 165/71 94
03/19/25 07:55 03/19/25 09:03 03/19/25 07:55 03/19/25 09:03 03/19/25 07:55
I&O
03/18/25 03/19/25 03/20/25
06:59 06:59 06:59
Intake Total 960 / 960 480 / 480
Balance 960 / 960 480 / 480
Physical Exam
-
General: Well Developed, Well Nourished, No Apparent Distress and Comfortable
HEENT: Normocephalic, Atraumatic, Moist Mucous Membranes, No Ptosis, PERRLA and Nose Appears Normal
Respiratory: Clear to Auscultation and Non Labored Respirations
Cardiac: Regular Rhythm and S1/S2
Breast: Deferred by me
GI: Soft, Nontender, Nondistended and Normal Bowel Sounds
Genito-urinary: No Costovertebral Tender
Musculoskeletal: No Clubbing, No Cyanosis and No Edema
Skin: Warm
Neuro: Awake, Alert, Oriented, AO x 3 and No Motor Deficits
Psych: Calm
Data Reviewed
-
Diagnostic Radiology: Image personally visualized and interpreted and Report Reviewed by me
CT Scan: Image personally visualized and interpreted and Report Reviewed by me
Ultrasound: Image personally visualized and interpreted and Report Reviewed by me
MRI: Image personally visualized and interpreted and Report Reviewed by me
Medical Tests (Nuc Med, Echo etc): Image personally visualized and interpreted and Report Reviewed by me
Labs: Labs Reviewed by me
Old Records: Reviewed
--- NOTE | 2025-03-19 13:10 | W.DCSUMMARY ---
Discharge Summary
Discharge Data
Date of Admission: 03/16/25
Date of Discharge: 03/19/25
-
Pending Results: No
Hospital Course
Hospital course
Patient is a 79-year-old female with past medical history significant for essential hypertension, hyperlipidemia, trigeminal neuralgia, anxiety and IBS who presented to [facility] ED for evaluation of nausea, vomiting and right sided facial pain. Patient
with recent hospitalization for trigeminal neuralgia pain, multiple medication adjustments were made and patient discharged. Doses of Lamictal, oxcarbazepine and pregabalin were increased. As needed oxycodone was given. Pain was better on
discharge.
Likely that nausea and vomiting is secondary to increased doses of oxcarbazepine, Lamictal.
During hospitalization patient was treated from the follwing
Nausea/vomiting - improved
- No reported nausea vomiting episode after hospitalization
- Norovirus check negative
- BMP reviewed and no major electrolyte imbalance
- Will do further abdominal imaging if patient develops repeat episodes
- Question of medication also causing nausea vomiting although patient was getting same regimen for for 5 days in the hospital last admission without any problems.
Trigeminal neuralgia flare up - resolved
- Will continue patient preadmission regimen of baclofen/lamotrigine/oxcarbazepine/Lyrica
- Limit oxycodone with ongoing encephalopathy
- Neurology evaluation requested as patient have some confusion
Acute toxic metabolic encephalopathy - Improved
UTI
- COVID neg. No pulmonary complaints
- Questioning if related to polypharmacy, neurology recommendation requested for possible weaning of medication as possible
- Urinalysis showing pyuria and bacteria, not voicing any dysuria.
- Maintain on empiric rocephin
- Urine culture neg.
Possible PRES
- MRI brain showing increased signal intensity in occipital lobe region
- Question of possible subacute CVA versus PRES
- Repeat MRI brain with contrast continue to suggest possible press as an etiology. MRA head and neck did not show any acute abnormality
- Neurology after evaluation starting patient on dual antiplatelet therapy
- TTE done came back showed:
Normal left ventricular size and function. Normal regional wall motion. Mild
concentric left ventricular hypertrophy. LV ejection fraction is 60% by
volumetric assessment. Normal diastolic function.
Mitral valve opens normally. Thickened mitral valve leaflets. Mitral annular
calcification. Mild mitral regurgitation.
Mildly dilated left atrium.
Moderate to severe descending aorta calcified plaque.
There is no cardiac embolic source seen other than descending aorta calcified
plaque. If clinically indicated consider UMA.
Acute kidney injury -improving
- Ruled out urinary retention
- Creatinine jumped from 0.9 > 2.5 > 1.8 today
- Stop hydrochlorothiazide/losartan
- Maintain on IV fluid for today
Generalized anxiety
- Resume back xanax today
Dysphagia
- Repeat episode of dysphagia this admit
- VSE done and ST cleared for IDDSI 6 diet
Tongue swelling - resolved
- Patient had episode of tongue swelling last visit and was felt to be related to Magic mouthwash
- Last night repeat concern of same issue although no new medication provided
- Patient got IV Decadron and Benadryl, Benadryl made patient lived more confused
- Patient has been on losartan for a long while, any repeat episode and will have to be switched to different blood pressure medication
- Discussed with daughter that patient would benefit with follow-up with color specialist.
CODE STATUS: Full code
DVT prophylaxis: Lovenox
Diet: Soft diet
Total time spent on today's encounter was 40 minutes which included time spent in counseling the patient/family regarding diagnosis and treatment plan as listed above, goals of care, and symptom management. Case was discussed with nursing staff,
specialists, and care coordinators/case management. All labs and imaging personally reviewed by me. Remainder the time spent in detailed review of previous records, lab data, imaging, and other medical provider documentation.
Anticipated Discharge: Today
Discharge Plan
-
Patient Disposition: [facility]/SNF
Discharge Diagnosis/Procedures: Acute metabolic encephalopathy
PRES syndrome
Acute renal failure
Condition: Good
Diet: Regular
Additional Diets: Soft diet, bite-size
Activity: With assistance and As tolerated
Other Services: PT, OT and ST
Referrals:
Chris Jackson, DO [Family Provider] -
Moris Mark MD [Active] -
Trisha Padilla MD [Active] -
Prescriptions:
New
aspirin 81 mg Tablet,Delayed Release (Dr/Ec)
81 mg PO DAILY Qty: 0 0RF
nifedipine 30 mg Tablet Extended Release
30 mg PO DAILY Qty: 0 0RF
Continued
simvastatin 20 mg tablet
20 mg PO HS
escitalopram oxalate 10 mg tablet
10 mg PO DAILY
hydrochlorothiazide 25 mg tablet
25 mg PO DAILY Qty: 30 0RF
lamotrigine 100 mg Tablet
150 mg PO BID Qty: 6 1RF
losartan 25 mg Tablet
25 mg PO DAILY Qty: 30 0RF
pregabalin 75 mg Capsule
75 mg PO BID Qty: 60 2RF
oxcarbazepine 300 mg tablet
300 mg PO BID
baclofen 5 mg tablet
5 mg PO TIDPRN PRN (Reason: trigeminal neuralgia/jaw pain)
alprazolam 0.25 mg tablet
0.25 mg PO HS Qty: 3 0RF
Changed
oxycodone 5 mg tablet
5 mg PO Q8HPRN PRN (Reason: severe pain) Qty: 5 0RF
Discharge Orders:
Discharge Patient (As Directed); Ordered 03/17/25
Ordered By: Earline Castañeda
Discharge Date and Time
Print Language: [id number]
[2025-03-19 14:33] VITALS: BP 148/75
== END 2025-03-19 15:29 | DRG 73 ==
LOC: 4 EAST ACU 07:59
PROVIDERS: Hospitalist; Nurse Practitioner Family; ADMITTING PHYSICIAN Hospitalist; ATTENDING PHYSICIAN General Practice; CONSULT PHYSICIAN Internal Medicine; CONSULT PHYSICIAN Psychiatry & Neurology Neurology; EMERGENCY PHYSICIAN Emergency Medicine; FAMILY PHYSICIAN Family Medicine
DX: G50.0 Trigeminal neuralgia (principal); G92.8 Other toxic encephalopathy; I67.83 Posterior reversible encephalopathy syndrome; N17.9 Acute kidney failure, unspecified; N39.0 Urinary tract infection, site not specified; R11.2 Nausea with vomiting, unspecified; E78.00 Pure hypercholesterolemia, unspecified; N18.9 Chronic kidney disease, unspecified; I12.9 Hypertensive chronic kidney disease with stage 1 through stage 4 chronic kidney disease, or unspecified chronic kidney disease; K58.9 Irritable bowel syndrome, unspecified; F41.1 Generalized anxiety disorder; K11.7 Disturbances of salivary secretion; I34.81 Nonrheumatic mitral (valve) annulus calcification; I70.0 Atherosclerosis of aorta; R13.10 Dysphagia, unspecified; I95.9 Hypotension, unspecified; F32.9 Major depressive disorder, single episode, unspecified; N28.1 Cyst of kidney, acquired; E55.9 Vitamin D deficiency, unspecified; M81.0 Age-related osteoporosis without current pathological fracture; R76.8 Other specified abnormal immunological findings in serum; G20.C Parkinsonism, unspecified; Z90.49 Acquired absence of other specified parts of digestive tract; Z82.3 Family history of stroke; Z88.8 Allergy status to other drugs, medicaments and biological substances; Z11.52 Encounter for screening for COVID-19
CPT/HCPCS: 70544; 70551; 70553; 72156; 74230; 76775; 80048; 80053; 80175; 80306; 80307; 81003; 81015; 82570; 82607; 84156; 84300; 84443; 85025; 85027; 87086; 87798; 87811; 92526; 92610; 92611; 93005; 93306; 96374; 96375; 96376; 97116; 97163; 97167; 97535; 99284; A9575

== ENCOUNTER 2025-05-22 08:59 | Emergency (ER) | payer OTHER, SELFPAY ==
[2025-05-22 09:07] VITALS: BP 116/50
--- NOTE | 2025-05-22 09:28 | ED.GENMED ---
History of Present Illness
General
Chief Complaint: Facial Problem
Source: patient and records
Time Seen by Provider: 05/22/25 09:20
History of Present Illness
History of Present Illness:
79-year-old female with past medical history of idiopathic trigeminal neuralgia, hypertension, hyperlipidemia and anxiety and IBS presenting to the emergency department for evaluation of right-sided facial pain typical of her usual trigeminal
neuralgia refractory to her p.o. pain medications including oxycodone and Tylenol which she took around 4 AM with no relief. Patient has noted previous admissions here for pain control secondary to her trigeminal neuralgia, has had multiple imaging
studies performed with patient usually requiring IV medication for pain relief and sometimes admission due to continued pain. Presently she states her symptoms are not any different than her usual flareup. Denies any fevers, chills, rigors,
traumatic injuries, visual disturbances, focal weakness or numbness or any other concerns.
Past History
Past History
ED Past Medical History: HTN, Hypercholesterolemia, Psychiatric (Anxiety) and Other (Chronic trigeminal neuralgia Since 2019; Irritable bowel syndrome)
ED Past Surgical History: Cholecystectomy and Tonsilectomy
Social History
Tobacco: Non-smoker
Alcohol: None
Drug: None
Personal:
Living: with family
Employment: Retired
Family History
Family History: Other (Reviewed and noncontributory)
Review of Systems
Review of Systems
All Other Systems: ROS reviewed and negative except as documented in HPI and ROS
Phy Exam
Physical Exam
Physical Exam:
GENERAL: Alert , appears uncomfortable, speaking full sentences however seems to be attempting to not move the right side of her mouth/face secondary to the pain
EYE: conjunctiva clear, pupils 4 mm bilateral, EOMI, no proptosis
NECK: Supple, no significant adenopathy.
ENT: o/p clr, mmm. Few dental caries but overall fair dentition, no abscesses
CARDIAC: Regular rate and rhythm
LUNGS: Clear breath sounds bilaterally, no acute respiratory distress, no wheezes/rales/rhonchi
NEUROLOGICAL: Alert and oriented
SKIN: Warm and dry, skin intact.
MUSCULOSKELETAL: well perfused.
PSYCH: Normal and appropriate interaction.
Scores
Heart Failure Risk
Heart Failure Risk Score: Not Applicable
Heart Score for Chest Pain Patients
STEMI patient?: Not applicable
Withdrawal Assessment of Alcohol
Withdrawal Assessment Completed?: Not applicable
Course
Orders/Labs/Results
Orders:
Orders
05/22/25 09:27
HYDROmorphone [Dilaudid] 0.5 mg IV NOW STA
05/22/25 09:46
Basic Metabolic Panel Urgent
CRP [C-Reactive Protein] Urgent
Complete Blood Count/With Diff Urgent
ESR [Erythrocyte Sed Rate] Urgent
Abnormal Lab Results
05/22/25
09:46
RBC 3.65 L 10^6/uL
(4.20-5.40)
Hgb 10.8 L g/dL
(12.0-16.0)
Hct 32.3 L %
(37.0-47.0)
RDW 14.8 H %
(11.5-14.5)
Monocytes % 9.9 H %
(1.7-9.3)
ESR 26 H mm/hour
(0-20)
Chloride 112 H mmol/L
(98-107)
BUN 24 H mg/dl
(7-17)
C-Reactive Protein 12.40 H mg/L
(0.0-10.00)
05/22/25 09:46
05/22/25 09:46
Vital Signs
Initial and Last Documented VS:
Initial Vital Signs
Temp Pulse Resp BP Pulse Ox
97.4 F 65 18 116/50 95
05/22/25 09:07 05/22/25 09:07 05/22/25 09:07 05/22/25 09:07 05/22/25 09:07
Last Documented Vital Signs
Temp Pulse Resp BP Pulse Ox
97.4 F 57 18 87/51 99
05/22/25 09:07 05/22/25 12:21 05/22/25 09:07 05/22/25 12:21 05/22/25 11:27
MDM/Problems Addressed
Differential Diagnosis Includes:
- Exacerbation of pain from trigeminal neuralgia
- Shingles
- Early Gillis's palsy/Lyme
- Giant cell arteritis
- Chronic pain exacerbation
- Medication intolerance
- Less concern for a vascular etiology
- Migraine headache
MDM/Problems Addressed:
79-year-old female presented to ER for evaluation of what she believes to be an exacerbation of her pain secondary to trigeminal neuralgia. Attempted pain relief with oxycodone and Tylenol this morning but without any relief. Patient has had
multiple admissions here with last in the end of February requiring a multi day visit for pain control as well as had MRI MRA to further evaluate, questionably had press syndrome on her last visit, patient does not appear to have any altered mental
status/Ancef pathic symptoms today. There is no sign of angioedema which she has also experienced in the past. Will check labs, treat pain with IV Dilaudid which has seemed to have helped patient in the past. Disposition pending
Chronic conditions affecting care: Neurological disorder (Trigeminal neuralgia)
Acute Exacerbation and/or Progression of Chronic Illness: Neurological disorder
*Pulse Oximetry
SaO2: 95
Oxygen Mode of Delivery: Room air
Patient hypoxic: no
*Critical Care Note
Total Time (30-74mins, 75-104mins- exclusive of procedures): Not Applicable
Data Reviewed
Review of Other/Old Records Reveals: Labs, Records, Radiology Studies and Discharge Summary
Source: patient and records
Patient Management
Escalation/DeEscalation of care consider admission/obs:
On multiple reevaluations patient is noting improved pain. We discussed given the chronic nature of her symptoms that total pain resolution would be unlikely. Patient is currently undergoing radiation treatments and is in the second week of this
and was told that it would likely take some time to have resolution of her pain following the procedures. I did offer to keep patient in the ER to continue monitoring and further pain control as needed but patient does feel comfortable being
discharged home. Family feels comfortable taking the patient home. Aware of return precautions to the ER.
ED Attending Note
-
Portions of this chart may have been created with voice recognition software.� Occasional wrong word or��sound alike� substitutions may have occurred due to the inherent limitations of voice recognition software.
Discharge Plan
Departure
Patient Disposition: Home (Routine Discharge)
Date of Disposition: 05/22/25
Time of Disposition: 11:45
Patient with high blood pressure during this ER visit?: No
Discharge Problem:
Trigeminal neuralgia, Chronic pain syndrome
Instructions: Trigeminal neuralgia
Prescriptions:
No Action
simvastatin 20 mg tablet
20 mg PO HS
escitalopram oxalate 10 mg tablet
10 mg PO DAILY
hydrochlorothiazide 25 mg tablet
25 mg PO DAILY Qty: 30 0RF
lamotrigine 100 mg Tablet
150 mg PO BID Qty: 6 1RF
losartan 25 mg Tablet
25 mg PO DAILY Qty: 30 0RF
pregabalin 75 mg Capsule
75 mg PO BID Qty: 60 2RF
oxcarbazepine 300 mg tablet
300 mg PO BID
baclofen 5 mg tablet
5 mg PO TIDPRN PRN (Reason: trigeminal neuralgia/jaw pain)
aspirin 81 mg Tablet,Delayed Release (Dr/Ec)
81 mg PO DAILY Qty: 0 0RF
nifedipine 30 mg Tablet Extended Release
30 mg PO DAILY Qty: 0 0RF
alprazolam 0.25 mg tablet
0.25 mg PO HS Qty: 3 0RF
oxycodone 5 mg tablet
5 mg PO Q8HPRN PRN (Reason: severe pain) Qty: 5 0RF
Referrals:
Chris Jackson DO [Family Provider, Family Practice]
Interventions
Interventions:
*Risk Screen - Suicide Last Done: 05/22/25 09:10
*Neglect/Abuse Screening Last Done: 05/22/25 09:10
Discharge Date and Time
Print Language: ITALIAN
[2025-05-22] MEDS: DILAUDID 0.5 MG IV (09:47)
[2025-05-22 10:00] LABS: % Basophils 0.8 % (0-2); % Eosinophils 4.1 % (0-6); % Immature Granulocytes 0.4 % (0-0.5); % Lymphocytes 27.9 % (20.5-51.1); % Monocytes 9.9 % (1.7-9.3); % Neutrophils 56.9 % (42.2-75.2); Absolute Eosinophils 0.2 10^3/uL (0-0.7); Absolute Lymphocytes 1.4 10^3/uL (1.2-3.4); Absolute Monocytes 0.5 10^3/uL (0.1-0.6); Absolute Neutrophils 2.8 10^3/uL (1.4-6.5); Hematocrit 32.3 % (37.0-47.0); Hemoglobin 10.8 g/dL (12.0-16.0); Mean Corp Hgb Conc. 33.4 g/dL (33.0-37.0); Mean Corpuscular Hgb 29.6 pg (27.0-31.0); Mean Corpuscular Volume 88.5 fL (81.0-99.0); Mean Platelet Volume 9.9 fL (7.4-10.4); Nucleated Red Blood Cells % 0 %; Platelet Count 258 10^3/uL (130-400); Red Blood Cell Count 3.65 10^6/uL (4.20-5.40); Red Cell Dist. Width 14.8 % (11.5-14.5); White Blood Cell Count 4.9 10^3/uL (4.8-10.8)
[2025-05-22 10:15] LABS: Blood Urea Nitrogen 24 mg/dl (7-17); Calcium 8.7 mg/dl (8.4-10.2); Carbon Dioxide 28 mmol/L (22-30); Chloride 112 mmol/L (98-107); Glucose 85 mg/dl (70-99); Potassium 3.8 mmol/L (3.5-5.1); Sodium 145 mmol/L (135-145)
[2025-05-22 10:22] LABS: Erythrocyte Sed Rate 26 mm/hour (0-20)
[2025-05-22 11:30] VITALS: BP 93/41
[2025-05-22 11:45] VITALS: BP 104/72
[2025-05-22 12:00] VITALS: BP 93/45
[2025-05-22 12:21] VITALS: BP 87/51
== END 2025-05-22 11:45 | disposition home or self-care (01) ==
LOC: EMR 08:59
PROVIDERS: Physician Assistant Medical; EMERGENCY PHYSICIAN Emergency Medicine; FAMILY PHYSICIAN Family Medicine
DX: G50.0 Trigeminal neuralgia (principal); G89.4 Chronic pain syndrome; I10 Essential (primary) hypertension; E78.00 Pure hypercholesterolemia, unspecified; Z90.49 Acquired absence of other specified parts of digestive tract
CPT/HCPCS: 96374; 99284; 80048; 85025; 85652; 86140

== ENCOUNTER → 2025-06-29 08:03 | Outpatient (REF) | payer OTHER, SELFPAY ==
[2025-06-29 09:58] LABS: HDL Cholesterol 49 mg/dl; LDL Cholesterol, Calculated 72 mg/dl; Very Low Density Lipoprotein 19 mg/dl (0-30)
[2025-06-29 10:06] LABS: Glycohemoglobin (HgbA1c) 5.2 % (4.0-5.6)
== END ==
LOC: HWRAD 08:03
PROVIDERS: ATTENDING PHYSICIAN Nurse Practitioner Adult Health; FAMILY PHYSICIAN Family Medicine
DX: I63.9 Cerebral infarction, unspecified (principal); G51.8 Other disorders of facial nerve; R25.1 Tremor, unspecified; R76.8 Other specified abnormal immunological findings in serum; E55.9 Vitamin D deficiency, unspecified
CPT/HCPCS: 36415; 80061; 83036; 93880

== ENCOUNTER 2025-09-02 12:54 | Emergency (ER) | payer OTHER, SELFPAY ==
[2025-09-02 12:55] VITALS: BP 179/77
[2025-09-02 15:32] VITALS: BP 151/61; BMI 26.9
--- NOTE | 2025-09-02 15:41 | ED.GENMED ---
History of Present Illness
General
Chief Complaint: Jaw Pain
Source: patient
Time Seen by Provider: 09/02/25 15:31
History of Present Illness
History of Present Illness:
80-year-old female presents to the emergency room complaining of exacerbation of her trigeminal neuralgia pain. Patient is having bolts of pain in her left jaw similar to previous exacerbations. She was actually admitted here several months ago
for the pain and had multiple medications titrated. Currently she is taking 4 medications help control her symptoms. She uses oxycodone for breakthrough pain. Patient only had to take oxycodone 3 times in July. Over the past week she has
been taking it once or twice a day without any significant change in the pain. Unclear what may have triggered this latest exacerbation. Patient did have gamma knife treatment performed in April.
Past History
Past History
ED Past Medical History: HTN, Hypercholesterolemia, Psychiatric (Anxiety) and Other (Chronic trigeminal neuralgia Since 2019; Irritable bowel syndrome)
ED Past Surgical History: Cholecystectomy and Tonsilectomy
Social History
Tobacco: Non-smoker
Alcohol: None
Drug: None
Personal:
Living: with family
Employment: Retired
Family History
Family History: Other (Reviewed and noncontributory)
Phy Exam
Physical Exam
Physical Exam:
General: Awake, Alert, Oriented X3. No acute distress.
Vitals: unremarkable
Head: Atraumatic
Eyes: Pupils equal, EOMI
Throat: Airway intact, no exudates
Neck: Trachea midline
Lungs: Clear and equal b/l
Heart: Regular rate, no murmurs
Abd: Soft, Nontender, No pulsatile mass
Neuro: Nonfocal
Skin: Warm, dry, scattered raised, erythematous plaques mostly on her lower extremities but there are a few on her upper extremities and back. Lower extremity lesions are excoriated. They have been present for the past several weeks.
Extremities: pulses equal b/l, no edema
Course
Orders/Labs/Results
Orders:
Orders
09/02/25 15:40
HYDROmorphone [Dilaudid] 0.5 mg IV NOW STA
09/02/25 15:47
Basic Metabolic Panel Urgent
Complete Blood Count/With Diff Urgent
09/02/25 18:23
HYDROmorphone [Dilaudid] 0.5 mg IV NOW STA
Abnormal Lab Results
09/02/25
15:47
RBC 3.81 L 10^6/uL
(4.20-5.40)
Hgb 10.9 L g/dL
(12.0-16.0)
Hct 32.7 L %
(37.0-47.0)
BUN 23 H mg/dl
(7-17)
09/02/25 15:47
09/02/25 15:47
Vital Signs
Initial and Last Documented VS:
Initial Vital Signs
Temp Pulse Resp BP Pulse Ox
97.6 F 65 16 179/77 97
09/02/25 12:55 09/02/25 12:55 09/02/25 12:55 09/02/25 12:55 09/02/25 12:55
Last Documented Vital Signs
Temp Pulse Resp BP Pulse Ox
98.1 F 58 20 121/83 98
09/02/25 19:09 09/02/25 19:09 09/02/25 19:09 09/02/25 19:09 09/02/25 19:09
MDM/Problems Addressed
Differential Diagnosis Includes:
Exacerbation of trigeminal neuralgia, TMJ, dental infection
MDM/Problems Addressed:
Patient presents with an exacerbation of trigeminal neuralgia. Patient treated with some IV Dilaudid which is what has helped her in the past. She is already on multiple oral medications as an outpatient. We were able to obtain Sobo for pain
control. Recommend discharge and continued her outpatient medication.
*Pulse Oximetry
SaO2: 98
Oxygen Mode of Delivery: Room air
Patient hypoxic: no
*Critical Care Note
Total Time (30-74mins, 75-104mins- exclusive of procedures): Not Applicable
ED Attending Note
-
Portions of this chart may have been created with voice recognition software.� Occasional wrong word or��sound alike� substitutions may have occurred due to the inherent limitations of voice recognition software.
Discharge Plan
Departure
Patient Disposition: Home (Routine Discharge)
Date of Disposition: 09/02/25
Time of Disposition: 19:44
Patient with high blood pressure during this ER visit?: No
Condition: Good
Discharge Problem:
Idiopathic trigeminal neuralgia
Instructions: Trigeminal neuralgia
Prescriptions:
No Action
simvastatin 20 mg tablet
20 mg PO HS
escitalopram oxalate 10 mg tablet
10 mg PO DAILY
hydrochlorothiazide 25 mg tablet
25 mg PO DAILY Qty: 30 0RF
lamotrigine 100 mg Tablet
150 mg PO BID Qty: 6 1RF
losartan 25 mg Tablet
25 mg PO DAILY Qty: 30 0RF
pregabalin 75 mg Capsule
75 mg PO BID Qty: 60 2RF
oxcarbazepine 300 mg tablet
300 mg PO BID
baclofen 5 mg tablet
5 mg PO TIDPRN PRN (Reason: trigeminal neuralgia/jaw pain)
aspirin 81 mg Tablet,Delayed Release (Dr/Ec)
81 mg PO DAILY Qty: 0 0RF
nifedipine 30 mg Tablet Extended Release
30 mg PO DAILY Qty: 0 0RF
alprazolam 0.25 mg tablet
0.25 mg PO HS Qty: 3 0RF
oxycodone 5 mg tablet
5 mg PO Q8HPRN PRN (Reason: severe pain) Qty: 5 0RF
Referrals:
Chris Jackson DO [Family Provider, Family Practice]
Interventions
Interventions:
*Risk Screen - Suicide Last Done: 09/02/25 12:55
*General Assessment Last Done: 09/02/25 12:55
*Neglect/Abuse Screening Last Done: 09/02/25 19:09
*ED COVID-19 Vaccine History Last Done: 09/02/25 12:55
*ED Influenza Vaccine History Last Done: 09/02/25 12:55
ED-EENT Assessment Last Done: 09/02/25 19:09
ED- Cardiac Assessment Last Done: 09/02/25 19:09
Discharge Date and Time
Print Language: YAKUT
[2025-09-02] MEDS: DILAUDID 0.5 MG IV ×2 (15:52→18:34)
[2025-09-02 16:00] LABS: Hematocrit 32.7 % (37.0-47.0); Hemoglobin 10.9 g/dL (12.0-16.0); Mean Corp Hgb Conc. 33.3 g/dL (33.0-37.0); Mean Corpuscular Volume 85.8 fL (81.0-99.0); Nucleated Red Blood Cells % 0 %; Platelet Count 182 10^3/uL (130-400); Red Cell Dist. Width 12.3 % (11.5-14.5)
[2025-09-02 16:19] LABS: Blood Urea Nitrogen 23 mg/dl (7-17); Calcium 8.7 mg/dl (8.4-10.2); Carbon Dioxide 30 mmol/L (22-30); Chloride 105 mmol/L (98-107); Estimated Creatinine Clearance 43 ml/min; Glucose 82 mg/dl (70-99); Potassium 4.3 mmol/L (3.5-5.1); Sodium 139 mmol/L (135-145); eGFR > 60.00
[2025-09-02 19:09] VITALS: BP 121/83
[2025-09-02 20:20] VITALS: BP 108/64
== END 2025-09-02 21:16 | disposition home or self-care (01) ==
LOC: EMR 12:54
PROVIDERS: EMERGENCY PHYSICIAN Emergency Medicine; FAMILY PHYSICIAN Family Medicine
DX: G50.0 Trigeminal neuralgia (principal); I10 Essential (primary) hypertension; E78.00 Pure hypercholesterolemia, unspecified; F41.9 Anxiety disorder, unspecified; K58.9 Irritable bowel syndrome, unspecified; Z90.49 Acquired absence of other specified parts of digestive tract
CPT/HCPCS: 99283; 96374; 96376; 80048; 85025